=== PATIENT | female | born 1950 | race Caucasian/White ===

== ENCOUNTER 2021-12-03 09:44 | Outpatient (CLI) | payer MEDICARE, OTHER, SELFPAY ==
--- NOTE | 2021-12-03 09:48 | BI_ITS ---
MAMMOGRAPHY - BILATERAL SCREENING REASON FOR EXAM: Female, 71 years old. Routine annual screening examination. PERTINENT HISTORY: Sister with breast cancer. Grandmother with breast cancer. TECHNIQUE: Digital bilateral breast josefa (3D mammographic acquisition) in the CC and MLO projections. 2-D mediolateral oblique (MLO) and craniocaudad (CC) views of both breasts were obtained. CAD: Full Field Digital Mammography with Computer Added Detection was performed. COMPARISON: Comparison is made with prior outside examinations dated 02/03/2020. FINDINGS: Breast Composition: The breasts are almost entirely fatty. There are no dominant masses or suspicious calcifications. No other significant abnormalities are identified. There has been no significant change since the prior study. BI/SCRN MAMM (CAD)W/JOSEFA BILAT IMPRESSION: Stable bilateral screening mammogram. Yearly follow-up mammogram recommended. (A) ASSESSMENT CATEGORY: BIRADS Category 1: Negative. A letter regarding these results will be sent to the patient by the facility within 30 days. Approximately 10% of breast cancers are not detected by mammography. A normal mammogram should not delay biopsy of a clinically suspicious abnormality. [id number] Electronically Signed: Adan Park MD at 12:30 EDT ,
== END 2021-12-03 23:59 | disposition home or self-care (01) ==
LOC: OPBI 09:46
PROVIDERS: PCP Internal Medicine; Visit Provider Internal Medicine
DX: Z12.31 Encounter for screening mammogram for malignant neoplasm of breast (principal)
CPT/HCPCS: 77063; 77067

== ENCOUNTER → 2022-04-03 | Outpatient (CLI) | payer MEDICARE, SELFPAY ==
--- NOTE | 2022-04-03 08:44 | BD_ITS ---
STUDY: DUAL ENERGY X-RAY ABSORPTIOMETRY / DXA REASON FOR EXAM: Female, 71 years old. [id number]. Patient is postmenopausal. TECHNIQUE: Bone Mineral Density (BMD) measurements of lumbar spine and left hip were obtained. COMPARISON: None. FINDINGS: Lumbar Spine (L1-L4): g/cm2 (1.185) / T-score (1.5) / Z-score (3.8) Findings are suggestive of normal bone density with a low fracture risk. Left Femur Total: g/cm2 (0.968) / T-score (0.2) / Z-score (1.9) Left Femoral Neck: g/cm2 (0.782) / T-score (-0.6) / Z-score (1.4) BD/Dexa Bone Density Study IMPRESSION: The patient is considered normal as outlined below according to World Justice Organization (WHO) criteria with a low fracture risk. Reference Information: The T-score is the number of standard deviations above or below the standard which is normal for young adults at their peak bone mineral density. The World Health Organization (WHO) interprets the T-scores as follows: Above -1 Normal bone density Between -1 and -2.5 Osteopenia Equal to / or below -2.5 Osteoporosis As a practical clinical guideline, osteopenia may be graded as follows: Mild -1 through -1.5 Moderate -1.6 through -2.0 Severe -2.1 through -2.4 The Z-score is the number of standard deviations above or below age-matched controls. A Z-score of less than -1.5 would be considered abnormal. References: 1. NIH Osteoporosis and Related Bone Diseases www osteo.org 2. International Society for Clinical Densitometry www iscd.org 3. National Osteoporosis Foundation www nof.org Electronically Signed: Adan Park MD at 14:25 EDT ,
== END | disposition home or self-care (01) ==
PROVIDERS: PCP Internal Medicine; Visit Provider Internal Medicine
DX: Z78.0 Asymptomatic menopausal state (principal)
CPT/HCPCS: 77080

== ENCOUNTER → 2022-10-24 | Outpatient (CLI) | payer MEDICARE, SELFPAY ==
[2022-10-24 09:13] LABS: Cholesterol 184 mg/dL (200); High Density Lipoprotein 59 mg/dL; Triglycerides 206 mg/dL; Very Low Density Lipoprotein 41 mg/dL (5-40)
== END | disposition home or self-care (01) ==
LOC: PAVLAB 08:37
PROVIDERS: PCP Internal Medicine
DX: I48.91 Unspecified atrial fibrillation (principal); I25.10 Atherosclerotic heart disease of native coronary artery without angina pectoris
CPT/HCPCS: 36415; 80061

== ENCOUNTER → 2022-12-18 | Outpatient (CLI) | payer MEDICARE, SELFPAY ==
--- NOTE | 2022-12-18 16:57 | RAD_ITS ---
STUDY: X-RAY - THORACIC SPINE REASON FOR EXAM: Female, 72 years old. Back pain. TECHNIQUE: 2 view(s) of the thoracic spine were obtained. COMPARISON: None. FINDINGS: Normal kyphosis of the thoracic spine. There is no substantial scoliosis. Normal thoracic vertebrae and endplates. Normal disc space heights. There is no acute fracture, dislocation or destructive osseous pathology. The soft tissue structures are unremarkable. RAD/Thoracic Spine 2 Views IMPRESSION: Normal x-ray examination of the thoracic spine. Electronically Signed: Harpal Stock DO at 18:48 EDT ,
--- NOTE | 2022-12-18 16:58 | RAD_ITS ---
INDICATION: BACK PAIN EXAMINATION/TECHNIQUE: X-RAY - XR Spine Lumbar Comp W/ Bending Min 6 Views COMPARISON: None. FINDINGS: VERTEBRAE: Vertebral body height is maintained, there is a mild dextroscoliotic curvature, multilevel spondylosis with marginal osteophytes noted. No fracture destructive bony process or subluxation. Normal appearance of the sacrum and sacroiliac joints. DISCS: Disc spaces are maintained, there however is vacuum phenomena at the L3-4 and L4-5 disc spaces. Marginal osteophytes are present. Multilevel facet arthropathy from L2 to S1. INCLUDED ABDOMEN: Included bowel gas pattern is non-obstructive. Diffuse aortic calcifications are present. RAD/L/S Spine w Bend Min 6 Vw IMPRESSION: 1. Diffuse lumbar spondylosis, facet arthrosis without evidence of fracture, subluxation or destructive bony process. Moderate to extensive facet arthropathy from L2 to S1. Electronically Signed: Jonathan Ramsay MD at 19:56 EDT ,
[2022-12-18 17:55] LABS: Absolute Lymphocyte Count 2.79 X10^3/uL (0.83-4.51); Absolute Neutrophil Count 4.1 X10^3/uL (2.0-7.7); Basophil# 0.07 X10^3/uL; Basophil% 0.8 % (0-1); Eosinophil# 0.51 X10^3/uL; Eosinophils% 6.2 % (0-5); Hematocrit 39.2 % (37-47); Hemoglobin 12.4 g/dL (12.0-15.0); Lymphocyte # 2.79 X10^3/ul (0.83-4.51); Lymphocyte % 33.8 % (19-41); Mean Corp Hgb Conc 31.6 g/dL (32-36); Mean Corpuscular Hgb 33.2 pg (27.0-32.0); Mean Corpuscular Volume 104.8 fL (81-99); Mean Platelet Vol. 10.1 fl (6.2-12.0); Monocyte# 0.75 X10^3/uL; Monocyte% 9.1 % (0-10); NRBC Flagged by Analyzer 0 % (0-5); Neutrophil # 4.08 X10^3/uL (2.7-7.7); Neutrophil % 49.5 % (47-70); Platelet Count 267 K/mm3 (150-450); RBC Distribution Width SD 53.1 fl (35.1-43.9); Red Blood Count 3.74 M/mm3 (4.2-5.4); White Blood Count 8.3 K/mm3 (4.4-11.0)
[2022-12-18 18:15] LABS: Hemoglobin A1c 5.3 % (3.8-5.6)
[2022-12-18 19:59] LABS: ALB/GLOB Ratio 0.8 RATIO (0.9-2.4); AST(SGOT) 14 U/L (15-37); Alanine Aminotransfer ALT/SGPT 12 U/L (13-56); Alkaline Phosphatase 68 U/L (45-117); Anion Gap 2 (5-15); BUN 9 mg/dL (7-18); BUN/Creat Ratio 11.2 RATIO (10-20); Calcium,Total 8.9 mg/dL (8.5-10.1); Chloride 109 mmol/L (98-107); EST Glomerular Filtration Rate 75 mL/min (>60); Est Glom Filt Rate - Afr Amer 90 mL/min (>60); Globulin 3.8 g/dL (2.2-4.2); Glucose 88 mg/dL (74-106); Potassium 4.1 mmol/L (3.5-5.1); Protein, Total 6.8 g/dL (6.4-8.2); Sodium Level 142 mmol/L (136-145); Thyroid Stim Hormone (TSH) 3.01 uIU/mL (0.358-3.74)
== END | disposition home or self-care (01) ==
PROVIDERS: PCP Internal Medicine; Referring Provider Internal Medicine; Visit Provider Internal Medicine
DX: R53.83 Other fatigue (principal); I48.11 Longstanding persistent atrial fibrillation; R73.9 Hyperglycemia, unspecified; M54.50 Low back pain, unspecified
CPT/HCPCS: 36415; 72070; 72114; 80053; 83036; 84443; 85025

== ENCOUNTER → 2023-05-19 | Outpatient (CLI) | payer MEDICARE, SELFPAY ==
--- NOTE | 2023-05-19 13:21 | VDLE_ITS ---
Reason For Study: RLE swelling RIGHT LEFT GSV is normal. GSV is normal. CFV is compressible, spontaneous, phasic, CFV is compressible, spontaneous, phasic, competent and demonstrates normal competent, and demonstrates normal augmentation. augmentation. FV is compressible, spontaneous, phasic, FV is compressible, spontaneous, phasic, competent and demonstrates normal competent and demonstrates normal augmentation. augmentation. POP V is compressible, spontaneous, phasic, POP V is compressible, spontaneous, phasic, competent and demonstrates normal competent and demonstrates normal augmentation. augmentation. T/P Trunk is compressible. T/P Trunk is compressible. PTV is compressible. PTV is compressible. RT PerV is compressible. LT PerV is compressible. Procedure This is a venous duplex using B-mode, color flow and spectral Doppler. Exam performed in department. The exam was diagnostic. A preliminary report was called and/or faxed to Dr. Arora. VL/Venous Duplex US - Juan Extrem Interpretation Summary Deep veins of the lower extremities are bilaterally patent and compressible seg mentally. There is no evidence of deep vein thrombosis on either side. Valvular competence appears in tact within the proximal deep venous systems bilaterally. The great saphenous veins appear bila terally patent and compressible segmentally. Ordering Physician: Kelsey Arora Performed By: Basim Anderson, RVT
== END | disposition home or self-care (01) ==
LOC: CVS 13:18
PROVIDERS: PCP Internal Medicine; Referring Provider Internal Medicine; Visit Provider Internal Medicine
DX: M79.89 Other specified soft tissue disorders (principal)
CPT/HCPCS: 93970

== ENCOUNTER → 2023-05-30 | Outpatient (CLI) | payer MEDICARE, SELFPAY ==
--- NOTE | 2023-05-30 09:41 | CT_ITS ---
EXAM: CT CHEST, LUNG CANCER SCREENING WITHOUT INTRAVENOUS CONTRAST CLINICAL INDICATION: CIGARETTE SMOKER TECHNIQUE: Helically acquired images were obtained of the chest without intravenous contrast using low dose (LDCT) lung cancer screening protocol. This CT exam was performed using one or more of the following dose reduction techniques: automated exposure control, adjustment of the mA and/or kV according to patient size, and/or use of iterative reconstruction technique. COMPARISON: No relevant prior studies available. FINDINGS: LUNGS AND PLEURAL SPACES: There are emphysematous changes in the lung apices. There is minimal interstitial scarring present in both lungs. No mass. No pleural effusion or thickening. No pneumothorax. HEART: Unremarkable. Heart size is normal. No pericardial effusion. No significant coronary artery calcifications. MEDIASTINUM: Unremarkable. No mediastinal or hilar adenopathy. Esophagus is unremarkable. No hiatal hernia. THYROID: Unremarkable. No thyroid lesions. BONES/JOINTS: Unremarkable. No suspicious lytic or blastic abnormality. VASCULATURE: Unremarkable. Thoracic aorta is non-dilated. LYMPH NODES: Unremarkable. No enlarged lymph nodes. CT/Low Dose CT Lung Screening IMPRESSION: No acute pulmonary abnormality. There are emphysematous changes with interstitial scarring. Lung-RADS score: 1S - Additional clinically significant or potentially clinically significant findings are described. Recommend continued annual screening with a low-dose CT (LDCT) in 12 months. Electronically Signed: Stephen Mcdowell MD at 0:01 EDT ,
== END | disposition home or self-care (01) ==
LOC: CT 09:40
PROVIDERS: PCP Internal Medicine; Referring Provider Internal Medicine; Visit Provider Internal Medicine
DX: Z12.2 Encounter for screening for malignant neoplasm of respiratory organs (principal); F17.210 Nicotine dependence, cigarettes, uncomplicated
CPT/HCPCS: 71271

== ENCOUNTER 2023-06-26 18:36 | Inpatient (IN) | payer MEDICARE, SELFPAY ==
[2023-06-26] VITALS (18 sets, daily range): BP systolic 83–116; BP diastolic 43–74; PULSE 106–120; RESP 12–34; TEMP 36.9–38.8; O2SAT 91–97; BMI 35.2; BMI 34.9
--- NOTE | 2023-06-26 18:45 | EKG12_ITS ---
Test Reason : DYSRHYTHMIA Blood Pressure : / mmHG Vent. Rate : 116 BPM Atrial Rate : 116 BPM P-R Int : 200 ms QRS Dur : 090 ms QT Int : 304 ms P-R-T Axes : 046 054 043 degrees QTc Int : 422 ms Sinus tachycardia with occasional Premature ventricular complexes Low voltage QRS Nonspecific ST and T wave abnormality Abnormal ECG Confirmed by GARRISON LARSON, NICOLE ([id number]), news videotape editor VALORIE BECK ([id number]) on 06/30/2023 7:46:24 AM Referred By: Confirmed By:NICOLE JI MD
--- NOTE | 2023-06-26 18:48 | EX.ED.CRITCA ---
HPI History of Present Illness Chief Complaint: Overdose Detail of Chief Complaint: Somnolence, hypoxia Informant: EMS Limited: coma Onset/Context/Timing Onset: Today (Per roommate reporting to EMS) Context: - (Unknown) Timing: Continuous Quality: Pulse ox 68% Location: Sitting on the commode Current Severity: Unable to determine Maximum Severity: Unable to determine Worsened by: Unknown Relieved by: Nothing Associated Symptoms Length of loss of consciousness: Unknown Narrative Narrative: Patient is 72-year-old woman who was found by roommate sitting on the commode. Resumption is that she was on the commode for some time. Paramedics documented a pulse ox of 60% on room air. She was cyanotic. No other history is obtainable PFSH PFS Medical History unable to obtain unable to obtain Allergy/AdvReac Type Severity Reaction Status Date / Time No Known Allergies Allergy Verified 06/26/23 18:42 Surgical History unable to obtain unable to obtain Social History Smoking Status: Current some day smoker tobacco type: cigarettes ROS ROS ED Review of Systems ROS Unobtainable: due to encephalopathy and due to mental status EXAM Physical Exam Const Vital Signs: 06/26/23 18:38 06/26/23 18:46 06/26/23 18:47 Temperature 98.5 F Temperature Source Temporal Pulse Rate 120 H Respiratory Rate 34 H Respiratory Effort Short of Breath Labored Respiratory Depth Shallow Respiratory Pattern Tachypnea Blood Pressure 101/56 L Blood Pressure Mean 71 Pulse Ox 92 92 Oxygen Delivery Method Non-Rebreather @ 15L/min Non-Rebreather @ 15L/min Non-Rebreather @ 15L/min Oxygen Flow Rate (L/min) 15 Fraction of Inspired Oxygen (FIO2) 06/26/23 19:22 06/26/23 19:21 06/26/23 19:34 Temperature Temperature Source Pulse Rate 110 H 112 H 108 H Respiratory Rate 25 H 28 H 27 H Respiratory Effort Respiratory Depth Respiratory Pattern Tachypnea Blood Pressure 93/73 86/43 L Blood Pressure Mean 79 57 Pulse Ox 94 91 95 Oxygen Delivery Method Bi-pap Bi-pap Oxygen Flow Rate (L/min) Fraction of Inspired Oxygen (FIO2) 100 06/26/23 19:43 06/26/23 20:01 Temperature 102 F H 101.9 F H Temperature Source Core Core Pulse Rate 108 H 109 H Respiratory Rate 33 H 26 H Respiratory Effort Respiratory Depth Respiratory Pattern Blood Pressure 101/52 L 105/61 Blood Pressure Mean 68 75 Pulse Ox 97 97 Oxygen Delivery Method Bi-pap Bi-pap Oxygen Flow Rate (L/min) Fraction of Inspired Oxygen (FIO2) Positive well nourished, well developed and obese Constitutional Narrative: Is tachypneic. There is slight use of accessory muscles. General Appearance ED: well developed; Negative for pallor Nutritional Appearance: obese HEENT normocephalic, atraumatic and cyanosis of lips/distal nose Eyes PERRL and EOMs intact bilaterally General Eye ED: Negative for pale conjunctiva or scleral icterus Neck no lymphadenopathy, supple and no JVD Neck Narrative: Difficult to assess for JVD because of this Resp Resp Narrative: Use of accessory muscles. There is bilateral adventitial breath sounds and rales. Cardio regular rhythm, S1 normal heart sound and S2 normal heart sound Rate: tachycardic GI non-tender, non-distended and no masses Palpation: soft Neuro No oriented x3 Sensorium / Orientation: Negative for alert Gait (Neuro): Negative for normal gait Psych Psych Narrative: Unable to assess Skin General Skin Exam: Negative for jaundice or pallor Lesions: no lesions Rashes: no rashes Sepsis Attestation Sepsis Alert: Yes Date exam was performed: 06/26/23 Time exam was performed: 19:30 Possible Source of Sepsis: Pulmonary Sepsis Organ Dysfunction Criteria Present: SBP < 90 mmHg or MAP < 65 mmHg, Lactic Acid > 2 mmol/L and PaO2/FiO2 ratio < 300 Fluid Resuscitation Fluid resuscitation indicated?: Yes Fluid Resuscitation ordered: 30 ml/kg fluid bolus ordered MDM MDM MDM Narrative Medical decision making narrative: Arrives cyanotic hypoxic somnolent. Concern patient may have pneumonia, concern for hypercapnia. Need to evaluate for sepsis since she is hypotensive, tachycardic and tachypneic. Sepsis work-up was initiated. ABG was obtained as well as appropriate blood work. History & Record Review Additional record(s) reviewed:: Prior outpatient record (Scanned document the patient is undergoing work-up for malignancy respiratory system.) Lab Data Attestation: I reviewed the patient's lab results. Lab results narrative: Count is 23 to Alzain with shift. Patient has macrocytic anemia. PT and INR slightly elevated 17.1 and 1.4. Comprehensive metabolic panel is remarkable for a creatinine of 1.37 with a GFR of 40. Glucose slightly elevated 111 with a normal CO2 and gap. Urinalysis is negative. I was informed that lactate is 6.6. Labs: Laboratory Results - last 24 hr 06/26/23 06/26/23 18:52 19:15 WBC 23.1 H RBC 3.48 L Hgb 10.9 L Hct 36.0 L MCV 103.4 H MCH 31.3 MCHC 30.3 L RDW Std Deviation 56.9 H RDW Coeff of Anabela 15.0 H Plt Count 230 MPV 10.5 Immature Gran % (Auto) 0.500 Neut % (Auto) 91.0 H Lymph % (Auto) 4.0 L [place] % (Auto) 3.9 Eos % (Auto) 0.3 Baso % (Auto) 0.3 Absolute Neuts (auto) 20.9 H Absolute Lymphs (auto) 0.92 Nucleated RBC % 0.2 Differential Comment SCANNED PT 17.1 H INR 1.4 APTT 29.7 Sodium 141 Potassium 4.4 Chloride 108 H Carbon Dioxide 27.0 Anion Gap 6 BUN 15 Creatinine 1.37 H Estim Creat Clear Calc 35.03 Est GFR (MDRD) Af Amer 48 L Est GFR (MDRD) Non-Af 40 L BUN/Creatinine Ratio 10.9 Glucose 111 H Lactic Acid 6.6 H* Calcium 8.6 Total Bilirubin 0.40 AST 18 ALT 13 Alkaline Phosphatase 59 Total Protein 6.5 Albumin 2.6 L Globulin 3.9 Albumin/Globulin Ratio 0.7 L Urine Color Yellow Urine Clarity Clear Urine pH 7.0 Ur Specific [place] 1.005 Urine Protein Negative Urine Glucose (UA) Normal Urine Ketones Negative Urine Occult Blood Negative Urine Nitrite Negative Urine Bilirubin Negative Urine Urobilinogen Normal Ur Leukocyte Esterase Negative Urine RBC 0 SEEN Urine WBC 0 SEEN Ur Squamous Epith Cells 0 SEEN Urine Bacteria 0 SEEN Urine Mucus 0 SEEN ABG Data Attestation: I personally reviewed and interpreted this ABG as follows: Interpretation: G reveals no acid-base disturbance. Patient has significant AA gradient. PO2 is 64 on nonrebreather mask. Plan is to place on BiPAP. ABG results: ABG 06/26/23 19:11 Specimen Type ART Sample Site L Radial pH 7.35 Bicarbonate Actual 25.2 Total CO2 27 Base Excess -1 O2 Saturation 91 L O2 % 100.0 ABG pCO2 45.8 H ABG pO2 64 L [place] Test Positive O2 Delivery Device NRB Vent Mode Not entered Radiography Diagnostic Testing: Clinical Impression(s) from Imaging Studies Chest X-Ray 06/26/23 19:24 IMPRESSION: There is a right pleural effusion. Bilateral patchy infiltrates, left more than right. Electronically Signed: Jose Carlos Blandon DO at 20:14 EDT , Rhythm Strip Rhythm Strip: Sinus Tach Rate: 122 EKG Initial EKG: Attestation: I personally reviewed and interpreted this EKG as follows: Interpretation: Sinus Tachycardia (Is 116. There is a premature ventricular beat noted. There is evidence of low voltage. There is nonspecific ST-T wave changes. SD interval is 200 ms. Cures duration 90 ms. QT duration 304 ms. [place] is normal.) Management Discussion w/another healthcare provider: Hospitalist Treatment and Re-Evaluation Narrative: In light of x-ray findings 500 mg of azithromycin was added to the initial dose of Rocephin. Patient meets criteria for septic shock. blood pressure did respond to fluids. 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
[2023-06-26 19:01] LABS: Absolute Lymphocyte Count 0.92 X10^3/uL (0.83-4.51); Absolute Neutrophil Count 20.9 X10^3/uL (2.0-7.7); Basophil# 0.08 X10^3/uL; Basophil% 0.3 % (0-1); Eosinophil# 0.08 X10^3/uL; Eosinophils% 0.3 % (0-5); Hemoglobin 10.9 g/dL (12.0-15.0); Lymphocyte # 0.92 X10^3/ul (0.83-4.51); Mean Corp Hgb Conc 30.3 g/dL (32-36); Mean Corpuscular Hgb 31.3 pg (27.0-32.0); Mean Corpuscular Volume 103.4 fL (81-99); Mean Platelet Vol. 10.5 fl (6.2-12.0); Monocyte# 0.91 X10^3/uL; Monocyte% 3.9 % (0-10); NRBC Flagged by Analyzer 0.2 % (0-5); Neutrophil # 20.94 X10^3/uL (2.7-7.7); POSITIVE DIFFERENTIAL YES; POSITIVE MORPHOLOGY YES; Platelet Count 230 K/mm3 (150-450); RBC Distribution Width SD 56.9 fl (35.1-43.9); Red Blood Count 3.48 M/mm3 (4.2-5.4); White Blood Count 23.1 K/mm3 (4.4-11.0)
[2023-06-26 19:03] LABS: Differential Indicated SCAN CRITERIA MET
[2023-06-26 19:12] LABS: International Normalized Ratio 1.4; Prothrombin Time (Protime)PT. 17.1 SECONDS (11.7-14.9)
[2023-06-26 19:13] LABS: Partial Thromboplast Time 29.7 Seconds (24.1-36.2)
[2023-06-26 19:15] LABS: ALB/GLOB Ratio 0.7 RATIO (0.9-2.4); AST(SGOT) 18 U/L (15-37); Alanine Aminotransfer ALT/SGPT 13 U/L (13-56); Albumin, Serum 2.6 g/dL (3.2-5.0); Alkaline Phosphatase 59 U/L (45-117); Anion Gap 6 (5-15); BUN 15 mg/dL (7-18); BUN/Creat Ratio 10.9 RATIO (10-20); Calcium,Total 8.6 mg/dL (8.5-10.1); Chloride 108 mmol/L (98-107); Creatinine, Serum 1.37 mg/dL (0.55-1.02); EST Glomerular Filtration Rate 40 mL/min (>60); Est Glom Filt Rate - Afr Amer 48 mL/min (>60); Estimated Creatinine Clearance 35.03 ml/min; Globulin 3.9 g/dL (2.2-4.2); Glucose 111 mg/dL (74-106); Potassium 4.4 mmol/L (3.5-5.1); Protein, Total 6.5 g/dL (6.4-8.2); Sodium Level 141 mmol/L (136-145)
[2023-06-26 19:15] LABS: Allen Test Positive; Base Excess -1 mmol/L (-2 to +2); Bicarbonate 25.2 mmol/L (22-26); Blood Gas Specimen Type ART; Mode Not entered; O2 Delivery Device NRB; PO2 64 mmHG (75-100); SITE L Radial; SO2 91 % (95-99); Total Carbon Dioxide 27 mmol/L; pCO2 45.8 mmHg (35-45); pH 7.35 (7.35-7.45)
[2023-06-26 19:19] LABS: Bacteria 0 SEEN /hpf (None Seen); Mucous, Urine 0 SEEN /hpf (<or=2+); Red Blood Cells-Urine 0 SEEN /hpf (0-5); Squamous Epithelial Cells - UA 0 SEEN /hpf (5-10); White Blood Cells 0 SEEN /hpf (0-5)
[2023-06-26 19:22] LABS: Color, Urine Yellow (Yellow); Glucose, Dipstick Normal (Normal); Ketone-Dipstick Negative (Negative); Leukocyte Esterase-Dipstick Negative /ul (Negative); Nitrite-Dipstick Negative (Negative); Occult Blood-Urine Negative /ul (Negative); Protein-Dipstick Negative (Negative); Specific Gravity, Urine 1.005 (1.002-1.030); Urine Bilirubin Dipstick Negative (Negative); Urine Clarity Clear (Clear); Urine Urobilinogen Normal (Normal)
--- NOTE | 2023-06-26 19:24 | RAD_ITS ---
INDICATION: Phillip failure EXAMINATION/TECHNIQUE: X-RAY - XR Chest 1 View COMPARISON: February 27, 2023 FINDINGS: LINES/DEVICES: None. LUNGS: There is a right pleural effusion. Bilateral patchy infiltrates, left more than right. MEDIASTINUM AND CARDIOVASCULAR STRUCTURES: Cardiac silhouette not enlarged. Central airways and mediastinal contour are unremarkable. BONES AND SOFT TISSUES: Unremarkable. RAD/Chest 1 View (Portable) IMPRESSION: There is a right pleural effusion. Bilateral patchy infiltrates, left more than right. Electronically Signed: Jose Carlos Blandon DO at 20:14 EDT ,
[2023-06-26] MEDS: 0.9% Normal Saline (1000mL) 1,000 ML 999 ML IV ×3 (19:29→20:04)
[2023-06-26 19:30] LABS: Differential Comment SCANNED
[2023-06-26 19:37] LABS: Lactic Acid 6.6 mmol/L (0.4-1.9)
[2023-06-26] MEDS: Ceftriaxone 1 GM/50 ML BAG IV (19:39)
[2023-06-26] MEDS: Azithromycin 500 MG in Dextrose 5%-Water (250mL Bag) 250 ML 250 MG IV (20:05)
--- NOTE | 2023-06-26 20:46 | HP.PCM.HOS_ITS ---
HPI - General General Date of Admission: 06/26/23 Date of Service: 06/26/23 Chief Complaint: Unresponsiveness HPI Narrative GERALD ROUSE, is a 72 F who presented to the emergency department with unresponsiveness. Reportedly a day before presentation patient took an extra dose of Eliquis; trazodone and antipsychotic and she was found unresponsive sitting on the commode. Per emergency department doctor who initially saw patient, patient was somnolent and she was moaning. She follows only very simple commands. Her oxygen saturation was 65% on room air. ED doctor reports the patient had wheezes throughout with right worse than left. Blood pressure initially was low with a MAP of about 59 and a lactic acid of 6.6. Chest x-ray showed interstitial infiltrates. Patient responded to fluids resuscitation. Patient was given Rocephin and azithromycin at the emergency department. Upon hospitalist examination patient was still somnolent. When prodded she responded that she has not been feeling good for about 1 day. When asked the question of why she takes Eliquis and whether she has had blood clots in her lungs or in the legs she indicated that she had had a blood clot in her lungs. She did not answer to the question of whether she has had A-fib. [facility] Medical History Pulmonary emboli Medical History unable to obtain Home Medications apixaban 5 mg tablet (Eliquis) 5 mg PO BID 06/26/23 [History Last Taken Unknown] bupropion HCl 300 mg 24 hr tablet, extended release 300 mg PO DAILY 06/26/23 [History Last Taken Unknown] carbidopa 25 mg-levodopa 100 mg tablet 2 tab PO DAILY 06/26/23 [History Last Taken Unknown] hydrocodone-acetaminophen 5-325mg 5mg-325mg 1 tab PO TID PRN pain 06/26/23 [History Last Taken Unknown] prednisone 10 mg tablet 20 mg PO DAILY 06/26/23 [History Last Taken Unknown] pregabalin 300 mg capsule 300 mg PO BID 06/26/23 [History Last Taken Unknown] rosuvastatin 40 mg tablet 40 mg PO DAILY 06/26/23 [History Last Taken Unknown] sertraline 100 mg tablet 100 mg PO DAILY 06/26/23 [History Last Taken Unknown] torsemide 100 mg tablet 100 mg PO DAILY PRN SEE PCP. 06/26/23 [History Last Taken Unknown] trazodone 100 mg tablet 100 mg PO QHS 06/26/23 [History Last Taken Unknown] Allergy/AdvReac Type Severity Reaction Status Date / Time No Known Allergies Allergy Verified 06/26/23 18:42 Family History unable to obtain unable to obtain Surgical History unable to obtain unable to obtain Social History Smoking Status: Current some day smoker tobacco type: cigarettes ROS Review of Systems ROS Unobtainable: due to mental condition Vital Signs Vital Signs Vital Signs: 06/26/23 18:38 06/26/23 18:46 06/26/23 18:47 Temperature 98.5 F Temperature Source Temporal Pulse Rate 120 H Respiratory Rate 34 H Respiratory Effort Short of Breath Labored Respiratory Depth Shallow Respiratory Pattern Tachypnea Blood Pressure 101/56 L Blood Pressure Mean 71 Pulse Ox 92 92 Oxygen Delivery Method Non-Rebreather @ 15L/min Non-Rebreather @ 15L/min Non-Rebreather @ 15L/min Oxygen Flow Rate (L/min) 15 Fraction of Inspired Oxygen (FIO2) 06/26/23 19:22 06/26/23 19:21 06/26/23 19:34 Temperature Temperature Source Pulse Rate 110 H 112 H 108 H Respiratory Rate 25 H 28 H 27 H Respiratory Effort Respiratory Depth Respiratory Pattern Tachypnea Blood Pressure 93/73 86/43 L Blood Pressure Mean 79 57 Pulse Ox 94 91 95 Oxygen Delivery Method Bi-pap Bi-pap Oxygen Flow Rate (L/min) Fraction of Inspired Oxygen (FIO2) 100 06/26/23 19:43 06/26/23 20:01 06/26/23 20:39 Temperature 102 F H 101.9 F H 101.4 F H Temperature Source Core Core Pulse Rate 108 H 109 H 108 H Respiratory Rate 33 H 26 H 23 H Respiratory Effort Respiratory Depth Respiratory Pattern Blood Pressure 101/52 L 105/61 107/63 Blood Pressure Mean 68 75 77 Pulse Ox 97 97 94 Oxygen Delivery Method Bi-pap Bi-pap Oxygen Flow Rate (L/min) Fraction of Inspired Oxygen (FIO2) 06/26/23 20:44 Temperature 101.4 F H Temperature Source Core Pulse Rate 108 H Respiratory Rate 27 H Respiratory Effort Respiratory Depth Respiratory Pattern Blood Pressure 107/63 Blood Pressure Mean 77 Pulse Ox 93 Oxygen Delivery Method Bi-pap Oxygen Flow Rate (L/min) Fraction of Inspired Oxygen (FIO2) Weight Weight: 102 kg Body Mass Index (BMI) 35.2 Physical Exam Narrative Physical exam: General: Somnolent. Head: Normocephalic, atraumatic, no tenderness Eyes: Vision is grossly intact. ENT, no trauma, dry mucous membranes, no rhinorrhea Neck: Nontender, No thyromegaly. CVS: Tachycardia. S1-S2 present. No murmur, gallop or rub. Respiratory : Rhonchi, chest wall nontender Abdomen: Soft, nontender, nondistended, normal bowel sounds, no masses : Deferred Back: Nontender, no CVA tenderness Extremities: Nontender; no trauma Skin: Dry skin; no abrasions seen Neuro: Somnolent Psychiatry: Somnolent Results Lab / Micro Data 06/26/23 18:52 06/26/23 18:52 Labs: Laboratory Results - last 24 hr 06/26/23 18:52: WBC 23.1 H, RBC 3.48 L, Hgb 10.9 L, Hct 36.0 L, MCV 103.4 H, MCH 31.3, MCHC 30.3 L, RDW Std Deviation 56.9 H, RDW Coeff of Anabela 15.0 H, Plt Count 230, MPV 10.5, Immature Gran % (Auto) 0.500, Neut % (Auto) 91.0 H, Lymph % (Auto) 4.0 L, [place] % (Auto) 3.9, Eos % (Auto) 0.3, Baso % (Auto) 0.3, Absolute Neuts (auto) 20.9 H, Absolute Lymphs (auto) 0.92, Nucleated RBC % 0.2, Differential Comment SCANNED, PT 17.1 H, INR 1.4, APTT 29.7, Sodium 141, Potassium 4.4, Chloride 108 H, Carbon Dioxide 27.0, Anion Gap 6, BUN 15, Creatinine 1.37 H, Estim Creat Clear Calc 35.03, Est GFR (MDRD) Af Amer 48 L, Est GFR (MDRD) Non-Af 40 L, BUN/Creatinine Ratio 10.9, Glucose 111 H, Lactic Acid 6.6 H*, Calcium 8.6, Total Bilirubin 0.40, AST 18, ALT 13, Alkaline Phosphatase 59, Total Protein 6.5, Albumin 2.6 L, Globulin 3.9, Albumin/Globulin Ratio 0.7 L 06/26/23 19:15: Urine Color Yellow, Urine Clarity Clear, Urine pH 7.0, Ur Specific [place] 1.005, Urine Protein Negative, Urine Glucose (UA) Normal, Urine Ketones Negative, Urine Occult Blood Negative, Urine Nitrite Negative, Urine Bilirubin Negative, Urine Urobilinogen Normal, Ur Leukocyte Esterase Negative, Urine RBC 0 SEEN, Urine WBC 0 SEEN, Ur Squamous Epith Cells 0 SEEN, Urine Bacteria 0 SEEN, Urine Mucus 0 SEEN ABG Data ABG results: ABG 06/26/23 19:11 Specimen Type ART Sample Site L Radial pH 7.35 Bicarbonate Actual 25.2 Total CO2 27 Base Excess -1 O2 Saturation 91 L O2 % 100.0 ABG pCO2 45.8 H ABG pO2 64 L [place] Test Positive O2 Delivery Device NRB Vent Mode Not entered Rhythm Strip Rhythm Strip: Sinus Tach Rate: 122 Radiology Impression Chest X-Ray 06/26/23 19:24 IMPRESSION: There is a right pleural effusion. Bilateral patchy infiltrates, left more than right. Electronically Signed: Jose Carlos Blandon DO at 20:14 EDT Reading Location ID and State: [facility] / [place] Tel [phone], Service support , Assessment & Plan Assessment/Plan (1) Acute hypoxic respiratory failure: (2) Septic shock: (3) Encephalopathy due to infection: PLAN: Plan Acute hypoxemic respiratory failure secondary to pneumonia with septic shock and possibly drug overdose Patient required BiPAP at the emergency department. The patient presented with sepsis due to (infection) with acute sepsis related organ dysfunction as evidenced by (organ dysfunction/s). SIRS criteria: Temperature more than 100.9 (Tmax of 102 Fahrenheit in patient's case) Fahrenheit Respiratory rate more than 20 (maximum recorded respiratory rate at the emergency department was 34) Heart rate more than 90 (highest respiratory rate on presentation was 120) WBC more than 12,000 (23,100 in patient case) organ dysfunction: SBP less than 90 or MAP less than 65 Acute respiratory failure Creatinine more than 2 or urine output less than 0.5 mL/kg/h for 2 hours Septic shock criteria - patient's lactic acid was more than 4 (6.6 in patient case). Patient was given azithromycin and ceftriaxone in the emergency department. Azithromycin IV will be continued. Will order Unasyn for patient. Urinalysis is unremarkable. Urine ordered at the ED. Results are pending. Blood culture x2 ordered at the ED. Acute infectious and toxic encephalopathy Likely secondary to sepsis from pneumonia and drug overdose Treatment of sepsis as above. Hold all psychogenic medications. History of PE We will put patient on therapeutic dose of Lovenox patient will be n.p.o. History of steroids use On patient medication list is prednisone 20 mg p.o. daily. In the setting of acute disease we will order hydrocortisone IV to prevent adrenal insufficiency. DVT Prophylaxis: Not indicated as patient is on therapeutic dose of Lovenox Time spent in the patient's overall evaluation,decision-making process, review of diagnostic data, adjustment of management, discussion with other providers, nursing nursing and ancillary staff involved in patient's care documentation, 70 minutes . Sepsis Attestation Sepsis Attestation: Agree w/Sepsis Date exam was performed: 06/26/23 Time exam was performed: 09:00 Possible Source of Sepsis: Pulmonary Sepsis Organ Dysfunction Criteria Present: SBP < 90 mmHg or MAP < 65 mmHg, Acute Respiratory Failure (New need for BiPAP/CPAP or MV), Lactic Acid > 2 mmol/L and New/Unexplained change in mental status Fluid Resuscitation Fluid Resuscitation ordered: 30 ml/kg fluid bolus ordered Charges/Coding Visit Charges Inpatient E&M: 92981 Init Hosp L3
--- NOTE | 2023-06-26 20:49 | ED.RN ---
THIS RN CALLED REPORT TO ICU. REPORT GIVEN TO MARISOL STRINGER. AT 2049.
[2023-06-26] MEDS: Enoxaparin 100 MG/ML Syringe SC (21:58)
[2023-06-26] MEDS: Lactated Ringers 1,000 ML 75 ML IV (21:58)
[2023-06-26 22:57] LABS: Reflex Lactate? Y
[2023-06-26] MEDS: Ampicillin/Sulbactam 3 GM in 0.9% Normal Saline (100mL MB+) 100 ML IV (23:44)
[2023-06-27] VITALS (33 sets, daily range): BP systolic 83–141; BP diastolic 51–86; PULSE 97–122; RESP 12–34; TEMP 35.9–37.2; O2SAT 89–98; BMI 34.9
[2023-06-27] MEDS: Ampicillin/Sulbactam 3 GM in 0.9% Normal Saline (100mL MB+) 100 ML IV ×4 (05:07→23:36)
[2023-06-27] MEDS: Enoxaparin 100 MG/ML Syringe SC (05:09)
[2023-06-27 06:11] LABS: Hematocrit 31.9 % (37-47); Hemoglobin 9.5 g/dL (12.0-15.0); Mean Corp Hgb Conc 29.8 g/dL (32-36); Mean Corpuscular Hgb 31.1 pg (27.0-32.0); Mean Corpuscular Volume 104.6 fL (81-99); POSITIVE MORPHOLOGY YES; Platelet Count 210 K/mm3 (150-450); RBC Distribution Width CV 15.1 % (11.6-14.6); RBC Distribution Width SD 58.3 fl (35.1-43.9); Red Blood Count 3.05 M/mm3 (4.2-5.4); White Blood Count 19.3 K/mm3 (4.4-11.0)
[2023-06-27 06:21] LABS: Differential Indicated MANUAL DIFF
[2023-06-27 06:27] LABS: Eosinophil 1 % (0-5); Lymphocyte 5 % (19-41); Metamyelocyte 25 % (0-1); Monocyte 3 % (0-10); Myelocyte 1 % (0-0); Neutrophil-Band 10 % (0-5); Neutrophil-Segmented 55 % (47-70); Total Cells Counted 100 (MANUAL DIFF)
[2023-06-27 06:29] LABS: Absolute Lymphocyte Count 0.97 X10^3/uL (0.83-4.51); Absolute Neutrophil Count 17.6 X10^3/uL (2.0-7.7); Lymphocyte # 0.97 X10^3/ul (0.83-4.51); Neutrophil # 17.56 X10^3/uL (2.7-7.7); Platelet Estimate ADEQUATE (ADEQ)
[2023-06-27 06:30] LABS: Polychromasia RARE
[2023-06-27 06:33] LABS: Anion Gap 3 (5-15); BUN 14 mg/dL (7-18); BUN/Creat Ratio 17.3 RATIO (10-20); Calcium,Total 7.4 mg/dL (8.5-10.1); Chloride 112 mmol/L (98-107); Creatinine, Serum 0.81 mg/dL (0.55-1.02); EST Glomerular Filtration Rate 73 mL/min (>60); Est Glom Filt Rate - Afr Amer 89 mL/min (>60); Estimated Creatinine Clearance 61.47 ml/min; Glucose 95 mg/dL (74-106); Potassium 3.9 mmol/L (3.5-5.1); Sodium Level 146 mmol/L (136-145)
[2023-06-27 07:32] LABS: Magnesium 1.8 mg/dL (1.6-2.6); Phosphorus 1.9 mg/dL (2.5-4.9)
--- NOTE | 2023-06-27 07:38 | PN.HOSP_ITS ---
Subjective Subjective Oxygen able to weaned down to Airvo. Objective Data Objective Data Vital Signs: Vital Signs Temp Pulse Resp BP Pulse Ox O2 Del Method O2 Flow Rate 37.0 C 106 H 30 H 110/79 91 Bi-pap 15 06/27/23 05:00 06/27/23 07:17 06/27/23 07:17 06/27/23 07:00 06/27/23 07:17 06/27/23 07:00 06/26/23 18:47 FiO2 80 06/27/23 07:17 Oxygen Flow Rate (L/min) 15 Oxygen Delivery Method Bi-pap Weight: 104.2 kg Body Mass Index (BMI) 34.9 Intake & Output: Intake and Output for Last 24 Hours 06/25/23 06/26/23 06/27/23 23:59 23:59 23:59 Intake Total 1887.75 / 1887.75 224 / 224 Output Total 0 / 0 600 / 600 Balance 1887.75 / 1887.75 -376 / -376 Lab / Micro Data 06/27/23 05:05 06/27/23 05:05 Labs: Laboratory Results - last 24 hr 06/26/23 18:52: WBC 23.1 H, RBC 3.48 L, Hgb 10.9 L, Hct 36.0 L, MCV 103.4 H, MCH 31.3, MCHC 30.3 L, RDW Std Deviation 56.9 H, RDW Coeff of Anabela 15.0 H, Plt Count 230, MPV 10.5, Immature Gran % (Auto) 0.500, Neut % (Auto) 91.0 H, Lymph % (Auto) 4.0 L, [place] % (Auto) 3.9, Eos % (Auto) 0.3, Baso % (Auto) 0.3, Absolute Neuts (auto) 20.9 H, Absolute Lymphs (auto) 0.92, Nucleated RBC % 0.2, Differential Comment SCANNED, PT 17.1 H, INR 1.4, APTT 29.7, Sodium 141, Potassium 4.4, Chloride 108 H, Carbon Dioxide 27.0, Anion Gap 6, BUN 15, Creatinine 1.37 H, Estim Creat Clear Calc 35.03, Est GFR (MDRD) Af Amer 48 L, Est GFR (MDRD) Non-Af 40 L, BUN/Creatinine Ratio 10.9, Glucose 111 H, Lactic Acid 6.6 H*, Calcium 8.6, Total Bilirubin 0.40, AST 18, ALT 13, Alkaline Phosphatase 59, Total Protein 6.5, Albumin 2.6 L, Globulin 3.9, Albumin/Globulin Ratio 0.7 L 06/26/23 19:15: Urine Color Yellow, Urine Clarity Clear, Urine pH 7.0, Ur Specific [place] 1.005, Urine Protein Negative, Urine Glucose (UA) Normal, Urine Ketones Negative, Urine Occult Blood Negative, Urine Nitrite Negative, Urine Juan irubin Negative, Urine Urobilinogen Normal, Ur Leukocyte Esterase Negative, Urine RBC 0 SEEN, Urine WBC 0 SEEN, Ur Squamous Epith Cells 0 SEEN, Urine Bacteria 0 SEEN, Urine Mucus 0 SEEN 06/26/23 23:35: Lactic Acid 3.0 H* 06/27/23 05:05: WBC 19.3 H, RBC 3.05 L, Hgb 9.5 L, Hct 31.9 L, MCV 104.6 H, MCH 31.1, MCHC 29.8 L, RDW Std Deviation 58.3 H, RDW Coeff of Anabela 15.1 H, Plt Count 210, MPV 11.0, Neut % (Auto) Not Reportable, Absolute Neuts (auto) 17.6 H, Absolute Lymphs (auto) 0.97, Total Counted 100, Neutrophils % (Manual) 55, Band Neutrophils % 10 H, Lymphocytes % (Manual) 5 L, Monocytes % (Manual) 3, Eosinophils % (Manual) 1, Metamyelocytes % 25 H, Myelocytes % 1 H, Diff Path Review January, Platelet Estimate ADEQUATE, Polychromasia RARE, Sodium 146 H, Potassium 3.9, Chloride 112 H, Carbon Dioxide 31.0, Anion Gap 3 L, BUN 14, Creatinine 0.81, Estim Creat Clear Calc 61.47, Est GFR (MDRD) Af Amer 89, Est GFR (MDRD) Non-Af 73, BUN/Creatinine Ratio 17.3, Glucose 95, Calcium 7.4 L, Phosphorus 1.9 L, Magnesium 1.8 ABG Data ABG results: ABG 06/26/23 19:11 Specimen Type ART Sample Site L Radial pH 7.35 Bicarbonate Actual 25.2 Total CO2 27 Base Excess -1 O2 Saturation 91 L O2 % 100.0 ABG pCO2 45.8 H ABG pO2 64 L [place] Test Positive O2 Delivery Device NRB Vent Mode Not entered Radiography Diagnostic Testing: Radiology Impression Chest X-Ray 06/26/23 19:24 IMPRESSION: There is a right pleural effusion. Bilateral patchy infiltrates, left more than right. Electronically Signed: Jose Carlos Blandon at 20:14 EDT Reading Location ID and State: [facility] / [place] Tel [phone], Service support , Rhythm Strip Rhythm Strip: Sinus Tach Rate: 122 Physical Exam Const alert and no apparent distress HEENT head/scalp atraumatic and moist oral mucous membranes Resp Resp Narrative: coarse BS bilaterally. Cardio regular rate, regular rhythm, S1 normal heart sound and S2 normal heart sound GI normal to inspection, nondistended, normoactive bowel sounds, soft to palpation and non-tender Extremity normal to inspection Neuro Sensorium / Orientation: awake and alert Psych affect normal Assessment & Plan Assessment/Plan (1) Acute hypoxic respiratory failure: PLAN: Was hypoxic at home in the 60s. Combined hypoxic and hypercapnic respiratory failure 2/2 pneumonia. Intiated on BiPAP and maintained. Since weaned down Airvo. BiPAP QHS. Wean as able CCM on consult (2) Sepsis: QUALIFIERS: Acute respiratory failure type: with hypoxia Sepsis acute organ dysfunction status: with acute organ dysfunction Sepsis type: sepsis due to unspecified organism Severe sepsis acute organ dysfunction type: acute respiratory failure Severe sepsis shock status: without septic shock Qualified Code(s): A41.9 - Sepsis, unspecified organism; R65.20 - Severe sepsis without septic shock; J96.01 - Acute respiratory failure with hypoxia PLAN: POA 2/2 pneumonia qSOFA 3 (encephalopathy, RR 28, BP 83/67) SIRS 4/4 (refer to Dr. Gutierrez's H+P for those criteria) Hypotensive transiently, but BP has improved without need for vasopressors. Pt did not receive 30cc/kg IVF. Therefore, septic shock ruled out. BCx and UCx pending (3) Encephalopathy: PLAN: Likely metabolic from sepsis and pneumonia and toxic forom taking excess trazodone and other meds Avoid potentiating medications. (4) Pneumonia: QUALIFIERS: Laterality: bilateral Lung location: unspecified part of lung Pneumonia type: due to unspecified organism Qualified Code(s): J18.9 - Pneumonia, unspecified organism PLAN: pneumococcal v aspiration continue abx with amp/SB and azithromycin check pneumonia studies, resp panel, COVID Speech eval PLAN: Plan Chronic medical conditions: * h/o PE. on apixaban at home. continue. If unable to swallow safely, then will need to initiate enoxaparin. * possible parkinson's on carbidopa/levo * h/o glucocorticoid use: takes pred 20, unclear if this is long or short-term Attempted to review medical records through [facility]. She has many notes through through October, which appear to be outpt visits, but when I select those visits, there is no data to review. Will attempt have information sent from . VTE prophylaxis: not indicated as she is anticoagulated. Code Status: DNRCCA, DNI Charges/Coding Visit Charges Inpatient E&M: 90295 Subs Hosp L2
[2023-06-27] MEDS: Magnesium Sulfate 2 GM in Dextrose 5%-Water (100mL Bag) 100 ML IV (08:01)
[2023-06-27] MEDS: Ipratropium/Albuterol Sulfate 3 ML AMPUL.NEB INHALATION (08:20)
--- NOTE | 2023-06-27 08:48 | CON.PCM.CC_ITS ---
Assessment & Plan Assessment/Plan (1) Acute hypoxic respiratory failure: (2) Acute hypotension: (3) Encephalopathy: PLAN: Plan RECOMMENDATIONS: 1. Initiate systemic steroids, along with bronchodilators and antibiotics 2. Aggressive electrolyte repletion 3. Change CODE STATUS to DNR Comfort Care arrest without intubation 4. Clarify goals of care with next of kin 5. Wean oxygen as tolerated 6. Hold on diuresis for now, but may need diuretics in the next 24 to 48 hours 7. Continue to encourage BiPAP with sleep 8. May need diagnostic/therapeutic thoracentesis once more stabilized IMPRESSIONS: 1. Acute respiratory failure with hypoxia Clinical suspicion for an aspiration event with delayed presentation. Patient reportedly had an aspiration event 2 to 3 days ago per her report and became progressively hypoxic. Patient with high requirements at this time. Patient does have a right pleural effusion and may have a parapneumonic effusion from an aspiration. Patient is on antibiotics for community-acquired pneumonia as she has not had antibiotics in the last 3 months per her report. Patient appears to have significant baseline dysfunction with a low-dose CT scan in May showing significant emphysematous and bronchiectatic changes. Chest x-ray shows a right hilar fullness, but this was not seen on a recent CT scan and likely represents fluid tracking along the mediastinum. Patient is very clear that she would not want to be intubated. Did stressed to the patient that failure to comply with BiPAP could lead to significant decline. 2. Nonsustained V. tach Patient with multiple episodes of nonsustained V. tach this morning. Patient is hypophosphatemic. We will also give patient magnesium. Patient does not have an echocardiogram available for review, but is at high risk for RV dysfunction given underlying pulmonary issues. Patient's corrected calcium is within normal limits, so we will hold off on any supplementation of that at this time. 3. Metabolic encephalopathy versus toxic encephalopathy Patient with significant hypoxia on presentation of EMS. Patient also is on trazodone and other altering medications. Patient appears to be improving at this time and is more appropriate. Patient is very clear about her intent was not to hurt herself or taking extra medications. Patient appears to be much improved with control of hypoxia. Patient should have trazodone held. 4. Possible Parkinson's/history of PE/obesity/poor information Complicates care, management, recovery and prognosis. Patient would likely benefit from a swallow evaluation given history of aspiration. Patient can continue on 10 a inhibitor from my perspective. If patient continues to have hypotension, stress dose steroids should be initiated. Patient is on systemic glucocorticoids secondary to concerns for COPD exacerbation associated with aspiration. TIME: 32 minutes critical care time spent addressing patient's acute hypoxic respiratory failure, nonsustained V. tach, encephalopathy, review of all data and collaboration with care team HPI Consult Data Date of Consult: 06/27/23 HPI Narrative Reason for Consultation: Respiratory failure HPI Narrative: GERALD ROUSE is a 72 F, with past medical history listed below, who presents to [facility] on 06/26/2023 secondary to being found on the commode by her roommate. Patient reportedly had been on the commode for some time. On arrival, paramedics had noted a pulse ox of 60% on room air and cyanosis. Additional history was not available at that time. On arrival to the ER, patient was afebrile, but tachycardic at 120 bpm. Patient had an adequate blood pressure, but required a nonrebreather initially. Patient was subsequently transition to a BiPAP. Patient also had some hypotension with a blood pressure of 86/43. Laboratory data showed a white blood cell count of 23.1, hemoglobin of 10.9 and platelets of 230. Coagulation studies showed an INR of 1.4 with a bicarbonate of 27, creatinine of 1.37 and a lactate of 6.6. UA was unremarkable. An ABG showed partially compensated chronic respiratory ac idosis with increased AA gradient. Chest x-ray showed a right pleural effusion and EKG showed sinus tachycardia. Overnight, patient was on BiPAP overnight at 80% FiO2 to maintain saturations. This morning, patient was very mike that she was not to be intubated for any reason. Patient states that she did take an extra dose of medications, but in no way had any intentions of hurting herself. Patient states that she had forgotten about a dose and took an extra round of medications in the evening. Patient does report that there was a choking episode in the last couple of days, but was unclear on the exact circumstances. Patient is a relatively poor historian otherwise. Patient states that she would like to go home. Did talk with the patient about potential family members and she only wants to speak with Mireille, her roommate. Patient is not able to provide a full review of systems at this time secondary to cooperation. Patient is reporting some dyspnea, but overall feels that is unchanged compared to previous. Patient is not reporting any obvious pain, but is asking for Turner catheter to be removed. [facility] Medical History Pulmonary emboli Medical History unable to obtain Home Medications apixaban 5 mg tablet (Eliquis) 5 mg PO BID 06/26/23 [History Last Taken Unknown] bupropion HCl 300 mg 24 hr tablet, extended release 300 mg PO DAILY 06/26/23 [History Last Taken Unknown] carbidopa 25 mg-levodopa 100 mg tablet 2 tab PO DAILY 06/26/23 [History Last Taken Unknown] hydrocodone-acetaminophen 5-325mg 5mg-325mg 1 tab PO TID PRN pain 06/26/23 [History Last Taken Unknown] prednisone 10 mg tablet 20 mg PO DAILY 06/26/23 [History Last Taken Unknown] pregabalin 300 mg capsule 300 mg PO BID 06/26/23 [History Last Taken Unknown] rosuvastatin 40 mg tablet 40 mg PO DAILY 06/26/23 [History Last Taken Unknown] sertraline 100 mg tablet 100 mg PO DAILY 06/26/23 [History Last Taken Unknown] torsemide 100 mg tablet 100 mg PO DAILY PRN SEE PCP. 06/26/23 [History Last Taken Unknown] trazodone 100 mg tablet 100 mg PO QHS 06/26/23 [History Last Taken Unknown] Allergy/AdvReac Type Severity Reaction Status Date / Time No Known Allergies Allergy Verified 06/26/23 18:42 Family History unable to obtain Surgical History unable to obtain Social History Smoking Status: Current some day smoker tobacco type: cigarettes ROS ROS Narrative See HPI Physical Exam Const alert and oriented x3 Constitutional Narrative: Mild conversational dyspnea. Obese. HEENT normocephalic and head/scalp atraumatic HEENT Narrative: Mallampati 4. Eyes PERRL and EOMs intact bilaterally Eyes Narrative: Slight scleral injection without icterus Neck full ROM Neck Narrative: Unable to assess JVD secondary to body habitus Chest inspection of chest normal Resp Effort and Inspection: tachypneic and actively coughing Cardio S1 normal heart sound, S2 normal heart sound, no murmurs and no rub Cardio Narrative: NSVT on telemetry Rate: tachycardic GI normal to inspection, nondistended, normoactive bowel sounds Extremity no clubbing, cyanosis or edema Skin no rashes or lesions noted Neuro oriented x3 and CN's II-XII intact bilaterally Psych Activity / Motor Behavior: restless Medical Records Data Attestation: I reviewed the patient's medical records Lab / Micro Data Attestation: I reviewed the patient's lab results. 06/27/23 05:05 06/27/23 05:05 Labs: Laboratory Results - last 24 hr 06/26/23 18:52: WBC 23.1 H, RBC 3.48 L, Hgb 10.9 L, Hct 36.0 L, MCV 103.4 H, MCH 31.3, MCHC 30.3 L, RDW Std Deviation 56.9 H, RDW Coeff of Anabela 15.0 H, Plt Count 230, MPV 10.5, Immature Gran % (Auto) 0.500, Neut % (Auto) 91.0 H, Lymph % (Auto) 4.0 L, Benson % (Auto) 3.9, Eos % (Auto) 0.3, Baso % (Auto) 0.3, Absolute Neuts (auto) 20.9 H, Absolute Lymphs (auto) 0.92, Nucleated RBC % 0.2, Diff erential Comment SCANNED, PT 17.1 H, INR 1.4, APTT 29.7, Sodium 141, Potassium 4.4, Chloride 108 H, Carbon Dioxide 27.0, Anion Gap 6, BUN 15, Creatinine 1.37 H , Estim Creat Clear Calc 35.03, Est GFR (MDRD) Af Amer 48 L, Est GFR (MDRD) Non- Af 40 L, BUN/Creatinine Ratio 10.9, Glucose 111 H, Lactic Acid 6.6 H*, Calcium 8.6, Total Bilirubin 0.40, AST 18, ALT 13, Alkaline Phosphatase 59, Total Protein 6.5, Albumin 2.6 L, Globulin 3.9, Albumin/Globulin Ratio 0.7 L 06/26/23 19:15: Urine Color Yellow, Urine Clarity Clear, Urine pH 7.0, Ur Specific Jones 1.005, Urine Protein Negative, Urine Glucose (UA) Normal, Urine Ketones Negative, Urine Occult Blood Negative, Urine Nitrite Negative, Urine Bilirubin Negative, Urine Urobilinogen Normal, Ur Leukocyte Esterase Negative, Urine RBC 0 SEEN, Urine WBC 0 SEEN, Ur Squamous Epith Cells 0 SEEN, Urine Bacteria 0 SEEN, Urine Mucus 0 SEEN 06/26/23 23:35: Lactic Acid 3.0 H* 06/27/23 05:05: WBC 19.3 H, RBC 3.05 L, Hgb 9.5 L, Hct 31.9 L, MCV 104.6 H, MCH 31.1, MCHC 29.8 L, RDW Std Deviation 58.3 H, RDW Coeff of Anabela 15.1 H, Plt Count 210, MPV 11.0, Neut % (Auto) Not Reportable, Absolute Neuts (auto) 17.6 H, Absolute Lymphs (auto) 0.97, Total Counted 100, Neutrophils % (Manual) 55, Band Neutrophils % 10 H, Lymphocytes % (Manual) 5 L, Monocytes % (Manual) 3, Eosinophils % (Manual) 1, Metamyelocytes % 25 H, Myelocytes % 1 H, Diff Path Review January, Platelet Estimate ADEQUATE, Polychromasia RARE, Sodium 146 H, Potassium 3.9, Chloride 112 H, Carbon Dioxide 31.0, Anion Gap 3 L, BUN 14, Creatinine 0.81, Estim Creat Clear Calc 61.47, Est GFR (MDRD) Af Amer 89, Est GFR (MDRD) Non-Af 73, BUN/Creatinine Ratio 17.3, Glucose 95, Calcium 7.4 L, Phosphorus 1.9 L, Magnesium 1.8 Micro: Microbiology 06/27/23 08:05 Urine Catheter - Turner Legionella Antigen - Final 06/27/23 08:05 Urine Catheter - Turner Streptococcus pneumoniae Antigen (M - Final Streptococcus pneumonia Ag 06/27/23 08:05 Nasal Secretion SARS-CoV-2 Antigen (Rapid) - Final ABG Data ABG results: ABG 06/26/23 19:11 Specimen Type ART Sample Site L Radial pH 7.35 Bicarbonate Actual 25.2 Total CO2 27 Base Excess -1 O2 Saturation 91 L O2 % 100.0 ABG pCO2 45.8 H ABG pO2 64 L Refugio Test Positive O2 Delivery Device NRB Vent Mode Not entered Attestation: I personally reviewed and interpreted this ABG as follows: (See HPI) Rhythm Strip Rhythm Strip: Sinus Tach Rate: 122 Radiology Impression Chest X-Ray 06/26/23 19:24 IMPRESSION: There is a right pleural effusion. Bilateral patchy infiltrates, left more than right. Electronically Signed: Jose Carlos Blandon DO at 20:14 EDT Reading Location ID and State: [facility] / [place] Tel [phone], Service support , Charges/Coding Procedures Hospitalists Procedures: [id number] [facility] 1st Hr
--- NOTE | 2023-06-27 09:33 | ECHOD_ITS ---
Reason For Study: Dyspnea/SOB Procedure This was a 2D Doppler, Color Flow transthoracic echocardiogram. Patient refused the rest of the exam. Exam performed portable in ICU/CCU. Left Ventricle Normal LV size. Left ventricular systolic function is normal. The left ventricular ejection fraction is 60 %. Stage 1 diastolic dysfunction. Right Ventricle Normal RV size. Normal systolic function. Atria Normal left atrium. Normal right atrium. Mitral Valve Mitral valve not well visualized. Tricuspid Valve The tricuspid valve is not well visualized. Aortic Valve The aortic valve is not well visualized. Pulmonic Valve The pulmonic valve is not well visualized. Great Vessels Normal aortic root. Pericardium/Pleural No pericardial effusion. MMode/2D Measurements & Calculations LVIDd: 4.5 cm IVSd: 1.0 cm Ao root diam: 3.1 cm LVIDs: 2.8 cm LVPWd: 1.2 cm RVDd: 4.7 cm FS: 39.0 % LAV(MOD-bp): 37.2 ml LVAd ap4: 21.2 cm2 SV(MOD-sp4): 36.1 ml LAV(MOD-bp) Indexed: 17.5 ml/m2 LVLd ap4: 7.1 cm LAV(MOD-sp2): 36.4 ml EDV(MOD-sp4): 52.5 ml LAV(MOD-sp4): 34.3 ml EDV(sp4-el): 53.6 ml LVAs ap4: 10.3 cm2 LVLs ap4: 5.6 cm ESV(MOD-sp4): 16.5 ml ESV(sp4-el): 16.2 ml EF(MOD-sp4): 68.7 % EF(sp4-el): 69.8 % SV(sp4-el): 37.4 ml LA A4 area: 15.1 cm2 LA dimension(2D): 3.6 cm RA A4 area: 11.2 cm2 Doppler Measurements & Calculations MV E max lb: 90.8 cm/sec Lat Peak E' Lb: 6.3 cm/sec Med Peak E' Lb: 4.7 cm/sec MV A max lb: 121.2 cm/sec E/E' lat: 14.5 E/E' med: 19.5 MV E/A: 0.75 MV V2 max: 152.1 cm/sec Ao V2 max: 147.3 cm/sec LV V1 max: 123.4 cm/sec MV max P.3 mmHg Ao max P.7 mmHg LV V1 max P.1 mmHg MV V2 mean: 90.3 cm/sec Ao V2 mean: 95.3 cm/sec MV mean P.8 mmHg Ao mean P.1 mmHg MV V2 VTI: 24.5 cm Ao V2 VTI: 20.3 cm PA V2 max: 84.3 cm/sec ECHO/Echo Complete Interpretation Summary Normal LV size. Left ventricular systolic function is normal. The left ventricular ejection fraction is 60 %. Stage 1 diastolic dysfunction. The study was technically limited. Ordering Physician: Lm Gallegos Referring Physician: Kelsey Arora Performed By: Gretta Cool, RADHA, RVT
[2023-06-27] MEDS: Sodium Phosphate/Na Biphos 40 MMOL in 0.9% Normal Saline (500mL Bag) 500 ML 62.5 MMOL IV (09:54)
[2023-06-27] MEDS: Lactated Ringers 1,000 ML 75 ML IV (11:28)
[2023-06-27] MEDS: Methylprednisolone Sod Succ 40 MG/ML VIAL IV ×3 (11:49→23:36)
--- NOTE | 2023-06-27 15:05 | CM.UR ---
Addendum entered by Paulette Oropeza 06/27/23 15:44: Pt. declines information on medical alert systems. Original Note: MARISOL SEGOVIA Assessment: Face to Face with pt for initial transition planning/care coordination assessment. MARISOL SEGOVIA introduced self and role at [facility], pt voices understanding and consents to assessment. Pt is A/O x4 and answers all questions appropriately at this time. She is sitting up in her bed on Airvo. Care providers, pharmacy, and demographics verified/updated. Admitting Dx: Septic Shock PCP:[place] Specialists: Risk Management Manager (pt. unsure of name but thinks they may be in [place]), Back surgeon (pt. unsure of name). Preferred Pharmacy: [facility] ([place]) Insurance: [employer] Prescription Benefit: yes LW/HPOA: Pt states she has both a LW and HCPOA; Pt. states her HCPOA is Mireille Marquez (caregiver) LNOK: Mireille Marquez (caregiver) Living Arrangements: Pt lives with Mireille Marquez (caregiver) in a single story, unit with FF, no steps to enter. Pt. states prior to this admission she was independent in ADLs, but Mireille did all IADLs. Transportation: Pt drives self and denies concerns with transportation. She states Mireille also drives. DME:Shower chair, cane, lift chair, grab bars, hand held shower, rollator, nebulizer, 2 Lpm oxygen HS through [employer], glucometer and supplies (pt. states she only checks her BG every now and then). She states she could use a pulse ox. I informed her these can be purchased over the counter at places like [facility]. Pt. voices understanding and thinks she could afford one. I encouraged her to let us know if she decides she needs assistance getting a pulse ox. HHC/SNF: Denies previous SNF. States previous HHC but it was 8-10 years ago and she does not recall who it was through. Pt states at this time she would like to D/C and feels HHC may be needed. She states prior to this admission, she managed her medications by using a pillbox (states her caregiver sometimes assists her with setting up pillbox). Pt. states she did not at all intent to take extra doses of medications and that it was a total accident. Pt states no further concerns/needs. CM to follow. Advised pt to ask CM if any further question/concerns/needs arise, voices understanding. Pt Goal: Home with HHC Plan: Home with HHC pending therapy; evals held today.
[2023-06-27] MEDS: Metoprolol Tartrate 5 MG/5 ML Vial IV (20:12)
[2023-06-27] MEDS: APIXABAN 5 MG TABLET PO (20:13)
[2023-06-27 20:45] LABS: Anion Gap 4 (5-15); BUN 18 mg/dL (7-18); BUN/Creat Ratio 24.6 RATIO (10-20); Calcium,Total 7.6 mg/dL (8.5-10.1); Chloride 111 mmol/L (98-107); Creatinine, Serum 0.73 mg/dL (0.55-1.02); EST Glomerular Filtration Rate 82 mL/min (>60); Est Glom Filt Rate - Afr Amer 100 mL/min (>60); Estimated Creatinine Clearance 49.79 ml/min; Glucose 127 mg/dL (74-106); Potassium 4.4 mmol/L (3.5-5.1); Sodium Level 143 mmol/L (136-145)
[2023-06-27] MEDS: Azithromycin 500 MG in Dextrose 5%-Water (250mL Bag) 250 ML 250 MG IV (20:59)
[2023-06-27] MEDS: Furosemide 40 MG/4 ML Vial IV (21:56)
[2023-06-28] VITALS (34 sets, daily range): BP systolic 116–148; BP diastolic 65–111; PULSE 90–102; RESP 12–36; TEMP 36.1–37.3; O2SAT 89–99; BMI 34.8
[2023-06-28] MEDS: Ipratropium/Albuterol Sulfate 3 ML AMPUL.NEB INHALATION ×3 (00:38→20:07)
[2023-06-28 05:02] LABS: Absolute Lymphocyte Count 0.36 X10^3/uL (0.83-4.51); Absolute Neutrophil Count 16.9 X10^3/uL (2.0-7.7); Basophil# 0.05 X10^3/uL; Basophil% 0.3 % (0-1); Eosinophil# 0.08 X10^3/uL; Eosinophils% 0.4 % (0-5); Hematocrit 30.8 % (37-47); Hemoglobin 9.3 g/dL (12.0-15.0); Lymphocyte # 0.36 X10^3/ul (0.83-4.51); Mean Corp Hgb Conc 30.2 g/dL (32-36); Mean Corpuscular Hgb 30.8 pg (27.0-32.0); Mean Platelet Vol. 10.7 fl (6.2-12.0); Monocyte# 0.35 X10^3/uL; Monocyte% 1.9 % (0-10); NRBC Flagged by Analyzer 0 % (0-5); Neutrophil # 16.92 X10^3/uL (2.7-7.7); Neutrophil % 93.4 % (47-70); POSITIVE DIFFERENTIAL YES; POSITIVE MORPHOLOGY YES; Platelet Count 196 K/mm3 (150-450); RBC Distribution Width CV 15.1 % (11.6-14.6); RBC Distribution Width SD 57.2 fl (35.1-43.9); Red Blood Count 3.02 M/mm3 (4.2-5.4); White Blood Count 18.1 K/mm3 (4.4-11.0)
[2023-06-28 05:03] LABS: Differential Indicated SCAN CRITERIA MET
[2023-06-28 05:06] LABS: Ionized Calcium 4.46 mg/dL (4.36-5.20)
[2023-06-28 05:15] LABS: Anisocytosis 1+; Macrocytosis RARE
[2023-06-28 05:20] LABS: ALB/GLOB Ratio 0.5 RATIO (0.9-2.4); AST(SGOT) 84 U/L (15-37); Alanine Aminotransfer ALT/SGPT 30 U/L (13-56); Albumin, Serum 2.1 g/dL (3.2-5.0); Alkaline Phosphatase 56 U/L (45-117); Anion Gap 5 (5-15); BUN 19 mg/dL (7-18); BUN/Creat Ratio 25.5 RATIO (10-20); Calcium,Total 7.9 mg/dL (8.5-10.1); Chloride 109 mmol/L (98-107); Creatinine, Serum 0.74 mg/dL (0.55-1.02); EST Glomerular Filtration Rate 81 mL/min (>60); Est Glom Filt Rate - Afr Amer 98 mL/min (>60); Estimated Creatinine Clearance 49.79 ml/min; Globulin 4.2 g/dL (2.2-4.2); Glucose 126 mg/dL (74-106); Magnesium 2.5 mg/dL (1.6-2.6); Potassium 3.1 mmol/L (3.5-5.1); Protein, Total 6.3 g/dL (6.4-8.2); Sodium Level 145 mmol/L (136-145)
[2023-06-28] MEDS: Ampicillin/Sulbactam 3 GM in 0.9% Normal Saline (100mL MB+) 100 ML IV ×4 (05:41→23:53)
[2023-06-28] MEDS: Methylprednisolone Sod Succ 40 MG/ML VIAL IV ×3 (05:41→17:00)
--- NOTE | 2023-06-28 07:01 | PCM.PN.HOSP ---
Subjective Subjective Pt received furosemide and IV metoprolol last night. Patient received metoprolol for ventricular tachycardia. Patient states that she is going to be going home. Told the BICU team earlier today that she is going to do that than with her being on high flow Airvo, that she was informed that she cannot go home with that amount of oxygen unless she were hospice. Patient said that she does not want hospice. I walked in the room later and she said the same thing. I told her that we could do so but she would need to be hospice. She says she did not want to hear that word being hospice. Objective Data Objective Data Vital Signs: Vital Signs Temp Pulse Resp BP Pulse Ox O2 Del Method O2 Flow Rate 36.7 C 97 29 H 121/88 H 92 Airvo 60 06/28/23 03:00 06/28/23 07:00 06/28/23 07:00 06/28/23 07:00 06/28/23 07:00 06/28/23 07:00 06/28/23 07:00 FiO2 93 06/28/23 07:00 Oxygen Flow Rate (L/min) 60 Oxygen Delivery Method Airvo Weight: 104.2 kg Body Mass Index (BMI) 34.8 Intake & Output: Intake and Output for Last 24 Hours 06/26/23 06/27/23 06/28/23 23:59 23:59 23:59 Intake Total 1887.75 / 1887.75 3242.8333 / 3242.8333 324 / 324 Output Total 0 / 0 1100 / 2150 1350 / 1350 Balance 1887.75 / 1887.75 2142.8333 / 1092.8333 -1026 / -1026 Lab / Micro Data 06/28/23 04:50 06/28/23 04:50 Labs: Laboratory Results - last 24 hr 06/27/23 05:05: Phosphorus 1.9 L, Magnesium 1.8 06/27/23 20:14: Sodium 143, Potassium 4.4, Chloride 111 H, Carbon Dioxide 28.0, Anion Gap 4 L, BUN 18, Creatinine 0.73, Estim Creat Clear Calc 49.79, Est GFR (MDRD) Af Amer 100, Est GFR (MDRD) Non-Af 82, BUN/Creatinine Ratio 24.6 H, Glucose 127 H, Calcium 7.6 L, Phosphorus 3.0 06/28/23 04:50: WBC 18.1 H, RBC 3.02 L, Hgb 9.3 L, Hct 30.8 L, MCV 102.0 H, MCH 30.8, MCHC 30.2 L, RDW Std Deviation 57.2 H, RDW Coeff of Anabela 15.1 H, Plt Count 196, MPV 10.7, Immature Gran % (Auto) 2.000 H, Neut % (Auto) 93.4 H, Lymph % (Auto) 2.0 L, [place] % (Auto) 1.9, Eos % (Auto) 0.4, Baso % (Auto) 0.3, Absolute Neuts (auto) 16.9 H, Absolute Lymphs (auto) 0.36 L, Nucleated RBC % 0, Anisocytosis 1+, Macrocytosis RARE, Sodium 145, Potassium 3.1 L, Chloride 109 H, Carbon Dioxide 31.0, Anion Gap 5, BUN 19 H, Creatinine 0.74, Estim Creat Clear Calc 49.79, Est GFR (MDRD) Af Amer 98, Est GFR (MDRD) Non-Af 81, BUN/Creatinine Ratio 25.5 H, Glucose 126 H, Calcium 7.9 L, Magnesium 2.5, Total Bilirubin 0.30, AST 84 H, ALT 30, Alkaline Phosphatase 56, Total Protein 6.3 L, Albumin 2.1 L, Globulin 4.2, Albumin/Globulin Ratio 0.5 L 06/28/23 05:02: Ionized Calcium 4.46 Micro: Microbiology 06/27/23 10:25 Stool C. difficile DNA Amplification - Final 06/27/23 08:05 Urine Catheter - Turner Legionella Antigen - Final 06/27/23 08:05 Urine Catheter - Turner Streptococcus pneumoniae Antigen (M - Final Streptococcus pneumonia Ag 06/27/23 08:05 Nasal Secretion SARS-CoV-2 Antigen (Rapid) - Final Radiography Diagnostic Testing: Radiology Impression Echocardiogram 06/27/23 09:33 Interpretation Summary Normal LV size. Left ventricular systolic function is normal. The left ventricular ejection fraction is 60 %. Stage 1 diastolic dysfunction. The study was technically limited. Ordering Physician: mL Gallegos Referring Physician: Kelsey Arora Performed By: Gretta Cool, RADHA, RVT Rhythm Strip Rhythm Strip: Sinus Tach Rate: 122 Physical Exam Const Constitutional Narrative: Alert to place and self but does not know the date. Does not know the reason for being in the hospital other than she was brought here by her friend. HEENT head/scalp atraumatic Resp Resp Narrative: Coarse breath sounds bilaterally GI normal to inspection, nondistended, normoactive bowel sounds, soft to palpation, non-tender and non-distended Extremity normal to inspection, full ROM and no clubbing, cyanosis or edema Assessment & Plan Assessment/Plan (1) Acute hypoxic respiratory failure: PLAN: Was hypoxic at home in the 60s. Combined hypoxic and hypercapnic respiratory failure 2/2 pneumonia. Intiated on BiPAP and maintained. Since weaned down Airvo. BiPAP QHS. Wean as able CCM on consult Echo shows an EF of 60% with stage DD Continue BDs, methylpred, (2) Sepsis: QUALIFIERS: Acute respiratory failure type: with hypoxia Sepsis acute organ dysfunction status: with acute organ dysfunction Sepsis type: sepsis due to unspecified organism Severe sepsis acute organ dysfunction type: acute respiratory failure Severe sepsis shock status: without septic shock Qualified Code(s): A41.9 - Sepsis, unspecified organism; R65.20 - Severe sepsis without septic shock; J96.01 - Acute respiratory failure with hypoxia PLAN: POA 2/2 pneumonia qSOFA 3 (encephalopathy, RR 28, BP 83/67) SIRS 4/4 (refer to Dr. Gutierrez's H+P for those criteria) Hypotensive transiently, but BP has improved without need for vasopressors. Pt did not receive 30cc/kg IVF. Therefore, septic shock ruled out. BCx and UCx pending. C. diff negative. (3) Encephalopathy: PLAN: Likely metabolic from sepsis and pneumonia and toxic forom taking excess trazodone and other meds Avoid potentiating medications. (4) Pneumonia: QUALIFIERS: Laterality: bilateral Lung location: unspecified part of lung Pneumonia type: due to unspecified organism Qualified Code(s): J18.9 - Pneumonia, unspecified organism PLAN: pneumococcal continue abx with amp/SB and azithromycin Strep antigen positive. Legionella negative. COVID 19 negative. Speech eval PLAN: Plan Chronic medical conditions: h/o PE. on apixaban at home. continue. If unable to swallow safely, then will need to initiate enoxaparin. possible parkinson's on carbidopa/levo h/o glucocorticoid use: takes pred 20, unclear if this is long or short-term Attempted to review medical records through [facility]. She has many notes through through October, which appear to be outpt visits, but when I select those visits, there is no data to review. Will attempt have information sent from . VTE prophylaxis: not indicated as she is anticoagulated. Code Status: DNRCCA, DNI Patient is not competent to make decision at this time about going home. Patient still requires hospitalization and will remain intensive care unit for the time being until her oxygenation improves further. Charges/Coding Visit Charges Inpatient E&M: 65936 Subs Hosp L2
--- NOTE | 2023-06-28 07:13 | PN.CC_ITS ---
Assessment & Plan Assessment/Plan (1) Acute hypoxic respiratory failure: (2) Acute hypotension: (3) Encephalopathy: PLAN: Plan RECOMMENDATIONS: 1. Continue systemic steroids, along with bronchodilators and antibiotics 2. Aggressive electrolyte repletion 3. Consider intermittent Lasix once potassium is repleted 4. Continue to work with roommate 5. Wean oxygen as tolerated 6. Possibly wean antibiotic spectrum once cultures are completed 7. Continue to encourage BiPAP with sleep 8. May need diagnostic/therapeutic thoracentesis once more stabilized IMPRESSIONS: 1. Acute respiratory failure with hypoxia Clinical suspicion for significant decompensation with delayed presentation. Patient reportedly had an aspiration event 2 to 3 days ago per her report and became progressively hypoxic, but is also tested positive for pneumococcus. Patient with high requirements at this time. Patient does have a right pleural effusion and may have a parapneumonic effusion from an aspiration/pneumonia. Patient is on antibiotics for community-acquired pneumonia as she has not had antibiotics in the last 3 months per her report. Patient appears to have significant baseline dysfunction with a low-dose CT scan in May showing significant emphysematous and bronchiectatic changes. Chest x-ray shows a right hilar fullness, but this was not seen on a recent CT scan and likely represents fluid tracking along the mediastinum. Patient is very clear that she would not want to be intubated. Did stressed to the patient that failure to comply with BiPAP could lead to significant decline. Patient could benefit from intermittent diuretics, but given nonsustained V. tach, would address potassium initially. 2. Nonsustained V. tach Patient with multiple episodes of nonsustained V. tach this morning. Patient was hypophosphatemic and has received magnesium and phosphorus. Echo cardiogram was relatively unremarkable. Patient's ionized calcium is within normal limits, so we will hold off on any supplementation of that at this time. 3. Metabolic encephalopathy versus toxic encephalopathy Resolved. Patient with significant hypoxia on presentation of EMS. Patient also is on trazodone and other altering medications. Patient appears to be improving at this time and is more appropriate. Patient is very clear about her intent was not to hurt herself or taking extra medications. Patient appears to be much improved with control of hypoxia. Patient should have trazodone held. 4. Possible Parkinson's/history of PE/obesity/poor information Complicates care, management, recovery and prognosis. Patient would likely benefit from a swallow evaluation given history of aspiration. Patient can continue on 10 a inhibitor from my perspective. Patient is on steroids at this time Subjective Subjective Patient did okay overnight. Patient continues to have episodes of nonsustained VT. Patient was also given Lasix overnight secondary to hypoxia and responded with 1 L out. Patient subjectively feels much improved compared to yesterday. Patient is not reporting any nausea or vomiting, but has a limited diet secondary to speech recommendations. Objective Data Objective Data Vital Signs: Vital Signs Temp Pulse Resp BP Pulse Ox O2 Del Method O2 Flow Rate 36.7 C 97 29 H 121/88 H 92 Airvo 60 06/28/23 03:00 06/28/23 07:00 06/28/23 07:00 06/28/23 07:00 06/28/23 07:00 06/28/23 07:00 06/28/23 07:00 FiO2 93 06/28/23 07:00 Oxygen Flow Rate (L/min) 60 Oxygen Delivery Method Airvo Weight: 104.2 kg Body Mass Index (BMI) 34.8 Intake & Output: Intake and Output for Last 24 Hours 06/26/23 06/27/23 06/28/23 23:59 23:59 23:59 Intake Total 1887.75 / 1887.75 3242.8333 / 3242.8333 324 / 324 Output Total 0 / 0 1100 / 2150 1350 / 1350 Balance 1887.75 / 1887.75 2142.8333 / 1092.8333 -1026 / -1026 Lab / Micro Data Attestation: I reviewed the patient's lab results. 06/28/23 04:50 06/28/23 04:50 Labs: Laboratory Results - last 24 hr 06/27/23 05:05: Phosphorus 1.9 L, Magnesium 1.8 06/27/23 20:14: Sodium 143, Potassium 4.4, Chloride 111 H, Carbon Dioxide 28.0, Anion Gap 4 L, BUN 18, Creatinine 0.73, Estim Creat Clear Calc 49.79, Est GFR (MDRD) Af Amer 100, Est GFR (MDRD) Non-Af 82, BUN/Creatinine Ratio 24.6 H, Glucose 127 H, Calcium 7.6 L, Phosphorus 3.0 06/28/23 04:50: WBC 18.1 H, RBC 3.02 L, Hgb 9.3 L, Hct 30.8 L, MCV 102.0 H, MCH 30.8, MCHC 30.2 L, RDW Std Deviation 57.2 H, RDW Coeff of Anabela 15.1 H, Plt Count 196, MPV 10.7, Immature Gran % (Auto) 2.000 H, Neut % (Auto) 93.4 H, Lymph % (Auto) 2.0 L, [place] % (Auto) 1.9, Eos % (Auto) 0.4, Baso % (Auto) 0.3, Absolute Neuts (auto) 16.9 H, Absolute Lymphs (auto) 0.36 L, Nucleated RBC % 0, Anisocytosis 1+, Macrocytosis RARE, Sodium 145, Potassium 3.1 L, Chloride 109 H, Carbon Dioxide 31.0, Anion Gap 5, BUN 19 H, Creatinine 0.74, Estim Creat Clear Calc 49.79, Est GFR (MDRD) Af Amer 98, Est GFR (MDRD) Non-Af 81, BUN/Creatinine Ratio 25.5 H, Glucose 126 H, Calcium 7.9 L, Magnesium 2.5, Total Bilirubin 0.30, AST 84 H, ALT 30, Alkaline Phosphatase 56, Total Protein 6.3 L, Albumin 2.1 L, Globulin 4.2, Albumin/Globulin Ratio 0.5 L 06/28/23 05:02: Ionized Calcium 4.46 Micro: Microbiology 06/27/23 10:25 Stool C. difficile DNA Amplification - Final 06/27/23 08:05 Urine Catheter - Turner Legionella Antigen - Final 06/27/23 08:05 Urine Catheter - Turner Streptococcus pneumoniae Antigen (M - Final Streptococcus pneumonia Ag 06/27/23 08:05 Nasal Secretion SARS-CoV-2 Antigen (Rapid) - Final Radiography Diagnostic Testing: Radiology Impression Echocardiogram 06/27/23 09:33 Interpretation Summary Normal LV size. Left ventricular systolic function is normal. The left ventricular ejection fraction is 60 %. Stage 1 diastolic dysfunction. The study was technically limited. Ordering Physician: Lm Gallegos Referring Physician: Kelsey Arora Performed By: Gretta Cool, RADHA, RVT Rhythm Strip Rhythm Strip: Sinus Tach Rate: 95 Ectopy: - (Episodes of nonsustained V. tach) Physical Exam Const alert and oriented x3 Constitutional Narrative: Mild conversational dyspnea. Obese. Airvo in place. HEENT normocephalic and head/scalp atraumatic Eyes PERRL and EOMs intact bilaterally Eyes Narrative: Slight scleral injection without icterus Neck full ROM Neck Narrative: Unable to assess JVD secondary to body habitus Chest inspection of chest normal Resp Effort and Inspection: actively coughing Auscultation: rales and diminished lung sounds; Negative for rhonchi or wheezes Cardio S1 normal heart sound, S2 normal heart sound, no murmurs and no rub Cardio Narrative: NSVT on telemetry intermittently GI normal to inspection, nondistended, normoactive bowel sounds Extremity no clubbing, cyanosis or edema Skin no rashes or lesions noted Neuro oriented x3 and CN's II-XII intact bilaterally Psych Activity / Motor Behavior: restless Charges/Coding Visit Charges Inpatient E&M: 65412 Subs Hosp L3
[2023-06-28] MEDS: Potassium Chloride Oral Tablet 20 MEQ 40 MEQ PO ×2 (08:02→16:07)
[2023-06-28] MEDS: APIXABAN 5 MG TABLET PO ×2 (08:03→20:41)
[2023-06-28 13:00] LABS: Ionized Calcium Order ORDER TUBE
[2023-06-28] MEDS: Menthol/Lanolin/Calamine/Znox 113 GM Tube 1 APPLIC TOPICAL (20:40)
[2023-06-28] MEDS: Azithromycin 500 MG in Dextrose 5%-Water (250mL Bag) 250 ML 250 MG IV (20:40)
[2023-06-29] VITALS (26 sets, daily range): BP systolic 134–152; BP diastolic 63–138; PULSE 73–96; RESP 12–35; TEMP 35.6–37.1; O2SAT 91–100; BMI 34.4
[2023-06-29] MEDS: Methylprednisolone Sod Succ 40 MG/ML VIAL IV ×5 (00:44→23:20)
[2023-06-29] MEDS: Ipratropium/Albuterol Sulfate 3 ML AMPUL.NEB INHALATION ×3 (01:51→18:55)
[2023-06-29] MEDS: Ampicillin/Sulbactam 3 GM in 0.9% Normal Saline (100mL MB+) 100 ML IV ×4 (05:48→23:18)
[2023-06-29] MEDS: Menthol/Lanolin/Calamine/Znox 113 GM Tube 1 APPLIC TOPICAL ×3 (05:48→21:21)
[2023-06-29 06:34] LABS: Absolute Lymphocyte Count 0.46 X10^3/uL (0.83-4.51); Absolute Neutrophil Count 13.4 X10^3/uL (2.0-7.7); Basophil# 0.03 X10^3/uL; Basophil% 0.2 % (0-1); Hematocrit 32.2 % (37-47); Hemoglobin 9.6 g/dL (12.0-15.0); Lymphocyte # 0.46 X10^3/ul (0.83-4.51); Lymphocyte % 3.2 % (19-41); Mean Corp Hgb Conc 29.8 g/dL (32-36); Mean Corpuscular Hgb 30.7 pg (27.0-32.0); Mean Corpuscular Volume 102.9 fL (81-99); Mean Platelet Vol. 11.2 fl (6.2-12.0); Monocyte# 0.46 X10^3/uL; Monocyte% 3.2 % (0-10); NRBC Flagged by Analyzer 0.3 % (0-5); Neutrophil # 13.36 X10^3/uL (2.7-7.7); Neutrophil % 92.8 % (47-70); POSITIVE DIFFERENTIAL YES; POSITIVE MORPHOLOGY YES; Platelet Count 197 K/mm3 (150-450); RBC Distribution Width SD 57.1 fl (35.1-43.9); Red Blood Count 3.13 M/mm3 (4.2-5.4); White Blood Count 14.4 K/mm3 (4.4-11.0)
[2023-06-29 06:38] LABS: Differential Indicated SCAN CRITERIA MET
[2023-06-29 06:46] LABS: Anion Gap 6 (5-15); BUN 31 mg/dL (7-18); BUN/Creat Ratio 34.4 RATIO (10-20); Calcium,Total 8.1 mg/dL (8.5-10.1); Chloride 111 mmol/L (98-107); EST Glomerular Filtration Rate 65 mL/min (>60); Est Glom Filt Rate - Afr Amer 79 mL/min (>60); Estimated Creatinine Clearance 55.32 ml/min; Glucose 120 mg/dL (74-106); Sodium Level 147 mmol/L (136-145)
[2023-06-29 07:03] LABS: Anisocytosis 1+; Macrocytosis 1+
--- NOTE | 2023-06-29 07:08 | PCM.PN.INT ---
Assessment & Plan Assessment/Plan (1) Acute hypoxic respiratory failure: (2) Acute hypotension: (3) Encephalopathy: PLAN: Plan RECOMMENDATIONS: 1. Continue to wean FiO2 to maintain oxygen saturations at or above 90%. 2. Continue antimicrobials as ordered. 3. Continue bronchodilators and steroids. 4. Attempt gentle diuresis today. 5. Encourage incentive spirometer use and mobilize patient as tolerated. 6. BiPAP utilization with sleep. 7. Obtain follow-up chest x-ray this morning. IMPRESSIONS: 1. Acute respiratory failure with hypoxia Appears secondary to pneumococcal pneumonia. There is also concern that the patient may have experienced an aspiration event in the days leading up to her hospitalization. She remains on appropriate antimicrobials at this time. Continue high flow oxygen to maintain saturations at or above 90%. Plan to obtain follow-up chest x-ray this morning. The patient does have underlying diastolic dysfunction and is documented to be overall net positive for the hospitalization. Therefore, we will initiate gentle diuresis, as tolerated by hemodynamics and renal function. The patient does have significant emphysematous and bronchiectatic changes on CT imaging from May. Accordingly, the patient will be continued on bronchodilators and steroids. Recommend continuing BiPAP therapy with naps and nightly. Encourage incentive spirometer use and mobilize patient as tolerated. 2. Hypokalemia Electrolyte repletion as ordered. Recheck levels in the morning. 3. Possible Parkinson's/history of PE/obesity/poor information Complicates care, management, recovery and prognosis. Continue home medications as indicated. This note was generated with [employer] dictation software. It may contain incorrect words, spelling, and punctuation that were not noted in checking the note before signing. Subjective Subjective The patient was seen and examined at the bedside this morning. Events from the last 24 hours have been reviewed. The patient is currently afebrile, hemodynamically stable and maintaining appropriate oxygen saturations on Airvo heated high flow with an FiO2 requirement of 73% and flow rate of 60 L/min. The patient is currently documented to be overall net +3.2 L for the hospitalization. White count has improved to 14,000. Sodium is elevated at 147 with a potassium of 3.0. The patient seems quite anxious to be discharged. Objective Data Objective Data The patient's most recent lab work, culture data and imaging studies have all been personally reviewed. Surface echocardiogram from October 14 demonstrated stage I diastolic dysfunction with an ejection fraction of 60%. Streptococcal urinary antigen was positive on June 27. Vital Signs: Vital Signs Temp Pulse Resp BP Pulse Ox O2 Del Method O2 Flow Rate 98.8 F 82 30 H 135/118 H 98 Airvo 60 06/29/23 05:00 06/29/23 07:00 06/29/23 07:00 06/29/23 07:00 06/29/23 07:00 06/29/23 07:00 06/29/23 07:00 FiO2 73 06/29/23 07:00 Oxygen Flow Rate (L/min) 60 Oxygen Delivery Method Airvo Weight: 226 lb 3.108 oz Body Mass Index (BMI) 34.4 Intake & Output: Intake and Output for Last 24 Hours 06/27/23 06/28/23 06/29/23 23:59 23:59 23:59 Intake Total 3242.8333 / 3242.8333 1053 / 1053 359 / 359 Output Total 1100 / 2150 1800 / 1800 400 / 400 Balance 2142.8333 / 1092.8333 -747 / -747 -41 / -41 Lab / Micro Data Attestation: I reviewed the patient's lab results. 06/29/23 05:50 06/29/23 05:50 Labs: Laboratory Results - last 24 hr 06/29/23 05:50: WBC 14.4 H, RBC 3.13 L, Hgb 9.6 L, Hct 32.2 L, MCV 102.9 H, MCH 30.7, MCHC 29.8 L, RDW Std Deviation 57.1 H, RDW Coeff of Anabela 15.0 H, Plt Count 197, MPV 11.2, Immature Gran % (Auto) 0.600, Neut % (Auto) 92.8 H, Lymph % (Auto) 3.2 L, [place] % (Auto) 3.2, Eos % (Auto) 0.0, Baso % (Auto) 0.2, Absolute Neuts (auto) 13.4 H, Absolute Lymphs (auto) 0.46 L, Nucleated RBC % 0.3, Anisocytosis 1+, Macrocytosis 1+, Sodium 147 H, Potassium 3.0 L, Chloride 111 H, Carbon Dioxide 30.0, Anion Gap 6, BUN 31 H, Creatinine 0.90, Estim Creat Clear Calc 55.32, Est GFR (MDRD) Af Amer 79, Est GFR (MDRD) Non-Af 65, BUN/Creatinine Ratio 34.4 H, Glucose 120 H, Calcium 8.1 L Micro: Microbiology 06/26/23 19:15 Urine Catheter - Turner Urine Culture - Preliminary Culture exhibits no growth. 06/27/23 10:25 Stool C. difficile DNA Amplification - Final 06/27/23 08:05 Urine Catheter - Turner Legionella Antigen - Final 06/27/23 08:05 Urine Catheter - Turner Streptococcus pneumoniae Antigen (M - Final Streptococcus pneumonia Ag 06/27/23 08:05 Nasal Secretion SARS-CoV-2 Antigen (Rapid) - Final Rhythm Strip Rhythm Strip: Sinus Tach Rate: 95 Ectopy: - (Episodes of nonsustained V. tach) Physical Exam Const alert and no apparent distress General Appearance: cooperative HEENT normocephalic and head/scalp atraumatic Eyes PERRL, EOMs intact bilaterally and conjunctivae normal Neck supple General: trachea midline Chest inspection of chest normal Resp normal respiratory effort Auscultation: rales and diminished lung sounds Cardio regular rate and regular rhythm GI normal to inspection, nondistended, normoactive bowel sounds Extremity no clubbing, cyanosis or edema Skin no rashes or lesions noted Neuro CN's II-XII intact bilaterally, moves all extremities and no focal motor deficits Psych cooperative and affect normal Charges/Coding Visit Charges Inpatient E&M: 46045 Subs Hosp L3
--- NOTE | 2023-06-29 07:11 | RAD_ITS ---
EXAM: XR CHEST, 1 VIEW CLINICAL INDICATION: Respiratory Failure TECHNIQUE: Frontal view of the chest. COMPARISON: June 26, 2023. FINDINGS: LUNGS AND PLEURAL SPACES: Mild increased hazy opacities in the left lower lung field, now partially obscuring the left heart margin. Clearance of some of the left upper lung field opacities. Mild increased right patchy perihilar hazy opacities. Persistent mild elevation of the right hemidiaphragm and new slight blunting of the lateral costophrenic angles. No pneumothorax. No effusion. HEART: The patient is mildly rotated to the right. Stable borderline-mild cardiomegaly. Mild increased perihilar markings. MEDIASTINUM: Central airways and mediastinal contour are unremarkable. BONES/JOINTS: Unremarkable. SOFT TISSUES: Unremarkable. RAD/Chest 1 View (Portable) IMPRESSION: Mild patient rotation. Shifting hazy opacities, including increased opacities in the left lower lung field and right perihilar region, and partially cleared hazy opacity in the left upper lung. Slight effusions. Borderline cardiomegaly and pulmonary vascular distention. Electronically Signed: Clover Luu MD at 7:46 EDT ,
[2023-06-29] MEDS: Potassium Chloride 10mEq/100mL 10 MEQ/100 ML IV.SOLN. 100 MEQ IV BOLUS ×4 (08:10→14:45)
--- NOTE | 2023-06-29 09:17 | CASEMGMT ---
Social Work SW participated in ICU rounds. SW spoke w/pt after rounds in regard to discharge plan. Pt states she is feeling well and wants to go home. Pt is at present on high flow oxygen with an airvo, SW explained to pt that she needs more oxygen at this time than could be done at home. Pt at this time focused on going home, and will not consider another option. SW stated to pt will continue to follow along for discharge needs. Pt states understanding. As per chart, Mireille Marquez is pt's POA. SW called Cristiane to ask her to bring in the papers, SW got a voicemail, message left. SW will continue to follow along w/CM for most appropriate d/c plan. HA Rabago
[2023-06-29 09:26] LABS: BNP,B-Type NATRIURETIC PEPTIDE 270.1 pg/mL (0-100)
[2023-06-29] MEDS: Furosemide 40 MG/4 ML Vial IV (09:26)
[2023-06-29] MEDS: APIXABAN 5 MG TABLET PO ×2 (09:51→21:16)
--- NOTE | 2023-06-29 11:29 | CASEMGMT ---
Social Work SW called pt's friend Cristiane, as pt has her listed as POA. Message left. When she returns call SW will ask her to bring in LW and POA so we can put copies on file here. HA Rabago
--- NOTE | 2023-06-29 14:20 | PCM.PN.HOSP ---
Reason for Visit Reason for Visit: Diagnoses Sepsis, unspecified organism (06/26/23) Unspecified infectious disease (06/26/23) Encephalopathy, unspecified (06/26/23) Other encephalopathy (06/26/23) Hypotension, unspecified (06/26/23) Pneumonia, unspecified organism (06/26/23) Acute respiratory failure with hypoxia (06/26/23) Severe sepsis without septic shock (06/26/23) Severe sepsis with septic shock (06/26/23) Subjective Subjective Patient seen at bedside this morning. Sitting up in bed, satting in mid 90s on Airvo with mild increased work of breathing noted. Otherwise alert and conversing normally. Patient states she continues to have a mild cough with some sputum production this morning, sputum is whitish in color. She denies any significant shortness of breath at rest. Has not been able to eat and drink due to her n.p.o. status, speech therapy was at bedside on my interview for evaluation. Patient denied any fevers or chills, chest pain, lightheadedness dizziness. No other acute concerns. Objective Data Objective Data Vital Signs: Vital Signs Temp Pulse Resp BP Pulse Ox O2 Del Method O2 Flow Rate 96.7 F L 83 29 H 141/69 H 100 Airvo 60 06/29/23 13:00 06/29/23 13:47 06/29/23 13:47 06/29/23 13:00 06/29/23 13:47 06/29/23 13:47 06/29/23 13:00 FiO2 58 06/29/23 14:03 Oxygen Flow Rate (L/min) 60 Oxygen Delivery Method Airvo Weight: 102.6 kg Body Mass Index (BMI) 34.4 Intake & Output: Intake and Output for Last 24 Hours 06/27/23 06/28/23 06/29/23 23:59 23:59 23:59 Intake Total 3242.8333 / 3242.8333 1053 / 1053 659 / 659 Output Total 1100 / 2150 1800 / 1800 1300 / 1300 Balance 2142.8333 / 1092.8333 -747 / -747 -641 / -641 Lab / Micro Data 06/29/23 05:50 06/29/23 05:50 Labs: Laboratory Results - last 24 hr 06/29/23 05:50: WBC 14.4 H, RBC 3.13 L, Hgb 9.6 L, Hct 32.2 L, MCV 102.9 H, MCH 30.7, MCHC 29.8 L, RDW Std Deviation 57.1 H, RDW Coeff of Anabela 15.0 H, Plt Count 197, MPV 11.2, Immature Gran % (Auto) 0.600, Neut % (Auto) 92.8 H, Lymph % (Auto) 3.2 L, [place] % (Auto) 3.2, Eos % (Auto) 0.0, Baso % (Auto) 0.2, Absolute Neuts (auto) 13.4 H, Absolute Lymphs (auto) 0.46 L, Nucleated RBC % 0.3, Anisocytosis 1+, Macrocytosis 1+, Sodium 147 H, Potassium 3.0 L, Chloride 111 H, Carbon Dioxide 30.0, Anion Gap 6, BUN 31 H, Creatinine 0.90, Estim Creat Clear Calc 55.32, Est GFR (MDRD) Af Amer 79, Est GFR (MDRD) Non-Af 65, BUN/Creatinine Ratio 34.4 H, Glucose 120 H, Calcium 8.1 L, B-Natriuretic Peptide 270.1 H Micro: Microbiology 06/26/23 19:15 Urine Catheter - Turner Urine Culture - Preliminary Alpha hemolytic organism 06/26/23 19:00 Blood Culture (Wb) - Right Wrist Blood Culture - Preliminary No growth in 48 hours. 06/26/23 18:52 Blood Culture (Wb) - Anticubital Left Blood Culture - Preliminary No growth in 48 hours. 06/27/23 10:25 Stool C. difficile DNA Amplification - Final 06/27/23 08:05 Urine Catheter - Turner Legionella Antigen - Final 06/27/23 08:05 Urine Catheter - Turner Streptococcus pneumoniae Antigen (M - Final Streptococcus pneumonia Ag 06/27/23 08:05 Nasal Secretion SARS-CoV-2 Antigen (Rapid) - Final Radiography Diagnostic Testing: Radiology Impression Chest X-Ray 06/29/23 07:11 IMPRESSION: Mild patient rotation. Shifting hazy opacities, including increased opacities in the left lower lung field and right perihilar region, and partially cleared hazy opacity in the left upper lung. Slight effusions. Borderline cardiomegaly and pulmonary vascular distention. Electronically Signed: Clover Luu MD at 7:46 EDT , Rhythm Strip Rhythm Strip: Sinus Tach Rate: 95 Ectopy: - (Episodes of nonsustained V. tach) Physical Exam Const alert and oriented x3 Constitutional Narrative: Elderly chronically ill-appearing female, obese, sitting in mid 90s on Airvo with high O2 requirements, mild increased work of breathing noted. Alert and conversing normally, no acute distress. General Appearance: cooperative and comfortable HEENT normocephalic, head/scalp atraumatic, hearing grossly normal bilaterally, nasal mucous membranes and turbinates normal and moist oral mucous membranes Eyes PERRL, EOMs intact bilaterally and conjunctivae normal Neck full ROM, no lymphadenopathy and supple Lymph Lymphatic: no lymphadenopathy noted Chest inspection of chest normal Resp Resp Narrative: Decreased air movement with mild crackles noted bilaterally, no wheezing noted. Cardio regular rate, regular rhythm, no murmurs and peripheral pulses 2+ throughout GI normal to inspection, nondistended, normoactive bowel sounds, soft to palpation, non-tender and non-distended Back/Spine normal ROM Extremity normal to inspection, full ROM and no pedal edema Skin no rashes or lesions noted Psych mental status grossly normal Assessment & Plan Assessment/Plan (1) Pneumonia: QUALIFIERS: Laterality: bilateral Lung location: unspecified part of lung Pneumonia type: due to unspecified organism Qualified Code(s): J18.9 - Pneumonia, unspecified organism PLAN: Plan Patient is a 72-year-old female with history of COPD with emphysema, PE on Eliquis, Parkinson's disease, and glucocorticoid use who presented to [facility] on 06/26/2023 with severe hypoxia and unresponsiveness. 1. Acute hypoxic respiratory failure, history of COPD with emphysema, cardiac diastolic dysfunction Secondary to pneumococcal pneumonia with severe underlying emphysematous and bronchiectatic changes noted on imaging. May also have a component of aspiration pneumonia given dysphagia as noted below. Also possibly with component of volume overload given history of diastolic dysfunction. Chest x-ray on admit showed bilateral patchy infiltrates, right pleural effusion. Repeat chest x-ray on 06/29 shifting hazy opacities with increased opacities in left lower lung field and right perihilar region, along with slight effusions and borderline cardiomegaly. Notably had CT chest without contrast done on 05/30/2023 for lung cancer screening, showed at the sentence changes with interstitial scarring. Echo on 06/27 showed EF 60%, normal LV systolic function, stage I diastolic dysfunction. ? No Experience following. Continue bronchodilators and steroids. Continue Unasyn. Continue BiPAP therapy with naps and nightly. Start gentle IV diuresis and monitor BMP and urine output. Wean supplemental oxygen as able. Incentive spirometry. Mobilize patient as able. 2. Sepsis without shock, streptococcal pneumonia qSOFA score of 3 on admit with encephalopathy, RR 28, BP 83/67. SIRS 4/4 positive on admit as well. Streptococcal pneumonia urine antigen positive. Was transiently hypotensive but BP improved without need for pressors. Patient did not receive 30 cc/kg of IV fluids. Thus, septic shock ruled out. Blood cultures negative, COVID-negative, C. difficile negative. ? Continue Unasyn as above. 3. Dysphagia Unclear etiology. Underlying Parkinson's disease may be contributing. ? Speech therapy following. Recommendations on 06/29 for n.p.o. with plans for MBSS prior to diet advancement. Would need transitioned to high flow nasal cannula for an MBSS. Continue to follow. 4. Acute metabolic encephalopathy, resolved ? Likely secondary to hypoxia and mild acidosis in setting of sepsis and pneumonia on admit. Home medications (specifically trazodone) may have been contributing. Now resolved. Chronic medical conditions: ? 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 ? Parkinson's disease: Continue home carbidopa/levodopa. ? History of glucocorticoid use: Takes prednisone 20 mg daily, unclear if this is short or long-term, on methylprednisolone for respiratory failure as noted above. DVT prophylaxis: Eliquis CODE STATUS: DNR CCA, DO NOT INTUBATE Expected disposition: Home with home health care versus SNF, TBD Total clinical time spent by myself addressing the patient's medical issues, reviewing all the data, and collaborating with patient's care team: 35 minutes. Charges/Coding Visit Charges Inpatient E&M: 63099 Subs Hosp L2
[2023-06-30] VITALS (20 sets, daily range): BP systolic 104–152; BP diastolic 54–90; PULSE 65–82; RESP 16–28; TEMP 36.5–36.8; O2SAT 92–966; BMI 34.5
[2023-06-30] MEDS: Ipratropium/Albuterol Sulfate 3 ML AMPUL.NEB INHALATION ×4 (01:17→18:56)
[2023-06-30] MEDS: Methylprednisolone Sod Succ 40 MG/ML VIAL IV ×3 (05:44→17:06)
[2023-06-30] MEDS: Ampicillin/Sulbactam 3 GM in 0.9% Normal Saline (100mL MB+) 100 ML IV ×4 (05:44→20:08)
[2023-06-30] MEDS: Menthol/Lanolin/Calamine/Znox 113 GM Tube 1 APPLIC TOPICAL ×3 (05:46→20:09)
[2023-06-30 06:21] LABS: Absolute Lymphocyte Count 0.54 X10^3/uL (0.83-4.51); Absolute Neutrophil Count 8.3 X10^3/uL (2.0-7.7); Basophil# 0.01 X10^3/uL; Basophil% 0.1 % (0-1); Hematocrit 27.5 % (37-47); Hemoglobin 8.5 g/dL (12.0-15.0); Lymphocyte # 0.54 X10^3/ul (0.83-4.51); Lymphocyte % 5.7 % (19-41); Mean Corp Hgb Conc 30.9 g/dL (32-36); Mean Corpuscular Volume 100.4 fL (81-99); Mean Platelet Vol. 10.7 fl (6.2-12.0); Monocyte# 0.44 X10^3/uL; Monocyte% 4.7 % (0-10); NRBC Flagged by Analyzer 0.6 % (0-5); Neutrophil # 8.34 X10^3/uL (2.7-7.7); Neutrophil % 88.3 % (47-70); POSITIVE DIFFERENTIAL YES; Platelet Count 188 K/mm3 (150-450); RBC Distribution Width CV 15.3 % (11.6-14.6); Red Blood Count 2.74 M/mm3 (4.2-5.4); White Blood Count 9.4 K/mm3 (4.4-11.0)
[2023-06-30 06:28] LABS: Differential Indicated SCAN CRITERIA MET
[2023-06-30 06:39] LABS: Anion Gap 5 (5-15); BUN 40 mg/dL (7-18); Calcium,Total 8.2 mg/dL (8.5-10.1); Chloride 114 mmol/L (98-107); Creatinine, Serum 0.73 mg/dL (0.55-1.02); EST Glomerular Filtration Rate 83 mL/min (>60); Est Glom Filt Rate - Afr Amer 101 mL/min (>60); Estimated Creatinine Clearance 49.79 ml/min; Glucose 131 mg/dL (74-106); Potassium 3.4 mmol/L (3.5-5.1); Sodium Level 149 mmol/L (136-145)
[2023-06-30 06:46] LABS: Anisocytosis 1+; Macrocytosis RARE
--- NOTE | 2023-06-30 07:06 | PN.CC_ITS ---
Assessment & Plan Assessment/Plan (1) Acute hypoxic respiratory failure: (2) Acute hypotension: (3) Encephalopathy: PLAN: Plan RECOMMENDATIONS: 1. Transition to conventional nasal cannula supplemental O2 and wean to maintain saturations at or above 90%. 2. Dietary advancement per speech therapy. 3. Continue antimicrobials to complete 7 days of therapy. 4. Continue bronchodilators and steroids. 5. Encourage incentive spirometer use and mobilize patient as tolerated. 6. BiPAP utilization with sleep. IMPRESSIONS: 1. Acute respiratory failure with hypoxia Appears secondary to pneumococcal pneumonia. There is also concern that the patient may have experienced an aspiration event in the days leading up to her hospitalization. She remains on appropriate antimicrobials at this time. Continue supplemental oxygen to maintain saturations at or above 90%. The patient does have underlying diastolic dysfunction and is documented to be overall net positive for the hospitalization. Therefore, diuretics can be utilized intermittently in order to achieve and maintain a euvolemic state. The patient does have significant emphysematous and bronchiectatic changes on CT imaging from May. Accordingly, the patient will be continued on bronchodilators and steroids. Recommend continuing BiPAP therapy with naps and nightly. Encourage incentive spirometer use and mobilize patient as tolerated. 2. Hypokalemia Electrolyte repletion as ordered. Recheck levels in the morning. 3. Possible Parkinson's/history of PE/obesity/poor information Complicates care, management, recovery and prognosis. Continue home medications as indicated. This note was generated with [employer] dictation software. It may contain incorrect words, spelling, and punctuation that were not noted in checking the note before signing. Subjective Subjective The patient was seen and examined at the bedside this morning. Events from the last 24 hours have been reviewed. The patient is currently afebrile, hemodyn amically stable and maintaining appropriate oxygen saturations on Airvo heated high flow with an FiO2 requirement of 50%. The patient is documented to be overall net +2.5 L for the hospitalization. Potassium is low this morning at 3.4. Creatinine is within normal limits. Objective Data Objective Data The patient's most recent lab work, culture data and imaging studies have all been personally reviewed. Surface echocardiogram from June 27 demonstrated stage I diastolic dysfunction with an ejection fraction of 60%. Streptococcal urinary antigen was positive on June 27. Vital Signs: Vital Signs Temp Pulse Resp BP Pulse Ox O2 Del Method O2 Flow Rate 97.7 F L 75 22 H 143/76 H 93 Airvo 60 06/30/23 06:00 06/30/23 06:49 06/30/23 06:49 06/30/23 06:00 06/30/23 06:49 06/30/23 06:00 06/29/23 22:00 FiO2 50 06/30/23 06:49 Oxygen Flow Rate (L/min) 60 Oxygen Delivery Method Airvo Weight: 227 lb 1.218 oz Body Mass Index (BMI) 34.5 Intake & Output: Intake and Output for Last 24 Hours 06/28/23 06/29/23 06/30/23 23:59 23:59 23:59 Intake Total 1053 / 1053 1083 / 1083 112 / 112 Output Total 1800 / 1800 1650 / 1650 250 / 250 Balance -747 / -747 -567 / -567 -138 / -138 Lab / Micro Data Attestation: I reviewed the patient's lab results. 06/30/23 06:12 06/30/23 06:12 Labs: Laboratory Results - last 24 hr 06/29/23 05:50: B-Natriuretic Peptide 270.1 H 06/30/23 06:12: WBC 9.4, RBC 2.74 L, Hgb 8.5 L, Hct 27.5 L, MCV 100.4 H, MCH 31.0, MCHC 30.9 L, RDW Std Deviation 56.0 H, RDW Coeff of Anabela 15.3 H, Plt Count 188, MPV 10.7, Immature Gran % (Auto) 1.200 H, Neut % (Auto) 88.3 H, Lymph % (Auto) 5.7 L, [place] % (Auto) 4.7, Eos % (Auto) 0.0, Baso % (Auto) 0.1, Absolute Neuts (auto) 8.3 H, Absolute Lymphs (auto) 0.54 L, Nucleated RBC % 0.6, Anisocytosis 1+, Macrocytosis RARE, Sodium 149 H, Potassium 3.4 L, Chloride 114 H, Carbon Dioxide 30.0, Anion Gap 5, BUN 40 H, Creatinine 0.73, Estim Creat Clear Calc 49.79, Est GFR (MDRD) Af Amer 101, Est GFR (MDRD) Non-Af 83, BUN/Creatinine Ratio 55.0 H, Glucose 131 H, Calcium 8.2 L Micro: Microbiology 06/26/23 19:15 Urine Catheter - Turner Urine Culture - Preliminary Alpha hemolytic organism 06/26/23 19:00 Blood Culture (Wb) - Right Wrist Blood Culture - Preliminary No growth in 48 hours. 06/26/23 18:52 Blood Culture (Wb) - Anticubital Left Blood Culture - Preliminary No growth in 48 hours. 06/27/23 10:25 Stool C. difficile DNA Amplification - Final 06/27/23 08:05 Urine Catheter - Turner Legionella Antigen - Final 06/27/23 08:05 Urine Catheter - Turner Streptococcus pneumoniae Antigen (M - Final Streptococcus pneumonia Ag 06/27/23 08:05 Nasal Secretion SARS-CoV-2 Antigen (Rapid) - Final Radiography Diagnostic Testing: Radiology Impression Chest X-Ray 06/29/23 07:11 IMPRESSION: Mild patient rotation. Shifting hazy opacities, including increased opacities in the left lower lung field and right perihilar region, and partially cleared hazy opacity in the left upper lung. Slight effusions. Borderline cardiomegaly and pulmonary vascular distention. Electronically Signed: Clover Luu MD at 7:46 EDT , Rhythm Strip Rhythm Strip: Sinus Tach Rate: 95 Ectopy: - (Episodes of nonsustained V. tach) Physical Exam Const alert and no apparent distress Constitutional Narrative: Obese. General Appearance: cooperative HEENT normocephalic and head/scalp atraumatic Eyes PERRL, EOMs intact bilaterally and conjunctivae normal Neck supple General: trachea midline Chest inspection of chest normal Resp normal respiratory effort Auscultation: diminished lung sounds Cardio regular rate and regular rhythm GI normal to inspection, nondistended, normoactive bowel sounds Extremity no clubbing, cyanosis or edema Skin no rashes or lesions noted Neuro CN's II-XII intact bilaterally, moves all extremities and no focal motor deficits Psych cooperative and affect normal Charges/Coding Visit Charges Inpatient E&M: 48565 Subs Hosp L2
--- NOTE | 2023-06-30 09:07 | CASEMGMT ---
Social Work Pt going for a swallow evaluation this morning. SW called pt's POA again, it went straight to voicemail. JANE will continue to follow. HA Julio
[2023-06-30 09:48] LABS: Pathologist Review Reviewed
--- NOTE | 2023-06-30 09:54 | ST.MBS ---
Modified Barium Swallow Patient Information Study Date: 06/30/23 Study Time: 09:00 Direct Billable Minutes: 94 Total Minutes procedure & reportin Diagnosis: PNA (J18.9), Acute hypoxic respiratory failure (J96.01) Referring Physician: Lm Gallegos Reason for Referral: Objectively assess swallow function, assess risk for aspiration, and determine recommendations for least restrictive diet textures and compensatory strategies to improve safety of swallow. Medical History: Elida Graves is a 72-year-old female with PMH including PE. She presented to [facility] ED 06/26/2023 after roommate called EMS after finding her on the commode. EMS reported patient had pulse ox of 60% upon arrival. Patient was placed on BIPAP in ED. Clinical suspicion for an aspiration event with delayed presentation. Patient reportedly had an aspiration event 2 to 3 days before admission per her report and became progressively hypoxic. She was recommended for ST consult. She was initially on liquid only diet due to BIPAP. Then, she was placed on Minced and Moist diet with water protocol between meals. 06/29/2023 she was recommended NPO due to desatting with liquids on Airvo. She was recommended for MBSS once transitioned to nasal cannula, which she was able to do this morning. Current Diet Ordered: NPO Dentition: Edentulous Mental Status: WNL (Able to follow commands for evaluation) Respiratory Status: Oxygenating on 4L/M nasal cannula (Pt originally came to radiology on 6L, but SpO2 read in the mid 80s. RN, Jennifer, placed the patient on 15L via nasal cannula increasing SpO2 to low 90s) Penetration-Aspiration Scale Penetration-Aspiration Scale: OBJECTIVE ASSESSMENT OF SWALLOW FUNCTION (QUANTITATIVE ? PER TRIAL): PENETRATION / ASPIRATION SCALE (CHEW): 1 = does not enter airway 2 = enters airway/above vocal folds/ejected 3 = enters airway/above vocal folds/not ejected 4 = enters airway/contacts vocal folds/ejected 5 = enters airway/contacts vocal folds/not ejected 6 = enters airway/below vocal folds/ejected 7 = enters airway/below vocal folds/not ejected despite effort 8 = enters airway/below vocal folds/no effort VIDEOFLOROSCOPIC SCALE SCORE (CHEW): Grade I = aspiration of material that has penetrated into the laryngeal vestibule, intact cough reflex Grade II = aspiration < 10 % of the bolus, intact cough reflex Grade III = aspiration of < 10 % of the bolus, reduced cough reflex or aspiration of > 10 % of the bolus, intact cough reflex Grade IV = aspiration of > 10 % of the bolus, reduced cough reflex Penetration-Aspiration Scale Score Thin Liquid via teaspoon: Result: 1= does not enter airway Thin Liquid via teaspoon Trial 2: Result: 1= does not enter airway Thin Liquid via large single sip: cup: Result: 1= does not enter airway [place] Thick Liquid via small single sip: cup: Result: 1= does not enter airway Pudding via teaspoon: Result: 1= does not enter airway Comment: Esophageal screen - good clearance. Cookie: Comment: Unable to score as the patient was unable to masticate 1/4 Alda Doone. She expectorated cookie upon HEATING AND VENTILATING WORKER request. Thin Liquid via single sip: straw: Result: 1= does not enter airway Thin Liquid via sequential sips:straw: Result: 7= enters airways/below vocal folds/not ejected despite effort Thin Liquid via small single sip: cup: Result: 1= does not enter airway Oral Phase Labial Seal: No Labial Escape Tongue Control During Bolus Hold: Posterior escape of greater than half of bolus Bolus Preparation/Mastication: Minimal chewing/mashing with majority of bolus unchewed Bolus Transport/Lingual Motion: Slowed tongue motion Oral Residue: Trace residue lining oral structures Pharyngeal Phase Initiation of Pharyngeal Swallow: Bolus head in valleculae Soft Palate Elevation: No bolus between soft palate and pharyngeal wall Laryngeal Elevation: Partial superior movement thyroid cart/partial apprx aryt-epig petiole Anterior Hyoid Excursion: Partial anterior movement Epiglottic Movement: Complete inversion Laryngeal Vestibule Closure at Height of Swallow: Incomplete; narrow column of air/contrast in laryngeal vestibule Pharyngeal Stripping Wave: Present - complete Pharyngoesophageal Segment Opening: Complete distension and complete duration; no obstruction of flow Tongue Base Retraction: Trace column of contrast between tongue base & post. pharyngeal wall Pharyngeal Residue: Trace residue within or on pharyngeal structures Esophageal Phase Esophageal Clearance: Complete clearance Diagnosis/Impression Diagnosis: Mild-moderate oropharyngeal phase dyphagia (R13.12) Impression: The oral phase is primarily marked by... -Poor mastication abilities. Patient was unable to chew 1/4 of Alda Doone, so the trial was spit out per HEATING AND VENTILATING WORKER request. -Decreased bolus control with posterior loss >1/2 of liquid trials to the vallecula. -Slowed tongue movement for A-P transport. The pharyngeal phase is primarily marked by... -Decreased airway closure during the swallow due to decreased hyoid excursion and laryngeal elevation. -Aspiration of thin liquids via sequential straw sip with weak reflexive cough. Recommendations Diet: Puree Textures and Thin Liquids Compensatory Strategies: Small Bites, Small Sips, No Straws, Slow Rate and Sitting upright Recommend Repeat Modified Barium Swallow: TBD Need for Skilled Speech Therapy Services: Yes Comment: -Monitor diet tolerance and train in strategies to decrease aspiration risk. HEATING AND VENTILATING WORKER requested the patient have her dentures brought in to trial more solid textures in future sessions. -Train in oropharyngeal strengthening for lingual control, anterior hyoid excursion, and laryngeal elevation (e.g. lingual resistance, CTAR, Radha). Education Completed: 1. Described result of evaluation., 2. Pt understands evaluation & agrees with goals and treatment plan. and 7. Pt requires further education on strategies & risks. Status Active ST Patient: Active Contact Information [facility] Speech Therapy:: Shaneka Howe M.A. [facility]-HEATING AND VENTILATING WORKER Speech-Language Pathologist [facility] [address] [place] [address] [phone]
[2023-06-30] MEDS: Potassium Chloride 10mEq/100mL 10 MEQ/100 ML IV.SOLN. 100 MEQ IV BOLUS ×4 (10:06→13:37)
[2023-06-30] MEDS: APIXABAN 5 MG TABLET PO ×2 (10:06→20:08)
[2023-06-30] MEDS: Pregabalin 75 MG Capsule 300 MG PO ×2 (10:10→20:08)
[2023-06-30] MEDS: buPROPion (XL) 300 MG TABLET.XL PO (10:11)
[2023-06-30] MEDS: Sertraline 100 MG Tablet PO (10:11)
[2023-06-30] MEDS: Carbidopa/Levodopa 25/100 Tablet PO (10:11)
--- NOTE | 2023-06-30 10:53 | CASEMGMT ---
Social Work SW spoke w/pt, she had a swallow evaluation today, and is on a puree diet as per RN. SW spoke w/pt again about discharge plan. Pt continues to state she will go home. SW reminded pt that she has been needing help to get up and move, spoke about whether or not Cristiane(her roommate/registered associate) at home can help. SW reviewed briefly w/pt the list of shelter facilities via the [facility] list in pt's preferred geographic area and insurance network w/quality and resource use data. SW asked pt to think about possibly going somewhere for rehab--pt states she does not need to think about it, continues to state she wants to go home. SW inquired if she has spoken to Cristiane since she's been here, pt states yes. SW inquired if Cristiane thinks she can care for pt, she states sometimes she does and sometime she doesn't. JANE did ask about the number on the face sheet, she states it is a cell phone they share and Cristiane has it at present. JANE explained will continue to speak w/pt about discharge plan. JANE called pt's roommate/registered associate again, message left to call this SW or PCU SW after this SW leaves for the day. Pt also has Cristiane listed as her POA. JANE will continue to follow. HA Rabago
--- NOTE | 2023-06-30 12:28 | CASEMGMT ---
SW met with patient and her caregiver Mireille. SW introduced self and role at [facility]. SW explained that patient is not doing well with therapy and is quite weak. SW explained that therapy is recommending patient go somewhere short term for rehab. Patient and Mireille agreed to discuss this. Mireille did tell patient this would be a good idea for patient to get stronger. SW provided patient and Mireille with a list of nursing home facility providers including quality and resource use data and consistent with patient?s preferred geographic region, medical needs, and insurance network were provided from the [facility] Guide. SW explained they would just need to pick 3 places they would be okay with and SW will work on checking with facilities. SW also asked Mireille about Healthcare Power of Application Spec paperwork. Patient told Mireille where the papers are located. Mireille said she will look and bring them in. SW explained that if they cannot locate them SW can complete documents with patient. Aishwarya Del Rosario BEER COOLER ABIMBOLA
--- NOTE | 2023-06-30 15:34 | PN.HOSP_ITS ---
Reason for Visit Reason for Visit: Diagnoses Sepsis, unspecified organism (06/26/23) Unspecified infectious disease (06/26/23) Encephalopathy, unspecified (06/26/23) Other encephalopathy (06/26/23) Hypotension, unspecified (06/26/23) Pneumonia, unspecified organism (06/26/23) Acute respiratory failure with hypoxia (06/26/23) Severe sepsis without septic shock (06/26/23) Severe sepsis with septic shock (06/26/23) Subjective Subjective Patient seen at bedside this morning. Sitting comfortably in bedside chair, alert, conversing normally, no acute distress. Was satting in the mid 90s on high flow nasal cannula at 12 L on my exam, no increased work of breathing noted. Patient appeared somewhat fatigued but she otherwise denied any acute p ain or discomfort. States she continues to have a mild cough but this has improved since yesterday. Denies any fevers or chills. Denies any lightheadedness or dizziness. States she feels somewhat hungry at this time. No other acute concerns. Objective Data Objective Data Vital Signs: Vital Signs Temp Pulse Resp BP Pulse Ox O2 Del Method O2 Flow Rate 97.8 F 67 18 133/60 H 94 Airvo 60 06/30/23 14:00 06/30/23 14:00 06/30/23 14:00 06/30/23 14:00 06/30/23 14:00 06/30/23 14:00 06/30/23 14:00 FiO2 50 06/30/23 14:00 Oxygen Flow Rate (L/min) 60 Oxygen Delivery Method Airvo Weight: 103 kg Body Mass Index (BMI) 34.5 Intake & Output: Intake and Output for Last 24 Hours 06/28/23 06/29/23 06/30/23 23:59 23:59 23:59 Intake Total 1053 / 1053 1083 / 1083 736 / 736 Output Total 1800 / 1800 1650 / 1650 290 / 290 Balance -747 / -747 -567 / -567 446 / 446 Lab / Micro Data 06/30/23 06:12 06/30/23 06:12 Labs: Laboratory Results - last 24 hr 06/27/23 05:05: Diff Path Review Reviewed 06/30/23 06:12: WBC 9.4, RBC 2.74 L, Hgb 8.5 L, Hct 27.5 L, MCV 100.4 H, MCH 31.0, MCHC 30.9 L, RDW Std Deviation 56.0 H, RDW Coeff of Anabela 15.3 H, Plt Count 188, MPV 10.7, Immature Gran % (Auto) 1.200 H, Neut % (Auto) 88.3 H, Lymph % (Auto) 5.7 L, [place] % (Auto) 4.7, Eos % (Auto) 0.0, Baso % (Auto) 0.1, Absolute Neuts (auto) 8.3 H, Absolute Lymphs (auto) 0.54 L, Nucleated RBC % 0.6, Anisocytosis 1+, Macrocytosis RARE, Sodium 149 H, Potassium 3.4 L, Chloride 114 H, Carbon Dioxide 30.0, Anion Gap 5, BUN 40 H, Creatinine 0.73, Estim Creat Clear Calc 49.79, Est GFR (MDRD) Af Amer 101, Est GFR (MDRD) Non-Af 83, BUN/Creatinine Ratio 55.0 H, Glucose 131 H, Calcium 8.2 L Micro: Microbiology 06/26/23 19:15 Urine Catheter - Turner Urine Culture - Preliminary Alpha hemolytic organism 06/26/23 19:00 Blood Culture (Wb) - Right Wrist Blood Culture - Preliminary No growth in 48 hours. 06/26/23 18:52 Blood Culture (Wb) - Anticubital Left Blood Culture - Preliminary No growth in 48 hours. 06/27/23 10:25 Stool C. difficile DNA Amplification - Final 06/27/23 08:05 Urine Catheter - Turner Legionella Antigen - Final 06/27/23 08:05 Urine Catheter - Turner Streptococcus pneumoniae Antigen (M - Final Streptococcus pneumonia Ag 06/27/23 08:05 Nasal Secretion SARS-CoV-2 Antigen (Rapid) - Final Rhythm Strip Rhythm Strip: Sinus Tach Rate: 95 Ectopy: - (Episodes of nonsustained V. tach) Physical Exam Const alert and oriented x3 General Appearance: cooperative and comfortable HEENT normocephalic, head/scalp atraumatic, hearing grossly normal bilaterally, nasal mucous membranes and turbinates normal and moist oral mucous membranes Eyes PERRL, EOMs intact bilaterally and conjunctivae normal Neck full ROM, no lymphadenopathy and supple Lymph Lymphatic: no lymphadenopathy noted Chest inspection of chest normal Resp Resp Narrative: Decreased air movement with mild crackles noted bilaterally, improved from yesterday. No wheezing noted. Cardio regular rate, regular rhythm, no murmurs and peripheral pulses 2+ throughout GI normal to inspection, nondistended, normoactive bowel sounds, soft to palpation, non-tender and non-distended Back/Spine normal ROM Extremity normal to inspection, full ROM and no pedal edema Skin no rashes or lesions noted Psych mental status grossly normal Assessment & Plan Assessment/Plan (1) Pneumonia: QUALIFIERS: Pneumonia type: due to unspecified organism Laterality: bilateral Lung location: unspecified part of lung Qualified Code(s): J18.9 - Pneumonia, unspecified organism PLAN: Plan Patient is a 72-year-old female with history of COPD with emphysema, PE on Eliquis, Parkinson's disease, and glucocorticoid use who presented to [facility] on 06/26/2023 with severe hypoxia and unresponsiveness. 1. Acute hypoxic respiratory failure, history of COPD with emphysema, cardiac diastolic dysfunction Secondary to pneumococcal pneumonia with severe underlying emphysematous and bronchiectatic changes noted on imaging. May also have a component of aspiration pneumonia given dysphagia as noted below. Also possibly with component of volume overload given history of diastolic dysfunction. Chest x- ray on admit showed bilateral patchy infiltrates, right pleural effusion. Repeat chest x-ray on 06/29 shifting hazy opacities with increased opacities in left lower lung field and right perihilar region, along with slight effusions and borderline cardiomegaly. Notably had CT chest without contrast done on 05/30/2023 for lung cancer screening, showed at the sentence changes with i nterstitial scarring. Echo on 06/27 showed EF 60%, normal LV systolic function, stage I diastolic dysfunction. ? Customer Support Technician followed. Now weaned to high flow nasal cannula 12 L and satting in the mid 90s. Stable for transfer out of the ICU. Continue bronchodilators and steroids. Continue Unasyn for 7-day course, stop date 07/03. Continue BiPAP therapy with naps and nightly. Wean supplemental oxygen as able. Incentive spirometry. Mobilize patient as able. Responded well to 1 dose of IV diuretics, can consider further gentle diuresis as needed. PT/OT/case management following. 2. Sepsis without shock, streptococcal pneumonia qSOFA score of 3 on admit with encephalopathy, RR 28, BP 83/67. SIRS 4/4 positive on admit as well. Streptococcal pneumonia urine antigen positive. Was transiently hypotensive but BP improved without need for pressors. Patient did not receive 30 cc/kg of IV fluids. Thus, septic shock ruled out. Blood cultures negative, COVID-negative, C. difficile negative. ? Continue Unasyn as above. 3. Dysphagia Unclear etiology. Underlying Parkinson's disease may be contributing. Speech therapy following, completed modified barium swallow on 06/30 with recommendation for pur?e textures and thin liquids with small bites and direct supervision with eating. Okay for p.o. medications. ? Appreciate speech therapy recs. Diet ordered, all home p.o. medications restarted. 4. Acute metabolic encephalopathy, resolved ? Likely secondary to hypoxia and mild acidosis in setting of sepsis and pneumonia on admit. Home medications (specifically trazodone) may have been contributing. Now resolved. Chronic medical conditions: ? 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 ? Parkinson's disease: Continue home carbidopa/levodopa. ? History of glucocorticoid use: Takes prednisone 20 mg daily, unclear if this is short or long-term, on methylprednisolone for respiratory failure as noted above. DVT prophylaxis: Eliquis CODE STATUS: DNR CCA, DO NOT INTUBATE Expected disposition: Home with home health care versus SNF, 2-3 days Total clinical time spent by myself addressing the patient's medical issues, reviewing all the data, and collaborating with patient's care team: 35 minutes. Charges/Coding Visit Charges Inpatient E&M: 13623 Subs Hosp L2
[2023-06-30] MEDS: Atorvastatin Calcium 80 MG Tablet PO (20:08)
[2023-07-01] VITALS (10 sets, daily range): BP systolic 111–136; BP diastolic 62–98; PULSE 62–87; RESP 18–23; TEMP 36.6; O2SAT 93–99; BMI 34.7
[2023-07-01] MEDS: Ipratropium/Albuterol Sulfate 3 ML AMPUL.NEB INHALATION ×3 (01:30→19:05)
[2023-07-01] MEDS: Methylprednisolone Sod Succ 40 MG/ML VIAL IV ×5 (01:50→23:05)
[2023-07-01] MEDS: Ampicillin/Sulbactam 3 GM in 0.9% Normal Saline (100mL MB+) 100 ML IV ×4 (05:07→23:05)
[2023-07-01] MEDS: Menthol/Lanolin/Calamine/Znox 113 GM Tube 1 APPLIC TOPICAL ×2 (05:08→20:28)
[2023-07-01 05:49] LABS: Hemoglobin 9.5 g/dL (12.0-15.0); Mean Corp Hgb Conc 29.7 g/dL (32-36); Mean Corpuscular Hgb 30.8 pg (27.0-32.0); Mean Corpuscular Volume 103.9 fL (81-99); Platelet Count 218 K/mm3 (150-450); RBC Distribution Width CV 15.2 % (11.6-14.6); RBC Distribution Width SD 58.5 fl (35.1-43.9); Red Blood Count 3.08 M/mm3 (4.2-5.4); White Blood Count 11.8 K/mm3 (4.4-11.0)
[2023-07-01 06:02] LABS: Anion Gap 3 (5-15); BUN 39 mg/dL (7-18); BUN/Creat Ratio 50.5 RATIO (10-20); Calcium,Total 8.6 mg/dL (8.5-10.1); Chloride 113 mmol/L (98-107); Creatinine, Serum 0.77 mg/dL (0.55-1.02); EST Glomerular Filtration Rate 77 mL/min (>60); Est Glom Filt Rate - Afr Amer 94 mL/min (>60); Estimated Creatinine Clearance 49.79 ml/min; Glucose 131 mg/dL (74-106); Potassium 3.7 mmol/L (3.5-5.1); Sodium Level 147 mmol/L (136-145)
--- NOTE | 2023-07-01 06:52 | PCM.PN.INT ---
Assessment & Plan Assessment/Plan (1) Acute hypoxic respiratory failure: (2) Acute hypotension: (3) Encephalopathy: PLAN: Plan RECOMMENDATIONS: 1. Continue to wean supplemental oxygen to maintain saturations at or above 90%. 2. Dietary advancement per speech therapy. 3. Continue antimicrobials to complete 7 days of therapy. 4. Continue bronchodilators and steroids. 5. Encourage incentive spirometer use and mobilize patient as tolerated. 6. BiPAP utilization with sleep. IMPRESSIONS: 1. Acute respiratory failure with hypoxia Appears secondary to pneumococcal pneumonia. There is also concern that the patient may have experienced an aspiration event in the days leading up to her hospitalization. She remains on appropriate antimicrobials at this time. Continue supplemental oxygen to maintain saturations at or above 90%. The patient does have underlying diastolic dysfunction and is documented to be overall net positive for the hospitalization. Therefore, diuretics can be utilized intermittently in order to achieve and maintain a euvolemic state. The patient does have significant emphysematous and bronchiectatic changes on CT imaging from May. Accordingly, the patient will be continued on bronchodilators and steroids. Recommend continuing BiPAP therapy with naps and nightly. Encourage incentive spirometer use and mobilize patient as tolerated. Continue modified diet per speech therapy recommendations. 2. Possible Parkinson's/history of PE/obesity/poor information Complicates care, management, recovery and prognosis. Continue home medications as indicated. This note was generated with [employer] dictation software. It may contain incorrect words, spelling, and punctuation that were not noted in checking the note before signing. Subjective Subjective The patient was seen and examined at the bedside this morning. Events from the last 24 hours have been reviewed. The patient is currently afebrile, hemodynamically stable and maintaining appropriate oxygen saturations on 10 L/min high flow cannula. The patient is currently documented to be overall net +2.7 L for the hospitalization. The patient completed a modified barium swallow yesterday which revealed mild to moderate oropharyngeal phase dysphagia. She is now on a modified diet, per speech therapy. Objective Data Objective Data The patient's most recent lab work, culture data and imaging studies have all been personally reviewed. Surface echocardiogram from June 27 demonstrated stage I diastolic dysfunction with an ejection fraction of 60%. Streptococcal urinary antigen was positive on June 27. Vital Signs: Vital Signs Temp Pulse Resp BP Pulse Ox O2 Del Method O2 Flow Rate 98 F 72 20 H 111/65 93 High Flow 10 10/18/23 04:00 07/01/23 04:00 07/01/23 04:00 07/01/23 04:00 07/01/23 04:00 07/01/23 04:00 07/01/23 04:00 FiO2 50 06/30/23 16:00 Oxygen Flow Rate (L/min) 10 Oxygen Delivery Method High Flow Weight: 228 lb 13.437 oz Body Mass Index (BMI) 34.7 Intake & Output: Intake and Output for Last 24 Hours 06/29/23 06/30/23 07/01/23 23:59 23:59 23:59 Intake Total 1083 / 1083 960 / 960 112 / 112 Output Total 1650 / 1650 790 / 790 300 / 300 Balance -567 / -567 170 / 170 -188 / -188 Lab / Micro Data Attestation: I reviewed the patient's lab results. 07/01/23 04:45 07/01/23 04:45 Labs: Laboratory Results - last 24 hr 06/27/23 05:05: Diff Path Review Reviewed 07/01/23 04:45: WBC 11.8 H, RBC 3.08 L, Hgb 9.5 L, Hct 32.0 L, MCV 103.9 H, MCH 30.8, MCHC 29.7 L, RDW Std Deviation 58.5 H, RDW Coeff of Anabela 15.2 H, Plt Count 218, MPV 11.0, Sodium 147 H, Potassium 3.7, Chloride 113 H, Carbon Dioxide 31.0, Anion Gap 3 L, BUN 39 H, Creatinine 0.77, Estim Creat Clear Calc 49.79, Est GFR (MDRD) Af Amer 94, Est GFR (MDRD) Non-Af 77, BUN/Creatinine Ratio 50.5 H, Glucose 131 H, Calcium 8.6 Micro: Microbiology 06/26/23 19:15 Urine Catheter - Turner Urine Culture - Preliminary Alpha hemolytic organism 06/26/23 19:00 Blood Culture (Wb) - Right Wrist Blood Culture - Preliminary No growth in 48 hours. 06/26/23 18:52 Blood Culture (Wb) - Anticubital Left Blood Culture - Preliminary No growth in 48 hours. 06/27/23 10:25 Stool C. difficile DNA Amplification - Final 06/27/23 08:05 Urine Catheter - Turner Legionella Antigen - Final 06/27/23 08:05 Urine Catheter - Turner Streptococcus pneumoniae Antigen (M - Final Streptococcus pneumonia Ag 06/27/23 08:05 Nasal Secretion SARS-CoV-2 Antigen (Rapid) - Final Radiography Diagnostic Testing: Radiology Impression Chest X-Ray 06/29/23 07:11 IMPRESSION: Mild patient rotation. Shifting hazy opacities, including increased opacities in the left lower lung field and right perihilar region, and partially cleared hazy opacity in the left upper lung. Slight effusions. Borderline cardiomegaly and pulmonary vascular distention. Electronically Signed: Clover Luu MD at 7:46 EDT , Rhythm Strip Rhythm Strip: Sinus Tach Rate: 95 Ectopy: - (Episodes of nonsustained V. tach) Physical Exam Const alert and no apparent distress Constitutional Narrative: Obese. General Appearance: cooperative HEENT normocephalic and head/scalp atraumatic Eyes PERRL, EOMs intact bilaterally and conjunctivae normal Neck supple General: trachea midline Chest inspection of chest normal Resp normal respiratory effort Resp Narrative: Poor inspiratory effort. Auscultation: diminished lung sounds Cardio regular rate and regular rhythm GI normal to inspection, nondistended, normoactive bowel sounds Extremity no clubbing, cyanosis or edema Skin no rashes or lesions noted Neuro CN's II-XII intact bilaterally, moves all extremities and no focal motor deficits Psych Mood & Affect: flat affect Charges/Coding Visit Charges Inpatient E&M: 18383 Subs Hosp L2
[2023-07-01] MEDS: Carbidopa/Levodopa 25/100 Tablet PO (09:52)
[2023-07-01] MEDS: Sertraline 100 MG Tablet PO (09:53)
[2023-07-01] MEDS: buPROPion (XL) 300 MG TABLET.XL PO (09:53)
[2023-07-01] MEDS: APIXABAN 5 MG TABLET PO ×2 (09:53→20:28)
[2023-07-01] MEDS: Pregabalin 75 MG Capsule 300 MG PO ×2 (09:57→20:28)
--- NOTE | 2023-07-01 11:25 | CASEMGMT ---
SW met with patient this am. SW discussed d/c plan. Patient and her caregiver did talk with one another yesterday about placement. Patient expressed frustration with her life changing in such a short amount of time. SW listened and provided emotional support. Patient said she would go to the unit here at [facility]. SW let patient now SW will make a referral. Aishwarya DAILY
--- NOTE | 2023-07-01 15:00 | PN.HOSP_ITS ---
Reason for Visit Reason for Visit: Diagnoses Sepsis, unspecified organism (06/26/23) Unspecified infectious disease (06/26/23) Encephalopathy, unspecified (06/26/23) Other encephalopathy (06/26/23) Hypotension, unspecified (06/26/23) Pneumonia, unspecified organism (06/26/23) Acute respiratory failure with hypoxia (06/26/23) Severe sepsis without septic shock (06/26/23) Severe sepsis with septic shock (06/26/23) Subjective Subjective Patient seen in bed this morning. Was sitting at the edge of the bed about to work with physical therapy. Patient was satting in the mid to high 90s on 12 L high flow nasal cannula, no increased work of breathing noted. Patient states that she continues to feel improved from a breathing standpoint today. Denies any cough or sputum production. Denies any chest pain or shortness of breath. Denies any fevers or chills. She continues to feel weaker than her baseline but has been able to work with therapy. Denies any other acute concerns this morning. Objective Data Objective Data Vital Signs: Vital Signs Temp Pulse Resp BP Pulse Ox O2 Del Method O2 Flow Rate 97.9 F 76 18 115/74 94 High Flow 10 07/01/23 14:00 07/01/23 14:00 07/01/23 14:00 07/01/23 14:00 07/01/23 14:00 07/01/23 14:00 07/01/23 14:00 FiO2 50 07/01/23 14:00 Oxygen Flow Rate (L/min) 10 Oxygen Delivery Method High Flow Weight: 103.8 kg Body Mass Index (BMI) 34.7 Intake & Output: Intake and Output for Last 24 Hours 06/29/23 06/30/23 07/01/23 23:59 23:59 23:59 Intake Total 1083 / 1083 960 / 960 224 / 224 Output Total 1650 / 1650 790 / 790 525 / 525 Balance -567 / -567 170 / 170 -301 / -301 Lab / Micro Data 07/01/23 04:45 07/01/23 04:45 Labs: Laboratory Results - last 24 hr 07/01/23 04:45: WBC 11.8 H, RBC 3.08 L, Hgb 9.5 L, Hct 32.0 L, MCV 103.9 H, MCH 30.8, MCHC 29.7 L, RDW Std Deviation 58.5 H, RDW Coeff of Anabela 15.2 H, Plt Count 218, MPV 11.0, Sodium 147 H, Potassium 3.7, Chloride 113 H, Carbon Dioxide 31.0, Anion Gap 3 L, BUN 39 H, Creatinine 0.77, Estim Creat Clear Calc 49.79, Est GFR (MDRD) Af Amer 94, Est GFR (MDRD) Non-Af 77, BUN/Creatinine Ratio 50.5 H, Glucose 131 H, Calcium 8.6 Micro: Microbiology 06/26/23 19:15 Urine Catheter - Turner Urine Culture - Preliminary Gram Positive Cocci Gram positive jorge Gram positive jorge#[email or web address] 06/26/23 19:00 Blood Culture (Wb) - Right Wrist Blood Culture - Preliminary No growth in 48 hours. 06/26/23 18:52 Blood Culture (Wb) - Anticubital Left Blood Culture - Preliminary No growth in 48 hours. 06/27/23 10:25 Stool C. difficile DNA Amplification - Final 06/27/23 08:05 Urine Catheter - Turner Legionella Antigen - Final 06/27/23 08:05 Urine Catheter - Turner Streptococcus pneumoniae Antigen (M - Final Streptococcus pneumonia Ag 06/27/23 08:05 Nasal Secretion SARS-CoV-2 Antigen (Rapid) - Final Rhythm Strip Rhythm Strip: Sinus Tach Rate: 95 Ectopy: - (Episodes of nonsustained V. tach) Physical Exam Const alert and oriented x3 Constitutional Narrative: Elderly chronically ill-appearing female, sitting at edge of bed, conversing normally, no acute distress. Satting in mid to high 90s on 12 L high flow nasal cannula, no increased work of breathing noted. General Appearance: cooperative and comfortable HEENT normocephalic, head/scalp atraumatic, hearing grossly normal bilaterally, nasal mucous membranes and turbinates normal and moist oral mucous membranes Eyes PERRL, EOMs intact bilaterally and conjunctivae normal Neck full ROM, no lymphadenopathy and supple Lymph Lymphatic: no lymphadenopathy noted Chest inspection of chest normal Resp Resp Narrative: Decreased air movement with mild crackles noted bilaterally, improved from yesterday. No wheezing noted. Cardio regular rate, regular rhythm, no murmurs and peripheral pulses 2+ throughout GI normal to inspection, nondistended, normoactive bowel sounds, soft to palpation, non-tender and non-distended Back/Spine normal ROM Extremity normal to inspection, full ROM and no pedal edema Skin no rashes or lesions noted Psych mental status grossly normal Assessment & Plan Assessment/Plan (1) Pneumonia: QUALIFIERS: Pneumonia type: due to unspecified organism [place] terality: bilateral Lung location: unspecified part of lung Qualified Code(s): J18.9 - Pneumonia, unspecified organism PLAN: Plan Patient is a 72-year-old female with history of COPD with emphysema, PE on Eliquis, Parkinson's disease, and glucocorticoid use who presented to [facility] 06/26[facility]2023 with severe hypoxia and unresponsiveness. 1. Acute hypoxic respiratory failure, history of COPD with emphysema, cardiac diastolic dysfunction Secondary to pneumococcal pneumonia with severe underlying emphysematous and bronchiectatic changes noted on imaging. May also have a component of aspiration pneumonia given dysphagia as noted below. Also possibly with component of volume overload given history of diastolic dysfunction. Chest x- ray on admit showed bilateral patchy infiltrates, right pleural effusion. Repeat chest x-ray on 06/29 shifting hazy opacities with increased opacities in left lower lung field and right perihilar region, along with slight effusions and borderline cardiomegaly. Notably had CT chest without contrast done on 05/30/2023 for lung cancer screening, showed at the sentence changes with interstitial scarring. Echo on 06/27 showed EF 60%, normal LV systolic function, stage I diastolic dysfunction. ? Blood Bank Laboratory Technologist following. Transfer orders out of ICU placed on 06/30, remains in ICU due to bed availability. Weaning supplemental oxygen as able, with goal being to wean patient to 6 L nasal cannula which she can be on at discharge. Continue bronchodilators and steroids. Continue Unasyn for 7-day course, stop date 07/03. Continue BiPAP therapy with naps and nightly. Incentive spirometry. Mobilize patient as able. Responded well to 1 dose of IV diuretics, can consider further gentle diuresis as needed. PT/OT/case management following. 2. Sepsis without shock, improved; streptococcal pneumonia qSOFA score of 3 on admit with encephalopathy, RR 28, BP 83/67. SIRS 4/4 positive on admit as well. Streptococcal pneumonia urine antigen positive. Was transiently hypotensive but BP improved without need for pressors. Patient did not receive 30 cc/kg of IV fluids. Thus, septic shock ruled out. Blood cultures negative, COVID-negative, C. difficile negative. ? Continue Unasyn as above. 3. Dysphagia Unclear etiology. Underlying Parkinson's disease may be contributing. Speech therapy following, completed modified barium swallow on 06/30 with recommendation for pur?e textures and thin liquids with small bites and direct supervision with eating. Okay for p.o. medications. ? Appreciate speech therapy recs. Diet ordered, all home p.o. medications restarted. 4. Acute metabolic encephalopathy, resolved ? Likely secondary to hypoxia and mild acidosis in setting of sepsis and pneumonia on admit. Home medications (specifically trazodone) may have been contributing. Now resolved. 5. Debility ? PT/OT/case management following. PT/OT recommending SNF on discharge. Case management discussed with patient's guardian and roommate Mireille, she and patient are in agreement for SNF placement on discharge. Referrals placed. Hoping that patient will be medically ready for discharge on Tuesday 07/03. Chronic medical conditions: ? 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 ? Parkinson's disease: Continue home carbidopa/levodopa. ? History of glucocorticoid use: Takes prednisone 20 mg daily, unclear if this is short or long-term, on methylprednisolone for respiratory failure as noted above. DVT prophylaxis: Eliquis CODE STATUS: DNR CCA, DO NOT INTUBATE Expected disposition: SNF, 2 to 3 days Total clinical time spent by myself addressing the patient's medical issues, reviewing all the data, and collaborating with patient's care team: 35 minutes. Charges/Coding Visit Charges Inpatient E&M: 77127 Subs Hosp L2
[2023-07-01] MEDS: Atorvastatin Calcium 80 MG Tablet PO (20:28)
[2023-07-02] VITALS (7 sets, daily range): BP systolic 123–148; BP diastolic 65–80; PULSE 75–86; RESP 17–20; TEMP 36.4–36.9; O2SAT 92–94; BMI 34.8
[2023-07-02] MEDS: Ampicillin/Sulbactam 3 GM in 0.9% Normal Saline (100mL MB+) 100 ML IV ×3 (05:02→18:09)
[2023-07-02] MEDS: Methylprednisolone Sod Succ 40 MG/ML VIAL IV ×3 (05:03→18:30)
[2023-07-02] MEDS: Menthol/Lanolin/Calamine/Znox 113 GM Tube 1 APPLIC TOPICAL ×2 (05:03→22:17)
[2023-07-02 05:07] LABS: Hematocrit 26.8 % (37-47); Hemoglobin 8.1 g/dL (12.0-15.0); Mean Corp Hgb Conc 30.2 g/dL (32-36); Mean Corpuscular Hgb 30.9 pg (27.0-32.0); Mean Corpuscular Volume 102.3 fL (81-99); Mean Platelet Vol. 10.6 fl (6.2-12.0); Platelet Count 217 K/mm3 (150-450); RBC Distribution Width CV 15.1 % (11.6-14.6); RBC Distribution Width SD 56.6 fl (35.1-43.9); Red Blood Count 2.62 M/mm3 (4.2-5.4); White Blood Count 10.9 K/mm3 (4.4-11.0)
[2023-07-02 05:23] LABS: Anion Gap 2 (5-15); BUN 33 mg/dL (7-18); BUN/Creat Ratio 52.7 RATIO (10-20); Chloride 112 mmol/L (98-107); Creatinine, Serum 0.63 mg/dL (0.55-1.02); EST Glomerular Filtration Rate 99 mL/min (>60); Est Glom Filt Rate - Afr Amer 119 mL/min (>60); Estimated Creatinine Clearance 49.79 ml/min; Glucose 127 mg/dL (74-106); Potassium 4.2 mmol/L (3.5-5.1); Sodium Level 147 mmol/L (136-145)
[2023-07-02] MEDS: Ipratropium/Albuterol Sulfate 3 ML AMPUL.NEB INHALATION ×3 (06:55→19:00)
--- NOTE | 2023-07-02 07:14 | PCM.PN.INT ---
Assessment & Plan Assessment/Plan (1) Acute hypoxic respiratory failure: (2) Acute hypotension: (3) Encephalopathy: PLAN: Plan RECOMMENDATIONS: 1. Continue to wean supplemental oxygen to maintain saturations at or above 90%. 2. Dietary advancement per speech therapy. 3. Continue antimicrobials to complete 7 days of therapy. 4. Continue bronchodilators and steroids. 5. Encourage incentive spirometer use and mobilize patient as tolerated. 6. BiPAP utilization with sleep. IMPRESSIONS: 1. Acute respiratory failure with hypoxia Appears secondary to pneumococcal pneumonia. There is also concern that the patient may have experienced an aspiration event in the days leading up to her hospitalization. She remains on appropriate antimicrobials at this time. Continue supplemental oxygen to maintain saturations at or above 90%. The patient does have underlying diastolic dysfunction and is documented to be overall net positive for the hospitalization. Therefore, diuretics can be utilized intermittently in order to achieve and maintain a euvolemic state. The patient does have significant emphysematous and bronchiectatic changes on CT imaging from May. Accordingly, the patient will be continued on bronchodilators and steroids. Recommend continuing BiPAP therapy with naps and nightly. Encourage incentive spirometer use and mobilize patient as tolerated. Continue modified diet per speech therapy recommendations. 2. Possible Parkinson's/history of PE/obesity/poor information Complicates care, management, recovery and prognosis. Continue home medications as indicated. This note was generated with [employer] dictation software. It may contain incorrect words, spelling, and punctuation that were not noted in checking the note before signing. Subjective Subjective The patient was seen and examined at the bedside this morning. Events from the last 24 hours have been reviewed. The patient is currently afebrile, hemodynamically stable and maintaining appropriate oxygen saturations on 8 L/min via nasal cannula. No overnight events were noted by the nursing staff. Social work and case management are currently working on disposition options. Objective Data Objective Data The patient's most recent lab work, culture data and imaging studies have all been personally reviewed. Surface echocardiogram from June 27 demonstrated stage I diastolic dysfunction with an ejection fraction of 60%. Streptococcal urinary antigen was positive on June 27. Vital Signs: Vital Signs Temp Pulse Resp BP Pulse Ox O2 Del Method O2 Flow Rate 97.6 F L 75 18 123/80 H 94 High Flow 8 07/02/23 02:00 07/02/23 06:55 07/02/23 06:55 07/02/23 02:00 07/02/23 06:55 07/02/23 06:55 07/02/23 06:55 FiO2 50 07/01/23 14:00 Oxygen Flow Rate (L/min) 8 Oxygen Delivery Method High Flow Weight: 229 lb 4.492 oz Body Mass Index (BMI) 34.8 Intake & Output: Intake and Output for Last 24 Hours 06/30/23 07/01/23 07/02/23 23:59 23:59 23:59 Intake Total 960 / 960 448 / 448 112 / 112 Output Total 790 / 790 725 / 1075 650 / 650 Balance 170 / 170 -277 / -627 -538 / -538 Lab / Micro Data Attestation: I reviewed the patient's lab results. 07/02/23 05:00 07/02/23 05:00 Labs: Laboratory Results - last 24 hr 07/02/23 05:00: WBC 10.9, RBC 2.62 L, Hgb 8.1 L, Hct 26.8 L, MCV 102.3 H, MCH 30.9, MCHC 30.2 L, RDW Std Deviation 56.6 H, RDW Coeff of Anabela 15.1 H, Plt Count 217, MPV 10.6, Sodium 147 H, Potassium 4.2, Chloride 112 H, Carbon Dioxide 33.0 H, Anion Gap 2 L, BUN 33 H, Creatinine 0.63, Estim Creat Clear Calc 49.79, Est GFR (MDRD) Af Amer 119, Est GFR (MDRD) Non-Af 99, BUN/Creatinine Ratio 52.7 H, Glucose 127 H, Calcium 8.0 L Micro: Microbiology 06/26/23 19:15 Urine Catheter - Turner Urine Culture - Final Aerococcus urinae Lactobacillus plantarum Actinomyces neuii 06/26/23 18:52 Blood Culture (Wb) - Anticubital Left Blood Culture - Final No growth in 5 days. 06/26/23 19:00 Blood Culture (Wb) - Right Wrist Blood Culture - Final No growth in 5 days. 06/27/23 10:25 Stool C. difficile DNA Amplification - Final 06/27/23 08:05 Urine Catheter - Turner Legionella Antigen - Final 06/27/23 08:05 Urine Catheter - Turner Streptococcus pneumoniae Antigen (M - Final Streptococcus pneumonia Ag 10/14/23 08:05 Nasal Secretion SARS-CoV-2 Antigen (Rapid) - Final Radiography Diagnostic Testing: Radiology Impression Chest X-Ray 06/29/23 07:11 IMPRESSION: Mild patient rotation. Shifting hazy opacities, including increased opacities in the left lower lung field and right perihilar region, and partially cleared hazy opacity in the left upper lung. Slight effusions. Borderline cardiomegaly and pulmonary vascular distention. Electronically Signed: Clover Luu MD at 7:46 EDT , Rhythm Strip Rhythm Strip: Sinus Tach Rate: 95 Ectopy: - (Episodes of nonsustained V. tach) Physical Exam Const alert and no apparent distress Constitutional Narrative: Obese. General Appearance: cooperative HEENT normocephalic and head/scalp atraumatic Eyes PERRL, EOMs intact bilaterally and conjunctivae normal Neck supple General: trachea midline Chest inspection of chest normal Resp normal respiratory effort Resp Narrative: Poor inspiratory effort. Auscultation: diminished lung sounds Cardio regular rate and regular rhythm GI normal to inspection, nondistended, normoactive bowel sounds Extremity no clubbing, cyanosis or edema Skin no rashes or lesions noted Neuro CN's II-XII intact bilaterally, moves all extremities and no focal motor deficits Psych Mood & Affect: flat affect Charges/Coding Visit Charges Inpatient E&M: 31850 Subs Hosp L2
[2023-07-02] MEDS: Carbidopa/Levodopa 25/100 Tablet PO (08:03)
[2023-07-02] MEDS: APIXABAN 5 MG TABLET PO ×2 (08:04→22:16)
[2023-07-02] MEDS: Sertraline 100 MG Tablet PO (08:04)
[2023-07-02] MEDS: buPROPion (XL) 300 MG TABLET.XL PO (08:04)
[2023-07-02] MEDS: Pregabalin 75 MG Capsule 300 MG PO ×2 (08:06→22:22)
--- NOTE | 2023-07-02 14:59 | PCM.PN.HOSP ---
Reason for Visit Reason for Visit: Diagnoses Sepsis, unspecified organism (06/26/23) Unspecified infectious disease (06/26/23) Encephalopathy, unspecified (06/26/23) Other encephalopathy (06/26/23) Hypotension, unspecified (06/26/23) Pneumonia, unspecified organism (06/26/23) Acute respiratory failure with hypoxia (06/26/23) Severe sepsis without septic shock (06/26/23) Severe sepsis with septic shock (06/26/23) Subjective Subjective Patient seen at bedside this morning. Sitting comfortably in bedside chair, conversing normally, no acute distress. Satting in low to mid 90s on 8 L nasal cannula. She denies any chest pain or shortness of breath. Has not been coughing anything up over the last few days. States she has been doing fairly well with therapy over the last few days. No other acute concerns this morning. Objective Data Objective Data Vital Signs: Vital Signs Temp Pulse Resp BP Pulse Ox O2 Del Method O2 Flow Rate 97.6 F L 84 20 H 123/80 H 92 Nasal Cannula 7 07/02/23 02:00 07/02/23 12:15 07/02/23 12:15 07/02/23 02:00 07/02/23 08:00 07/02/23 08:00 07/02/23 08:00 FiO2 50 07/01/23 14:00 Oxygen Flow Rate (L/min) 7 Oxygen Delivery Method Nasal Cannula Weight: 104 kg Body Mass Index (BMI) 34.8 Intake & Output: Intake and Output for Last 24 Hours 06/30/23 07/01/23 07/02/23 23:59 23:59 23:59 Intake Total 960 / 960 448 / 448 224 / 224 Output Total 790 / 790 725 / 1075 850 / 850 Balance 170 / 170 -277 / -627 -626 / -626 Lab / Micro Data 07/02/23 05:00 07/02/23 05:00 Labs: Laboratory Results - last 24 hr 07/02/23 05:00: WBC 10.9, RBC 2.62 L, Hgb 8.1 L, Hct 26.8 L, MCV 102.3 H, MCH 30.9, MCHC 30.2 L, RDW Std Deviation 56.6 H, RDW Coeff of Anabela 15.1 H, Plt Count 217, MPV 10.6, Sodium 147 H, Potassium 4.2, Chloride 112 H, Carbon Dioxide 33.0 H, Anion Gap 2 L, BUN 33 H, Creatinine 0.63, Estim Creat Clear Calc 49.79, Est GFR (MDRD) Af Amer 119, Est GFR (MDRD) Non-Af 99, BUN/Creatinine Ratio 52.7 H, Glucose 127 H, Calcium 8.0 L Micro: Microbiology 06/26/23 19:15 Urine Catheter - Turner Urine Culture - Final Aerococcus urinae Lactobacillus plantarum Actinomyces neuii 06/26/23 18:52 Blood Culture (Wb) - Anticubital Left Blood Culture - Final No growth in 5 days. 06/26/23 19:00 Blood Culture (Wb) - Right Wrist Blood Culture - Final No growth in 5 days. 06/27/23 10:25 Stool C. difficile DNA Amplification - Final 06/27/23 08:05 Urine Catheter - Turner Legionella Antigen - Final 06/27/23 08:05 Urine Catheter - Turner Streptococcus pneumoniae Antigen (M - Final Streptococcus pneumonia Ag 06/27/23 08:05 Nasal Secretion SARS-CoV-2 Antigen (Rapid) - Final Rhythm Strip Rhythm Strip: Sinus Tach Rate: 95 Ectopy: - (Episodes of nonsustained V. tach) Physical Exam Const alert and oriented x3 Constitutional Narrative: Elderly chronically ill-appearing female, sitting at edge of bed, conversing normally, no acute distress. Satting in low to mid 90s on 8 L high flow nasal cannula, no increased work of breathing noted. General Appearance: cooperative and comfortable HEENT normocephalic, head/scalp atraumatic, hearing grossly normal bilaterally, nasal mucous membranes and turbinates normal and moist oral mucous membranes Eyes PERRL, EOMs intact bilaterally and conjunctivae normal Neck full ROM, no lymphadenopathy and supple Lymph Lymphatic: no lymphadenopathy noted Chest inspection of chest normal Resp Resp Narrative: Decreased air movement with mild crackles noted bilaterally, improving. No wheezing noted. Cardio regular rate, regular rhythm, no murmurs and peripheral pulses 2+ throughout GI normal to inspection, nondistended, normoactive bowel sounds, soft to palpation, non-tender and non-distended Back/Spine normal ROM Extremity normal to inspection, full ROM and no pedal edema Skin no rashes or lesions noted Psych mental status grossly normal Assessment & Plan Assessment/Plan (1) Pneumonia: QUALIFIERS: Pneumonia type: due to unspecified organism Laterality: bilateral Lung location: unspecified part of lung Qualified Code(s): J18.9 - Pneumonia, unspecified organism PLAN: Plan Patient is a 72-year-old female with history of COPD with emphysema, PE on Eliquis, Parkinson's disease, and glucocorticoid use who presented to [facility] on 06/26/2023 with severe hypoxia and unresponsiveness. 1. Acute hypoxic respiratory failure, history of COPD with emphysema, cardiac diastolic dysfunction Secondary to pneumococcal pneumonia with severe underlying emphysematous and bronchiectatic changes noted on imaging. May also have a component of aspiration pneumonia given dysphagia as noted below. Also possibly with component of volume overload given history of diastolic dysfunction. Chest x-ray on admit showed bilateral patchy infiltrates, right pleural effusion. Repeat chest x-ray on 06/29 shifting hazy opacities with increased opacities in left lower lung field and right perihilar region, along with slight effusions and borderline cardiomegaly. Notably had CT chest without contrast done on 05/30/2023 for lung cancer screening, showed at the sentence changes with interstitial scarring. Echo on 06/27 showed EF 60%, normal LV systolic function, stage I diastolic dysfunction. ? Sterile Preparation Technician following. Transfer orders out of ICU placed on 06/30, remains in ICU due to bed availability. Weaning supplemental oxygen as able, with goal being to wean patient to 6 L nasal cannula which she can be on at discharge. Continue bronchodilators and steroids. Continue Unasyn for 7-day course, stop date 07/03. Continue BiPAP therapy with naps and nightly. Incentive spirometry. Mobilize patient as able. Responded well to 1 dose of IV diuretics, can consider further gentle diuresis as needed. PT/OT/case management following. 2. Sepsis without shock, improved; streptococcal pneumonia qSOFA score of 3 on admit with encephalopathy, RR 28, BP 83/67. SIRS 4/4 positive on admit as well. Streptococcal pneumonia urine antigen positive. Was transiently hypotensive but BP improved without need for pressors. Patient did not receive 30 cc/kg of IV fluids. Thus, septic shock ruled out. Blood cultures negative, COVID-negative, C. difficile negative. ? Continue Unasyn as above. 3. Dysphagia Unclear etiology. Underlying Parkinson's disease may be contributing. Speech therapy following, completed modified barium swallow on 06/30 with recommendation for pur?e textures and thin liquids with small bites and direct supervision with eating. Okay for p.o. medications. ? Appreciate speech therapy recs. Diet ordered, all home p.o. medications restarted. 4. Acute metabolic encephalopathy, resolved ? Likely secondary to hypoxia and mild acidosis in setting of sepsis and pneumonia on admit. Home medications (specifically trazodone) may have been contributing. Now resolved. 5. Debility ? PT/OT/case management following. PT/OT recommending SNF on discharge. Case management discussed with patient's guardian and roommate Mireille, she and patient are in agreement for SNF placement on discharge. Referrals placed. Hoping that patient will be medically ready for discharge on Tuesday 07/03. Chronic medical conditions: ? 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 ? Parkinson's disease: Continue home carbidopa/levodopa. ? History of glucocorticoid use: Takes prednisone 20 mg daily, unclear if this is short or long-term, on methylprednisolone for respiratory failure as noted above. DVT prophylaxis: Eliquis CODE STATUS: DNR CCA, DO NOT INTUBATE Expected disposition: SNF, 1 to 2 days Total clinical time spent by myself addressing the patient's medical issues, reviewing all the data, and collaborating with patient's care team: 35 minutes. Charges/Coding Visit Charges Inpatient E&M: 64428 [facility] Hosp L2
[2023-07-02] MEDS: Acetaminophen 325 MG Tablet 650 MG PO (16:29)
[2023-07-02] MEDS: Atorvastatin Calcium 80 MG Tablet PO (22:17)
[2023-07-03] VITALS (11 sets, daily range): BP systolic 122–138; BP diastolic 61–73; PULSE 71–78; RESP 12–20; TEMP 36.6–37.2; O2SAT 92–100; BMI 34.9
--- NOTE | 2023-07-03 | NURSING ---
0000- pt's SpO2 reading 70% w/ good waveform on 6L. Upon entering pt;s room, pt is asleep, pt woken up. Denies SOB, increased high flow to 15%. SpO2 gradually increased, pt satting 96% on 13L high flow nasal cannual.
[2023-07-03] MEDS: Ampicillin/Sulbactam 3 GM in 0.9% Normal Saline (100mL MB+) 100 ML IV ×5 (00:01→22:40)
[2023-07-03] MEDS: Methylprednisolone Sod Succ 40 MG/ML VIAL IV ×2 (00:01→06:29)
[2023-07-03] MEDS: Ipratropium/Albuterol Sulfate 3 ML AMPUL.NEB INHALATION ×4 (00:15→19:55)
[2023-07-03 04:06] LABS: Hematocrit 24.8 % (37-47); Hemoglobin 7.5 g/dL (12.0-15.0); Mean Corp Hgb Conc 30.2 g/dL (32-36); Mean Corpuscular Hgb 30.7 pg (27.0-32.0); Mean Corpuscular Volume 101.6 fL (81-99); Mean Platelet Vol. 10.5 fl (6.2-12.0); Platelet Count 230 K/mm3 (150-450); RBC Distribution Width CV 15.1 % (11.6-14.6); RBC Distribution Width SD 55.8 fl (35.1-43.9); Red Blood Count 2.44 M/mm3 (4.2-5.4); White Blood Count 9.7 K/mm3 (4.4-11.0)
[2023-07-03 04:21] LABS: Anion Gap 1 (5-15); BUN 28 mg/dL (7-18); BUN/Creat Ratio 45.3 RATIO (10-20); Calcium,Total 7.7 mg/dL (8.5-10.1); Chloride 110 mmol/L (98-107); Creatinine, Serum 0.62 mg/dL (0.55-1.02); EST Glomerular Filtration Rate 100 mL/min (>60); Est Glom Filt Rate - Afr Amer 121 mL/min (>60); Estimated Creatinine Clearance 49.79 ml/min; Glucose 124 mg/dL (74-106); Potassium 4.1 mmol/L (3.5-5.1); Sodium Level 144 mmol/L (136-145)
[2023-07-03] MEDS: Menthol/Lanolin/Calamine/Znox 113 GM Tube 1 APPLIC TOPICAL ×3 (06:29→22:15)
--- NOTE | 2023-07-03 07:07 | PCM.PN.INT ---
Assessment & Plan Assessment/Plan (1) Acute hypoxic respiratory failure: (2) Acute hypotension: (3) Encephalopathy: PLAN: Plan RECOMMENDATIONS: 1. Continue to wean supplemental oxygen to maintain saturations at or above 90%. 2. Dietary advancement per speech therapy. 3. Continue antimicrobials to complete 7 days of therapy. 4. Continue bronchodilators and steroids. We will transition from IV Solu-Medrol to prednisone today. 5. Encourage incentive spirometer use and mobilize patient as tolerated. 6. BiPAP utilization with sleep strongly encouraged. 7. Diuresis, as tolerated by hemodynamics and renal function. IMPRESSIONS: 1. Acute respiratory failure with hypoxia Appears secondary to pneumococcal pneumonia. There is also concern that the patient may have experienced an aspiration event in the days leading up to her hospitalization. She remains on appropriate antimicrobials at this time. Continue supplemental oxygen to maintain saturations at or above 90%. The patient does have underlying diastolic dysfunction and is documented to be overall net positive for the hospitalization. Therefore, diuretics can be utilized intermittently in order to achieve and maintain a euvolemic state. The patient does have significant emphysematous and bronchiectatic changes on CT imaging from May. Accordingly, the patient will be continued on bronchodilators and steroids. Recommend continuing BiPAP therapy with naps and nightly. Encourage incentive spirometer use and mobilize patient as tolerated. Continue modified diet per speech therapy recommendations. 2. Possible Parkinson's/history of PE/obesity/poor information Complicates care, management, recovery and prognosis. Continue home medications as indicated. This note was generated with [employer] dictation software. It may contain incorrect words, spelling, and punctuation that were not noted in checking the note before signing. Subjective Subjective The patient was seen and examined at the bedside this morning. Events from the last 24 hours have been reviewed. The patient is currently afebrile, hemodynamically stable and maintaining appropriate oxygen saturations on 11 L/min via nasal cannula. The patient was able to be weaned down to 6 L/min yesterday, but typically desaturates overnight due to her noncompliance with PAP therapy in the setting of sleep apnea and subsequently requires an escalation in supplemental oxygen flow rate. Objective Data Objective Data The patient's most recent lab work, culture data and imaging studies have all been personally reviewed. Surface echocardiogram from June 27 demonstrated stage I diastolic dysfunction with an ejection fraction of 60%. Streptococcal urinary antigen was positive on June 27. Vital Signs: Vital Signs Temp Pulse Resp BP Pulse Ox O2 Del Method O2 Flow Rate 98.8 F 76 18 127/61 H 97 High Flow 11 07/03/23 02:00 07/03/23 02:00 07/03/23 02:00 07/03/23 02:00 07/03/23 02:00 07/03/23 03:00 07/03/23 03:00 FiO2 50 07/01/23 14:00 Oxygen Flow Rate (L/min) 11 Oxygen Delivery Method High Flow Weight: 229 lb 11.547 oz Body Mass Index (BMI) 34.9 Intake & Output: Intake and Output for Last 24 Hours 07/01/23 07/02/23 07/03/23 23:59 23:59 23:59 Intake Total 448 / 448 336 / 336 112 / 112 Output Total 725 / 1075 1450 / 1450 Balance -277 / -627 -1114 / -1114 112 / 112 Lab / Micro Data Attestation: I reviewed the patient's lab results. 07/03/23 03:50 07/03/23 03:50 Labs: Laboratory Results - last 24 hr 07/03/23 03:50: WBC 9.7, RBC 2.44 L, Hgb 7.5 L, Hct 24.8 L, MCV 101.6 H, MCH 30.7, MCHC 30.2 L, RDW Std Deviation 55.8 H, RDW Coeff of Anabela 15.1 H, Plt Count 230, MPV 10.5, Sodium 144, Potassium 4.1, Chloride 110 H, Carbon Dioxide 33.0 H, Anion Gap 1 L, BUN 28 H, Creatinine 0.62, Estim Creat Clear Calc 49.79, Est GFR (MDRD) Af Amer 121, Est GFR (MDRD) Non-Af 100, BUN/Creatinine Ratio 45.3 H, Glucose 124 H, Calcium 7.7 L Micro: Microbiology 06/26/23 19:15 Urine Catheter - Turner Urine Culture - Final Aerococcus urinae Lactobacillus plantarum Actinomyces neuii 06/26/23 18:52 Blood Culture (Wb) - Anticubital Left Blood Culture - Final No growth in 5 days. 06/26/23 19:00 Blood Culture (Wb) - Right Wrist Blood Culture - Final No growth in 5 days. 06/27/23 10:25 Stool C. difficile DNA Amplification - Final 06/27/23 08:05 Urine Catheter - Turner Legionella Antigen - Final 06/27/23 08:05 Urine Catheter - Turner Streptococcus pneumoniae Antigen (M - Final Streptococcus pneumonia Ag 06/27/23 08:05 Nasal Secretion SARS-CoV-2 Antigen (Rapid) - Final Radiography Diagnostic Testing: Radiology Impression Chest X-Ray 06/29/23 07:11 IMPRESSION: Mild patient rotation. Shifting hazy opacities, including increased opacities in the left lower lung field and right perihilar region, and partially cleared hazy opacity in the left upper lung. Slight effusions. Borderline cardiomegaly and pulmonary vascular distention. Electronically Signed: Clover Luu MD at 7:46 EDT , Rhythm Strip Rhythm Strip: Sinus Tach Rate: 95 Ectopy: - (Episodes of nonsustained V. tach) Physical Exam Const alert and no apparent distress Constitutional Narrative: Obese. General Appearance: cooperative HEENT normocephalic and head/scalp atraumatic Eyes PERRL, EOMs intact bilaterally and conjunctivae normal Neck supple General: trachea midline Chest inspection of chest normal Resp normal respiratory effort Resp Narrative: Poor inspiratory effort. Auscultation: diminished lung sounds Cardio regular rate and regular rhythm GI normal to inspection, nondistended, normoactive bowel sounds Extremity no clubbing, cyanosis or edema Skin no rashes or lesions noted Neuro CN's II-XII intact bilaterally, moves all extremities and no focal motor deficits Psych Mood & Affect: flat affect Charges/Coding Visit Charges Inpatient E&M: 25207 Subs Hosp L2
[2023-07-03] MEDS: predniSONE 20 MG Tablet 40 MG PO (07:47)
[2023-07-03] MEDS: Furosemide 40 MG/4 ML Vial IV (07:47)
[2023-07-03] MEDS: Sertraline 100 MG Tablet PO (07:47)
[2023-07-03] MEDS: Carbidopa/Levodopa 25/100 Tablet PO (07:47)
[2023-07-03] MEDS: APIXABAN 5 MG TABLET PO ×2 (07:48→22:16)
[2023-07-03] MEDS: buPROPion (XL) 300 MG TABLET.XL PO (07:48)
[2023-07-03] MEDS: Pregabalin 75 MG Capsule 300 MG PO ×2 (07:53→22:24)
--- NOTE | 2023-07-03 15:01 | PCM.PN.HOSP ---
Reason for Visit Reason for Visit: Diagnoses Sepsis, unspecified organism (06/26/23) Unspecified infectious disease (06/26/23) Encephalopathy, unspecified (06/26/23) Other encephalopathy (06/26/23) Hypotension, unspecified (06/26/23) Pneumonia, unspecified organism (06/26/23) Acute respiratory failure with hypoxia (06/26/23) Severe sepsis without septic shock (06/26/23) Severe sepsis with septic shock (06/26/23) Subjective Subjective Patient seen at bedside this morning. Sitting comfortably in bedside chair, conversing normally, no acute distress. Satting in high 90s on 8 L nasal cannula. Per nursing staff, she did have some desaturation overnight and with ambulation this morning. She denies any shortness of breath at rest. Denies any cough or sputum production. Denies any other pain or discomfort at this time. No other acute concerns. Objective Data Objective Data Vital Signs: Vital Signs Temp Pulse Resp BP Pulse Ox O2 Del Method O2 Flow Rate 97.8 F 73 18 138/66 H 92 Nasal Cannula 6 07/03/23 13:19 07/03/23 13:32 07/03/23 13:32 07/03/23 13:19 07/03/23 13:32 07/03/23 13:32 07/03/23 13:32 FiO2 50 07/01/23 14:00 Oxygen Flow Rate (L/min) 6 Oxygen Delivery Method Nasal Cannula Weight: 104.2 kg Body Mass Index (BMI) 34.9 Intake & Output: Intake and Output for Last 24 Hours 07/01/23 07/02/23 07/03/23 23:59 23:59 23:59 Intake Total 448 / 448 336 / 336 336 / 336 Output Total 725 / 1075 1450 / 1450 1250 / 1250 Balance -277 / -627 -1114 / -1114 -914 / -914 Lab / Micro Data 07/03/23 03:50 07/03/23 03:50 Labs: Laboratory Results - last 24 hr 07/03/23 03:50: WBC 9.7, RBC 2.44 L, Hgb 7.5 L, Hct 24.8 L, MCV 101.6 H, MCH 30.7, MCHC 30.2 L, RDW Std Deviation 55.8 H, RDW Coeff of Anabela 15.1 H, Plt Count 230, MPV 10.5, Sodium 144, Potassium 4.1, Chloride 110 H, Carbon Dioxide 33.0 H, Anion Gap 1 L, BUN 28 H, Creatinine 0.62, Estim Creat Clear Calc 49.79, Est GFR (MDRD) Af Amer 121, Est GFR (MDRD) Non-Af 100, BUN/Creatinine Ratio 45.3 H, Glucose 124 H, Calcium 7.7 L Micro: Microbiology 06/26/23 19:15 Urine Catheter - Turner Urine Culture - Final Aerococcus urinae Lactobacillus plantarum Actinomyces neuii 06/26/23 18:52 Blood Culture (Wb) - Anticubital Left Blood Culture - Final No growth in 5 days. 06/26/23 19:00 Blood Culture (Wb) - Right Wrist Blood Culture - Final No growth in 5 days. 06/27/23 10:25 Stool C. difficile DNA Amplification - Final 06/27/23 08:05 Urine Catheter - Turner Legionella Antigen - Final 06/27/23 08:05 Urine Catheter - Turner Streptococcus pneumoniae Antigen (M - Final Streptococcus pneumonia Ag 06/27/23 08:05 Nasal Secretion SARS-CoV-2 Antigen (Rapid) - Final Rhythm Strip Rhythm Strip: Sinus Tach Rate: 95 Ectopy: - (Episodes of nonsustained V. tach) Physical Exam Const alert and oriented x3 Constitutional Narrative: Elderly chronically ill-appearing female, sitting in bedside chair, conversing normally, no acute distress. Satting in high 90s on 8 L nasal cannula, no increased work of breathing noted. General Appearance: cooperative and comfortable HEENT normocephalic, head/scalp atraumatic, hearing grossly normal bilaterally, nasal mucous membranes and turbinates normal and moist oral mucous membranes Eyes PERRL, EOMs intact bilaterally and conjunctivae normal Neck full ROM, no lymphadenopathy and supple Lymph Lymphatic: no lymphadenopathy noted Chest inspection of chest normal Resp Resp Narrative: Decreased air movement with mild crackles noted bilaterally, improving. No wheezing noted. Cardio regular rate, regular rhythm, no murmurs and peripheral pulses 2+ throughout GI normal to inspection, nondistended, normoactive bowel sounds, soft to palpation, non-tender and non-distended Back/Spine normal ROM Extremity normal to inspection, full ROM and no pedal edema Skin no rashes or lesions noted Psych mental status grossly normal Assessment & Plan Assessment/Plan (1) Pneumonia: QUALIFIERS: Pneumonia type: due to unspecified organism Laterality: bilateral Lung location: unspecified part of lung Qualified Code(s): J18.9 - Pneumonia, unspecified organism PLAN: Plan Patient is a 72-year-old female with history of COPD with emphysema, PE on Eliquis, Parkinson's disease, and glucocorticoid use who presented to [facility] on 06/26/2023 with severe hypoxia and unresponsiveness. 1. Acute hypoxic respiratory failure, history of COPD with emphysema, cardiac diastolic dysfunction Secondary to pneumococcal pneumonia with severe underlying emphysematous and bronchiectatic changes noted on imaging. May also have a component of aspiration pneumonia given dysphagia as noted below. Also possibly with component of volume overload given history of diastolic dysfunction. Chest x-ray on admit showed bilateral patchy infiltrates, right pleural effusion. Repeat chest x-ray on 06/29 shifting hazy opacities with increased opacities in left lower lung field and right perihilar region, along with slight effusions and borderline cardiomegaly. Notably had CT chest without contrast done on 05/30/2023 for lung cancer screening, showed at the sentence changes with interstitial scarring. Echo on 06/27 showed EF 60%, normal LV systolic function, stage I diastolic dysfunction. ? [employer] Sales Consultant followed, transfer orders out of ICU placed on 06/30, was not transferred to the floor till 07/03 due to bed availability. Completed 7-day course of Unasyn on 07/03. Weaning supplemental oxygen as able with goal SpO2 of 88% or greater. PT/OT/case management following. Planning for SNF in [facility] on discharge, pre-CERT pending. Continue BiPAP therapy with naps and nightly. Mobilize patient as able. 2. Sepsis without shock, improved; streptococcal pneumonia qSOFA score of 3 on admit with encephalopathy, RR 28, BP 83/67. SIRS 4/4 positive on admit as well. Streptococcal pneumonia urine antigen positive. Was transiently hypotensive but BP improved without need for pressors. Patient did not receive 30 cc/kg of IV fluids. Thus, septic shock ruled out. Blood cultures negative, COVID-negative, C. difficile negative. ? Completed Unasyn course as above. 3. Dysphagia Unclear etiology. Underlying Parkinson's disease may be contributing. Speech therapy following, completed modified barium swallow on 06/30 with recommendation for pur?e textures and thin liquids with small bites and direct supervision with eating. Okay for p.o. medications. ? Appreciate speech therapy recs. Diet ordered, all home p.o. medications restarted. 4. Acute metabolic encephalopathy, resolved ? Likely secondary to hypoxia and mild acidosis in setting of sepsis and pneumonia on admit. Home medications (specifically trazodone) may have been contributing. Now resolved. 5. Debility ? PT/OT/case management following. Planning for SNF in [facility] TCU on discharge, pre-CERT pending. Medically stable for discharge. Chronic medical conditions: ? 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 ? Parkinson's disease: Continue home carbidopa/levodopa. ? History of glucocorticoid use: Takes prednisone 20 mg daily, unclear if this is short or long-term, on methylprednisolone for respiratory failure as noted above. DVT prophylaxis: Eliquis CODE STATUS: DNR CCA, DO NOT INTUBATE Expected disposition: SNF in [facility], medically stable for discharge, pre-CERT pending Total clinical time spent by myself addressing the patient's medical issues, reviewing all the data, and collaborating with patient's care team: 35 minutes. Charges/Coding Visit Charges Inpatient E&M: 45200 Subs Hosp L2
--- NOTE | 2023-07-03 15:04 | CASEMGMT ---
JANE spoke with Tamika in TCU regarding referral earlier in the week. However, Tamika wanted to wait until patient was closer to being medically ready before she could accept. Patient is now closer to being medically ready so JANE asked Tamika to re-evaluate patient for TCU. Aishwarya Del Rosario [employer] W[employer]
[2023-07-03] MEDS: Atorvastatin Calcium 80 MG Tablet PO (22:16)
[2023-07-03] MEDS: traZODone 100 MG Tablet PO (22:31)
[2023-07-04] VITALS (11 sets, daily range): BP systolic 114–134; BP diastolic 51–61; PULSE 76–84; RESP 15–16; TEMP 36.6–37.1; O2SAT 92–97; BMI 34.8
[2023-07-04] MEDS: Menthol/Lanolin/Calamine/Znox 113 GM Tube 1 APPLIC TOPICAL ×3 (05:20→20:43)
[2023-07-04] MEDS: Ampicillin/Sulbactam 3 GM in 0.9% Normal Saline (100mL MB+) 100 ML IV ×4 (05:25→23:18)
--- NOTE | 2023-07-04 06:27 | PN.CC_ITS ---
Assessment & Plan Assessment/Plan (1) Acute hypoxic respiratory failure: (2) Acute hypotension: (3) Encephalopathy: PLAN: Plan RECOMMENDATIONS: 1. Continue to wean supplemental oxygen to maintain saturations at or above 90%. 2. Dietary advancement per speech therapy. 3. Continue antimicrobials to complete 7 days of therapy. 4. Continue prednisone, with plans for a taper at discharge. 5. Encourage incentive spirometer use and mobilize patient as tolerated. 6. BiPAP utilization with sleep strongly encouraged. 7. Diuresis, as tolerated by hemodynamics and renal function. 8. We will sign off from a critical care perspective. Please call with any additional questions. IMPRESSIONS: 1. Acute respiratory failure with hypoxia Appears secondary to pneumococcal pneumonia. There is also concern that the patient may have experienced an aspiration event in the days leading up to her hospitalization. She remains on appropriate antimicrobials at this time. Continue supplemental oxygen to maintain saturations at or above 90%. The patient does have underlying diastolic dysfunction and is documented to be overall net positive for the hospitalization. Therefore, diuretics can be utilized intermittently in order to achieve and maintain a euvolemic state. The patient does have significant emphysematous and bronchiectatic changes on CT imaging from May. Accordingly, the patient will be continued on bronchodilators and steroids. Recommend continuing BiPAP therapy with naps and nightly. Encourage incentive spirometer use and mobilize patient as tolerated. Continue modified diet per speech therapy recommendations. 2. Possible Parkinson's/history of PE/obesity/poor information Complicates care, management, recovery and prognosis. Continue home medications as indicated. This note was generated with [employer] dictation software. It may contain incorrect words, spelling, and punctuation that were not noted in checking the note before signing. Subjective Subjective The patient was seen and examined at the bedside this morning. Events from the last 24 hours have been reviewed. The patient is currently afebrile, hemodynamically stable and maintaining appropriate oxygen saturations on 6 L/min via nasal cannula. No overnight events were noted. The patient remains noncompliant with PAP therapy. TCU disposition is pending. Objective Data Objective Data The patient's most recent lab work, culture data and imaging studies have all been personally reviewed. Surface echocardiogram from June 27 demonstrated stage I diastolic dysfunction with an ejection fraction of 60%. Streptococcal urinary antigen was positive on June 27. Vital Signs: Vital Signs Temp Pulse Resp BP Pulse Ox O2 Del Method O2 Flow Rate 98.7 F 79 15 131/52 H 95 High Flow 6 07/04/23 05:30 07/04/23 05:30 07/04/23 05:30 07/04/23 05:30 07/04/23 05:30 07/04/23 05:30 07/04/23 05:30 FiO2 50 07/01/23 14:00 Oxygen Flow Rate (L/min) 6 Oxygen Delivery Method High Flow Weight: 229 lb 4.492 oz Body Mass Index (BMI) 34.8 Intake & Output: Intake and Output for Last 24 Hours 07/02/23 07/03/23 07/04/23 23:59 23:59 23:59 Intake Total 336 / 336 860 / 971 161 / 161 Output Total 1450 / 1450 1250 / 1400 150 / 150 Balance -1114 / -1114 -390 / -429 Lab / Micro Data Attestation: I reviewed the patient's lab results. 07/03/23 03:50 07/03/23 03:50 Labs: Laboratory Results - last 24 hr 07/03/23 03:50: WBC 9.7, RBC 2.44 L, Hgb 7.5 L, Hct 24.8 L, MCV 101.6 H, MCH 30.7, MCHC 30.2 L, RDW Std Deviation 55.8 H, RDW Coeff of Anabela 15.1 H, Plt Count 230, MPV 10.5, Sodium 144, Potassium 4.1, Chloride 110 H, Carbon Dioxide 33.0 H, Anion Gap 1 L, BUN 28 H, Creatinine 0.62, Estim Creat Clear Calc 49.79, Est GFR (MDRD) Af Amer 121, Est GFR (MDRD) Non-Af 100, BUN/Creatinine Ratio 45.3 H, Glucose 124 H, Calcium 7.7 L Micro: Microbiology 06/26/23 19:15 Urine Catheter - Turner Urine Culture - Final Aerococcus urinae Lactobacillus plantarum Actinomyces neuii 06/26/23 18:52 Blood Culture (Wb) - Anticubital Left Blood Culture - Final No growth in 5 days. 06/26/23 19:00 Blood Culture (Wb) - Right Wrist Blood Culture - Final No growth in 5 days. 06/27/23 10:25 Stool C. difficile DNA Amplification - Final 06/27/23 08:05 Urine Catheter - Turner Legionella Antigen - Final 06/27/23 08:05 Urine Catheter - Turner Streptococcus pneumoniae Antigen (M - Final Streptococcus pneumonia Ag 06/27/23 08:05 Nasal Secretion SARS-CoV-2 Antigen (Rapid) - Final Radiography Diagnostic Testing: Radiology Impression Chest X-Ray 06/29/23 07:11 IMPRESSION: Mild patient rotation. Shifting hazy opacities, including increased opacities in the left lower lung field and right perihilar region, and partially cleared hazy opacity in the left upper lung. Slight effusions. Borderline cardiomegaly and pulmonary vascular distention. Electronically Signed: Clover Luu MD at 7:46 EDT , Rhythm Strip Rhythm Strip: Sinus Tach Rate: 95 Ectopy: - (Episodes of nonsustained V. tach) Physical Exam Const alert and no apparent distress Constitutional Narrative: Obese. General Appearance: cooperative HEENT normocephalic and head/scalp atraumatic Eyes PERRL, EOMs intact bilaterally and conjunctivae normal Neck supple General: trachea midline Chest inspection of chest normal Resp normal respiratory effort Resp Narrative: Poor inspiratory effort. Auscultation: diminished lung sounds Cardio regular rate and regular rhythm GI normal to inspection, nondistended, normoactive bowel sounds Extremity no clubbing, cyanosis or edema Skin no rashes or lesions noted Neuro CN's II-XII intact bilaterally, moves all extremities and no focal motor deficits Psych Mood & Affect: flat affect Charges/Coding Visit Charges Inpatient E&M: 53352 Subs Hosp L2
[2023-07-04] MEDS: Carbidopa/Levodopa 25/100 Tablet PO (09:00)
[2023-07-04] MEDS: APIXABAN 5 MG TABLET PO ×2 (09:00→20:44)
[2023-07-04] MEDS: predniSONE 20 MG Tablet 40 MG PO (09:00)
[2023-07-04] MEDS: Sertraline 100 MG Tablet PO (09:01)
[2023-07-04] MEDS: buPROPion (XL) 300 MG TABLET.XL PO (09:01)
[2023-07-04] MEDS: Pregabalin 75 MG Capsule 300 MG PO ×2 (09:27→20:45)
--- NOTE | 2023-07-04 14:36 | PN.HOSP_ITS ---
Reason for Visit Reason for Visit: Diagnoses Sepsis, unspecified organism (06/26/23) Unspecified infectious disease (06/26/23) Encephalopathy, unspecified (06/26/23) Other encephalopathy (06/26/23) Hypotension, unspecified (06/26/23) Pneumonia, unspecified organism (06/26/23) Acute respiratory failure with hypoxia (06/26/23) Severe sepsis without septic shock (06/26/23) Severe sepsis with septic shock (06/26/23) Subjective Subjective Patient seen at bedside this morning. Sitting comfortably in bed, conversing normally, no acute distress. Satting well on 6 L nasal cannula, no increased work of breathing noted. Patient denies any acute concerns this morning. States she feels similar to yesterday. Denies any shortness of breath at rest. Denies any cough or sputum production. Denies any fevers or chills. Denies any chest pain or discomfort. No other acute concerns. Objective Data Objective Data Vital Signs: Vital Signs Temp Pulse Resp BP Pulse Ox O2 Del Method O2 Flow Rate 97.9 F 78 16 114/52 L 95 High Flow 6 07/04/23 12:23 07/04/23 12:23 07/04/23 12:23 07/04/23 12:23 07/04/23 12:23 07/04/23 12:23 07/04/23 12:23 FiO2 50 07/01/23 14:00 Oxygen Flow Rate (L/min) 6 Oxygen Delivery Method High Flow Weight: 104 kg Body Mass Index (BMI) 34.8 Intake & Output: Intake and Output for Last 24 Hours 07/02/23 07/03/23 07/04/23 23:59 23:59 23:59 Intake Total 336 / 336 860 / 971 625 / 625 Output Total 1450 / 1450 1250 / 1400 150 / 150 Balance -1114 / -1114 -390 / -429 475 / 475 Lab / Micro Data 07/03/23 03:50 07/03/23 03:50 Micro: Microbiology 06/26/23 19:15 Urine Catheter - Turner Urine Culture - Final Aerococcus urinae Lactobacillus plantarum Actinomyces neuii 06/26/23 18:52 Blood Culture (Wb) - Anticubital Left Blood Culture - Final No growth in 5 days. 06/26/23 19:00 Blood Culture (Wb) - Right Wrist Blood Culture - Final No growth in 5 days. 06/27/23 10:25 Stool C. difficile DNA Amplification - Final 06/27/23 08:05 Urine Catheter - Turner Legionella Antigen - Final 06/27/23 08:05 Urine Catheter - Turner Streptococcus pneumoniae Antigen (M - Final Streptococcus pneumonia Ag 06/27/23 08:05 Nasal Secretion SARS-CoV-2 Antigen (Rapid) - Final Rhythm Strip Rhythm Strip: Sinus Tach Rate: 95 Ectopy: - (Episodes of nonsustained V. tach) Physical Exam Const alert and oriented x3 Constitutional Narrative: Elderly chronically ill-appearing female, sitting in bedside chair, conversing normally, no acute distress. Satting in high 90s on 6 L nasal cannula, no increased work of breathing noted. General Appearance: cooperative and comfortable HEENT normocephalic, head/scalp atraumatic, hearing grossly normal bilaterally, nasal mucous membranes and turbinates normal and moist oral mucous membranes Eyes PERRL, EOMs intact bilaterally and conjunctivae normal Neck full ROM, no lymphadenopathy and supple Lymph Lymphatic: no lymphadenopathy noted Chest inspection of chest normal Resp Resp Narrative: Decreased air movement with mild crackles noted bilaterally, improving. No wheezing noted. Cardio regular rate, regular rhythm, no murmurs and peripheral pulses 2+ throughout GI normal to inspection, nondistended, normoactive bowel sounds, soft to palpation, non-tender and non-distended Back/Spine normal ROM Extremity normal to inspection, full ROM and no pedal edema Skin no rashes or lesions noted Psych mental status grossly normal Assessment & Plan Assessment/Plan (1) Pneumonia: QUALIFIERS: Pneumonia type: due to unspecified organism Laterality: bilateral Lung location: unspecified part of lung Qualified C ode(s): J18.9 - Pneumonia, unspecified organism PLAN: Plan Patient is a 72-year-old female with history of COPD with emphysema, PE on Eliquis, Parkinson's disease, and glucocorticoid use who presented to [facility] on 06/26/2023 with severe hypoxia and unresponsiveness. 1. Acute hypoxic respiratory failure, history of COPD with emphysema, cardiac diastolic dysfunction Secondary to pneumococcal pneumonia with severe underlying emphysematous and bronchiectatic changes noted on imaging. May also have a component of aspiration pneumonia given dysphagia as noted below. Also possibly with component of volume overload given history of diastolic dysfunction. Chest x- ray on admit showed bilateral patchy infiltrates, right pleural effusion. Repeat chest x-ray on 06/29 shifting hazy opacities with increased opacities in left lower lung field and right perihilar region, along with slight effusions and borderline cardiomegaly. Notably had CT chest without contrast done on 05/30/2023 for lung cancer screening, showed at the sentence changes with interstitial scarring. Echo on 06/27 showed EF 60%, normal LV systolic function , stage I diastolic dysfunction. ? Treating And Pumping Supervisor followed, transfer orders out of ICU placed on 06/30, was not transferred to the floor till 07/03 due to bed availability. Completed 7-day course of Unasyn on 07/03. Weaning supplemental oxygen as able with goal SpO2 of 88% or greater. PT/OT/case management following. Planning for SNF on discharge, pre-CERT pending. Continue BiPAP therapy with naps and nightly. Mobilize patient as able. 2. Sepsis without shock, improved; streptococcal pneumonia qSOFA score of 3 on admit with encephalopathy, RR 28, BP 83/67. SIRS 4/4 positive on admit as well. Streptococcal pneumonia urine antigen positive. Was transiently hypotensive but BP improved without need for pressors. Patient did not receive 30 cc/kg of IV fluids. Thus, septic shock ruled out. Blood cultures negative, COVID-negative, C. difficile negative. ? Completed Unasyn course as above. 3. Dysphagia Unclear etiology. Underlying Parkinson's disease may be contributing. Speech therapy following, completed modified barium swallow on 06/30 with recommendation for pur?e textures and thin liquids with small bites and direct supervision with eating. Okay for p.o. medications. ? Appreciate speech therapy recs. Diet ordered, all home p.o. medications restarted. 4. Acute metabolic encephalopathy, resolved ? Likely secondary to hypoxia and mild acidosis in setting of sepsis and pneumonia on admit. Home medications (specifically trazodone) may have been contributing. Now resolved. 5. Debility ? PT/OT/case management following. Planning for SNF on discharge, pre-CERT pending. Medically stable for discharge. Chronic medical conditions: ? 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 ? Parkinson's disease: Continue home carbidopa/levodopa. ? History of glucocorticoid use: Takes prednisone 20 mg daily, unclear if this is short or long-term, on methylprednisolone for respiratory failure as noted above. DVT prophylaxis: Eliquis CODE STATUS: DNR CCA, DO NOT INTUBATE Expected disposition: SNF, medically stable for discharge, pre-CERT pending Total clinical time spent by myself addressing the patient's medical issues, reviewing all the data, and collaborating with patient's care team: 35 minutes. Charges/Coding Visit Charges Inpatient E&M: 72624 Subs Hosp L2
[2023-07-04] MEDS: 0.9% Saline Lock 10 ML Syringe IV (18:03)
[2023-07-04] MEDS: 0.9% Normal Saline (250mL Bag) 250 ML 15 ML IV (18:04)
[2023-07-04] MEDS: Ipratropium/Albuterol Sulfate 3 ML AMPUL.NEB INHALATION (20:10)
[2023-07-04] MEDS: Atorvastatin Calcium 80 MG Tablet PO (20:44)
[2023-07-04] MEDS: traZODone 100 MG Tablet PO (20:50)
[2023-07-05 03:00] VITALS: BP 114/51; PULSE 75; RESP 12; TEMP 37.3; O2SAT 94
[2023-07-05] MEDS: Ampicillin/Sulbactam 3 GM in 0.9% Normal Saline (100mL MB+) 100 ML IV ×2 (05:01→12:10)
[2023-07-05] MEDS: Menthol/Lanolin/Calamine/Znox 113 GM Tube 1 APPLIC TOPICAL ×2 (05:02→20:38)
[2023-07-05 06:00] VITALS: BMI 35.0
[2023-07-05 07:26] VITALS: BP 110/54; PULSE 79; RESP 18; TEMP 36.9; O2SAT 94
[2023-07-05] MEDS: Sertraline 100 MG Tablet PO (07:28)
[2023-07-05] MEDS: predniSONE 20 MG Tablet 40 MG PO (07:28)
[2023-07-05] MEDS: Carbidopa/Levodopa 25/100 Tablet PO (07:28)
[2023-07-05] MEDS: buPROPion (XL) 300 MG TABLET.XL PO (07:28)
[2023-07-05] MEDS: APIXABAN 5 MG TABLET PO ×2 (07:28→20:40)
[2023-07-05] MEDS: Pregabalin 75 MG Capsule 300 MG PO ×2 (07:32→20:41)
[2023-07-05 07:49] VITALS: PULSE 77; RESP 16; O2SAT 93
[2023-07-05] MEDS: Ipratropium/Albuterol Sulfate 3 ML AMPUL.NEB INHALATION ×2 (07:49→12:58)
[2023-07-05 12:00] VITALS: BP 137/85; PULSE 75; RESP 18; TEMP 36.8; O2SAT 94
[2023-07-05 12:59] VITALS: PULSE 84; RESP 16
--- NOTE | 2023-07-05 15:20 | PN.HOSP_ITS ---
Reason for Visit Reason for Visit: Diagnoses Sepsis, unspecified organism (06/26/23) Unspecified infectious disease (06/26/23) Encephalopathy, unspecified (06/26/23) Other encephalopathy (06/26/23) Hypotension, unspecified (06/26/23) Pneumonia, unspecified organism (06/26/23) Acute respiratory failure with hypoxia (06/26/23) Severe sepsis without septic shock (06/26/23) Severe sepsis with septic shock (06/26/23) Subjective Subjective Patient seen at bedside this morning. Was asleep on my entrance to the room. Otherwise resting comfortably in bed, in no acute distress. Denies any acute concerns morning. Objective Data Objective Data Vital Signs: Vital Signs Temp Pulse Resp BP Pulse Ox O2 Del Method O2 Flow Rate 98.2 F 84 16 137/85 H 94 Nasal Cannula 5 07/05/23 12:00 07/05/23 12:59 07/05/23 12:59 07/05/23 12:00 07/05/23 12:00 07/05/23 14:18 07/05/23 14:18 FiO2 50 07/01/23 14:00 Oxygen Flow Rate (L/min) 5 Oxygen Delivery Method Nasal Cannula Weight: 104.5 kg Body Mass Index (BMI) 35.0 Intake & Output: Intake and Output for Last 24 Hours 07/03/23 07/04/23 07/05/23 23:59 23:59 23:59 Intake Total 860 / 971 737 / 787 654.5 / 654.5 Output Total 1250 / 1400 150 / 150 Balance -390 / -429 587 / 637 654.5 / 654.5 Lab / Micro Data 07/03/23 03:50 07/03/23 03:50 Micro: Microbiology 06/26/23 19:15 Urine Catheter - Turner Urine Culture - Final Aerococcus urinae Lactobacillus plantarum Actinomyces neuii 06/26/23 18:52 Blood Culture (Wb) - Anticubital Left Blood Culture - Final No growth in 5 days. 06/26/23 19:00 Blood Culture (Wb) - Right Wrist Blood Culture - Final No growth in 5 days. 06/27/23 10:25 Stool C. difficile DNA Amplification - Final 06/27/23 08:05 Urine Catheter - Turner Legionella Antigen - Final 06/27/23 08:05 Urine Catheter - Turner Streptococcus pneumoniae Antigen (M - Final Streptococcus pneumonia Ag 06/27/23 08:05 Nasal Secretion SARS-CoV-2 Antigen (Rapid) - Final Rhythm Strip Rhythm Strip: Sinus Tach Rate: 95 Ectopy: - (Episodes of nonsustained V. tach) Physical Exam Const alert and oriented x3 Constitutional Narrative: Elderly chronically ill-appearing female, laying comfortably in bed, conversing normally, no acute distress. Satting well on 5 L nasal cannula, no increased work of breathing noted. General Appearance: cooperative and comfortable HEENT normocephalic, head/scalp atraumatic, hearing grossly normal bilaterally, nasal mucous membranes and turbinates normal and moist oral mucous membranes Eyes PERRL, EOMs intact bilaterally and conjunctivae normal Neck full ROM, no lymphadenopathy and supple Lymph Lymphatic: no lymphadenopathy noted Chest inspection of chest normal Resp Resp Narrative: Decreased air movement with mild crackles noted bilaterally, improving. No wheezing noted. Cardio regular rate, regular rhythm, no murmurs and peripheral pulses 2+ throughout GI normal to inspection, nondistended, normoactive bowel sounds, soft to palpation, non-tender and non-distended Back/Spine normal ROM Extremity normal to inspection, full ROM and no pedal edema Skin no rashes or lesions noted Psych mental status grossly normal Assessment & Plan Assessment/Plan (1) Pneumonia: QUALIFIERS: Pneumonia type: due to unspecified organism Late rality: bilateral Lung location: unspecified part of lung Qualified Code(s): J18.9 - Pneumonia, unspecified organism PLAN: Plan Patient is a 72-year-old female with history of COPD with emphysema, PE on Eliquis, Parkinson's disease, and glucocorticoid use who presented to [facility] on 06/26/2023 with severe hypoxia and unresponsiveness. 1. Acute hypoxic respiratory failure, history of COPD with emphysema, cardiac diastolic dysfunction Secondary to pneumococcal pneumonia with severe underlying emphysematous and bronchiectatic changes noted on imaging. May also have a component of aspiration pneumonia given dysphagia as noted below. Also possibly with component of volume overload given history of diastolic dysfunction. Chest x- ray on admit showed bilateral patchy infiltrates, right pleural effusion. Repeat chest x-ray on 06/29 shifting hazy opacities with increased opacities in left lower lung field and right perihilar region, along with slight effusions and borderline cardiomegaly. Notably had CT chest without contrast done on 05/30/2023 for lung cancer screening, showed at the sentence changes with interstitial scarring. Echo on 06/27 showed EF 60%, normal LV systolic function, stage I diastolic dysfunction. ? Environmental Analyst followed, transfer orders out of ICU placed on 06/30, was not transferred to the floor till 07/03 due to bed availability. Completed 7-day course of Unasyn on 07/03. Weaning supplemental oxygen as able with goal SpO2 of 88% or greater. PT/OT/case management following. Planning for SNF on discharge, pre-CERT pending. Continue BiPAP therapy with naps and nightly. Mobilize patient as able. 2. Sepsis without shock, improved; streptococcal pneumonia qSOFA score of 3 on admit with encephalopathy, RR 28, BP 83/67. SIRS 4/4 positive on admit as well. Streptococcal pneumonia urine antigen positive. Was transiently hypotensive but BP improved without need for pressors. Patient did not receive 30 cc/kg of IV fluids. Thus, septic shock ruled out. Blood cultures negative, COVID-negative, C. difficile negative. ? Completed Unasyn course as above. 3. Dysphagia Unclear etiology. Underlying Parkinson's disease may be contributing. Speech therapy following, completed modified barium swallow on 06/30 with recommenda tion for pur?e textures and thin liquids with small bites and direct supervision with eating. Okay for p.o. medications. ? Appreciate speech therapy recs. Diet ordered, all home p.o. medications res tarted. 4. Acute metabolic encephalopathy, resolved ? Likely secondary to hypoxia and mild acidosis in setting of sepsis and pneumonia on admit. Home medications (specifically trazodone) may have been contributing. Now resolved. 5. Debility ? PT/OT/case management following. Planning for SNF on discharge, pre-CERT pending. Medically stable for discharge. Chronic medical conditions: ? 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 ? Parkinson's disease: Continue home carbidopa/levodopa. ? History of glucocorticoid use: Takes prednisone 20 mg daily, unclear if this is short or long-term, on methylprednisolone for respiratory failure as noted above. DVT prophylaxis: Eliquis CODE STATUS: DNR CCA, DO NOT INTUBATE Expected disposition: SNF, medically stable for discharge, pre-CERT pending Total clinical time spent by myself addressing the patient's medical issues, reviewing all the data, and collaborating with patient's care team: 35 minutes. Charges/Coding Visit Charges Inpatient E&M: 06206 Subs Hosp L2
[2023-07-05 20:34] VITALS: BP 126/56; PULSE 87; RESP 15; TEMP 37.2; O2SAT 94
[2023-07-05] MEDS: Atorvastatin Calcium 80 MG Tablet PO (20:40)
[2023-07-05] MEDS: traZODone 100 MG Tablet PO (20:43)
[2023-07-06] VITALS (11 sets, daily range): BP systolic 113–125; BP diastolic 47–60; PULSE 78–88; RESP 16–20; TEMP 36.4–37.2; O2SAT 87–98; BMI 34.3
[2023-07-06] MEDS: 0.9% Normal Saline (250mL Bag) 250 ML 15 ML IV (00:01)
[2023-07-06] MEDS: Ampicillin/Sulbactam 3 GM in 0.9% Normal Saline (100mL MB+) 100 ML IV ×3 (00:01→11:12)
[2023-07-06] MEDS: Menthol/Lanolin/Calamine/Znox 113 GM Tube 1 APPLIC TOPICAL (05:11)
[2023-07-06] MEDS: 0.9% Saline Lock 10 ML Syringe IV (05:12)
[2023-07-06] MEDS: Ipratropium/Albuterol Sulfate 3 ML AMPUL.NEB INHALATION ×2 (07:22→19:31)
--- NOTE | 2023-07-06 09:41 | PCM.PN.HOSP ---
Reason for Visit Reason for Visit: Diagnoses Sepsis, unspecified organism (06/26/23) Unspecified infectious disease (06/26/23) Encephalopathy, unspecified (06/26/23) Other encephalopathy (06/26/23) Hypotension, unspecified (06/26/23) Pneumonia, unspecified organism (06/26/23) Acute respiratory failure with hypoxia (06/26/23) Severe sepsis without septic shock (06/26/23) Severe sepsis with septic shock (06/26/23) Subjective Subjective Breathing well. If she can't go to TCU, she would rather go home. Objective Data Objective Data Vital Signs: Vital Signs Temp Pulse Resp BP Pulse Ox O2 Del Method O2 Flow Rate 36.9 C 78 16 115/47 L 96 High Flow 5 07/06/23 02:54 07/06/23 02:54 07/06/23 02:54 07/06/23 02:54 07/06/23 02:54 07/06/23 07:53 07/06/23 07:53 FiO2 50 07/01/23 14:00 Oxygen Flow Rate (L/min) 5 Oxygen Delivery Method High Flow Weight: 102.4 kg Body Mass Index (BMI) 34.3 Intake & Output: Intake and Output for Last 24 Hours 07/04/23 07/05/23 07/06/23 23:59 23:59 23:59 Intake Total 737 / 787 654.5 / 654.5 324 / 324 Output Total 150 / 150 Balance 587 / 637 654.5 / 654.5 324 / 324 Lab / Micro Data 07/03/23 03:50 07/03/23 03:50 Micro: Microbiology 06/26/23 19:15 Urine Catheter - Turner Urine Culture - Final Aerococcus urinae Lactobacillus plantarum Actinomyces neuii 06/26/23 18:52 Blood Culture (Wb) - Anticubital Left Blood Culture - Final No growth in 5 days. 06/26/23 19:00 Blood Culture (Wb) - Right Wrist Blood Culture - Final No growth in 5 days. 06/27/23 10:25 Stool C. difficile DNA Amplification - Final 06/27/23 08:05 Urine Catheter - Turner Legionella Antigen - Final 06/27/23 08:05 Urine Catheter - Turner Streptococcus pneumoniae Antigen (M - Final Streptococcus pneumonia Ag 06/27/23 08:05 Nasal Secretion SARS-CoV-2 Antigen (Rapid) - Final Rhythm Strip Rhythm Strip: Sinus Tach Rate: 95 Ectopy: - (Episodes of nonsustained V. tach) Physical Exam Const alert and no apparent distress HEENT head/scalp atraumatic Resp normal respiratory effort, no retractions, no use of accessory muscles and clear to auscultation bilaterally Cardio regular rate, regular rhythm, S1 normal heart sound and S2 normal heart sound GI normal to inspection, nondistended, normoactive bowel sounds, soft to palpation, non-tender and non-distended Extremity normal to inspection Neuro Sensorium / Orientation: awake and alert Assessment & Plan Assessment/Plan (1) Acute hypoxic respiratory failure: PLAN: Was hypoxic at home in the 60s. Combined hypoxic and hypercapnic respiratory failure 2/2 pneumonia. Intiated on BiPAP and maintained. Since weaned down Airvo. BiPAP QHS. Wean as able CCM on consult Echo shows an EF of 60% with stage DD Continue BDs, methylpred (2) Sepsis: QUALIFIERS: Acute respiratory failure type: with hypoxia Sepsis acute organ dysfunction status: with acute organ dysfunction Sepsis type: sepsis due to unspecified organism Severe sepsis acute organ dysfunction type: acute respiratory failure Severe sepsis shock status: without septic shock Qualified Code(s): A41.9 - Sepsis, unspecified organism; R65.20 - Severe sepsis without septic shock; J96.01 - Acute respiratory failure with hypoxia PLAN: POA 2/2 pneumonia qSOFA 3 (encephalopathy, RR 28, BP 83/67) SIRS 4/4 (refer to Dr. Gutierrez's H+P for those criteria) Hypotensive transiently, but BP has improved without need for vasopressors. Pt did not receive 30cc/kg IVF. Therefore, septic shock ruled out. BCx and UCx pending. C. diff negative. (3) Pneumonia: QUALIFIERS: Laterality: bilateral Lung location: unspecified part of lung Pneumonia type: due to unspecified organism Qualified Code(s): J18.9 - Pneumonia, unspecified organism PLAN: pneumococcal Antibiotics completed Strep antigen positive. Legionella negative. COVID 19 negative. Speech eval (4) Encephalopathy due to infection: PLAN: likely metabolic from sepsis and pneumonia and toxic forom taking excess trazodone and other meds Avoid potentiating medications. (5) Dysphagia: PLAN: Unclear etiology. Underlying Parkinson's disease may be contributing. Speech therapy following, completed modified barium swallow on 06/30 with recommendation for pur?e textures and thin liquids with small bites and direct supervision with eating. Okay for p.o. medications. (6) Debility: PLAN: PT/OT/case management following. Planning for SNF on discharge, pre-CERT pending. Medically stable for discharge. PLAN: Plan Chronic medical conditions: ? 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 ? Parkinson's disease: Continue home carbidopa/levodopa. ? History of glucocorticoid use: Takes prednisone 20 mg daily, unclear if this is short or long-term, on methylprednisolone for respiratory failure as noted above. DVT prophylaxis: Eliquis CODE STATUS: DNR CCA, DO NOT INTUBATE Expected disposition: SNF, medically stable for discharge, pre-CERT pending Charges/Coding Visit Charges Inpatient E&M: 56750 Subs Hosp L2
--- NOTE | 2023-07-06 09:45 | CASEMGMT ---
TCU is unable to take patient. SW met with patient. Re-introduced self and role at [facility]. SW let patient know that [facility] TCU cannot take her. Patient asked what is next. SW told patient she would need to pick another facility. Patient was thinking she would like to go home. SW told patient she would only get a couple of days of therapy at home. Patient said she and her roommate can work on therapy. Patient is okay with SW talking with her roommate. Aishwarya DAILY
[2023-07-06] MEDS: predniSONE 20 MG Tablet 40 MG PO (10:27)
[2023-07-06] MEDS: Carbidopa/Levodopa 25/100 Tablet PO (10:27)
[2023-07-06] MEDS: buPROPion (XL) 300 MG TABLET.XL PO (10:28)
[2023-07-06] MEDS: APIXABAN 5 MG TABLET PO ×2 (10:28→20:41)
[2023-07-06] MEDS: Sertraline 100 MG Tablet PO (10:28)
[2023-07-06] MEDS: Pregabalin 75 MG Capsule 300 MG PO ×2 (11:12→20:40)
--- NOTE | 2023-07-06 12:17 | CASEMGMT ---
SW attempted to call patient's caregiver/roommate, but there was no answer and voice mailbox was full. Aishwarya Del Rosario BLOOD BANK BOOKING CLERK [employer]IM[employer]OLA
--- NOTE | 2023-07-06 16:04 | CASEMGMT ---
SW went back to patient's room to see if she spoke with her caregiver. Patient said she did and they feel it would be best if she went somewhere. Patient would like some place close and at least 4 stars. SW helped patient narrow it down and patient was agreeable to SW sending a referral to [place]. JANE asked Leigha d/c production planning manager to send a referral to [place]. JANE updated physician. Aishwarya DAILY
--- NOTE | 2023-07-06 16:29 | CASEMGMT ---
Discharge Planning Referral sent to [facility] via [facility]. Leigha Hitchcock, Discharge Planning Asst.
[2023-07-06] MEDS: Atorvastatin Calcium 80 MG Tablet PO (20:40)
[2023-07-06] MEDS: traZODone 100 MG Tablet PO (20:46)
--- NOTE | 2023-07-06 20:46 | NURSING ---
pt requested pm meds early
[2023-07-07 01:49] VITALS: BP 125/53; PULSE 88; RESP 18; TEMP 36.7; O2SAT 93
[2023-07-07 03:44] VITALS: BMI 34.9
[2023-07-07 06:19] VITALS: BP 113/88; PULSE 98; RESP 18; TEMP 36.7; O2SAT 94
[2023-07-07 07:59] VITALS: O2SAT 93
[2023-07-07 08:03] LABS: Absolute Lymphocyte Count 1.83 X10^3/uL (0.83-4.51); Absolute Neutrophil Count 7.1 X10^3/uL (2.0-7.7); Basophil# 0.02 X10^3/uL; Basophil% 0.2 % (0-1); Eosinophil# 0.17 X10^3/uL; Eosinophils% 1.7 % (0-5); Hematocrit 26.7 % (37-47); Hemoglobin 8.1 g/dL (12.0-15.0); Lymphocyte # 1.83 X10^3/ul (0.83-4.51); Lymphocyte % 17.9 % (19-41); Mean Corp Hgb Conc 30.3 g/dL (32-36); Mean Corpuscular Hgb 30.7 pg (27.0-32.0); Mean Corpuscular Volume 101.1 fL (81-99); Mean Platelet Vol. 11.1 fl (6.2-12.0); Monocyte# 0.88 X10^3/uL; Monocyte% 8.6 % (0-10); NRBC Flagged by Analyzer 0 % (0-5); Neutrophil # 7.09 X10^3/uL (2.7-7.7); Neutrophil % 69.5 % (47-70); Platelet Count 306 K/mm3 (150-450); RBC Distribution Width CV 15.6 % (11.6-14.6); RBC Distribution Width SD 57.2 fl (35.1-43.9); Red Blood Count 2.64 M/mm3 (4.2-5.4); White Blood Count 10.2 K/mm3 (4.4-11.0)
[2023-07-07] MEDS: Sertraline 100 MG Tablet PO (08:28)
[2023-07-07] MEDS: APIXABAN 5 MG TABLET PO (08:28)
[2023-07-07] MEDS: predniSONE 20 MG Tablet 40 MG PO (08:28)
[2023-07-07] MEDS: Carbidopa/Levodopa 25/100 Tablet PO (08:28)
[2023-07-07] MEDS: buPROPion (XL) 300 MG TABLET.XL PO (08:29)
[2023-07-07] MEDS: Pregabalin 75 MG Capsule 300 MG PO (08:32)
--- NOTE | 2023-07-07 08:48 | PCM.PN.HOSP ---
Reason for Visit Reason for Visit: Diagnoses Sepsis, unspecified organism (06/26/23) Unspecified infectious disease (06/26/23) Encephalopathy, unspecified (06/26/23) Other encephalopathy (06/26/23) Hypotension, unspecified (06/26/23) Pneumonia, unspecified organism (06/26/23) Acute respiratory failure with hypoxia (06/26/23) Dysphagia, unspecified (06/26/23) Other malaise (06/26/23) Severe sepsis without septic shock (06/26/23) Severe sepsis with septic shock (06/26/23) Subjective Subjective Feels well. No complaints. Objective Data Objective Data Vital Signs: Vital Signs Temp Pulse Resp BP Pulse Ox O2 Del Method O2 Flow Rate 36.7 C 98 18 113/88 H 93 Nasal Cannula 4 07/07/23 06:19 07/07/23 06:19 07/07/23 06:19 07/07/23 06:19 07/07/23 07:59 07/07/23 07:59 07/07/23 07:59 FiO2 50 07/01/23 14:00 Oxygen Flow Rate (L/min) [ 5 AMBULATING with Oxygen #2] Oxygen Flow Rate (L/min) [ 4 AMBULATING with Oxygen #1] Oxygen Flow Rate (L/min) [At 4 REST with Oxygen] Oxygen Flow Rate (L/min) [At 2 REST on Room Air] Oxygen Flow Rate (L/min) 4 Oxygen Delivery Method Nasal Cannula Weight: 104.3 kg Body Mass Index (BMI) 34.9 Intake & Output: Intake and Output for Last 24 Hours 07/05/23 07/06/23 07/07/23 23:59 23:59 23:59 Intake Total 654.5 / 654.5 1903.75 / 1903.75 Balance 654.5 / 654.5 1903.75 / 1903.75 Lab / Micro Data 07/07/23 07:30 07/03/23 03:50 Labs: Laboratory Results - last 24 hr 07/07/23 07:30: WBC 10.2, RBC 2.64 L, Hgb 8.1 L, Hct 26.7 L, MCV 101.1 H, MCH 30.7, MCHC 30.3 L, RDW Std Deviation 57.2 H, RDW Coeff of Anabela 15.6 H, Plt Count 306, MPV 11.1, Immature Gran % (Auto) 2.100 H, Neut % (Auto) 69.5, Lymph % (Auto) 17.9 L, [place] % (Auto) 8.6, Eos % (Auto) 1.7, Baso % (Auto) 0.2, Absolute Neuts (auto) 7.1, Absolute Lymphs (auto) 1.83, Nucleated RBC % 0 Micro: Microbiology 06/26/23 19:15 Urine Catheter - Turner Urine Culture - Final Aerococcus urinae Lactobacillus plantarum Actinomyces neuii 06/26/23 18:52 Blood Culture (Wb) - Anticubital Left Blood Culture - Final No growth in 5 days. 06/26/23 19:00 Blood Culture (Wb) - Right Wrist Blood Culture - Final No growth in 5 days. 06/27/23 10:25 Stool C. difficile DNA Amplification - Final 06/27/23 08:05 Urine Catheter - Turner Legionella Antigen - Final 06/27/23 08:05 Urine Catheter - Turner Streptococcus pneumoniae Antigen (M - Final Streptococcus pneumonia Ag 06/27/23 08:05 Nasal Secretion SARS-CoV-2 Antigen (Rapid) - Final Rhythm Strip Rhythm Strip: Sinus Tach Rate: 95 Ectopy: - (Episodes of nonsustained V. tach) Physical Exam Const alert and no apparent distress HEENT head/scalp atraumatic and moist oral mucous membranes Resp normal respiratory effort, no retractions, no use of accessory muscles and clear to auscultation bilaterally Cardio regular rate, regular rhythm, S1 normal heart sound and S2 normal heart sound GI normal to inspection, nondistended, normoactive bowel sounds, soft to palpation, non-tender and non-distended Extremity normal to inspection and full ROM Assessment & Plan Assessment/Plan (1) Acute hypoxic respiratory failure: PLAN: Was hypoxic at home in the 60s. Secondary to pneumonia. Combined hypoxic and hypercapnic respiratory failure 2/2 pneumonia. Echo shows an EF of 60% with stage DD Continue BDs, methylpred Pt requires oxygen 4l/m at rest and 5l/m with activity. (2) Sepsis: QUALIFIERS: Acute respiratory failure type: with hypoxia Sepsis acute organ dysfunction status: with acute organ dysfunction Sepsis type: sepsis due to unspecified organism Severe sepsis acute organ dysfunction type: acute respiratory failure Severe sepsis shock status: without septic shock Qualified Code(s): A41.9 - Sepsis, unspecified organism; R65.20 - Severe sepsis without septic shock; J96.01 - Acute respiratory failure with hypoxia PLAN: POA 2/2 pneumonia qSOFA 3 (encephalopathy, RR 28, BP 83/67) SIRS 4/4 (refer to Dr. Gutierrez's H+P for those criteria) Hypotensive transiently, but BP has improved without need for vasopressors. Pt did not receive 30cc/kg IVF. Therefore, septic shock ruled out. BCx and UCx pending. C. diff negative. (3) Pneumonia: QUALIFIERS: Laterality: bilateral Lung location: unspecified part of lung Pneumonia type: due to unspecified organism Qualified Code(s): J18.9 - Pneumonia, unspecified organism PLAN: pneumococcal Antibiotics completed Strep antigen positive. Legionella negative. COVID 19 negative. Speech eval (4) Encephalopathy due to infection: PLAN: Resolved likely metabolic from sepsis and pneumonia and toxic forom taking excess trazodone and other meds Avoid potentiating medications. (5) Dysphagia: PLAN: Unclear etiology. Underlying Parkinson's disease may be contributing. Speech therapy following, completed modified barium swallow on 06/30 with recommendation for pur?e textures and thin liquids with small bites and direct supervision with eating. Okay for p.o. medications. (6) Debility: PLAN: PT/OT/case management following. Planning for SNF on discharge, pre-CERT pending. Medically stable for discharge. PLAN: Plan Chronic medical conditions: ? 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 ? Parkinson's disease: Continue home carbidopa/levodopa. ? History of glucocorticoid use: Takes prednisone 20 mg daily, unclear if this is short or long-term, on methylprednisolone for respiratory failure as noted above. DVT prophylaxis: Eliquis CODE STATUS: DNR CCA, DO NOT INTUBATE Expected disposition: To SNF today.
--- NOTE | 2023-07-07 10:20 | CASEMGMT ---
Discharge Planning Patient has been accepted by [facility]. SW updated. Leigha Hitchcock, Discharge Planning Asst.
--- NOTE | 2023-07-07 10:36 | CASEMGMT ---
JANE notified patient that [facility] has accepted her and she will stay at [facility] until her insurance approves. Plan: d/c to [facility] pending insurance approval. Aishwarya DAILY
[2023-07-07 12:00] VITALS: BP 127/62; PULSE 90; RESP 18; TEMP 37.3; O2SAT 79; O2SAT 86; O2SAT 88; O2SAT 91; O2SAT 92
--- NOTE | 2023-07-07 13:53 | CASEMGMT ---
Patient was approved to go to [facility]. SW notified physician. SW will notify physician. Aishwarya Del Rosario SUPERVISOR FE[employer]ILL [employer]IM[employer]OLA
--- NOTE | 2023-07-07 14:13 | PCM.TXEXTCAR ---
Diet Diet Order/Speech Therapy: 07/05/23 09:28 Diet: Regular - General Food consistency:: Soft & Bite Sized Liquid Consistency:: Regular/Thin Is pt able to select menu?: Yes Diet Comments: No Straws, Distant Supervision Routine Orders/Code Status Code Status: DNRCC-A (no intubation. ) Therapies Physical Therapy: Eval and Treat Occupational Therapy: Eval and Treat Speech Therapy: Eval and Treat Problem/Diagnosis (1) Acute hypoxic respiratory failure: Status: Acute Code(s): J96.01 - Acute respiratory failure with hypoxia Plan: Was hypoxic at home in the 60s. Secondary to pneumonia. Combined hypoxic and hypercapnic respiratory failure 2/2 pneumonia. Echo shows an EF of 60% with stage DD Continue BDs, methylpred Pt requires oxygen 4l/m at rest and 5l/m with activity. (2) Sepsis: Status: Acute Code(s): A41.9 - Sepsis, unspecified organism Plan: POA 2/2 pneumonia qSOFA 3 (encephalopathy, RR 28, BP 83/67) SIRS 4/4 (refer to Dr. Gutierrez's H+P for those criteria) Hypotensive transiently, but BP has improved without need for vasopressors. Pt did not receive 30cc/kg IVF. Therefore, septic shock ruled out. BCx and UCx pending. C. diff negative. (3) Pneumonia: Status: Acute Code(s): J18.9 - Pneumonia, unspecified organism Plan: pneumococcal Antibiotics completed Strep antigen positive. Legionella negative. COVID 19 negative. Speech eval (4) Encephalopathy due to infection: Status: Acute Code(s): G93.49 - Other encephalopathy; B99.9 - Unspecified infectious disease Plan: Resolved likely metabolic from sepsis and pneumonia and toxic forom taking excess trazodone and other meds Avoid potentiating medications. (5) Dysphagia: Status: Acute Code(s): R13.10 - Dysphagia, unspecified Plan: Unclear etiology. Underlying Parkinson's disease may be contributing. Speech therapy following, completed modified barium swallow on 06/30 with recommendation for pur?e textures and thin liquids with small bites and direct supervision with eating. Okay for p.o. medications. (6) Debility: Status: Acute Code(s): R53.81 - Other malaise Plan: PT/OT/case management following. Planning for SNF on discharge, pre-CERT pending. Medically stable for discharge. Plan Chronic medical conditions: ? 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 ? Parkinson's disease: Continue home carbidopa/levodopa. ? History of glucocorticoid use: Takes prednisone 20 mg daily, unclear if this is short or long-term, on methylprednisolone for respiratory failure as noted above. DVT prophylaxis: Eliquis CODE STATUS: DNR CCA, DO NOT INTUBATE Expected disposition: To SNF today. Allergies/Procedures Done in Hospital Allergies No Known Allergies Allergy (Verified 06/26/23 18:42) Procedures: None Type of Care/Length of Stay Estimated LOS: Convalescent Care Less Than 30 days Type of Care Needed: Skilled Rehab Potential: Fair Prognosis: Good Additional Orders/Day of Discharge Day of Discharge: 07/07/23 Dietary and Speech Recommendations Dietitian Recommendations/Changes: continue regular diet, texture/consistency per FAMILY SERVICES ASSISTANT Discharge Plan Admission Admit Date/Time: 06/26/23 20:27 Primary Reason for Your Visit: pnemonia. respiratory failure sepsis. Attending Provider: Pawan Jara Primary Care Provider: Kelsey Arora Consulting Providers: Lebron Gutierrez; Pawan Jara; Puneet Concepcion Discharge Orders/Prescriptions Prescriptions: New acetaminophen 325 mg Tablet 650 mg PO Q6H PRN PRN (Reason: Fever, pain 1-10/10) Qty: 0 0RF Sore Throat (phenol) 1.4 % Aerosol,[place] 5 spray mucous membrane Q2H PRN PRN (Reason: SORE THROAT) Qty: 0 0RF menthol-zinc oxide [Calmoseptine] 0.44-20.6 % Ointment 1 applic topical TID Qty: 0 0RF Protocol: *Topical Application Instructions APPLICATION INSTRUCTIONS: apply to alexander rectal area Continued pregabalin 300 mg capsule 300 mg PO BID Patient Comments: TAKE 1 CAPSULE BY MOUTH TWICE A DAY Eliquis 5 mg tablet 5 mg PO BID Patient Comments: TAKE 1 TABLET BY MOUTH TWICE A DAY sertraline 100 mg tablet 100 mg PO DAILY Patient Comments: TAKE 1 TABLET BY MOUTH EVERY DAY rosuvastatin 40 mg tablet 40 mg PO DAILY Patient Comments: TAKE 1 TABLET BY MOUTH EVERY DAY bupropion HCl 300 mg tablet extended release 24 hr 300 mg PO DAILY carbidopa-levodopa 25-100 mg tablet 2 tab PO DAILY trazodone 100 mg tablet 100 mg PO QHS Patient Comments: TAKE 1 TABLET BY MOUTH EVERYDAY AT BEDTIME Discontinued torsemide 100 mg tablet 100 mg PO DAILY PRN (Reason: SEE PCP. ) Patient Comments: TAKE 1 TABLET (100 MG) BY MOUTH ONCE DAILY NEEDED (SWELLING). hydrocodone-acetaminophen 5-325 mg tablet 1 tab PO TID PRN (Reason: pain) prednisone 10 mg tablet 20 mg PO DAILY Patient Comments: TAKE 1 TABLET BY MOUTH EVERY DAY Referrals / Follow Up: Kelsey Arora MD [Primary Care Provider] - Within 2 Weeks Disposition Disposition (needs filled in before D/C Order can be placed): [facility] (2) Sepsis Qualifiers: Sepsis type: sepsis due to unspecified organism Sepsis acute organ dysfunction status: with acute organ dysfunction Severe sepsis acute organ dysfunction type: acute respiratory failure Acute respiratory failure type: with hypoxia Severe sepsis shock status: without septic shock Qualified Code(s): A41.9 - Sepsis, unspecified organism; R65.20 - Severe sepsis without septic shock; J96.01 - Acute respiratory failure with hypoxia (3) Pneumonia Qualifiers: Pneumonia type: due to unspecified organism Laterality: bilateral Lung location: unspecified part of lung Qualified Code(s): J18.9 - Pneumonia, unspecified organism
--- NOTE | 2023-07-07 14:20 | DS.PCM_ITS ---
Providers Date of Admission: 06/26/23 Primary Care Physician: Dr. Kelsey Arora MD Consultations 06/26/23 20:52 Consult: Breakfast Hostess / Pulmonary Medicine Routine Consulting Provider: Lm Gallegos Reason for Consult: Septic shock EMERGENT Consult: No MD Notified: Yes Date Notified: 06/26/23 Time Notified: 20:44 Method of Notification: Text Reason For Visit: SEPTIC SHOCK Diagnosis Discharge Diagnosis (1) Acute hypoxic respiratory failure: Status: Acute Code(s): J96.01 - Acute respiratory failure with hypoxia Plan: Was hypoxic at home in the 60s. Secondary to pneumonia. Combined hypoxic and hypercapnic respiratory failure 2/2 pneumonia. Echo shows an EF of 60% with stage DD Continue BDs, methylpred Pt requires oxygen 4l/m at rest and 5l/m with activity. (2) Sepsis: Status: Acute Code(s): A41.9 - Sepsis, unspecified organism Qualifiers: Sepsis type: sepsis due to unspecified organism Sepsis acute organ dysfunction status: with acute organ dysfunction Severe sepsis acute organ dysfunction type: acute respiratory failure Acute respiratory failure type: with hypoxia Severe sepsis shock status: without septic shock Qualified Code(s): A41.9 - Sepsis, unspecified organism; R65.20 - Severe sepsis without septic shock; J96.01 - Acute respiratory failure with hypoxia Plan: POA 2/2 pneumonia qSOFA 3 (encephalopathy, RR 28, BP 83/67) SIRS 4/4 (refer to Dr. Gutierrez's H+P for those criteria) Hypotensive transiently, but BP has improved without need for vasopressors. Pt did not receive 30cc/kg IVF. Therefore, septic shock ruled out. BCx and UCx pending. C. diff negative. (3) Pneumonia: Status: Acute Code(s): J18.9 - Pneumonia, unspecified organism Qualifiers: Pneumonia type: due to unspecified organism Laterality: bilateral Lung location: unspecified part of lung Qualified Code(s): J18.9 - Pneumonia, unspecified organism Plan: pneumococcal Antibiotics completed Strep antigen positive. Legionella negative. COVID 19 negative. Speech eval (4) Encephalopathy due to infection: Status: Acute Code(s): G93.49 - Other encephalopathy; B99.9 - Unspecified infectious disease Plan: Resolved likely metabolic from sepsis and pneumonia and toxic forom taking excess trazodone and other meds Avoid potentiating medications. (5) Dysphagia: Status: Acute Code(s): R13.10 - Dysphagia, unspecified Plan: Unclear etiology. Underlying Parkinson's disease may be contributing. Speech therapy following, completed modified barium swallow on 06/30 with recommenda tion for pur?e textures and thin liquids with small bites and direct supervision with eating. Okay for p.o. medications. (6) Debility: Status: Acute Code(s): R53.81 - Other malaise Plan: PT/OT/case management following. Planning for SNF on discharge, pre-CERT pending. Medically stable for discharge. Plan Chronic medical conditions: ? 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 ? Parkinson's disease: Continue home carbidopa/levodopa. ? History of glucocorticoid use: Takes prednisone 20 mg daily, unclear if this is short or long-term, on methylprednisolone for respiratory failure as noted above. DVT prophylaxis: Eliquis CODE STATUS: DNR CCA, DO NOT INTUBATE Expected disposition: To SNF today. Medications at Discharge Home Medications apixaban 5 mg tablet (Eliquis) 5 mg PO BID 06/26/23 bupropion HCl 300 mg 24 hr tablet, extended release 300 mg PO DAILY 06/26/23 carbidopa 25 mg-levodopa 100 mg tablet 2 tab PO DAILY 06/26/23 pregabalin 300 mg capsule 300 mg PO BID 06/26/23 rosuvastatin 40 mg tablet 40 mg PO DAILY 06/26/23 sertraline 100 mg tablet 100 mg PO DAILY 06/26/23 trazodone 100 mg tablet 100 mg PO QHS 06/26/23 acetaminophen 325 mg tablet 650 mg (2 x 325 mg) PO Q6H PRN PRN Fever, pain 1- 06/23 #0 tabs 07/07/23 menthol 0.44 %-zinc oxide 20.6 % topical ointment (Calmoseptine) 1 applic topical TID #0 grams 07/07/23 phenol 1.4 % mucosal aerosol spray (Sore Throat (phenol)) 5 spray mucous membrane Q2H PRN PRN SORE THROAT #0 mL 07/07/23 Hospital Course Operations None Procedures None Summary of Care Provided Minutes Spent on Discharge: 36 Hospital Course: Patient presents with unresponsiveness and hypoxia with pulse ox in the 60% ran ge. Patient noted to have pneumonia. Patient was started on BiPAP as well as broad-spectrum antibiotics. Patient was clinically septic upon arrival secondary to pneumonia. Patient overall improved and completed a course of antibiotics while she was in the hospital. Patient was put on steroids as well and is steadily improved. Patient is very weak and the plan is for her to go to senior living facility. Patient was initially declined by TCU but did have an option for [place] [facility] and was excepted and will be transferred there in stable condition. Weight / BMI Weight Weight: 104.3 kg Body Mass Index (BMI) 34.9 ABG / Lab / Microbiology Data 07/07/23 07:30 07/03/23 03:50 Laboratory: Laboratory Results - last 24 hr 07/07/23 07:30: WBC 10.2, RBC 2.64 L, Hgb 8.1 L, Hct 26.7 L, MCV 101.1 H, MCH 30.7, MCHC 30.3 L, RDW Std Deviation 57.2 H, RDW Coeff of Anabela 15.6 H, Plt Count 306, MPV 11.1, Immature Gran % (Auto) 2.100 H, Neut % (Auto) 69.5, Lymph % (Auto) 17.9 L, Fleming % (Auto) 8.6, Eos % (Auto) 1.7, Baso % (Auto) 0.2, Absolute Neuts (auto) 7.1, Absolute Lymphs (auto) 1.83, Nucleated RBC % 0 Microbiology: Microbiology 06/26/23 19:15 Urine Catheter - Turner Urine Culture - Final Aerococcus urinae Lactobacillus plantarum Actinomyces neuii 06/26/23 18:52 Blood Culture (Wb) - Anticubital Left Blood Culture - Final No growth in 5 days. 06/26/23 19:00 Blood Culture (Wb) - Right Wrist Blood Culture - Final No growth in 5 days. 06/27/23 10:25 Stool C. difficile DNA Amplification - Final 06/27/23 08:05 Urine Catheter - Turner Legionella Antigen - Final 06/27/23 08:05 Urine Catheter - Turner Streptococcus pneumoniae Antigen (M - Final Streptococcus pneumonia Ag 06/27/23 08:05 Nasal Secretion SARS-CoV-2 Antigen (Rapid) - Final Meaningful Use Info Meaningful Use Diagnoses (Choose all that apply): None applicable Discharge Plan Admission Admit Date/Time: 06/26/23 20:27 Primary Reason for Your Visit: pnemonia. respiratory failure sepsis. Attending Provider: Pawan Jara Primary Care Provider: Kelsey Arora Consulting Providers: Lebron Gutierrez; Pawan Jara; Puneet Concepcion Discharge Orders/Prescriptions Prescriptions: New acetaminophen 325 mg Tablet 650 mg PO Q6H PRN PRN (Reason: Fever, pain 1-06/23) Qty: 0 0RF Sore Throat (phenol) 1.4 % Aerosol,[place] 5 spray mucous membrane Q2H PRN PRN (Reason: SORE THROAT) Qty: 0 0RF menthol-zinc oxide [Calmoseptine] 0.44-20.6 % Ointment 1 applic topical TID Qty: 0 0RF Protocol: *Topical Application Instructions APPLICATION INSTRUCTIONS: apply to alexander rectal area Continued pregabalin 300 mg capsule 300 mg PO BID Patient Comments: TAKE 1 CAPSULE BY MOUTH TWICE A DAY Eliquis 5 mg tablet 5 mg PO BID Patient Comments: TAKE 1 TABLET BY MOUTH TWICE A DAY sertraline 100 mg tablet 100 mg PO DAILY Patient Comments: TAKE 1 TABLET BY MOUTH EVERY DAY rosuvastatin 40 mg tablet 40 mg PO DAILY Patient Comments: TAKE 1 TABLET BY MOUTH EVERY DAY bupropion HCl 300 mg tablet extended release 24 hr 300 mg PO DAILY carbidopa-levodopa 25-100 mg tablet 2 tab PO DAILY trazodone 100 mg tablet 100 mg PO QHS Patient Comments: TAKE 1 TABLET BY MOUTH EVERYDAY AT BEDTIME Discontinued torsemide 100 mg tablet 100 mg PO DAILY PRN (Reason: SEE PCP. ) Patient Comments: TAKE 1 TABLET (100 MG) BY MOUTH ONCE DAILY NEEDED (SWELLING). hydrocodone-acetaminophen 5-325 mg tablet 1 tab PO TID PRN (Reason: pain) prednisone 10 mg tablet 20 mg PO DAILY Patient Comments: TAKE 1 TABLET BY MOUTH EVERY DAY Referrals / Follow Up: Kelsey Arora MD [Primary Care Provider] - Within 2 Weeks Disposition Disposition (needs filled in before D/C Order can be placed): Senior Living Facility Charges/Coding Visit Charges Inpatient E&M: 19708 Disch Hosp >30min
[2023-07-07] MEDS: Menthol/Lanolin/Calamine/Znox 113 GM Tube 1 APPLIC TOPICAL (14:25)
--- NOTE | 2023-07-07 14:25 | CASEMGMT ---
JANE notified patient that her insurance approved her to go to [place]. Discussed transportation options to [place] including wheelchair van private pay or caregiver transporting. Patient was going to check with her caregiver. JANE completed a 8400 in [employer] system. Aishwarya DAILY
--- NOTE | 2023-07-07 14:48 | PHA.DC_ITS ---
Pharmacy [facility] Reconciliation Pharmacy Service has performed discharge medication reconciliation for this patient. The patient's discharge medication list was reviewed for discrepancies and discrepancies were resolved. Medications at Discharge Home Medications apixaban 5 mg tablet (Eliquis) 5 mg PO BID 06/26/23 bupropion HCl 300 mg 24 hr tablet, extended release 300 mg PO DAILY 06/26/23 carbidopa 25 mg-levodopa 100 mg tablet 2 tab PO DAILY 06/26/23 pregabalin 300 mg capsule 300 mg PO BID 06/26/23 rosuvastatin 40 mg tablet 40 mg PO DAILY 06/26/23 sertraline 100 mg tablet 100 mg PO DAILY 06/26/23 trazodone 100 mg tablet 100 mg PO QHS 06/26/23 acetaminophen 325 mg tablet 650 mg (2 x 325 mg) PO Q6H PRN PRN Fever, pain 1- 06/23 #0 tabs 07/07/23 menthol 0.44 %-zinc oxide 20.6 % topical ointment (Calmoseptine) 1 applic topical TID #0 grams 07/07/23 phenol 1.4 % mucosal aerosol spray (Sore Throat (phenol)) 5 spray mucous membrane Q2H PRN PRN SORE THROAT #0 mL 07/07/23
--- NOTE | 2023-07-07 15:27 | CASEMGMT ---
Discharge Planning Discharge orders, signed med list, and transport time sent to [facility] via [facility]. Patients friend will take her to [facility], picking up at 4:30. Patient reminded that she will need O2 for the trip. Nursing and SW updated with discharge time. Leigha Hitchcock, Discharge Planning Asst.
--- NOTE | 2023-07-07 16:03 | NURSING ---
report called to w with no questions voiced. waiting on ride and covid test results
--- NOTE | 2023-07-07 18:10 | NURSING ---
pt friend here and pt ate supper but brought just a refill o2 canister. stated, thats all i could find at the house pt refusing to wait while friend went home to look for port tank. stated, i only am going 10min without. i am not waiting for you to go thru all that trouble. 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 pt and friend reminded that pt will drop quickly and that may wind up back in [place]. wvm called and aware of situation and to have o2 ready. pt in [place] with ecf packet and all belongings. escorted by [facility] staff to car on [place] despite advisory
== END 2023-07-07 18:03 | disposition skilled nursing facility (03) | DRG 871 ==
LOC: ED 19:43 → ICU 20:48 → PCU 07-03 12:57
PROVIDERS: Hospitalist; Internal Medicine; Internal Medicine Critical Care Medicine; Admitting Provider Hospitalist; Emergency Provider Emergency Medicine; PCP Internal Medicine
DX: A40.3 Sepsis due to Streptococcus pneumoniae (principal); J13 Pneumonia due to Streptococcus pneumoniae; J96.01 Acute respiratory failure with hypoxia; R65.20 Severe sepsis without septic shock; J96.02 Acute respiratory failure with hypercapnia; G93.49 Other encephalopathy; I47.20 Ventricular tachycardia, unspecified; J43.9 Emphysema, unspecified; F17.210 Nicotine dependence, cigarettes, uncomplicated; E66.9 Obesity, unspecified; G20.A1 Parkinson's disease without dyskinesia, without mention of fluctuations; Z66 Do not resuscitate; Z68.34 Body mass index [BMI] 34.0-34.9, adult; Z79.01 Long term (current) use of anticoagulants; Z79.899 Other long term (current) drug therapy; Z86.711 Personal history of pulmonary embolism
CPT/HCPCS: 36415; 36600; 51702; 71045; 74230; 80048; 80053; 81001; 82330; 82803; 83605; 83735; 83880; 84100; 85025; 85027; 85610; 85730; 87040; 87077; 87086; 87088; 87449; 87493; 87811; 92526; 92610; 92611; 93005; 93306; 94002; 94003; 94640; 94660; 94668; 94762; 97110; 97163; 97166; 97530; 97535; 99285; 99406; J7030; J7040; J7050; J7120; A4216; J0295; J1940

== ENCOUNTER 2023-08-04 16:23 | Emergency (ER) | payer MEDICARE, SELFPAY ==
[2023-08-04 16:27] VITALS: BP 139/75; PULSE 98; RESP 18; TEMP 36.5; O2SAT 90
--- NOTE | 2023-08-04 16:40 | RAD_ITS ---
STUDY: X-RAY CHEST REASON FOR EXAM: Female, 72 years old. chest pain TECHNIQUE: Single AP portable view of the chest. COMPARISON: 06/29/2023. FINDINGS: The lungs are hyperexpanded. There are coarsened interstitial markings suggestive of mild chronic fibrosis. No gross focal infiltrates. No gross effusions. Normal size heart. Normal mediastinum and ella. Normal visualized pulmonary arteries. Normal visualized aortic arch and descending thoracic aorta. Normal visualized thoracic spine. Normal visualized ribs, clavicles, and shoulders. There is no demonstrated abnormality of the visualized soft tissue structures of the upper abdomen. RAD/Chest 1 View (Portable) IMPRESSION: Grossly stable fibrotic COPD. No definite acute chest disease. Electronically Signed: Lucio Hammond MD at 16:57 EST ,
[2023-08-04 17:13] VITALS: O2SAT 94
[2023-08-04 17:35] LABS: Absolute Lymphocyte Count 1.71 X10^3/uL (0.83-4.51); Absolute Neutrophil Count 3.7 X10^3/uL (2.0-7.7); Basophil# 0.02 X10^3/uL; Basophil% 0.3 % (0-1); Eosinophil# 0.05 X10^3/uL; Eosinophils% 0.8 % (0-5); Hematocrit 32.9 % (37-47); Hemoglobin 10.3 g/dL (12.0-15.0); Lymphocyte # 1.71 X10^3/ul (0.83-4.51); Lymphocyte % 27.2 % (19-41); Mean Corp Hgb Conc 31.3 g/dL (32-36); Mean Corpuscular Hgb 30.8 pg (27.0-32.0); Mean Corpuscular Volume 98.5 fL (81-99); Mean Platelet Vol. 9.7 fl (6.2-12.0); Monocyte# 0.73 X10^3/uL; Monocyte% 11.6 % (0-10); NRBC Flagged by Analyzer 0 % (0-5); Neutrophil # 3.74 X10^3/uL (2.7-7.7); Neutrophil % 59.5 % (47-70); Platelet Count 267 K/mm3 (150-450); RBC Distribution Width SD 58.1 fl (35.1-43.9); Red Blood Count 3.34 M/mm3 (4.2-5.4); White Blood Count 6.3 K/mm3 (4.4-11.0)
[2023-08-04 17:38] VITALS: BP 116/93; PULSE 92; RESP 26; O2SAT 96
--- NOTE | 2023-08-04 17:40 | EDS_ITS ---
HPI <LAURITA Baker - Last Filed: 08/04/23 19:33> History of Present Illness Chief Complaint: General Illness Narrative Narrative: 72-year-old female was brought in from home by her roommate because she has been ill for several days. Patient is a poor historian. She states she has had diarrhea for 5 days and 5 nights. When asked any other questions she responds yes. She states she feels weak, has chest pain and shortness of breath, a worsening cough, abdominal pain, and feels dehydrated. Her roommate is not sick. She wears home oxygen for COPD. She does not know what medication she takes. [facility] <LAURITA Baker - Last Filed: 08/04/23 19:33> [facility] Medical History Pulmonary emboli Medical History unable to obtain Home Medications apixaban 5 mg tablet (Eliquis) 5 mg PO BID 06/26/23 [History Last Taken Unknown] bupropion HCl 300 mg 24 hr tablet, extended release 300 mg PO DAILY 06/26/23 [History Last Taken Unknown] carbidopa 25 mg-levodopa 100 mg tablet 2 tab PO DAILY 06/26/23 [History Last Taken Unknown] pregabalin 300 mg capsule 300 mg PO BID 06/26/23 [History Last Taken Unknown] rosuvastatin 40 mg tablet 40 mg PO DAILY 06/26/23 [History Last Taken Unknown] sertraline 100 mg tablet 100 mg PO DAILY 06/26/23 [History Last Taken Unknown] trazodone 100 mg tablet 100 mg PO QHS 06/26/23 [History Last Taken Unknown] acetaminophen 325 mg tablet 650 mg (2 x 325 mg) PO Q6H PRN PRN Fever, pain 1- 06/23 #0 tabs 07/07/23 [Rx Last Taken Unknown] menthol 0.44 %-zinc oxide 20.6 % topical ointment (Calmoseptine) 1 applic topical TID #0 grams 07/07/23 [Rx Last Taken Unknown] phenol 1.4 % mucosal aerosol spray (Sore Throat (phenol)) 5 spray mucous membrane Q2H PRN PRN SORE THROAT #0 mL 07/07/23 [Rx Last Taken Unknown] Allergy/AdvReac Type Severity Reaction Status Date / Time No Known Allergies Allergy Verified 08/04/23 16:27 Family History unable to obtain Surgical History unable to obtain Social History Smoking Status: Current some day smoker tobacco type: cigarettes ROS <LAURITA Baker - Last Filed: 08/04/23 19:33> ROS ED ROS Narrative Constitutional: Positive for chills, malaise. CVS: Positive for chest pain. Respiratory: Negative for shortness of breath, cough. GI: Positive for abdominal pain, diarrhea. Denies melena, hematochezia. : Negative for dysuria. Neuro: Negative for headache. EXAM <LAURITA Baker - Last Filed: 08/04/23 19:33> Physical Exam Narrative Exam Narrative: CONST: Patient sitting in no acute distress. EYES: Normal inspection. ENT: Normal inspection, dry mucous membranes. NECK: Normal inspection. RESP: No respiratory distress, adventitious lung sounds and slight wheeze. CVS: Regular rate and rhythm, no murmur, no gallop. ABD: Soft and nontender, no guarding or rebound, nondistended. SKIN: Color normal, no rash, warm, dry, intact. EXTREMITIES: Normal appearance, no pedal edema. NEURO: Oriented x4. PSYCH: Normal affect. Const Vital Signs: 08/04/23 16:27 08/04/23 17:13 08/04/23 17:14 Temperature 97.7 F L Temperature Source Temporal Pulse Rate 98 Respiratory Rate 18 Respiratory Effort Normal Non-Labored Respiratory Pattern Normal Blood Pressure 139/75 H Blood Pressure Mean 96 Pulse Ox 90 94 Oxygen Delivery Method Room Air Nasal Cannula Oxygen Flow Rate (L/min) 2 08/04/23 17:38 08/04/23 17:48 08/04/23 18:03 Temperature 98.7 F Temperature Source Oral Pulse Rate 92 90 93 Respiratory Rate 26 H 16 24 H Respiratory Effort Respiratory Pattern Normal Blood Pressure 116/93 H 130/64 H Blood Pressure Mean 100 86 Pulse Ox 96 96 Oxygen Delivery Method Nasal Cannula Nasal Cannula Oxygen Flow Rate (L/min) 2 2 <Dr. Pawan Butts DO - Last Filed: 08/04/23 19:54> Physical Exam Const Vital Signs: 08/04/23 16:27 08/04/23 17:13 08/04/23 17:14 Temperature 97.7 F L Temperature Source Temporal Pulse Rate 98 Respiratory Rate 18 Respiratory Effort Normal Non-Labored Respiratory Pattern Normal Blood Pressure 139/75 H Blood Pressure Mean 96 Pulse Ox 90 94 Oxygen Delivery Method Room Air Nasal Cannula Oxygen Flow Rate (L/min) 2 08/04/23 17:38 08/04/23 17:48 08/04/23 18:03 Temperature 98.7 F Temperature Source Oral Pulse Rate 92 90 93 Respiratory Rate 26 H 16 24 H Respiratory Effort Respiratory Pattern Normal Blood Pressure 116/93 H 130/64 H Blood Pressure Mean 100 86 Pulse Ox 96 96 Oxygen Delivery Method Nasal Cannula Nasal Cannula Oxygen Flow Rate (L/min) 2 2 MDM <LAURITA Baker - Last Filed: 08/04/23 19:33> [facility] Narrative Medical decision making narrative: Patient has generalized complaints including cough, chest pain, abdominal pain, and diarrhea. She is a poor historian. She appears well and nontoxic. RR is 24, otherwise normal vital signs. She is on chronic 2 L nasal cannula for COPD and is 94% or above. Exam is notable for slightly dry mucous membranes and adventitious lung sounds with slight wheezing. She is able to speak in full sentences in no distress and I ordered a DuoNeb. Broad workup was ordered as differential includes viral URI, pneumonia, UTI among others. CBC and BMP are unremarkable?hemoglobin of 10.3 is higher than previous. EKG is nonischemic and troponin is 19. CXR shows no acute process. Swab is positive for COVID-19 which explains her symptoms. I do not think she needs admitted as she has normal vital signs and is satting well on her chronic oxygen. She is not sure how long she has been ill but it has been 5+ days so she is out of the window for antiviral treatment. Patient was discharged and driven home by her roommate who will help care for her. Return precautions discussed. Lab Data Attestation: I reviewed the patient's lab results. Labs: Laboratory Results - last 24 hr 08/04/23 08/04/23 17:25 18:30 WBC 6.3 RBC 3.34 L Hgb 10.3 L Hct 32.9 L MCV 98.5 MCH 30.8 MCHC 31.3 L RDW Std Deviation 58.1 H RDW Coeff of Anabela 16.0 H Plt Count 267 MPV 9.7 Immature Gran % (Auto) 0.600 Neut % (Auto) 59.5 Lymph % (Auto) 27.2 Maries % (Auto) 11.6 H Eos % (Auto) 0.8 Baso % (Auto) 0.3 Absolute Neuts (auto) 3.7 Absolute Lymphs (auto) 1.71 Nucleated RBC % 0 Sodium 144 Potassium 3.5 Chloride 110 H Carbon Dioxide 30.0 Anion Gap 4 L BUN 10 Creatinine 0.82 Est GFR (MDRD) Af Amer 87 Est GFR (MDRD) Non-Af 72 BUN/Creatinine Ratio 12.2 Glucose 116 H Calcium 9.1 Troponin I High Sens 19 Urine Color Yellow Urine Clarity Clear Urine pH 6.0 Ur Specific Dwale 1.020 Urine Protein 30 H Urine Glucose (UA) Normal Urine Ketones 15 H Urine Occult Blood 25 H Urine Nitrite Negative Urine Bilirubin Negative Urine Urobilinogen Normal Ur Leukocyte Esterase 25 H Urine RBC 0 SEEN Urine WBC 0 SEEN Ur Squamous Epith Cells 0 SEEN Urine Bacteria 0 SEEN Urine Mucus 0 SEEN Radiography Diagnostic Testing: Clinical Impression(s) from Imaging Studies Chest X-Ray 08/04/23 16:40 IMPRESSION: Grossly stable fibrotic COPD. No definite acute chest disease. Electronically Signed: Lucio Hammond MD at 16:57 EST , ED attending interpretation of 1-view chest x-ray shows normal heart size, no acute infiltrate, edema, or effusion. EKG Initial EKG: Attestation: I personally reviewed and interpreted this EKG as follows: Interpretation: Sinus Rhythm and No Acute Injury Pattern Comments: Sinus rhythm with occasional PVCs, 95 bpm Nonspecific T wave abnormality <Dr. Pawan Butts, DO - Last Filed: 08/04/23 19:54> [facility] Lab Data Labs: Laboratory Results - last 24 hr 08/04/23 08/04/23 17:25 18:30 WBC 6.3 RBC 3.34 L Hgb 10.3 L Hct 32.9 L MCV 98.5 MCH 30.8 MCHC 31.3 L RDW Std Deviation 58.1 H RDW Coeff of Anabela 16.0 H Plt Count 267 MPV 9.7 Immature Gran % (Auto) 0.600 Neut % (Auto) 59.5 Lymph % (Auto) 27.2 Maries % (Auto) 11.6 H Eos % (Auto) 0.8 Baso % (Auto) 0.3 Absolute Neuts (auto) 3.7 Absolute Lymphs (auto) 1.71 Nucleated RBC % 0 Sodium 144 Potassium 3.5 Chloride 110 H Carbon Dioxide 30.0 Anion Gap 4 L BUN 10 Creatinine 0.82 Est GFR (MDRD) Af Amer 87 Est GFR (MDRD) Non-Af 72 BUN/Creatinine Ratio 12.2 Glucose 116 H Calcium 9.1 Troponin I High Sens 19 Urine Color Yellow Urine Clarity Clear Urine pH 6.0 Ur Specific Dwale 1.020 Urine Protein 30 H Urine Glucose (UA) Normal Urine Ketones 15 H Urine Occult Blood 25 H Urine Nitrite Negative Urine Bilirubin Negative Urine Urobilinogen Normal Ur Leukocyte Esterase 25 H Urine RBC 0 SEEN Urine WBC 0 SEEN Ur Squamous Epith Cells 0 SEEN Urine Bacteria 0 SEEN Urine Mucus 0 SEEN Radiography Diagnostic Testing: Clinical Impression(s) from Imaging Studies Chest X-Ray 08/04/23 16:40 IMPRESSION: Grossly stable fibrotic COPD. No definite acute chest disease. Electronically Signed: Lucio Hammond MD at 16:57 EST , Treatment and Re-Evaluation :: I have personally performed a face to face assessment of the patient and have reviewed the EDIN Note. I performed a substantive portion of the visit including all aspects of the following. My zhang findings include: History: Patient presents with pain to her left chest that began tonight. Patient states it is worse with eating. Patient states the pain is over the left side of her chest. Patient states nothing seems to help with it. Patient also admits to some diarrhea. Patient denies any nausea or vomiting. Patient denies any fevers or chills. Patient denies any shortness of breath or cough. Exam: Vital signs are stable. Patient is afebrile. Patient is in no acute distress. Oral mucosa is pink and moist. Neck is supple. Trachea is midline. There is no JVD. Heart was regular rate and rhythm. Lungs are clear and equal bilateral. There is good respiratory effort noted. Abdomen is soft. Bowel sounds are normal. There is no tenderness. Cranial nerves II through XII are intact. There are no focal motor or sensory deficits noted. There is no tenderness over the left chest. No edema or ecchymosis. There is no subcutaneous emphysema noted. Medical Decision Making: Differential diagnosis includes viral illness, musculoskeletal chest pain, pneumonia, pneumothorax, cardiac dysrhythmia, cardiac ischemia, electrolyte abnormality, and anxiety. EKG will be obtained to assess for cardiac dysrhythmia and cardiac ischemia. Chest x-ray will be obtained to assess for pneumonia and pneumothorax. COVID-19 rapid antigen will be obtained to assess for COVID-19 infection. Influenza A and influenza B antigens will be obtained to assess for influenza infection. CBC will be obtained to assess for leukocytosis and anemia. Basic metabolic profile will be obtained to assess for electrolyte abnormality and renal function. High- sensitivity troponin will be obtained to assess for cardiac ischemia. I am patient was given a DuoNeb aerosol here. Patient was given IV fluids. EKG was obtained. On my independent interpretation, shows normal sinus rhythm with a rate of 95. There are nonspecific ST-T wave changes. Portable 1 view chest x- ray was obtained. On my independent interpretation, lung hobbs are clear. There is normal cardiac silhouette. Bony thorax is normal. There is no acute process noted. Radiologist also interpreted the x-ray and agrees. CBC was reviewed and showed a mild anemia with a hemoglobin of 10.3 and hematocrit 32.9. White blood cell count was normal. Basic metabolic profile was reviewed and was essentially within normal limits. High-sensitivity troponin was reviewed and was normal at 19. Urinalysis was reviewed. There is no evidence of urinary tract infection or hematuria. Influenza A and influenza B antigens were reviewed and were negative. COVID-19 rapid antigen was reviewed and was positive. Patient was advised of her findings. Patient was instructed to drink plenty of fluids. Patient was instructed to follow-up with her primary care physician in 5 to 7 days. Patient was instructed to return if worse in any way. Patient understood and was agreeable with the plan. All questions were answered. Discharge Plan Triage Chief Complaint: General Illness ED Midlevel Provider: Pepper Dyer ED Provider: Pawan Butts Dx/Rx/DC Orders Clinical Impression: COVID-19, Mild dehydration Instructions: COVID-19 and the Flu: What's the Difference? Prescriptions: No Action pregabalin 300 mg capsule 300 mg PO BID Patient Comments: TAKE 1 CAPSULE BY MOUTH TWICE A DAY Eliquis 5 mg tablet 5 mg PO BID Patient Comments: TAKE 1 TABLET BY MOUTH TWICE A DAY sertraline 100 mg tablet 100 mg PO DAILY Patient Comments: TAKE 1 TABLET BY MOUTH EVERY DAY rosuvastatin 40 mg tablet 40 mg PO DAILY Patient Comments: TAKE 1 TABLET BY MOUTH EVERY DAY bupropion HCl 300 mg tablet extended release 24 hr 300 mg PO DAILY carbidopa-levodopa 25-100 mg tablet 2 tab PO DAILY trazodone 100 mg tablet 100 mg PO QHS Patient Comments: TAKE 1 TABLET BY MOUTH EVERYDAY AT BEDTIME acetaminophen 325 mg Tablet 650 mg PO Q6H PRN PRN (Reason: Fever, pain 1-06/23) Qty: 0 0RF Sore Throat (phenol) 1.4 % Aerosol,Kingfisher 5 spray mucous membrane Q2H PRN PRN (Reason: SORE THROAT) Qty: 0 0RF menthol-zinc oxide [Calmoseptine] 0.44-20.6 % Ointment 1 applic topical TID Qty: 0 0RF Protocol: *Topical Application Instructions APPLICATION INSTRUCTIONS: apply to alexander rectal area Primary Care Provider: Kelsey Arora Referrals: Kelsey Arora MD [Primary Care Provider] - Activity Restrictions/Additional Instructions: You tested positive for COVID-19. This is a viral illness and you need to rest, drink plenty of fluids, and take Tylenol every 6 hours as needed for fever or pain. Disposition Disposition: Home, Self Care Discharge Date/Time: 08/04/23 19:28
[2023-08-04 17:48] VITALS: PULSE 90; RESP 16
[2023-08-04] MEDS: Ipratropium/Albuterol Sulfate 3 ML AMPUL.NEB INHALATION (17:48)
[2023-08-04 17:53] LABS: Anion Gap 4 (5-15); BUN 10 mg/dL (7-18); BUN/Creat Ratio 12.2 RATIO (10-20); Calcium,Total 9.1 mg/dL (8.5-10.1); Chloride 110 mmol/L (98-107); Creatinine, Serum 0.82 mg/dL (0.55-1.02); EST Glomerular Filtration Rate 72 mL/min (>60); Est Glom Filt Rate - Afr Amer 87 mL/min (>60); Glucose 116 mg/dL (74-106); Potassium 3.5 mmol/L (3.5-5.1); Sodium Level 144 mmol/L (136-145); Troponin-I HS (w/2H Reflex) 19 pg/mL (3.0-54.0)
[2023-08-04] MEDS: 0.9% Normal Saline (1000mL) 1,000 ML 999 ML IV (18:02)
[2023-08-04 18:03] VITALS: BP 130/64; PULSE 93; RESP 24; TEMP 37.1; O2SAT 96; BMI 33.0
[2023-08-04 18:41] LABS: Bacteria 0 SEEN /hpf (None Seen); Mucous, Urine 0 SEEN /hpf (<or=2+); Red Blood Cells-Urine 0 SEEN /hpf (0-5); Squamous Epithelial Cells - UA 0 SEEN /hpf (5-10); White Blood Cells 0 SEEN /hpf (0-5)
[2023-08-04 18:43] LABS: Color, Urine Yellow (Yellow); Glucose, Dipstick Normal (Normal); Ketone-Dipstick 15 mg/dl (Negative); Leukocyte Esterase-Dipstick 25 /ul (Negative); Nitrite-Dipstick Negative (Negative); Occult Blood-Urine 25 /ul (Negative); Protein-Dipstick 30 mg/dl (Negative); Urine Bilirubin Dipstick Negative (Negative); Urine Clarity Clear (Clear); Urine Urobilinogen Normal (Normal)
[2023-08-04 19:32] LABS: Reflex Troponin-HS? (from REC) Y
== END 2023-08-04 19:28 | disposition home or self-care (01) ==
PROVIDERS: Physician Assistant; Emergency Provider Emergency Medicine; PCP Internal Medicine; Visit Provider Emergency Medicine
DX: U07.1 COVID-19 (principal); J44.9 Chronic obstructive pulmonary disease, unspecified; E86.0 Dehydration; F17.210 Nicotine dependence, cigarettes, uncomplicated; Z99.81 Dependence on supplemental oxygen
CPT/HCPCS: 71045; 80048; 81001; 84484; 85025; 87428; 93005; 94640; 99284; J7030; P9612; A4216

== ENCOUNTER 2024-01-06 09:00 | Outpatient (RCR) | payer MEDICARE, SELFPAY ==
--- NOTE | 2023-12-16 10:00 | HP.PTEVAL ---
Patient's Visit Information Visit Information Visit Information: GERALD ROUSE is a 73 year old F referred to Physical Therapy by Dr. Kelsey Arora MD with a diagnosis of BPPV, B vestibular hypofuinciton. Date of Evaluation: 12/16/23 Physical Therapist: Pawan Montana, DPT, OCS, CSCS Visit Plan Frequency: 2x /Week Duration: 4-6 Weeks Plan: up to 2x/week for up to 6 weeks as needed desired. Will see for positional treatments until resolved adn then patient to consider neck ROM and strength/balance ex to work to I. Subjective Subjective: L leg weak and doesn;t work right and has not for years. Back also has some chronic pain for long time. Is here for dizzyness. been dizzy for 3 years. Insidious onset. Dizzyness is spinning and intermittent. Happens with lying down and lasting a minute. Rolling in bed might casuing. Looking down at carpet might cause it. Cannot look up due to neck limitations. Sleep is Ok some nights but cannot turn in bed, keeps up some times. Sitting in chair slowly is not a problem. Spends day in chair due to back and leg, no regular exercises. Hobbies: not really. Computer adn TV. 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 Has WC and 2walker athome that she uses. Onlky walks short distances 20 feet or so. Walks to car holding on to people or with walker. Trasnfers I. Bathroom I, Bed trasnfer mostly I, No help needed with shower or bathing except washing back. Pain Back 06/04: Pain Intensity (Out of 10): 4 Pain Intensity Range: 4 Comment: sees pain management Objective Objective: Pushed back to PT in WC. Able to stand from chair to walker with rail mod I. Walks 30 feet with walker hunched over but mod I, Tires quickly in legs whcih is the limitation. Unable to stand without walker today. Unable to ambulate with cane today. Stand to sit I. Needed assist for bed trasnfer today. cervical ROM is 40 degree L rotation and 45 R, not even to neutral ext in sitting but able lying. Posture is hunched over and cannot stand up tall due to back pain and injury form 1999 to back. Hard to assess balance since she cannot stand without holding on. Head keeps looking down and hard to even look straight ahead. UE aROM WFL. Needed assist to do HD R and very positive for up torsional nystagmus of 15 seconds. Treated with modified bhavya(very challenging different positions and therapist assist needed for movements). Sheron helped her fill out D[facility] Balance/Special Test Scores Dizziness Score: 100 Goals Goal 1:: abolish dizzyness with looking down adn lying/rolling at night Goal Time Frame: 4-6 Weeks Goal 2:: I appropriate HEP for balance and strength if desired. Goal Time Frame: 4-6 Weeks Rehabilitation Potential Physical Therapy Diagnosis: dizzyness and weakness and imbalance limiting function. Rehabilitation Potential: Fair Anticipated Interventions Patient/Client Instruction: Educate patient on: Condition For the Purpose of:: To increase tolerance to activity/condition/position, To improve ability of physical actions for home/community/work/leisure and To improve gait and locomotor functions Therapeutic Exercise to Include: Strength training, Balance training, Postural training and Active ROM Comment: vestibular positional For the Purpose of:: To improve muscle performance and motor function, To increase tolerance to activity/condition/position, To improve ability of physical actions for home/community/work/leisure and To improve gait and locomotor functions Text: Thank you for the opportunity to evaluate your patient. For Medicare and Medicare HMO plans, please review the plan of care and approve it. It will need to be FAXED BACK to us at [phone] for Medicare purposes. For Medicare only, by signing this I certify the plan of care. Please let me know if there are questions or concerns regarding this plan of care. Physician Signature: Date:
--- NOTE | 2024-01-06 09:36 | HP.PTDCSUM_ITS ---
Discharge Summary D/C summary: It has been my pleasure to treat GERALD ROUSE referred by Dr. Kelsey Arora MD, with the diagnosis of BPPV, B vestibular hypofuinciton for a total of 3 visit(s). Discharge Date: 01/06/24 Please see the following information for a summary of their discharge status. Subjective Subjective: No problems with dizzyness. Activities are normal at home but very sedentary. I can barely move my neck. L arm has started being painful about 4 days ago. No falls or any problems. Has h/o numbness in lower L arm for a year. Back to doctor in a month. No falls but very sedentary, walking at home with walker and cleaned house. Pain Back 06/04: Pain Intensity (Out of 10): 4 L shoulder: Pain Intensity (Out of 10): 5 Overall Improvement % Improvement: 30 Objective Objective/Function: 30 L rotation adn 55 R rotation with ipsilateral pain in neck Unable to lift L UE but R is functional. Painfree at rest and with walking, hurts to move L UE. PROM is WFL on both arms and without pain. Painful to lower arm and hard to relax. Limited scap ROM L vs R. Trasnfer sit to stand i with UE but c/o LBP. Walks with wh walker mod I 40 feet today, Tried to walk back tih cane but unsafe, recommended only wh walker ambulation to her. - B hallpike jenni testing today. Goals Goal 1:: abolish dizzyness with looking down adn lying/rolling at night Goal Progress: Goal Met Goal 2:: I appropriate HEP for balance and strength if desired. Goal Progress: no due to arm pain. Plan Plan: d/c and pt to return to doctor regarding L UE pain which is her biggest problem now and is new. She is very happy that dizzyness is gone and will hold on pursuing mobility exercises or neck treatment until f/u with doctor regarding L UE. She will contact doctor(already has) and await instructions. Should be sent back to PT for mobility/neck therapy if desired after shoulder pain is i mproving. D/C Information Discharge Comments: Pt to contact doctor regarding arm pain and request to be sent back for neck/mobility if desired after arm is treated. d/c sentence: If there are questions or concerns regarding this patient's physical therapy, please feel free to call me at [phone]. Thank you for the referral of this patient. Sincerely, Pawan Montana, DPT, OCS, CSCS Balance/Gait/Functional tests Balance/Special Test Scores Dizziness Score: 0 Improvement % Improvement: 30
== END 2024-01-06 13:19 | disposition home or self-care (01) ==
LOC: PT 09:00
PROVIDERS: PCP Internal Medicine; Referring Provider Internal Medicine; Visit Provider Internal Medicine
DX: H81.13 Benign paroxysmal vertigo, bilateral (principal)
CPT/HCPCS: 97162; 97530

== ENCOUNTER → 2024-01-29 | Outpatient (CLI) | payer MEDICARE, SELFPAY ==
--- NOTE | 2024-01-29 10:20 | RAD_ITS ---
EXAM: XR RIGHT SHOULDER COMPLETE, 2 OR MORE VIEWS CLINICAL INDICATION: Right shoulder pain. TECHNIQUE: Two or more views of the right shoulder. COMPARISON: No relevant prior studies available. FINDINGS: BONES/JOINTS: Unremarkable. No acute fracture. No subluxation. Normal alignment. Preservation of the joint space. No sclerotic or destructive changes observed. SOFT TISSUES: Unremarkable. No soft tissue swelling or gas. No radiopaque foreign body. LUNGS AND PLEURAL SPACES: Prominent pulmonary interstitial markings in the right lung suspicious for chronic interstitial lung disease. RAD/Shoulder min 2 Views IMPRESSION: 1. Negative right shoulder radiographs. 2. Probable chronic interstitial lung disease. Electronically Signed: Louie Barcenas MD at 13:16 EDT ,
--- NOTE | 2024-01-29 10:20 | RAD_ITS ---
INDICATION: CHRONIC PAIN EXAMINATION/TECHNIQUE: X-RAY - LEFT XR Shoulder Min 2 Views 4 VIEWS COMPARISON: No relevant prior comparison study available FINDINGS: SOFT TISSUES: No soft tissue swelling or gas. No radiopaque foreign body. BONES/JOINTS: No acute fracture or subluxation.. Normal alignment. There are mild degenerative changes of the acromioclavicular joint. No sclerotic or destructive changes observed. RAD/Shoulder min 2 Views IMPRESSION: Mild degenerative changes of the acromioclavicular joint. Electronically Signed: Marcia Mane MD at 9:31 EDT ,
--- NOTE | 2024-01-29 10:20 | RAD_ITS ---
STUDY: X-RAY - RIGHT ELBOW REASON FOR EXAM: Female, 73 years old. ARTHRALGIA R ELBOW TECHNIQUE: 3 view(s) of the elbow. COMPARISON: None. FINDINGS: Normal visualized humerus, radius and ulna. Normal radiocapitellar and ulnotrochlear articulations. Posterior soft tissue swelling possibly consistent with olecranon bursitis. RAD/Elbow min 3 Views IMPRESSION: Possible olecranon bursitis. MRI may be useful. Electronically Signed: Jonathan Stern MD at 20:24 EDT ,
[2024-01-29 14:58] LABS: Erythrocyte Sedimentation Rate 66 mm/hr (0-30)
[2024-02-01 15:32] LABS: ANTINUCLEAR ANTIBODIES DIRECT Negative (Negative)
== END | disposition home or self-care (01) ==
PROVIDERS: PCP Internal Medicine; Referring Provider Internal Medicine; Visit Provider Internal Medicine
DX: M13.0 Polyarthritis, unspecified (principal); M25.521 Pain in right elbow; G89.29 Other chronic pain; M25.512 Pain in left shoulder
CPT/HCPCS: 36415; 73030; 73080; 84550; 85652; 86038; 86140; 86431

== ENCOUNTER → 2024-02-05 | Outpatient (CLI) | payer MEDICARE, SELFPAY ==
--- NOTE | 2024-02-05 09:24 | RAD_ITS ---
STUDY: X-RAY CHEST REASON FOR EXAM: Female, 73 years old. Chest pain/pressure TECHNIQUE: PA and lateral views of the chest. COMPARISON: 08/04/2023 FINDINGS: Lungs are hyperexpanded with chronic interstitial changes, no superimposed acute pulmonary process. Normal size heart. Normal mediastinum and ella. Normal visualized pulmonary arteries. Normal visualized aortic arch and descending thoracic aorta. There are diffuse degenerative changes of the visualized thoracic spine. Normal visualized ribs, clavicles, and shoulders. There is no demonstrated abnormality of the visualized soft tissue structures of the upper abdomen. RAD/Chest PA and Lateral IMPRESSION: Hyperexpanded lungs with chronic interstitial changes, no superimposed acute pulmonary process Electronically Signed: Forest Carey MD at 10:19 EDT ,
== END | disposition home or self-care (01) ==
LOC: RAD 09:22
PROVIDERS: PCP Internal Medicine; Referring Provider Internal Medicine; Visit Provider Internal Medicine
DX: J44.1 Chronic obstructive pulmonary disease with (acute) exacerbation (principal)
CPT/HCPCS: 71046

== ENCOUNTER 2024-09-10 00:25 | Emergency (ER) | payer MEDICARE, SELFPAY ==
[2024-09-10 00:28] VITALS: BP 118/54; PULSE 103; RESP 24; TEMP 37.4; O2SAT 83; O2SAT 85; BMI 30.8
--- NOTE | 2024-09-10 01:04 | RAD_ITS ---
INDICATION: pain EXAMINATION/TECHNIQUE: X-RAY - LEFT XR Ankle Min 3 Views 3 VIEWS COMPARISON: No relevant prior comparison study available FINDINGS: BONES: No fracture demonstrated. Calcaneal spurs at the plantar and posterior Achilles insertion sites JOINTS: No dislocation. SOFT TISSUES: Unremarkable. RAD/Ankle min 3 Views IMPRESSION: No evidence of fracture. Electronically Signed: Moon Mcmanus MD at 3:34 EST ,
--- NOTE | 2024-09-10 01:04 | RAD_ITS ---
INDICATION: pain EXAMINATION/TECHNIQUE: X-RAY - XR Hip Unilateral with Pelvis when performed; 2-3 Views COMPARISON: No relevant prior comparison study available FINDINGS: No fracture demonstrated. Femoral heads are normal in contour. No dislocation at the hips. Mild degenerative changes of both hips. RAD/HIP, UNI W/ Pelvis 2-3 Views IMPRESSION: No evidence of fracture. Electronically Signed: Moon Mcmanus MD at 3:14 EST ,
--- NOTE | 2024-09-10 01:04 | RAD_ITS ---
INDICATION: pain EXAMINATION/TECHNIQUE: X-RAY - XR Spine Thoracic 2 Views COMPARISON: No relevant prior comparison study available FINDINGS: The vertebral bodies are normal in height. No definite fracture demonstrated. No subluxation. Mild disc space narrowing with osteophytes throughout most levels. No paravertebral soft tissue mass identified. RAD/Thoracic Spine 3 Views IMPRESSION: No evidence of fracture or subluxation. Electronically Signed: Moon Mcmanus MD at 3:36 EST ,
--- NOTE | 2024-09-10 01:04 | CT_ITS ---
INDICATION: head injury EXAMINATION: CT BRAIN - CT Head or Brain W/O Contrast Injection TECHNIQUE: Multiple axial images were obtained of the head without intravenous contrast. The protocol utilizes one or more of the following dose reduction techniques: automated exposure control, adjustment of mA and/or kV according to patient size,and/or use of iterative reconstruction technique. IV Contrast dosage and agent: None. RADIATION DOSAGE (If Supplied By Facility): CTDIvol = ( 44.99 ) mGy, DLP = ( 796.11 ) mGycm COMPARISON: No relevant prior comparison study available FINDINGS: BRAIN: No acute bleed. No edema. Harman-white matter differentiation is maintained. Arterial calcifications. VENTRICLES AND SULCI: Not dilated. EXTRA-AXIAL: No hemorrhage, fluid collection, or mass. CALVARIUM / SKULL BASE: Unremarkable. FACE/SINUSES: Unremarkable. Mastoid air cells on the left are partially opacified inferiorly. SOFT TISSUES: Unremarkable. CT/Brain/Head without Contrast IMPRESSION: No acute abnormality. Mild left mastoid disease. Electronically Signed: Moon Mcmanus MD at 3:13 [facility] ,
--- NOTE | 2024-09-10 02:45 | RAD_ITS ---
INDICATION: pain EXAMINATION/TECHNIQUE: X-RAY - XR Spine Lumbar 2 or 3 Views COMPARISON: No relevant prior comparison study available FINDINGS: The vertebral bodies are normal in height. No definite fracture demonstrated. No subluxation. Disc space narrowing and osteophytes at all levels. No paravertebral soft tissue mass identified. Aortic calcifications noted. Surgical clips in the right upper abdomen. RAD/Lumbar Spine 2 or 3 Views IMPRESSION: No evidence of fracture or subluxation. Electronically Signed: Moon Mcmanus MD at 3:37 EST ,
--- NOTE | 2024-09-10 03:55 | EDS_ITS ---
HPI History of Present Illness Chief Complaint: Fall Informant: patient and friend Narrative Narrative: Patient is a 74-year-old female with past medical history of COPD who wears oxygen at night. She states that occasionally her legs will just give out on her and she will fall. She states this has happened a few times over the last couple of days. She states this evening she was up with her walker when her legs once again gave out. She states she fell and injured her left hip and back. She denies striking her head or any loss of consciousness. She does report history of pulm emboli and need for blood thinner. Therefore with the recurrent symptoms and now pain following the fall there is concern for fracture or bleed and therefore she was brought in for evaluation [facility] Medical History (Updated 09/19/24 @ 08:[address] Jesu Brewer, DO) Myocardial infarct COPD (chronic obstructive pulmonary disease) Pulmonary emboli Home Medications ?Medication ?Instructions ?Recorded ?Last Taken ?Type apixaban 5 mg tablet (Eliquis) 5 mg PO BID 06/26/23 Unknown History bupropion HCl 300 mg 24 hr tablet, 300 mg PO DAILY 06/26/23 Unknown History extended release carbidopa 25 mg-levodopa 100 mg 2 tab PO DAILY 06/26/23 Unknown History tablet pregabalin 300 mg capsule 300 mg PO BID 06/26/23 Unknown History rosuvastatin 40 mg tablet 40 mg PO DAILY 06/26/23 Unknown History sertraline 100 mg tablet 100 mg PO DAILY 06/26/23 Unknown History trazodone 100 mg tablet 100 mg PO QHS 06/26/23 Unknown History acetaminophen 325 mg tablet 650 mg (2 x 325 mg) PO Q6H PRN PRN 07/07/23 Unknown Rx Fever, pain 1-06/23 #0 tabs menthol 0.44 %-zinc oxide 20.6 % 1 applic topical TID #0 grams 07/07/23 Unknown Rx topical ointment (Calmoseptine) phenol 1.4 % mucosal aerosol spray 5 spray mucous membrane Q2H PRN 07/07/23 Unknown Rx (Sore Throat (phenol)) PRN SORE THROAT #0 mL prednisone 10 mg tablet 10 mg PO DAILY #14 tabs 09/10/24 Unknown Rx Allergy/AdvReac Type Severity Reaction Status Date / Time No Known Allergies Allergy Verified 09/10/24 00:30 Family History unable to obtain Surgical History (Updated 09/10/24 @ 00:32 by Antionette Braun) Stented coronary artery Social History Smoking Status: Current some day smoker tobacco type: cigarettes ROS ROS ED Constitutional Constitutional ED: Denies chills or fever(s) Eyes Eyes: Denies blurry vision or change in vision ENT ENT ED: Denies sore throat Cardiovascular Cardiovascular: Reports other Details: Negative syncope ; Denies chest pain Respiratory/Chest Respiratory/Chest: Denies cough or dyspnea Gastrointestinal Gastrointestinal: Denies abdominal pain, diarrhea, nausea or vomiting Genitourinary Genitourinary ED: Denies dysuria Musculoskeletal Musculoskeletal: Reports back pain and other Details: Positive left hip pain ; Denies neck pain Integumentary Reports Abrasions Neurologic Neurologic: Reports weakness; Denies headache(s) or paresthesias Hematologic/Lymphatic Hematologic/Lymphatic: Reports easy bleeding and easy bruising EXAM Physical Exam Const Vital Signs: 09/10/24 00:28 09/10/24 00:31 Temperature 99.3 F H Temperature Source Oral Pulse Rate 103 H Respiratory Rate 24 H Respiratory Effort Normal Non-Labored Respiratory Depth Normal Respiratory Pattern Normal Blood Pressure 118/54 L Blood Pressure Mean 75 Pulse Ox 83 Oxygen Delivery Method Room Air Nasal Cannula Oxygen Flow Rate (L/min) 4 Positive well nourished and well developed General Appearance ED: well developed HEENT HEENT Narrative: Normocephalic atraumatic No signs of depressed or basilar skull fracture Eyes PERRL and EOMs intact bilaterally Neck supple Neck Narrative: No bony deformity or step-off of the cervical spine no midline tenderness to palpation Chest Wall palpation of chest normal Chest Narrative: No bony deformity or crepitance of the chest wall Resp normal respiratory effort and clear to auscultation bilaterally Cardio regular rate and regular rhythm GI normal to inspection, nondistended, normoactive bowel sounds, non-tender, non- distended and no masses Auscultation: normoactive bowel sounds Palpation: soft Back/Spine Back/Spine Narrative: No bony deformity or step-off of the thoracic or lumbar spine but there is midline pain palpation along the junction of the lower thoracic and upper lumbar region Extremity Extremity Narrative: Pelvis is stable there is no shortening or external rotation of either lower extremity Patient does have pain with palpation along the left hip Left ankle is tender to palpation as well without obvious bony deformity or joint effusion. Achilles tendon is intact and ankle ligaments are stable Remainder of the exam is normal Neuro oriented x3 and CN's II-XII intact bilaterally Sensorium / Orientation: alert Psych mental status grossly normal Skin no rashes or lesions noted and no wounds MDM MDM MDM Narrative Medical decision making narrative: Patient arrived to the ER. awake and alert with normal neurologic exam. She reported that her legs will just give out and this is normal for her. She does not have any focal neurologic deficit at this time but with history of blood thinner use there is concern for traumatic subarachnoid or subdural hemorrhage and therefore head CT will be obtained. Patient also had pain with palpation along her thoracic and lumbar spine and so with concern for compression fracture versus spinal thesis x-rays were ordered. With pain along the left hip there is concern for pubic rami or femoral neck fracture and with pain along the left ankle there is concern for a medial or lateral malleolus fracture. Multiple imaging studies were obtained secondary to these concerns and revealed no signs of underlying trauma. Therefore at this time as patient had a mechanical fall there is no need for cardiac or syncope workup. In order to ensure no traumatic subarachnoid or subdural hemorrhage or long bone fracture x-rays were ordered which revealed no acute trauma findings. She was able to ambulate with her walker as she normally does at home and therefore is otherwise safe for discharge History & Record Review Discussion w/independent historian: Patient and Friend Radiography Diagnostic Testing: Clinical Impression(s) from Imaging Studies Ankle X-Ray 09/10/24 01:04 IMPRESSION: No evidence of fracture. Electronically Signed: Moon Mcmanus MD at 3:34 EST Reading Location ID and State: [facility] [place] / [place] Tel , Service support , Brain CT 09/10/24 01:04 IMPRESSION: No acute abnormality. Mild left mastoid disease. Electronically Signed: Moon Mcmanus MD at 3:13 EST , Hip/Pelvis X-Ray 09/10/24 01:04 IMPRESSION: No evidence of fracture. Electronically Signed: Moon Mcmanus MD at 3:14 EST , Thoracic Spine X-Ray 09/10/24 01:04 IMPRESSION: No evidence of fracture or subluxation. Electronically Signed: Moon Mcmanus MD at 3:36 EST , Lumbar Spine X-Ray 09/10/24 02:45 IMPRESSION: No evidence of fracture or subluxation. Electronically Signed: Moon Mcmanus MD at 3:37 EST , Left ankle x-ray as interpreted by the emergency medicine physician reveals no acute fracture dislocation or joint effusion Left hip x-ray with 1 view pelvis as interpreted by the emergency medicine physician reveals no acute fracture or joint effusion or dislocation X-ray of the thoracic spine as interpreted by the emergency medicine physician reveals no acute compression fracture or spondylolisthesis X-ray of the lumbar spine as interpreted by the emergency medicine physician reveals no acute compression fracture or spondylolisthesis Discharge Plan Triage Chief Complaint: Fall ED Provider: Jesu Brewer Dx/Rx/DC Orders Clinical Impression: Accidental fall, Contusion of left hip, Contusion of back, Current use of snf anticoagulation Instructions: ED Back Contusion, ED Hip Contusion Prescriptions: New prednisone 10 mg tablet 10 mg PO DAILY Qty: 14 0RF No Action pregabalin 300 mg capsule 300 mg PO BID Patient Comments: TAKE 1 CAPSULE BY MOUTH TWICE A DAY Eliquis 5 mg tablet 5 mg PO BID Patient Comments: TAKE 1 TABLET BY MOUTH TWICE A DAY sertraline 100 mg tablet 100 mg PO DAILY Patient Comments: TAKE 1 TABLET BY MOUTH EVERY DAY rosuvastatin 40 mg tablet 40 mg PO DAILY Patient Comments: TAKE 1 TABLET BY MOUTH EVERY DAY bupropion HCl 300 mg tablet extended release 24 hr 300 mg PO DAILY carbidopa-levodopa 25-100 mg tablet 2 tab PO DAILY trazodone 100 mg tablet 100 mg PO QHS Patient Comments: TAKE 1 TABLET BY MOUTH EVERYDAY AT BEDTIME acetaminophen 325 mg Tablet 650 mg PO Q6H PRN PRN (Reason: Fever, pain 1-10/10) Qty: 0 0RF Sore Throat (phenol) 1.4 % Aerosol,[place] 5 spray mucous membrane Q2H PRN PRN (Reason: SORE THROAT) Qty: 0 0RF menthol-zinc oxide [Calmoseptine] 0.44-20.6 % Ointment 1 applic topical TID Qty: 0 0RF Protocol: *Topical Application Instructions APPLICATION INSTRUCTIONS: apply to alexander rectal area Primary Care Provider: Kelsey Arora Referrals: Kelsey Arora MD [Primary Care Provider] - Activity Restrictions/Additional Instructions: Your workup showed no skull fracture or brain bleed or signs of bony injury to your back hip or ankle. Continue to use your cane and walker as needed for ambulation and continue all of your home medications as directed by your doctor. Return to the ER should you have any further concerns Print Language: Belgian Disposition Disposition: Home, Self Care Discharge Date/Time: 09/10/24 11:27
[2024-09-10 04:00] VITALS: BP 111/54; PULSE 71; RESP 16; TEMP 36.6; O2SAT 94
--- NOTE | 2024-09-10 04:13 | ED.RN ---
ATTEMPTED TO CALL ROOMMATE PER PT. REQUEST. CALL WENT TO [facility] THAT IS NOT SET-UP. UNABLE TO CONTACT BUBBA AT THIS TIME.
--- NOTE | 2024-09-10 08:52 | ED.RN ---
attempted to call contact times 2. no answer
== END 2024-09-10 11:27 | disposition home or self-care (01) ==
PROVIDERS: Emergency Provider Emergency Medicine; PCP Internal Medicine; Visit Provider Emergency Medicine
DX: S70.02XA Contusion of left hip, initial encounter (principal); J44.9 Chronic obstructive pulmonary disease, unspecified; S20.229A Contusion of unspecified back wall of thorax, initial encounter; M25.572 Pain in left ankle and joints of left foot; W19.XXXA Unspecified fall, initial encounter; I25.2 Old myocardial infarction; F17.210 Nicotine dependence, cigarettes, uncomplicated; Z95.5 Presence of coronary angioplasty implant and graft; Z86.711 Personal history of pulmonary embolism; Z79.01 Long term (current) use of anticoagulants; Z79.899 Other long term (current) drug therapy
CPT/HCPCS: 70450; 72072; 72100; 73502; 73610; 99284

== ENCOUNTER 2024-10-31 15:44 | Emergency (ER) | payer MEDICARE, SELFPAY ==
[2024-10-31 15:47] VITALS: BP 123/52; PULSE 82; RESP 16; TEMP 36.9; O2SAT 84
[2024-10-31 15:50] VITALS: BP 123/52; PULSE 82; RESP 16; TEMP 36.9; O2SAT 95; O2SAT 99
--- NOTE | 2024-10-31 16:17 | EX.ED.DYSGE1 ---
HPI History of Present Illness Chief Complaint: Cough Detail of Chief Complaint: Hearing loss x 2 weeks Informant: patient and friend Onset/Context/Timing Onset: Weeks (2+ weeks ago) Context: Sudden Onset Timing: Continuous Quality: Cannot hear out of either ear Location: Right and left ear Current Severity: Severe Maximum Severity: Severe Worsened by: Nothing Relieved by: Nothing Associated Symptoms Associated Symptoms: Nothing Narrative Narrative: Patient presents because of hearing loss. She is not here for shortness of breath. Triage notes document that her pulse ox is 84%. Her first set of vital signs indicate pulse ox was 84% on 3 L when it was rechecked it was noted to be 95%. I suspect the 84% was inaccurate. Patient denies ringing or ears. Patient denies rhinorrhea, congestion, postnasal drainage with sore throat. Patient denies increased shortness of breath or cough. She has COPD. She wears oxygen at night and during the day as needed. She has not seen a local ENT specialist. Patient was asked why she presented today. She said I tried multiple home remedies with no improvement. Prior similar symptoms: No Recent Illness/Hospitalization: No [facility] Medical History Myocardial infarct COPD (chronic obstructive pulmonary disease) Pulmonary emboli Home Medications ?Medication ?Instructions ?Recorded ?Last Taken ?Type apixaban 5 mg tablet (Eliquis) 5 mg PO BID 06/26/23 Unknown History bupropion HCl 300 mg 24 hr tablet, 300 mg PO DAILY 06/26/23 Unknown History extended release carbidopa 25 mg-levodopa 100 mg 2 tab PO DAILY 06/26/23 Unknown History tablet pregabalin 300 mg capsule 300 mg PO BID 06/26/23 Unknown History rosuvastatin 40 mg tablet 40 mg PO DAILY 06/26/23 Unknown History sertraline 100 mg tablet 100 mg PO DAILY 06/26/23 Unknown History trazodone 100 mg tablet 100 mg PO QHS 06/26/23 Unknown History acetaminophen 325 mg tablet 650 mg (2 x 325 mg) PO Q6H PRN PRN 07/07/23 Unknown Rx Fever, pain 1-06/23 #0 tabs menthol 0.44 %-zinc oxide 20.6 % 1 applic topical TID #0 grams 07/07/23 Unknown Rx topical ointment (Calmoseptine) phenol 1.4 % mucosal aerosol spray 5 spray mucous membrane Q2H PRN 07/07/23 Unknown Rx (Sore Throat (phenol)) PRN SORE THROAT #0 mL prednisone 10 mg tablet 10 mg PO DAILY #14 tabs 09/10/24 Unknown Rx Allergy/AdvReac Type Severity Reaction Status Date / Time No Known Allergies Allergy Verified 10/31/24 15:47 Family History no significant family his Surgical History Stented coronary artery Social History Smoking Status: Current some day smoker tobacco type: cigarettes ROS ROS ED Constitutional Constitutional ED: Denies chills, fever(s), subjective, sweats or weight loss Eyes Eyes: Denies blurry vision, change in vision or diplopia ENT ENT ED: Reports other Details: Detailed HPI narrative ; Denies ear pain, rhinorrhea or sore throat Cardiovascular Cardiovascular: Denies chest pain or palpitations Gastrointestinal Gastrointestinal: Denies nausea or vomiting Neurologic Neurologic: Denies headache(s) EXAM Physical Exam Const Vital Signs: 10/31/24 15:47 10/31/24 15:50 Temperature 98.4 F Temperature Source Oral Pulse Rate 82 Respiratory Rate 16 Blood Pressure 123/52 H Blood Pressure Mean 75 Pulse Ox 84 95 Oxygen Delivery Method Room Air Nasal Cannula Oxygen Flow Rate (L/min) 3 Positive well nourished and well developed Constitutional Narrative: Vital signs are unremarkable. General Appearance ED: well developed; Negative for cyanotic, diaphoretic, NAD or pallor HEENT Reports moist mucous membranes HEENT Narrative: Ears normal. External auditory canal normal. TMs are normal with landmarks noted. There is no pain with pulling on the auricle right or left. There is no pain with pushing on the tragus right or left. Negative for trauma or tenderness Eyes PERRL and EOMs intact bilaterally General Eye ED: Negative for pale conjunctiva or scleral icterus Neck no lymphadenopathy, supple and no JVD Neck Narrative: There are no carotid bruits. Resp normal respiratory effort and clear to auscultation bilaterally Cardio regular rate, regular rhythm, S1 normal heart sound, S2 normal heart sound and no murmurs Neuro oriented x3 and CN's II-XII intact bilaterally Sensorium / Orientation: alert Psych mental status grossly normal Skin no rashes or lesions noted, no wounds and skin turgor normal General Skin Exam: Negative for jaundice or pallor MDM MDM MDM Narrative Medical decision making narrative: Patient with greater than 2 weeks of significant hearing deficit. At this point there is nothing that can be done. From an anatomical standpoint there is no abnormality that would explain her decreased hearing either side. We do not have tuning forks to determine/assess Chika and Peres test. My suspicion this is a sensorineural hearing loss. Will refer to Dr. Nik Ewing. Discharge Plan Triage Chief Complaint: Cough ED Provider: Toby Johnston Dx/Rx/DC Orders Clinical Impression: Bilateral neural hearing loss, History of COPD, Anticoagulant long-term use Instructions: Understanding Hearing Loss Prescriptions: No Action pregabalin 300 mg capsule 300 mg PO BID Patient Comments: TAKE 1 CAPSULE BY MOUTH TWICE A DAY Eliquis 5 mg tablet 5 mg PO BID Patient Comments: TAKE 1 TABLET BY MOUTH TWICE A DAY sertraline 100 mg tablet 100 mg PO DAILY Patient Comments: TAKE 1 TABLET BY MOUTH EVERY DAY rosuvastatin 40 mg tablet 40 mg PO DAILY Patient Comments: TAKE 1 TABLET BY MOUTH EVERY DAY bupropion HCl 300 mg tablet extended release 24 hr 300 mg PO DAILY carbidopa-levodopa 25-100 mg tablet 2 tab PO DAILY trazodone 100 mg tablet 100 mg PO QHS Patient Comments: TAKE 1 TABLET BY MOUTH EVERYDAY AT BEDTIME acetaminophen 325 mg Tablet 650 mg PO Q6H PRN PRN (Reason: Fever, pain 1-10/10) Qty: 0 0RF Sore Throat (phenol) 1.4 % Aerosol,[place] 5 spray mucous membrane Q2H PRN PRN (Reason: SORE THROAT) Qty: 0 0RF menthol-zinc oxide [Calmoseptine] 0.44-20.6 % Ointment 1 applic topical TID Qty: 0 0RF Protocol: *Topical Application Instructions APPLICATION INSTRUCTIONS: apply to alexander rectal area prednisone 10 mg tablet 10 mg PO DAILY Qty: 14 0RF Primary Care Provider: Kelsey Arora Referrals: Nik Ewing MD [Med Staff - Active Staff] - 5-7 Days Kelsey Arora MD [Primary Care Provider] - Print Language: [place] Disposition Disposition: Home, Self Care
[2024-10-31 16:20] VITALS: BMI 29.7
[2024-10-31 16:46] VITALS: BP 107/57; PULSE 82; RESP 18; O2SAT 97
[2024-10-31 17:07] VITALS: BP 107/57; PULSE 82; RESP 18; TEMP 36.6; O2SAT 96
== END 2024-10-31 17:08 | disposition home or self-care (01) ==
LOC: ED 16:37
PROVIDERS: Emergency Provider Emergency Medicine; PCP Internal Medicine; Visit Provider Emergency Medicine
DX: H90.3 Sensorineural hearing loss, bilateral (principal); J44.9 Chronic obstructive pulmonary disease, unspecified; I25.2 Old myocardial infarction; F17.210 Nicotine dependence, cigarettes, uncomplicated; Z95.5 Presence of coronary angioplasty implant and graft; Z79.01 Long term (current) use of anticoagulants; Z86.711 Personal history of pulmonary embolism; Z79.899 Other long term (current) drug therapy
CPT/HCPCS: 99282

== ENCOUNTER → 2025-04-03 | Outpatient (CLI) | payer MEDICARE, SELFPAY ==
[2025-04-03 12:43] LABS: Hematocrit 32.9 % (37-47); Hemoglobin 9.6 g/dL (12.0-15.0); Immature Granulocytes Count 0.030 X10^3/uL (0.0-0.0); Mean Corp Hgb Conc 29.2 g/dL (32-36); Mean Corpuscular Volume 99.7 fL (81-99); Mean Platelet Vol. 11.2 fl (6.2-12.0); NRBC Flagged by Analyzer 0 % (0-5); Platelet Count 288 K/mm3 (150-450); RBC Distribution Width CV 17.2 % (11.6-14.6); RBC Distribution Width SD 62.4 fl (35.1-43.9); Red Blood Count 3.30 M/mm3 (4.2-5.4); White Blood Count 8.3 K/mm3 (4.4-11.0)
[2025-04-03 13:51] LABS: AST(SGOT) 15 U/L (<=31); Alanine Aminotransfer ALT/SGPT < 5 U/L (<=34); Albumin, Serum 4.0 g/dL (3.4-4.8); Alkaline Phosphatase 70 U/L (35-104); Anion Gap 14 (5-15); BUN 12 mg/dL (4-19); BUN/Creat Ratio 16.1 RATIO (10-20); CRP 14.30 mg/L (0.0-3.0); Calcium,Total 9.1 mg/dL (7.6-11.0); Carbon Dioxide 24.4 mmol/L (21.0-32.0); Chloride 104 mmol/L (98-108); Globulin 3.0 g/dL (2.2-4.2); Glucose 81 mg/dL (70-99); Hepatitis B Surface Antigen Nonreactive (Nonreactive); Hepatitis C Antibody Nonreactive (Nonreactive); Potassium 4.5 mmol/L (3.3-5.1)
== END | disposition home or self-care (01) ==
LOC: MTLAB 10:42
PROVIDERS: PCP Internal Medicine; Referring Provider Internal Medicine Rheumatology; Visit Provider Internal Medicine Rheumatology
DX: M05.79 Rheumatoid arthritis with rheumatoid factor of multiple sites without organ or systems involvement (principal); M17.0 Bilateral primary osteoarthritis of knee
CPT/HCPCS: 36415; 80053; 85025; 85652; 86140; 86200; 86431; 86706; 86803; 87340

== ENCOUNTER 2025-06-07 12:25 | Inpatient (IN) | payer MEDICARE, SELFPAY ==
[2025-06-07 12:42] VITALS: BP 119/61; PULSE 77; RESP 20; TEMP 36.7; O2SAT 96; BMI 39.9
[2025-06-07] MEDS: APIXABAN 5 MG TABLET PO (20:38)
[2025-06-07] MEDS: Neomycin/Polymyxin/Dexameth OINT 3.5GM OPTH.TUBE 1 APPLIC EACH EYE (20:38)
--- NOTE | 2025-06-07 20:44 | PCM.HP.STD ---
HPI - General General Date of Admission: 06/07/25 Date of Service: 06/07/25 Chief Complaint: Here for rehabilitation. HPI Narrative GERALD ROUSE, is a 74 Female who presents with followin05/30/2025 Admit [facility]. Short of breath, dizziness for 3 to 4 days. Transfused 3 units PRBC for hemoglobin 3.9. Hold Eliquis, consult General Surgery, PPI IV twice daily for GI bleed. Rocephin IV, urine culture pending for urinary tract infection. Repeat Hemoglobin 8.0. 05/31/2025 No acute events overnight, refusing EGD/colonoscopy. Hemoglobin stable, Pantoprazole 40mg bid. Resume heparin drip for atrial fibrillation. EGD/colonoscopy as outpatient. Hemoglobin 8.2, Hold Eliquis, Hold Aspirin for GI bleed. Rocephin IV for urinary tract infection. PT/OT for discharge planning. 06/01/2025 Hemoglobin 9.2, continue Pantoprazole 40mg bid. Rocephin IV x 3 days for UTI. PT/OT/CM. 06/02/2025 Tarry stool. Patient refusing EGD/colonoscopy. Replace potassium 2.7, Magnesium 2.2. PT/OT/CM for discharge planning. 06/03/2025 Refusing scopes. Rocephin IV x 3 days for UTI. Solu-medrol to prednisone, aerosols, oxygen for COPD exacerbation. 06/04/2025 Oxygen 3 liters per nasal cannula. K, Magnesium corrected. PT/OT SNF. 06/05/2025 PT/OT SNF. 06/06/2025 consider scope for GI bleed, patient on Eliquis for atrial fibrillation, high risk for rebleed. Solu-medrol to prednisone. PT/OT SNF. 06/07/2025 Admit to TCU with debility, here for rehabilitation, strengthening, prior to discharge home alone. I asked her about EGD/colonoscopy again, she politely declined, she will let us know if she changes her mind. [facility] Medical History (Updated 06/07/25 @ 20:[address] Brayden Trammell MD) Tobacco abuse Hyperlipidemia Parkinson disease Irritable bowel syndrome Depression Coronary artery disease Atrial fibrillation Hypomagnesemia Hypokalemia COPD exacerbation Urinary tract infection Gastrointestinal bleed Acute blood loss anemia Myocardial infarct COPD (chronic obstructive pulmonary disease) Pulmonary emboli Home Medications Medication Instructions Recorded Last Taken Type apixaban 5 mg tablet (Eliquis) 5 mg PO BID blood thinner 06/26/23 Unknown History bupropion HCl 300 mg 24 hr tablet, 300 mg PO DAILY mood 06/26/23 Unknown History extended release carbidopa 25 mg-levodopa 100 mg 2 tab PO DAILY 06/26/23 Unknown History tablet pregabalin 300 mg capsule 300 mg PO BID nerve pain 06/26/23 Unknown History rosuvastatin 40 mg tablet 40 mg PO DAILY cholesterol 06/26/23 Unknown History sertraline 100 mg tablet 100 mg PO DAILY mood 06/26/23 Unknown History trazodone 100 mg tablet 100 mg PO QHS sleep 06/26/23 Unknown History acetaminophen 325 mg tablet 650 mg (2 x 325 mg) PO Q6H PRN PRN 07/07/23 Unknown Rx Fever, pain 1-06/23 #0 tabs menthol 0.44 %-zinc oxide 20.6 % 1 applic topical TID #0 grams 07/07/23 Unknown Rx topical ointment (Calmoseptine) phenol 1.4 % mucosal aerosol spray 5 spray mucous membrane Q2H PRN 07/07/23 Unknown Rx (Sore Throat (phenol)) PRN SORE THROAT #0 mL albuterol sulfate 2.5 mg/3 mL 2.5 mg inhalation Q4H PRN 06/07/25 Unknown History (0.083 %) solution for nebulization shortness of breath or wheezing aspirin 81 mg chewable tablet 1 tab PO DAILY heart health 06/07/25 Unknown History entacapone 200 mg tablet 200 mg PO TID parkinsons 06/07/25 Unknown History fluticasone propionate 50 1 - 2 spray intranasal DAILY nasal 06/07/25 Unknown History mcg/actuation nasal congestion spray,suspension hydroxyzine HCl 25 mg tablet 25 mg PO TID PRN anxiety 06/07/25 Unknown History neomycin 3.5 mg/g-polymyxin B 1 applic EACH EYE QHS eyes 06/07/25 Unknown History 10,000 unit/g-dexameth 0.1 % eye oint (Maxitrol) pantoprazole 40 mg tablet,delayed 40 mg PO DAILY gerd 06/07/25 Unknown History release (Protonix) prednisone 10 mg tablet 20 mg PO MOWEFR steroid 06/07/25 Unknown History torsemide 100 mg tablet 100 mg PO DAILY.TCU edema 06/07/25 Unknown History umeclidinium 62.5 mcg-vilanterol 1 inh inhalation DAILY lungs/copd 06/07/25 Unknown History 25 mcg/actuation powdr for inhalation (Anoro Ellipta) Allergy/AdvReac Type Severity Reaction Status Date / Time No Known Allergies Allergy Verified 10/31/24 15:47 Family History no significant family his Surgical History (Updated 06/07/25 @ 20:[address] Brayden Trammell MD) History of hysterectomy History of back surgery Stented coronary artery Social History (Updated 06/07/25 @ 20:[address] Brayden Trammell MD) household members: none Smoking Status: Heavy Smoker (>10/day) alcohol intake: never substance use type: does not use ROS Constitutional Constitutional: Reports weakness; Denies chills, fever(s) or weight gain ENT HEENT: Denies headache(s), nasal congestion or nasal discharge Cardiovascular Cardiovascular: Denies chest pain or palpitations Respiratory/Chest Respiratory/Chest: Denies cough, excessive phlegm production or shortness of breath with exertion Gastrointestinal Gastrointestinal: Denies abdominal pain, nausea or vomiting Genitourinary Genitourinary: Denies dysuria Musculoskeletal Musculoskeletal: Denies joint pain or joint swelling Integumentary Integumentary: Denies rash or wounds Neurologic Neurologic: Denies focal weakness, numbness or tingling Psychiatric Psychiatric: Denies anxiety, auditory hallucinations, depression, homicidal ideation or suicidal ideation Vital Signs Vital Signs Vital Signs: 06/07/25 12:42 06/07/25 12:42 Temperature 98.1 F Temperature Source Oral Pulse Rate 77 Pulse Rhythm Regular Pulse Strength Normal (2+) Respiratory Rate 20 H Respiratory Effort Normal Non-Labored Respiratory Depth Normal Respiratory Pattern Normal Blood Pressure 119/61 Blood Pressure Mean 80 Blood Pressure Source Monitor Blood Pressure Position Sitting Blood Pressure Location Left Arm Pulse Ox 96 Oxygen Delivery Method Nasal Cannula Nasal Cannula Oxygen Flow Rate (L/min) 2 2 Weight Weight: 119.204 kg Body Mass Index (BMI) 39.9 Physical Exam Const alert General Appearance: cooperative HEENT normocephalic Eyes PERRL and EOMs intact bilaterally Neck supple, no JVD and no carotid bruits Resp normal respiratory effort, normal air movement and clear to auscultation bilaterally Cardio regular rate and regular rhythm GI normal to inspection, nondistended, normoactive bowel sounds, non-tender and non-distended Extremity normal capillary refill General Extremity: Negative for edema Skin no rashes or lesions noted General Skin Exam: no breakdown Psych affect normal Appearance: appropriate Assessment & Plan Assessment/Plan (1) Debility: (2) Acute blood loss anemia: (3) Gastrointestinal bleed: (4) Urinary tract infection: (5) COPD exacerbation: (6) Hypokalemia: (7) Hypomagnesemia: (8) Atrial fibrillation: (9) Coronary artery disease: (10) Depression: (11) Irritable bowel syndrome: (12) Parkinson disease: (13) Hyperlipidemia: (14) Tobacco abuse: (15) History of hysterectomy: PLAN: Plan 74 year old female with below past medical history hospitalized for acute anemia 2/2 gastrointestinal bleed, refused EGD/colonoscopy, complicated by urinary tract infection, copd exacerbation, hypokalemia, hypomagnesemia, admitted to TCU with debility, here for rehabilitation, strengthening, prior to discharge home alone. Debility - PT/OT. Pain - Tylenol 1000mg q6 prn pain (1-10). Bowel - senna/colace 1 tablet bid, Magnesium citrate 300mL po x 1 prn. Adult immunization - Administer pneumonia vaccine, covid vaccine, flu vaccine as appropriate. DVT prophylaxis - Eliquis. COPD - Albuterol 2.5mg q4 prn, Prednisone 20mg qod thru 06/16/2025. Atrial fibrillation - Eliquis 5mg bid. Hyperlipidemia - Atorvastatin 80mg qhs. Vitamin B12 deficiency - B12 1000mcg daily. Parkinson Disease - Comtan 200mg tid. Allergic rhinitis - Flonase 1-2 spray nasal daily prn. Skin irritation - Calmoseptine topical bid. Conjunctivitis - Maxitrol topical ou qhs. GERD - Pantoprazole 40mg daily. Neuropathy - Lyrica 300mg bid. Edema - Torsemide 100mg daily. The following psychotropic medication was present on admission: Bupropion XL 300mg daily. Psychotropic medication therapy is indicated for a diagnosis of: Major Depression. Based on my clinical evaluation, continuation of the medication is necessary at this time. Gradual dose reduction plan (select one): ____ GDR will be attempted. Will monitor patient symptoms and behaviors in response to GDR. __x__ GRD contraindicated. 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 The following psychotropic medication was present on admission: Sertraline 100mg daily. Psychotropic medication therapy is indicated for a diagnosis of: Major Depression. Based on my clinical evaluation, continuation of the medication is necessary at this time. Gradual dose reduction plan (select one): ____ GDR will be attempted. Will monitor patient symptoms and behaviors in response to GDR. __x__ GRD contraindicated. 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 The following psychotropic medication was present on admission: Trazodone 100mg qhs. Psychotropic medication therapy is indicated for a diagnosis of: Insomnia. Based on my clinical evaluation, continuation of the medication is necessary at this time. Gradual dose reduction plan (select one): ____ GDR will be attempted. Will monitor patient symptoms and behaviors in response to GDR. __x__ GRD contraindicated. 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
--- NOTE | 2025-06-07 20:44 | NURSING ---
Administered HS medications at this time per pt request. Pt complaining of dizziness with transfer to [facility]. Educated pt to take her time with transfers. Pt receptive to teaching. VS within normal limits, see worklist. Pt denies needs for further assistance at this time. Call light within reach.
[2025-06-07 20:46] VITALS: BP 113/56; PULSE 91; RESP 18; O2SAT 93
[2025-06-08 07:10] VITALS: O2SAT 98
[2025-06-08 07:37] LABS: Hematocrit 29.4 % (37-47); Hemoglobin 8.9 g/dL (12.0-15.0); Immature Granulocytes Count 0.080 X10^3/uL (0.0-0.0); Mean Corp Hgb Conc 30.3 g/dL (32-36); Mean Corpuscular Volume 92.2 fL (81-99); Mean Platelet Vol. 11.2 fl (6.2-12.0); NRBC Flagged by Analyzer 0 % (0-5); Platelet Count 257 K/mm3 (150-450); RBC Distribution Width CV 16.8 % (11.6-14.6); RBC Distribution Width SD 56.0 fl (35.1-43.9); Red Blood Count 3.19 M/mm3 (4.2-5.4); White Blood Count 9.7 K/mm3 (4.4-11.0)
[2025-06-08 08:05] LABS: Anion Gap 15 (5-15); BUN 51 mg/dL (4-19); BUN/Creat Ratio 46.5 RATIO (10-20); Calcium,Total 8.5 mg/dL (7.6-11.0); Carbon Dioxide 36.4 mmol/L (21.0-32.0); Chloride 89 mmol/L (98-108); Estimated Creatinine Clearance 59.09 ml/min (50-250); Glucose 117 mg/dL (70-99); Potassium 2.8 mmol/L (3.3-5.1)
[2025-06-08 08:45] VITALS: BP 118/44; PULSE 69; RESP 18; TEMP 36.4; O2SAT 99
[2025-06-08] MEDS: Umeclidinium Brm/Vilanterol 62.5-25 mcg Inh 1 PUFF INHALATION (08:48)
[2025-06-08] MEDS: Fluticasone 0.05% 1 SPRAY NASAL.SRY NASAL (08:48)
[2025-06-08] MEDS: buPROPion (XL) 300 MG TABLET.XL PO (08:49)
[2025-06-08] MEDS: APIXABAN 5 MG TABLET PO ×2 (08:49→21:00)
[2025-06-08] MEDS: Senna/Docusate Sodium 1 Tablet PO ×2 (08:50→21:00)
[2025-06-08] MEDS: Tuberculin,Purif.prot.deriv. 50 TU/ML Vial 0.1 ML ID (09:52)
--- NOTE | 2025-06-08 12:10 | CASEMGMT ---
Social Work SW met with patient to complete initial assessment. Introduced self and role. Verified contacts. Patient confirmed code status as DNR-CCA, no intubation. pt confirmed she has advance directives completed and agreed to have caregiver bring in copies. SW educated to [facility] insurance and review process. Pt's goal is to return home with caregiver who has been living together for 20+ years. See SW assessment for concerns about caregiver and DC home. SW did place a referral to [facility] for Medicaid. JANE plans to make APS referral at [place]. - 06/07/25 at approximately 1745: SW phoned caregiver, Mireille. Asked some assessment questions, educated to [facility] and review process, and clarified caregiver's assistance to pt. SW noted that Mireille repeated herself multiple times with pt's goals of care for therapy to walk pt and address pt's weakness in her legs, despite SW educating to therapy's treatment plan and goals after eval, and this worker's role. SW noted Mireille had some difficulty understanding the assessment questions and SW concern for possible cognitive impairment. - After SW completed assessment with pt, pt appears A&O and confirmed caregiver having [facility], per her observations as well. SW explained this worker's role is to ensure safety at DC and that her needs are appropriately met. Pt appreciative. SW will continue to follow for DC planning. Jennifer Soliman VEHICLE OPERATOR TECHNICIAN SAMPLE PREP TECHNICIAN
--- NOTE | 2025-06-08 12:57 | PCM.PN.DRR ---
Documented by User: Ozzie Collins 06/08/25 14:02 TCU RX Drug Regimen Review Subjective/Objective Subjective/Objective Subjective: 74 year old female hospitalized for acute anemia 2/2 gastrointestinal bleed, refused EGD/colonoscopy, complicated by urinary tract infection, copd exacerbation, hypokalemia, hypomagnesemia. Admitted to TCU with debility, here for rehabilitation, strengthening, prior to discharge home alone. Objective: Allergies No Known Allergies Allergy (Verified 10/31/24 15:47) Current Medications Generic Name Dose Route Start Last Admin Trade Name Freq PRN Reason Stop Dose Admin Acetaminophen 1,000 mg 06/07/25 21:06 Acetaminophen 500 Mg Tablet PO Q6H PRN PRN Pain Score 1-10 Albuterol Sulfate 2.5 mg 06/07/25 13:19 Albuterol 2.5 Mg/3 Ml Vial.Neb. INHALATION Q4H PRN shortness of breath or wheezing Apixaban 5 mg 06/07/25 22:00 06/08/25 08:49 Apixaban 5 Mg Tablet PO 5 mg BID JONH Administration Atorvastatin Calcium 80 mg 06/07/25 22:00 06/07/25 20:38 Atorvastatin Calcium 80 Mg Tablet PO 80 mg QHS JONH Administration Bupropion HCl 300 mg 06/08/25 10:00 06/08/25 08:49 Bupropion (Xl) 300 Mg Tablet.Xl PO 300 mg DAILY JONH Administration Calamine/Phenol 1 applic 06/07/25 14:00 06/08/25 06:24 Menthol/Lanolin/Calamine/Znox 113 Gm Tube TOPICAL 1 applic TID JONH Administration Protocol Cyanocobalamin 1,000 mcg 06/08/25 08:00 06/08/25 08:49 Cyanocobalamin 500 Mcg Tablet PO 1,000 mcg BREAKFAST JONH Administration Entacapone 200 mg 06/07/25 14:00 06/08/25 06:24 Entacapone 200 Mg Tablet PO 200 mg TID JONH Administration Fluticasone Propionate 1 - 2 spray 06/08/25 10:00 06/08/25 08:48 Fluticasone 0.05% 1 [place] Nasal.Sry NASAL 2 spray DAILY JONH Administration Hydroxyzine Pamoate 25 mg 06/07/25 13:10 Hydroxyzine April 25 Mg Capsule PO TID PRN ANXIETY Magnesium Citrate 300 ml 06/07/25 13:19 Magnesium Citrate 300 Ml PO X1 PRN Constipation Neomycin/Polymyxin/Dexamethasone 1 applic 06/07/25 22:00 06/07/25 20:38 Neomycin/Polymyxin/Dexameth Oint 3.5gm Opth.Tube EACH EYE 1 drp QHS JONH Administration Pantoprazole Sodium 40 mg 06/08/25 10:00 06/08/25 08:49 Pantoprazole Sodium 40 Mg Tablet PO 40 mg DAILY JONH Administration Prednisone 20 mg 06/09/25 08:00 Prednisone 20 Mg Tablet PO 06/16/25 08:01 [id number] JONH Pregabalin 300 mg 06/07/25 22:00 06/08/25 09:52 Pregabalin 75 Mg Capsule PO 300 mg BID JONH Administration Senna/Docusate Sodium 1 tablet 06/07/25 22:00 06/08/25 08:50 Senna/Docusate Sodium 1 Tablet PO 1 tablet BID JONH Administration Sertraline HCl 100 mg 06/08/25 10:00 06/08/25 08:49 Sertraline 100 Mg Tablet PO 100 mg DAILY [facility] Administration Sodium Chloride 10 - 40 ml 06/07/25 12:44 0.9% Saline Lock 10 Ml Syringe IV UD PRN SALINE FLUSH Torsemide 100 mg 06/09/25 10:00 Torsemide 100 Mg Tablet PO DAILY [facility] Trazodone HCl 100 mg 06/07/25 22:00 06/07/25 20:37 Trazodone 100 Mg Tablet PO 100 mg QHS JONH Administration Tuberculin PPD 0.1 ml 06/15/25 10:00 Tuberculin,Purif.Prot.Deriv. 50 Tu/Ml Vial ID 06/15/25 10:01 X1 ONE Umeclidinium/Vilanterol 1 puff 06/08/25 10:00 06/08/25 08:48 Umeclidinium Brm/Vilanterol 62.5-25 Mcg Inh INHALATION 1 puff DAILY JONH Administration Problem List Tobacco abuse (Acute) Hyperlipidemia (Acute) Parkinson disease (Acute) Irritable bowel syndrome (Acute) Depression (Acute) Coronary artery disease (Acute) Atrial fibrillation (Acute) Hypomagnesemia (Acute) Hypokalemia (Acute) COPD exacerbation (Chronic) Urinary tract infection (Acute) Gastrointestinal bleed (Acute) Acute blood loss anemia (Acute) Vital Signs Temp Pulse Resp BP Pulse Ox O2 Del Method O2 Flow Rate 97.6 F L 69 18 118/44 L 99 Nasal Cannula 3 06/08/25 08:45 06/08/25 08:45 06/08/25 08:45 06/08/25 08:45 06/08/25 08:45 06/08/25 11:03 06/08/25 11:48 Oxygen Flow Rate (L/min) 3 Oxygen Delivery Method Nasal Cannula Weight: 119.204 kg Body Mass Index (BMI) 39.9 Sodium 141 mmol/L (133-145) 06/08/25 07:18 Potassium 2.8 mmol/L (3.3-5.1) L 06/08/25 07:18 Chloride 89 mmol/L (98-108) L 06/08/25 07:18 Carbon Dioxide 36.4 mmol/L (21.0-32.0) H 06/08/25 07:18 Anion Gap 15 (5-15) 06/08/25 07:18 BUN 51 mg/dL (4-19) H 06/08/25 07:18 Creatinine 1.10 mg/dL (0.70-1.20) 06/08/25 07:18 Est GFR (MDRD) Non-Af 52 (>60) L 06/08/25 07:18 BUN/Creatinine Ratio 46.5 RATIO (10-20) H 06/08/25 07:18 Glucose 117 mg/dL (70-99) H 06/08/25 07:18 Assessment/Plan: 1. Pain - Tylenol 1000mg PO Q6H PRN pain (1-10)(No PRN doses given at this time). Please monitor for abdominal pain, upset stomach, PRN medication usage, and pain levels. Black Box Warning for hepatotoxicity with doses greater than 4 grams daily. 2. Bowel - senna/colace 1 tablet PO BID, Magnesium citrate 300mL PO x1 PRN constipation (Not given at this time). Please monitor for diarrhea, constipation, PRN medication usage, and abdominal pain/discomfort. Last bowel movement: 06/05/25. 3. DVT prophylaxis/Atrial fibrillation, Hyperlipidemia - Eliquis 5 mg PO BID, Atorvastatin 80 mg PO QHS. Please monitor for muscle pain, joint pain, and signs/symptoms of bleeding such as bloody stool (dark/tarry stools), blood in the urine (pink tinged urine), and unusual bruising. H/H/P: 8.9/29.4/257 (06/08/25). 4. COPD - Albuterol 2.5mg Q4H PRN, Prednisone 20mg QOD thru 06/16/2025. Please monitor for signs/symptoms of difficulty breathing/shortness of breath, hyperglycemia, appetite stimulation and insomnia while on prednisone. BEERS list medication: prednisone with a listed adverse effect of delirium. Please monitor mental status while taking prednisone. 5. General Wellness - B12 1000mcg PO daily, Flonase 1-2 spray nasal daily PRN nasal congestion, Calmoseptine topical BID, Maxitrol topical OU QHS. Please monitor for PRN medication usage, skin irritation, and eye irritation. 6. Parkinson Disease - Comtan 200mg PO TID. Please monitor for dyskinesias, nausea, urine discoloration, and signs/symptoms of disease management. 7. GERD - Pantoprazole 40mg PO daily. Please monitor for bloating, upset stomach, and breakthrough indigestion. BEERS list medication with listed adverse effect of increased risk of falls/fractures. Please minimize fall risks. 8. Neuropathy - Lyrica 300mg PO BID. Please monitor for fatigue, headache, peripheral edema, and tremor. BEERS list medication with listed adverse effect of increased risk of impaired motor function and fall/fractures. 9. Edema - Torsemide 100mg PO daily. Please monitor for increased urinary frequency and electrolyte imbalances, specifically hypokalemia. BEERS list medication with listed adverse effect of SIADH exacerbation and hyponatremia. Please continue to monitor potassium and sodium levels. Last K: 2.8 mmol/L (06/08), Last Na: 141 mmol/L. 10. Anxiety - Hydroxyzine 25 mg PO TID PRN. Please monitor for blurred vision, dizziness, drowsiness, and restlessness. BEERS list medication with listed adverse effect as increased risk of anticholinergic side effects, adverse SUPERVISOR CLOTH WINDING effects, and increased risk of delirium. Assessment/Plan for indications treated with psychotropic medications: 1. Major Depression - Bupropion XL 300 mg PO daily, Sertraline 100 mg PO daily. - Bupropion 300 mg Monitor for anxiety, agitation and insomnia, seizure activity, nausea, appetite and body weight, headache, suicidal thoughts or behaviors (Boxed Warning). Monitor blood pressure and HR. BP range since admission = 113/56 - 119/61; HR range since admission = 69-91. Medication is renally eliminated, monitor renal function periodically. Scr = 1.1 (06/08) - Sertraline 100 mg Monitor for diarrhea, nausea, headache, anxiety or drowsiness, suicidal thoughts or behaviors (Boxed Warning), symptoms of bleeding, symptoms of serotonin syndrome (including agitation, confusion, hyperreflexia, rigidity/myoclonus, tremor, tachycardia, tachypnea), sodium levels (last Na = 141 mmol/L (06/08/25)). Consider ECG as patient diagnosed with atrial fibrillation on a medication that may prolong QT and last EKG 08/06/23. 2. Insomnia - Trazodone 100 mg PO QHS. Monitor for drowsiness, dizziness or confusion, dry mouth, constipation, symptoms of serotonin syndrome (including agitation, confusion, hyperreflexia, rigidity/myoclonus, tremor, tachycardia, tachypnea), suicidal thoughts or behaviors (Boxed Warning). Monitor HR (can cause bradycardia or tachycardia). HR range since admission = 69-91. Monitor for orthostatic hypotension, including postural dizziness, syncope or falls. Check orthostatic vital signs if suspicion of orthostasis. Monitor for efficacy including resident symptoms, behaviors and indications of distress. Monitor for tolerability including mental status, cognition, excessive sleepiness, withdrawal or decreased participation in activities and decline in physical functioning. Maximize use of nonpharmacologic/behavioral interventions to facilitate dose reduction or discontinuation as appropriate. Please evaluate the appropriateness of GDR unless contraindicated. If appropriate, GDR should be attempted in 2 separate quarters within the first year of use or admission to TCU. If GDR attempted, monitor resident symptoms/behaviors. Medical chart and medication regimen reviewed. The following medication irregularities or issues were identified: - Please consider ordering an ECG as she is on multiple medications that can prolong QT interval and has not had an ECG since July 2023. Date Date of Note: 06/08/25 Documented by User: Dr. Brayden Trammell MD 06/08/25 17:33 TCU RX Drug Regimen Review Provider Comments Provider responsibility Provider Comments to Recommendations by Pharmacy Agree
--- NOTE | 2025-06-08 20:47 | NURSING ---
RT completes EKG as ordered to check for prolonged QT. Dr. Trammell notified of results via secure backline text. New new orders at this time per Dr. Trammell.
[2025-06-08] MEDS: Neomycin/Polymyxin/Dexameth OINT 3.5GM OPTH.TUBE 1 APPLIC EACH EYE (21:00)
--- NOTE | 2025-06-09 06:09 | NURSING ---
Written communication left for Dr. Trammell regarding patient observed drowsiness, lack of motivation observed with assisting with ADLs, difficult transfers, current Lyrica and Trazodone orders and request for clarification regarding comtan order and sinemet.
[2025-06-09] MEDS: Potassium Chloride Oral Tablet 20 MEQ 60 MEQ PO (08:05)
[2025-06-09] MEDS: buPROPion (XL) 300 MG TABLET.XL PO (08:07)
[2025-06-09] MEDS: APIXABAN 5 MG TABLET PO ×2 (08:07→21:36)
[2025-06-09] MEDS: Fluticasone 0.05% 1 SPRAY NASAL.SRY NASAL (10:02)
[2025-06-09] MEDS: Senna/Docusate Sodium 1 Tablet PO ×2 (10:02→21:33)
[2025-06-09] MEDS: Umeclidinium Brm/Vilanterol 62.5-25 mcg Inh 1 PUFF INHALATION (10:02)
--- NOTE | 2025-06-09 12:31 | NURSING ---
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 She prefers independent in room activities over group. She has a caregiver that will visit and bring her items she may need. Elida welcomes visits from the therapy dog when avaliable, staff will remind her of weekly activities and respect he right to say no.
--- NOTE | 2025-06-09 13:33 | CHAPLAIN ---
Type of Pastoral Visit _x__ Initial Visit ___ Follow-up Visit ___ On-call Visit ___ General Patient Visit ___ Spiritual Assessment ___ Family Conference ___ Bereavement ___ Rapid Response ___ Code Blue ___ Other (describe below) Pastoral Care Referral From _x__ Patient ___ Family ___ Nurse ___ Physician ___ Breaker Off ___ Repairer Typewriter ___ Other (describe below) Sacrament/Intervention ___ Active listening ___ Anointing ___ Confucianism ___ Bereavement ___ Communion ___ Amy exploration ___ ___ Life review ___ Prayer ___ Reconciliation ___ Sacrament of Sick ___ Supportive presence ___ Wedding ___ Other (describe below) Pastoral Comments patient is sleeping and does not awaken to her name or knock on the door; left a calling card
[2025-06-09 17:00] VITALS: BP 95/58; PULSE 84; RESP 18; TEMP 37; O2SAT 90
[2025-06-09] MEDS: Neomycin/Polymyxin/Dexameth OINT 3.5GM OPTH.TUBE 1 APPLIC EACH EYE (21:33)
--- NOTE | 2025-06-10 06:26 | NURSING ---
No drowsiness or somnolence observed this shift. Pleasant and talkative. EAx2 with transfer to BS per preference. Encouraged to participate with ADLs, lack of motivation observed at times. No distress observed or reported. Continent of bladder at this time. Assisted back to bed EAx2 with gait belt. Gait slow and unsteady. Positioned for comfort. Fresh ice water provided. Denies further requests. Call light and personal items within reach.
[2025-06-10 07:09] VITALS: O2SAT 97
--- NOTE | 2025-06-10 08:30 | NURSING ---
Maxitrol ointment to eyes QHS has not stop date Eyes are clear patient states med was ordered because her eyes get "watery". Dr. Trammell updated N.O. to discontinue Maxitrol. Order read back
[2025-06-10 09:00] LABS: Anion Gap 11 (5-15); BUN 31 mg/dL (4-19); BUN/Creat Ratio 40.2 RATIO (10-20); Calcium,Total 8.9 mg/dL (7.6-11.0); Carbon Dioxide 38.1 mmol/L (21.0-32.0); Chloride 92 mmol/L (98-108); Estimated Creatinine Clearance 81.24 ml/min (50-250); Glucose 98 mg/dL (70-99); Potassium 2.7 mmol/L (3.3-5.1)
[2025-06-10] MEDS: Senna/Docusate Sodium 1 Tablet PO (10:06)
[2025-06-10] MEDS: APIXABAN 5 MG TABLET PO ×2 (10:07→20:10)
[2025-06-10] MEDS: Potassium Chloride Oral Tablet 20 MEQ 60 MEQ PO (10:07)
[2025-06-10] MEDS: Umeclidinium Brm/Vilanterol 62.5-25 mcg Inh 1 PUFF INHALATION (10:07)
[2025-06-10] MEDS: buPROPion (XL) 300 MG TABLET.XL PO (10:07)
[2025-06-10] MEDS: Fluticasone 0.05% 1 SPRAY NASAL.SRY NASAL (10:08)
[2025-06-10 10:19] VITALS: BP 106/47; PULSE 78; RESP 15; TEMP 36.4; O2SAT 91
[2025-06-10 15:56] VITALS: BP 100/48; BP 108/37; BP 73/37; PULSE 100; PULSE 93; PULSE 99
[2025-06-10] MEDS: 0.9% Normal Saline (1000mL) 1,000 ML 999 ML IV (16:14)
[2025-06-10] MEDS: 0.9% Saline Lock 10 ML Syringe IV (16:15)
[2025-06-10] MEDS: Potassium Chloride Oral Tablet 20 MEQ 40 MEQ PO (17:08)
[2025-06-10 17:25] VITALS: BP 119/50; PULSE 80
--- NOTE | 2025-06-10 18:17 | NURSING ---
Pt c/o of dizziness with standing Orthostatics completed and charted. Dr. Trammell updated via secure text on Orthostatic BP results and N.O. received for 1000ml bolus of NS. Order read back and confirmed. BP rechecked after bolus of NS BP 119/50.
[2025-06-10 20:04] VITALS: PULSE 68
[2025-06-11 07:30] VITALS: O2SAT 90
[2025-06-11 08:58] LABS: Anion Gap 8 (5-15); BUN 17 mg/dL (4-19); BUN/Creat Ratio 25.9 RATIO (10-20); Calcium,Total 8.2 mg/dL (7.6-11.0); Carbon Dioxide 32.8 mmol/L (21.0-32.0); Chloride 98 mmol/L (98-108); Estimated Creatinine Clearance 81.24 ml/min (50-250); Glucose 91 mg/dL (70-99); Potassium 3.3 mmol/L (3.3-5.1)
[2025-06-11 09:54] VITALS: BP 71/26; PULSE 99
[2025-06-11] MEDS: Fluticasone 0.05% 1 SPRAY NASAL.SRY NASAL (10:04)
[2025-06-11] MEDS: Umeclidinium Brm/Vilanterol 62.5-25 mcg Inh 1 PUFF INHALATION (10:04)
[2025-06-11] MEDS: APIXABAN 5 MG TABLET PO (10:05)
[2025-06-11] MEDS: Potassium Chloride Oral Tablet 20 MEQ 40 MEQ PO ×2 (10:05→20:12)
[2025-06-11] MEDS: Senna/Docusate Sodium 1 Tablet PO (10:05)
[2025-06-11] MEDS: buPROPion (XL) 150 MG TABLET.XL PO (10:06)
[2025-06-11 10:18] VITALS: BP 108/41; PULSE 79; RESP 19; TEMP 36.7; O2SAT 92
--- NOTE | 2025-06-11 10:33 | NURSING ---
Addendum entered by Deja Barrera 06/11/25 12:18: Cristiane came up to unit went into pt's room per sales consultant who was taking pt's order Cristiane was very " nasty to pt and left". This nurse was in another room assisting with a pt at this time. Pt is willing to stay and continue with treatment. Per WAFER BATTER MIXER Cristiane told her that it took her 4 hrs to find her car the other day. riprap worker updated and will continue to follow. Original Note: Pt assisted from bedside commode back to bed BP checked d/t weakness and dizziness BP 71/26 Pulse 99 Spo2 92% 2 L NC Temp 98.1 temporal. Pt stated that she is fine and that she would like to go home. Advised pt that this nurse would call Dr. Trammell to see about new orders. Pt stated " I don't want anything else done I am going home I have bills to pay". This nurse educated pt that it is not recommenced that pt leave d/t BP being so low and that we would like to test her stool to make sure she is not still actively having GI bleed. This nurse left room and paged Dr. Trammell. Dr. Trammell updated on pts wishes per Dr. Trammell he doesn't recommend pt to leave that she is at high risk for bleeding and Order a H&H and Occult stool.Orders read back. This nurse went back in to room to let pt know that we would need to do another Lab draw to check her HGB. She gave lab permission to obtain blood specimen. BP rechecked once pt was sitting up in bed Bp 108/41 Pulse 79. Pt called neurocritical care physician Cristiane to come pick her up and Cristiane stated that she would be here around 1200. Pt refused this nurse to talk with Cristiane to update her on condition of paper. Pt requesting WAFER BATTER MIXER to come into room and get her ready to leave, let pt know they were with another pt and they will be in shortly. riprap worker contacted to talk with pt.
[2025-06-11 10:36] LABS: Hematocrit 24.3 % (37-47); Hemoglobin 7.2 g/dL (12.0-15.0)
--- NOTE | 2025-06-11 11:09 | NURSING ---
Dr. Trammell updated on HGB 7.2 N.O. received to discontinue Eliquis. Order read back.
--- NOTE | 2025-06-11 15:52 | CASEMGMT ---
Social Work Date of referral: 06/11/25 Reason for referral: Support needed. Patient trying to leave against medical advice (AMA) Referred by: TCU nurse Deja Patient provided consent to social work visit. Patient was lying in her hospital bed when wind turbine sheet metal worker arrived. freezing room worker spoke at length with patient who shared that she has been living with her roommate, Mireille (Cristiane) for "50 some years". Patient stated Cristiane is starting to get very confused and is "beside herself" about the bills because she doesn't know how to pay them and needs patient's help. Patient stated she's trying to get Cristiane to bring all of the bills, along with patient's laptop to the hospital and patient stated she will be able to pay them from here. Patient stated that Cristiane is 75 years old and still drives. Cristiane currently has patient's cell phone and is supposed to be on her way to grain picker patient. Patient has 3 sisters, Vanessa, Magi and Linda and patient provided consent to make phone contact with Vanessa if needed to see if she can get the bills and laptop to the hospital. Patient requested the other two sisters not be contacted as they were described as not being helpful. Patient also provided consent for wind turbine sheet metal worker to make phone contact with Cristiane and request that she bring in the bills and laptop as well. Cleaning Laborer talked with patient about the possible ramifications of leaving AMA and patient verbalized she understood and became agreeable to staying at the hospital. Cleaning Laborer updated the nurse. (11:22) Cleaning Laborer received a call from nurse Short again stating that Cristiane came to patient's room, yelled at patient and left before she could get there. Deja shared her concerns for Cristiane as well as Cristiane was visiting once and it took her over 2 hours to find her car once she left patient's room. (12:15) Cleaning Laborer received a call from nurse Short who stated patient is now saying she's going to leave again. (15:30) Cleaning Laborer made phone contact with Cristiane and explained the need for patient to continue to receive medical care at the hospital and requested that she bring all of the bills and patient's laptop to the hospital so the bills can get paid and she stated she will bring it all in before the 1st of the month as she is waiting for their checks to hit. She stated she is mad at patient and described the patient as being "worthless" to her. She stated she doesn't want to talk to patient and will likely drop everything off at the nurse's station(15:32) Cleaning Laborer met with patient again, provided update from Cristiane and patient became agreeable to staying again. Patient stated she is refusing to have a blood transfusion and is giving the doctors until the first for her to get better or she is leaving. Patient stated she's in her room all day and all night by herself and is lonely because she never gets to see anyone. freezing room worker provided emotional support and encouragement and helped patient turn on the TV. freezing room worker updated nurse and asked nurse to offer to bring patient into the social area of the floor to be around other staff or patients and to be able to work puzzles if desired which she was agreeable to. Patient will continue to need check-ins and support. Acute CM to follow up as well as to make referral to APS. (15:52) Maureen Jurado, FORENSIC AUDIT EXPERT, SR. DIRECTOR
--- NOTE | 2025-06-12 08:04 | CASEMGMT ---
Social Work Medicaid application was submitted 06/09 and received a pending number - [id number] Jennifer CARVERW
[2025-06-12 08:42] LABS: Hematocrit 22.3 % (37-47); Hemoglobin 6.7 g/dL (12.0-15.0)
[2025-06-12 09:06] LABS: Anion Gap 8 (5-15); BUN 11 mg/dL (4-19); BUN/Creat Ratio 16.4 RATIO (10-20); Calcium,Total 8.3 mg/dL (7.6-11.0); Carbon Dioxide 29.0 mmol/L (21.0-32.0); Chloride 104 mmol/L (98-108); Estimated Creatinine Clearance 81.24 ml/min (50-250); Glucose 96 mg/dL (70-99); Potassium 3.7 mmol/L (3.3-5.1)
[2025-06-12 10:00] VITALS: BP 100/54; PULSE 76; RESP 18; TEMP 36.7; O2SAT 93
--- NOTE | 2025-06-12 10:00 | NURSING ---
Patient has been stating this AM that she wants to go home. When this nurse spoke with patient, she stated that was ready to go home and that she has someone picking her up between 11-12.This nurse spoke about concerns with her hgb and strength and spoke at length about what low hgb could mean and that it continues to drop. Also spoke with patient that it is taking two people to help her to the [facility] and that we are concerned with her ability to go home while she remains this weak. Patient states she has plenty of help at home. This nurse asks if patient had concerns with her care here or if there is anything we can do to improve her stay and she states that "everyone has been wonderful" but that she wants to see her sisters who are going through hard times and that she feels ready to leave. Patient is A/O x4. Jennifer LARA made aware of patient's desire to D/C AMA.
[2025-06-12] MEDS: Potassium Chloride Oral Tablet 20 MEQ 40 MEQ PO (11:31)
[2025-06-12] MEDS: Fluticasone 0.05% 1 SPRAY NASAL.SRY NASAL (11:31)
[2025-06-12] MEDS: Senna/Docusate Sodium 1 Tablet PO (11:35)
[2025-06-12] MEDS: Umeclidinium Brm/Vilanterol 62.5-25 mcg Inh 1 PUFF INHALATION (11:36)
--- NOTE | 2025-06-12 11:55 | CASEMGMT ---
Social Work JANE notified by several staff members that pt has been voicing to leave AMA. Received hand-off from weekend SW that she spoke with pt. - 1040 - JANE spoke with pt at bedside. Discussed pt's reasons for wanting to leave AMA - "I have been in the hospital for over a month. I want to get home." JANE empathized, though noted pt has been in this unit less than a week. JANE explained pt is medically unstable and a x2 SPT. Pt is adamant about leaving. JANE educated that pt is understanding that leaving AMA does not allow for any f/u appts to be made, ordering of medications, HHC or DME. Pt voiced understanding. Pt stated Cristiane is already on her way to fruit picker pt. Pt signed AMA release. - JANE updated IDT. Dr. Trammell spoke with pt at bedside while this worker was present and stated pt is bleeding internally and is not stable. Pt voiced understanding and still wants to go home. - JANE phoned ED SWDimitri, to notify of potential for readmission. JANE to refer to APS once pt's DC's and provided history of relationship with pt and Cristiane. - 1110 - Cristiane presented to this worker's office to fruit picker pt. JANE explained pt is electing to DC AMA and the risks associated. Explained pt is not medically stable and is x2 assist. JANE cannot coordinate any services at DC. Suggested pt contact PCP this date to notify of AMA and get appt or meds ordered. Cristiane was not happy with pt's decision and offered to speak with pt. - 1120 - nurse notified this worker that Cristiane convinced pt to remain. - JANE presented to pt's room, where nurse was present. Nurse informed this worker that pt agreed to medical treatment. JANE commeneded pt for choosing to remain for care, but asked for pt's agreement to remain at least the full week or until insurance issues LCD. If pt elects to DC AMA again, there will be no further discussions. Pt agreed and voiced understanding. Pt confirmed agreement to treatment and understands the benefit of remaining in TCU and receiving nursing and therapy care. SW appreciative and will follow. - JANE updated IDT. JANE updated ED SW. Jennifer Soliman EHS ENGINEER FLAT SURFACER
[2025-06-12] MEDS: buPROPion (XL) 150 MG TABLET.XL PO (14:38)
--- NOTE | 2025-06-12 16:04 | CHAPLAIN ---
Type of Pastoral Visit ___ Initial Visit _x__ Follow-up Visit ___ On-call Visit ___ General Patient Visit ___ Spiritual Assessment ___ Family Conference ___ Bereavement ___ Rapid Response ___ Code Blue ___ Other (describe below) Pastoral Care Referral From _x__ Patient ___ Family ___ Nurse ___ Physician ___ Lube Man ___ Vamp Cut Out Worker ___ Other (describe below) Sacrament/Intervention _x__ Active listening ___ Anointing ___ Buddhism ___ Bereavement ___ Communion ___ Amy exploration ___ ___ Life review _x__ Prayer ___ Reconciliation ___ Sacrament of Sick _x__ Supportive presence ___ Wedding ___ Other (describe below) Pastoral Comments patient is awake today after just receiving her medications; pt says that she is not so well today and is prepping for a procedure; pt says that she was told that if she didn't have this procedure done that she won't live more than two days; not sure about her story but this solderer assembler asked her about her feelings, any fears or worries, and what she needed to have support; pt was vague about this and said that "I just take one day at a time"; pt does report on great care she is receiving; pt denies needs but welcomes a prayer
[2025-06-12] MEDS: Polyethylene Glycol 3350 BOWEL PREP PO (17:50)
--- NOTE | 2025-06-12 18:15 | EX.PCM.CON.G ---
HPI Consult Data Date of Consult: 06/12/25 HPI Narrative Reason for Consultation: GI bleed and anemia HPI Narrative: 74-year-old woman recently admitted to the Transitional Care Unit for rehabilitation and strengthening after a GI bleed. She has a history of atrial fibrillation and takes Eliquis. The patient was transferred from an outside hospital with complaints of fatigue, weakness, shortness of breath, and a diagnosed GI bleed. While at the outside hospital, she refused an endoscopic evaluation. Since arriving at the TCU, the patient's hemoglobin level has continued to decline, from 10 g/dL to 6.8 g/dL, indicating ongoing blood loss. She has been transfused with packed red blood cells. Reports of fatigue and weakness persist, which are likely exacerbated by the dropping hemoglobin. Shortness of breath was also noted on admission. ] [facility] Medical History Tobacco abuse Hyperlipidemia Parkinson disease Irritable bowel syndrome Depression Coronary artery disease Atrial fibrillation Hypomagnesemia Hypokalemia COPD exacerbation Urinary tract infection Gastrointestinal bleed Acute blood loss anemia Myocardial infarct COPD (chronic obstructive pulmonary disease) Pulmonary emboli Home Medications Medication Instructions Recorded Last Taken Type apixaban 5 mg tablet (Eliquis) 5 mg PO BID blood thinner 06/26/23 Unknown History bupropion HCl 300 mg 24 hr tablet, 300 mg PO DAILY mood 06/26/23 Unknown History extended release carbidopa 25 mg-levodopa 100 mg 2 tab PO DAILY 06/26/23 Unknown History tablet pregabalin 300 mg capsule 300 mg PO BID nerve pain 06/26/23 Unknown History rosuvastatin 40 mg tablet 40 mg PO DAILY cholesterol 06/26/23 Unknown History sertraline 100 mg tablet 100 mg PO DAILY mood 06/26/23 Unknown History trazodone 100 mg tablet 100 mg PO QHS sleep 06/26/23 Unknown History acetaminophen 325 mg tablet 650 mg (2 x 325 mg) PO Q6H PRN PRN 07/07/23 Unknown Rx Fever, pain 1-06/23 #0 tabs menthol 0.44 %-zinc oxide 20.6 % 1 applic topical TID #0 grams 07/07/23 Unknown Rx topical ointment (Calmoseptine) phenol 1.4 % mucosal aerosol spray 5 spray mucous membrane Q2H PRN 07/07/23 Unknown Rx (Sore Throat (phenol)) PRN SORE THROAT #0 mL albuterol sulfate 2.5 mg/3 mL 2.5 mg inhalation Q4H PRN 06/07/25 Unknown History (0.083 %) solution for nebulization shortness of breath or wheezing aspirin 81 mg chewable tablet 1 tab PO DAILY heart health 06/07/25 Unknown History entacapone 200 mg tablet 200 mg PO TID parkinsons 06/07/25 Unknown History fluticasone propionate 50 1 - 2 spray intranasal DAILY nasal 06/07/25 Unknown History mcg/actuation nasal congestion spray,suspension hydroxyzine HCl 25 mg tablet 25 mg PO TID PRN anxiety 06/07/25 Unknown History neomycin 3.5 mg/g-polymyxin B 1 applic EACH EYE QHS eyes 06/07/25 Unknown History 10,000 unit/g-dexameth 0.1 % eye oint (Maxitrol) pantoprazole 40 mg tablet,delayed 40 mg PO DAILY gerd 06/07/25 Unknown History release (Protonix) prednisone 10 mg tablet 20 mg PO MOWEFR steroid 06/07/25 Unknown History torsemide 100 mg tablet 100 mg PO DAILY.TCU edema 06/07/25 Unknown History umeclidinium 62.5 mcg-vilanterol 1 inh inhalation DAILY lungs/copd 06/07/25 Unknown History 25 mcg/actuation powdr for inhalation (Anoro Ellipta) Allergy/AdvReac Type Severity Reaction Status Date / Time No Known Allergies Allergy Verified 10/31/24 15:47 Surgical History History of hysterectomy History of back surgery Stented coronary artery Social History household members: none Smoking Status: Heavy Smoker (>10/day) alcohol intake: never substance use type: does not use ROS Constitutional Constitutional: Denies fatigue, fever(s), poor appetite, weight gain or weight loss Gastrointestinal Gastrointestinal: Denies belching, bloating, change in bowel habits, change in stool character, chewing difficulty, coffee ground emesis, constipation, cramping, diarrhea, dyspepsia, dysphagia, early satiety, excessive flatus, fecal incontinence, heartburn, hematemesis, hematochezia, hemorrhoids, loose stools, melena, nausea, odynophagia, rectal bleeding, tenesmus, vomiting or weight changes Physical Exam Const alert, oriented x3, no apparent distress and healthy appearing General Appearance: cooperative GI normal to inspection, nondistended, normoactive bowel sounds, soft to palpation, non-tender and non-distended Percussion: normal to percussion Rectal Exam: deferred Lab / Micro Data 06/12/25 08:13 06/12/25 08:13 Labs: Laboratory Results - last 24 hr 06/12/25 08:13: Hgb 6.7 L, Hct 22.3 L, Sodium 141, Potassium 3.7, Chloride 104, Carbon Dioxide 29.0, Anion Gap 8, BUN 11, Creatinine 0.70, Estim Creat Clear Calc 81.24, Est GFR (MDRD) Non-Af 90, BUN/Creatinine Ratio 16.4, Glucose 96, Calcium 8.3 Assessment & Plan Assessment/Plan (1) Gastrointestinal bleed: (2) Acute blood loss anemia: PLAN: She will need to undergo EGD and colonoscopy to evaluate her upper and lower GI tract. She was explained alternatives, risk and benefits include not withstanding bleeding, infection, sepsis, perforation, need emergent urgent . She will have an ASA of 3. Charges/Coding Visit Charges Inpatient E&M: 64025 SNF Init L2
--- NOTE | 2025-06-12 20:49 | NURSING ---
PATIENT REFUSED TO COMPLETE BOWEL PREP ORDERED DESPITE EDUCATION STATES "I'M NOT DRINKING ANOTHER DAMN DROP, I HAVE HAD SEVERAL OF THOSE PROCEDURES AND THEY HAVEN'T HELPED ANYTHING". PATIENT EDUCATED THAT DR. PALOMINO MAY NOT BE ABLE TO COMPLETE PROCEDURE IF BOWEL PREP NOT COMPLETED, PATIENT STATES "I DON'T CARE". A&OX3.
--- NOTE | 2025-06-12 20:58 | NURSING ---
practice professional reports patient XLG loose BM
[2025-06-12 21:00] VITALS: PULSE 82; RESP 18
--- NOTE | 2025-06-12 21:09 | NURSING ---
Patient frustrated with bowel prep and bowel incontinence. Refuses all HS meds as ordered despite education and encouragement. Patient states "If someone tries to give me one more thing I am going to whack them on the head with it, I'm not taking any more medicine tonight". Patient explains she is frustrated with bowel prep and need for "another procedure". 1:1 provided with positive effect. Continues to refuse all HS medications. Denies need for toileting at this time. Call light and personal items within reach. Television on preferred channel. Ice water provided per pt. request. No further agitation or verbal aggression. Dr. Trammell notified of patient refusal of all HS meds via secure backline text. No new orders at this time. Patient denies further requests. Call light in reach.
[2025-06-13] VITALS (11 sets, daily range): BP systolic 112–131; BP diastolic 39–63; PULSE 75–82; RESP 16–24; TEMP 35.6–36.7; O2SAT 81–97; BMI 39.8
--- NOTE | 2025-06-13 07:17 | NURSING ---
Addendum entered by Maggie Capone 06/13/25 07:23: Meghan DAMON notified of patient refusal to complete bowel prep Original Note: Secure backline text sent to Dr. Gentile regarding patient refusal to complete bowel prep and patient large loose bowel movement x2. Awaiting response.
--- NOTE | 2025-06-13 10:40 | NURSING ---
Patient leaving unit for blood transfusion.
[2025-06-13] MEDS: 0.9% Saline Lock 10 ML Syringe IV ×3 (11:15→16:13)
--- NOTE | 2025-06-13 12:21 | NURSING ---
Dr. Gentile was made aware this AM that patient did not finish bowel prep for colonoscopy and is still having thick brown BMs. Dr. Gentile states they will just to EGD today. Patient off floor for blood at this time. Will make aware of procedure and time when she arrives back to floor.
--- NOTE | 2025-06-13 12:40 | CASEMGMT ---
Social Work JANE notified by nursing that pt refused HS meds and did not complete bowel prep needed for colonoscopy. JANE consulted with nursing and Dr of medical complexities, i.e. GI bleed, needs blood transfusion, and not safe to DC without hospice care. - JANE presented to pt's room at 0745. Discussion held with pt on goals of treatment as pt is medically compromised - HBG dropping, GI bleed. Pt adamant that she completed bowel prep and she wants to pursue the procedure to determine source of bleeding. SW to revisit with nursing and see if Dr. Gentile can still complete procedure. Pt stated that her body cannot handle more bowel prep. SW provided support. SW asked about and dying. Pt stated she may want to , but she wants to speak with Cristiane first. Cristiane won't be awake for a few more hours. SW encouraged pt to take this time to think about her goals for treatment, and pt will be notified if she can proceed with the scope. SW will continue to follow. Pt appreciative. - Nurse notified this worker that Dr. Gentile agreed to EGD, and pt will receive a blood transfusion this date. pt is requesting to speak with this worker. - Approx 1030 - JANE presented to pt's room. Pt visibly SOB and weak. Pt stated she has been attempting to contact Cristiane but unable to reach her. SW offered to contact. Pt stated she wants Cristiane to bring her pt's phone so she can retrieve her sister's phone numbers and call each sibling. Pt stated she wants to tell her siblings her wishes first, then she will share with this worker. SW respected pt's wishes and assured pt this worker will contact Cristiane. Pt appreciative. - JANE phoned Cristiane multiple times until Cristiane answered the phone approx [phone]. JANE requested either she bring the cell phone to pt, who is currently receiving blood transfusion, or provide this worker with siblings phone numbers. Cristiane agreed to write down the phone numbers and call back this worker. JANE appreciative. - Approx 12:45 - phoned Cristiane for the phone numbers. Cristiane replied, "I don't know what you wanted me to do? I forgot?" JANE reminded for the siblings phone numbers. Cristiane had the numbers written down and provided them to this worker. However, she provided 3 sisters, and pt specifically asked for a sister Tracy Schumacher. Cristiane agreed to get that number and call this worker. SW appreciative. Jennifer Soliman INSURANCE FOLLOW UP REPRESENTATIVE MEDICAL RADIATION TECH
--- NOTE | 2025-06-13 15:44 | NURSING ---
Call from infusion center, they report resident has sounds raspy with moist cough, asking about giving lasix. Says she reports history of heart failure. Updated Dr. Trammell, order for 40mg IV lasix x1.
--- NOTE | 2025-06-13 15:52 | CASEMGMT ---
Social Work SW received pt's additional sister's phone nuber and provided written list of names/numbers to pt's bedside as she was still at her blood transfusion. SW notified nurse. Jennifer Soliman HOSIERY MENDER HAND WELT BUTTER
--- NOTE | 2025-06-13 16:07 | NURSING ---
Returning from blood transfusion.
--- NOTE | 2025-06-13 16:50 | NURSING ---
Leaving unit for EGD.
--- NOTE | 2025-06-13 20:34 | NURSING ---
Recieved report from PACU, patient ready to return to TCU. EGD performed, no lesions observed. Patient remains on 3L o2, accepted ice chips in PACU and may advance diet as tolerated. IV to remain in place. PACU requests TCU staff to transport patient from PACU to TCU
--- NOTE | 2025-06-13 20:45 | NURSING ---
Patient returns to TCU at this time status post EGD via bed x2 staff assist.
--- NOTE | 2025-06-13 21:23 | NURSING ---
Patient refuses all medications due at this time (see MAR) except Trazodone, patient asks for medication by name. States "I'm only taking my trazodone honey and that's it". Educated on importance of complying with medications as ordered by physician. Patient states "I said no honey and that's that". Educated on each medication due at this time. Patient continues to decline, when inquired as to why patient is refusing medications patient states "Because I said I don't want it". Dr. Trammell notified of patient med refusal and PACU report of EGD performed and no lesions observed via secure backline text. Dr. Trammell acknowledges with no new orders at this time.
[2025-06-14 01:00] VITALS: PULSE 75; RESP 18; O2SAT 96
[2025-06-14] MEDS: 0.9% Saline Lock 10 ML Syringe IV (08:26)
[2025-06-14] MEDS: Umeclidinium Brm/Vilanterol 62.5-25 mcg Inh 1 PUFF INHALATION (08:29)
[2025-06-14] MEDS: Potassium Chloride Oral Tablet 20 MEQ 40 MEQ PO (08:32)
[2025-06-14 08:44] VITALS: BP 114/57; PULSE 86; RESP 24; TEMP 36.6; O2SAT 92
[2025-06-14 08:48] LABS: Anion Gap 12 (5-15); BUN 8 mg/dL (4-19); BUN/Creat Ratio 12.3 RATIO (10-20); Calcium,Total 8.6 mg/dL (7.6-11.0); Carbon Dioxide 25.4 mmol/L (21.0-32.0); Chloride 104 mmol/L (98-108); Estimated Creatinine Clearance 81.11 ml/min (50-250); Glucose 91 mg/dL (70-99); Potassium 3.1 mmol/L (3.3-5.1)
--- NOTE | 2025-06-14 08:52 | NURSING ---
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
--- NOTE | 2025-06-14 10:27 | CASEMGMT ---
Addendum entered by Jennifer Soliman 06/14/25 13:01: [facility] can accept and requested SW to schedule transport. SW phoned Physician's and next available p/u time is 1600. SW scheduled and Hospice to coordinate nurse to meet pt at her house. IDT updated. Plan: DC home 06/14 with [facility] Addendum entered by Jennifer Soliman 06/14/25 11:49: [facility] does not have a nurse available until 1330 tomorrow. SW canceled referral as pt is requesting DC home today. - SW sent [facility] referral to [facility]. Will await outcome. Original Note: Social Work IDT met with patient at bedside and Cristiane via conference call for care plan meeting. Discussed patient's progress in PT/OT/ST/SN/RDN. REGISTERED DIETITIAN educated to score of 9/30 on MOCA, and 4/6 on placement, indicating severe level of impairment and 24/7 supervision. PT/OT reported is [facility] for transfers. Pt repeatedly asked when she can go home. SW approached pt at bedside at eye level, and asked about pt's wishes. SW bluntly asked if pt was ready to . Pt said, yes and she wants to go home. SW inquired if she wanted to go home and be comfortable. Pt agreed. SW educated to hospice services. Pt and Cristiane both agreed. Pt wants to DC home today/[facility]. SW to place referral and will have nurse scheduled to see pt. Cristiane wants to remain at home d/t new COVID outbreak on the unit. SW expressed understanding. SW to coordinate transport. - IDT updated. - JANE sent email referral to [facility], requesting DC home today. Jennifer Mendoza
--- NOTE | 2025-06-14 11:13 | NURSING ---
UPDATED PT ON POSITIVE PT WITH COVID. TRIED CALLING CAREGIVER AND VOICE MAIL STATED THE MAIL BOX WAS NOT SET UP.
--- NOTE | 2025-06-14 13:07 | DS.PCM_ITS ---
Providers Date of Admission: 06/07/25 Primary Care Physician: Dr. Kelsey Arora MD Consultations 06/12/25 09:22 Consult: Gastroenterology Routine Consulting Provider: [facility] Reason for Consult: Anemia, +occult EMERGENT Consult: No MD Notified: Yes Date Notified: 06/12/25 Time Notified: 09:22 Method of Notification: Text Reason For Visit: GI BLEED AND UTI Diagnosis Discharge Diagnosis (1) Gastrointestinal bleed: Status: Acute Code(s): K92.2 - Gastrointestinal hemorrhage, unspecified (2) Acute blood loss anemia: Status: Acute Code(s): D62 - Acute posthemorrhagic anemia Plan 74 year old female with below past medical history hospitalized for acute anemia 2/2 gastrointestinal bleed, refused EGD/colonoscopy, complicated by urinary tract infection, copd exacerbation, hypokalemia, hypomagnesemia, admitted to TCU with debility, here for rehabilitation, strengthening, prior to discharge home alone. * Debility - PT/OT. * Pain - Tylenol 1000mg q6 prn pain (1-10). * Bowel - senna/colace 1 tablet bid, Magnesium citrate 300mL po x 1 prn. * Adult immunization - Administer pneumonia vaccine, covid vaccine, flu vaccine as appropriate. * DVT prophylaxis - Eliquis. * COPD - Albuterol 2.5mg q4 prn, Prednisone 20mg qod thru 06/16/2025. * Atrial fibrillation - Eliquis 5mg bid. * Hyperlipidemia - Atorvastatin 80mg qhs. * Vitamin B12 deficiency - B12 1000mcg daily. * Parkinson Disease - Comtan 200mg tid. * Allergic rhinitis - Flonase 1-2 spray nasal daily prn. * Skin irritation - Calmoseptine topical bid. * Conjunctivitis - Maxitrol topical ou qhs. * GERD - Pantoprazole 40mg daily. * Neuropathy - Lyrica 300mg bid. * Edema - Torsemide 100mg daily. The following psychotropic medication was present on admission: Bupropion XL 300mg daily. Psychotropic medication therapy is indicated for a diagnosis of: Major Depression. Based on my clinical evaluation, continuation of the medication is necessary at this time. Gradual dose reduction plan (select one): ____ GDR will be attempted. Will monitor patient symptoms and behaviors in response to GDR. __x__ GRD contraindicated. 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 The following psychotropic medication was present on admission: Sertraline 100mg daily. Psychotropic medication therapy is indicated for a diagnosis of: Major Depression. Based on my clinical evaluation, continuation of the medication is necessary at this time. Gradual dose reduction plan (select one): ____ GDR will be attempted. Will monitor patient symptoms and behaviors in response to GDR. __x__ GRD contraindicated. Reason contraindicated: stable chronic mcc use. The following psychotropic medication was present on admission: Trazodone 100mg qhs. Psychotropic medication therapy is indicated for a diagnosis of: Insomnia. Based on my clinical evaluation, continuation of the medication is necessary at this time. Gradual dose reduction plan (select one): ____ GDR will be attempted. Will monitor patient symptoms and behaviors in response to GDR. __x__ GRD contraindicated. Reason contraindicated: stable chronic mcc use. Hospital Course Operations None Procedures EGD Summary of Care Provided Minutes Spent on Discharge: 35 Hospital Course: 74 year old female with below past medical history hospitalized for acute anemia 2/2 gastrointestinal bleed, refused EGD/colonoscopy, complicated by urinary tract infection, copd exacerbation, hypokalemia, hypomagnesemia, admitted to TCU with debility, here for rehabilitation, strengthening, prior to discharge home alone. 06/13/2025 Dr. Gentile EGD: Impression: - Normal esophagus. - No gross lesions in the entire stomach. - No gross lesions in the entire examined duodenum. - No specimens collected.06/13/2025 Dr. Gentile EGD: Elida stacey, she requested discharge home with hospice. Plan: [place] home 06/14 with [facility]. Physical Exam Const alert General Appearance: cooperative HEENT normocephalic Eyes PERRL and EOMs intact bilaterally Neck supple, no JVD and no carotid bruits Resp normal respiratory effort, normal air movement and clear to auscultation bilaterally Cardio regular rate and regular rhythm GI normal to inspection, nondistended, normoactive bowel sounds, non-tender and non-distended Extremity normal capillary refill General Extremity: Negative for edema Skin no rashes or lesions noted General Skin Exam: no breakdown Psych affect normal Appearance: appropriate Weight / BMI Weight Weight: 118.84 kg Body Mass Index (BMI) 39.8 ABG / Lab / Microbiology Data 06/12/25 08:13 06/14/25 07:23 Laboratory: Laboratory Results - last 24 hr 06/13/25 09:21: Blood Type A POSITIVE, Antibody Screen NEGATIVE, Crossmatch See Detail 06/14/25 07:23: Sodium 142, Potassium 3.1 L, Chloride 104, Carbon Dioxide 25.4, Anion Gap 12, BUN 8, Creatinine 0.68 L, Estim Creat Clear Calc 81.11, Est GFR (MDRD) Non-Af 90, BUN/Creatinine Ratio 12.3, Glucose 91, Calcium 8.6 Microbiology: Microbiology 06/11/25 09:54 Stool Stool Occult Blood (IVELISSE) - Final Occult Blood Positive D/C Instructions Discharge Activity: Return to Normal Activity Weight Bearing Status: Weight bearing as tolerated DC O2, CPAP, BIPAP Needs Home O2 Discharge instructions: No Additional Instructions: Plan: DC home 06/14 with [facility]. Please Follow Up With: Natividad Delgado (general surgery) When: Cancel. Meaningful Use Info Meaningful Use Meaningful Use Diagnoses (Choose all that apply): None applicable Discharge Plan Admission Admit Date/Time: 06/07/25 12:25 Primary Reason for Your Visit: Debility. Attending Provider: Brayden Trammell Chi Primary Care Provider: Kelsey Arora Consulting Providers: Taye Guzman; Tony Gentile; Malina Putnam; Maureen Silva; Mojgan Li Instructions Additional Instructions / Restrictions: Plan: DC home 06/14 with [facility]. Discharge Orders/Prescriptions Prescriptions: Discontinued pregabalin 300 mg capsule 75 mg PO BID Patient Comments: TAKE 1 CAPSULE BY MOUTH TWICE A DAY sertraline 100 mg tablet 100 mg PO DAILY Patient Comments: TAKE 1 TABLET BY MOUTH EVERY DAY bupropion HCl 300 mg tablet extended release 24 hr 150 mg PO DAILY carbidopa-levodopa 25-100 mg tablet 2 tab PO TID menthol-zinc oxide [Calmoseptine] 0.44-20.6 % Ointment 1 applic topical TID Qty: 0 0RF Protocol: *Topical Application Instructions APPLICATION INSTRUCTIONS: apply to alexander rectal area acetaminophen 500 mg capsule 1,000 mg PO Q6H PRN (Reason: pain) atorvastatin [Lipitor] 80 mg tablet 80 mg PO QHS trazodone 50 mg tablet 25 mg PO QHS cyanocobalamin (vitamin B-12) [B-12 DOTS] 500 mcg tablet 500 mcg PO DAILY senna-docusate sodium Capsule 1 cap PO BID sucralfate [Carafate] 1 gram tablet 1 g PO BID umeclidinium-vilanterol [Anoro Ellipta] 62.5-25 mcg/actuation blister with device 1 inh inhalation DAILY entacapone 200 mg tablet 200 mg PO TID Rx Instructions: administer at the same time as l-dopa/carbidopa dose fluticasone propionate 50 mcg/actuation spray,suspension 1 - 2 spray INTRANASAL DAILY pantoprazole [Protonix] 40 mg tablet,delayed release (DR/EC) 40 mg PO BID albuterol sulfate 2.5 mg /3 mL (0.083 %) solution for nebulization 2.5 mg inhalation Q4H PRN (Reason: shortness of breath or wheezing) Referrals / Follow Up: Kelsey Arora MD [Primary Care Provider, Medical] Disposition Disposition (needs filled in before D/C Order can be placed): Hospice in Home
--- NOTE | 2025-06-20 06:38 | MDS.RN ---
Information for the MDS was obtained from review of the clinical record, interview of resident, staff, and direct observation of resident’s care.
== END 2025-06-14 17:00 | disposition hospice, home (50) | DRG 378 ==
PROVIDERS: Admitting Provider Family Medicine Geriatric Medicine; PCP Internal Medicine; Referring Provider Family Medicine Geriatric Medicine; Visit Provider Family Medicine Geriatric Medicine
DX: K92.2 Gastrointestinal hemorrhage, unspecified (principal); N39.0 Urinary tract infection, site not specified; J44.1 Chronic obstructive pulmonary disease with (acute) exacerbation; D62 Acute posthemorrhagic anemia; G20.A1 Parkinson's disease without dyskinesia, without mention of fluctuations; I48.91 Unspecified atrial fibrillation; G62.9 Polyneuropathy, unspecified; E53.8 Deficiency of other specified B group vitamins; F32.9 Major depressive disorder, single episode, unspecified; H10.9 Unspecified conjunctivitis; E78.5 Hyperlipidemia, unspecified; I25.10 Atherosclerotic heart disease of native coronary artery without angina pectoris; K21.9 Gastro-esophageal reflux disease without esophagitis; K58.9 Irritable bowel syndrome, unspecified; F17.200 Nicotine dependence, unspecified, uncomplicated; J30.9 Allergic rhinitis, unspecified; Z95.5 Presence of coronary angioplasty implant and graft; Z86.711 Personal history of pulmonary embolism; Z79.01 Long term (current) use of anticoagulants; Z79.899 Other long term (current) drug therapy; Z79.82 Long term (current) use of aspirin; Z79.51 Long term (current) use of inhaled steroids; G47.00 Insomnia, unspecified
CPT/HCPCS: 36415; 36430; 80048; 82274; 85014; 85018; 85025; 86850; 86900; 86901; 92507; 92523; 92610; 93005; 97110; 97162; 97166; 97530; 97535; 99406; P9016; A4216; J1938

== ENCOUNTER 2025-06-13 17:02 | Day surgery (SDC) | payer MEDICARE, SELFPAY ==
[2025-06-13] VITALS (7 sets, daily range): BP systolic 101–125; BP diastolic 38–57; PULSE 75–78; RESP 14–18; TEMP 36.1–36.3; O2SAT 94–97; BMI 27.5
[2025-06-13] MEDS: Lactated Ringers 1,000 ML 15 ML IV (17:17)
--- NOTE | 2025-06-13 19:51 | PRE.ANES_ITS ---
ASA Classification* ASA Classification ASA Classification: 3 and E Assessment & Plan Anesthesia* Anesthesia Assessment Anesthesia Assessment: Discussed sedation and/or anesthesia options, risks, benefits, and alternatives with patient/parents/legal guardian/POA. Questions invited. The patient/parents/legal guardian/POA seems to understand and agrees to proceed with anesthesia plan. Reviewed the physical assessment, medical history, allergy history and patient home medications list prior to surgery/procedure/anesthetic and documented any changes. Performed airway and anesthesia risk assessments. Anesthesia Type Anesthesia Type: MAC History Source History Obtained from:: Patient and Chart Anesthesia Focused Assessment* Temperature: 97 F Pulse Rate: 78 Blood Pressure: 125/57 Respiratory Rate: 18 Pulse Ox: 94 Oxygen Delivery Method: Nasal Cannula Oxygen Flow Rate (L/min): 3 Airway Assessment Mouth opens: >3 cm Mallampati Score: IV Teeth Condition: Dentures (Patient has full dentures. They are out.) Neck Range of motion (ROM): Limited ROM (Somewhat Decreased) Labs Anesthesia Preop lab: CBC WBC, (4.4-11.0) 9.7 K/mm3 06/08/25, 07:18 RBC, (4.2-5.4) 3.19 M/mm3 L 06/08/25, 07:18 Hgb, (12.0-15.0) 6.7 g/dL L 06/12/25, 08:13 Hct, (37-47) 22.3 % L 06/12/25, 08:13 Plt Count, (150-450) 257 K/mm3 06/08/25, 07:18 CHEMISTRY Potassium, (3.3-5.1) 3.7 mmol/L 06/12/25, 08:13 Sodium, (133-145) 141 mmol/L 06/12/25, 08:13 Magnesium, (1.6-2.6) 2.5 mg/dL 06/28/23, 04:50 Phosphorus, (2.5-4.9) 3.0 mg/dL 06/27/23, 20:14 BUN, (4-19) 11 mg/dL 06/12/25, 08:13 Creatinine, (0.70-1.20) 0.70 mg/dL 06/12/25, 08:13 Glucose, (70-99) 96 mg/dL 06/12/25, 08:13 TSH, (0.358-3.74) 4.77 uIU/mL H 07/09/23, 06:00 COAG PT, (11.7-14.9) 17.1 SECONDS H 06/26/23, 18:52 Pre-Assessment Diagnosis/Proposed Procedure Planned Operative Procedure(s): EGD Anesthesia History 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 When Was Last Pacemaker Check QUESTION #4 FULL TEXT: You/Your Family Experience fever (hyperthermia) with Anesthesia Last Oral Intake Last Oral intake: Last Oral Intake NPO since 00:00 06/13/25 17:13 Meds taken in AM with sips of water? 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 Female HX of Motion Sickness HX of N/V After Surgery Non-Smoker Duration of Surgery greater than 60 minutes Number of Risk Factors PONV Score Height & Weight Height & Weight: Anesthesia: Height & Weight Height 5 ft 8 in 06/13/25 17:13 Weight: 82.1 kg 06/13/25 17:13 Body Mass Index (BMI) 27.5 06/13/25 17:13 Respiratory Assessment Respiratory Assessment - inclined railway operator: Respiratory Tract Infection Hx - inclined railway operator Hx Respiratory Tract Infection Any additional information?: Yes Hx Respiratory Tract Infection: No STOP Sleep Apnea STOP Sleep Apnea - inclined railway operator: STOP Sleep Apnea - inclined railway operator Hx Hypertension Yes 06/08/25 11:38 Hx Sleep Apnea No 06/07/25 12:42 CPAP BIPAP Do you snore loudly (louder than talking or can be heard Do you often feel tired/ fatigued/ sleepy during daytime? Has anyone observed you stop breathing during sleep? STOP Results QUESTION #5 FULL TEXT : Do you snore loudly (louder than talking or can be heard through closed doors)? 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 Specify any problems Hx of Preganancy in last 3 Months Nurse Filling Out Transfusion & Questions: Date: Time: Patient unable to answer at this time (ie. 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 railway operator: /Reproductive Hx- inclined railway operator Hx Now Gestational Age (in weeks): EDC: Hx Hx Para Hx Section SAB Active Medications Active Medications: Current Medications Generic Name Dose Route Start Last Admin Trade Name Freq PRN Reason Stop Dose Admin Lactated Ringer's 1,000 mls @ 15 mls/hr 06/13/25 17:15 06/13/25 17:17 IV 15 mls/hr .Q48H JONH Administration PFSH Medical History Tobacco abuse Hyperlipidemia Parkinson disease Irritable bowel syndrome Depression Coronary artery disease Atrial fibrillation Hypomagnesemia Hypokalemia COPD exacerbation Urinary tract infection Gastrointestinal bleed Acute blood loss anemia Myocardial infarct COPD (chronic obstructive pulmonary disease) Pulmonary emboli Home Medications ?Medication ?Instructions ?Recorded ?Last Taken ?Type bupropion HCl 300 mg 24 hr tablet, 150 mg PO DAILY moo d 06/26/23 06/12/25 History extended release carbidopa 25 mg-levodopa 100 mg 2 tab PO TID 06/26/23 Unknown History tablet pregabalin 300 mg capsule 75 mg PO BID nerve pain 06/14 12/04 Unknown History sertraline 100 mg tablet 100 mg PO DAILY mood 3 Unknown History menthol 0.44 %-zinc oxide 20.6 % 1 applic topical TID #0 grams 07/07/23 Unknown Rx topical ointment (Calmoseptine) albuterol sulfate 2.5 mg/3 mL 2.5 mg inhalation Q4H ND N 06/07/25 Unknown History (0.083 %) solution for nebulization shortness of breat h or wheezing entacapone 200 mg tablet 200 mg PO TID parkinsons Unknown History fluticasone propionate 50 1 - 2 spray intranasal DAILY nasal 06/07/25 Unknown History mcg/actuation nasal congestion spray,suspension pantoprazole 40 mg tablet,delayed 40 mg PO BID gerd Unknown History release (Protonix) umeclidinium 62.5 mcg-vilanterol 1 inh inhalation GERTRUDIS Y lungs/copd 06/07/25 Unknown History 25 mcg/actuation powdr for inhalation (Anoro Ellipta) acetaminophen 500 mg capsule 1,000 mg PO Q6H PRN pain 06/13/25 Unknown History atorvastatin 80 mg tablet (Lipitor) 80 mg PO QHS 06/13 Unknown History cyanocobalamin (vitamin B-12) 500 500 mcg PO DAILY Unknown History mcg tablet (B-12 DOTS) senna-docusate sodium capsule 1 cap PO BID 06/13/25 Un known History sucralfate 1 gram tablet (Carafate) 1 g PO BID 5 Unknown History trazodone 50 mg tablet 25 mg PO QHS 06/13/25 Unknow n History Allergy/AdvReac Type Severity Reaction Status Date / Time No Known Allergies Allergy Verified 06/13/25 17:18 Surgical History History of hysterectomy History of back surgery Stented coronary artery Social History household members: none Smoking Status: Heavy Smoker (>10/day) alcohol intake: never substance use type: does not use Review of Systems (Anesthesia) ROS Narrative System reviewed and no additional complaints, except as documented.
--- NOTE | 2025-06-13 20:01 | PCM.HP.STD ---
HPI - General General Date of Admission: 06/13/25 Date of Service: 06/13/25 Chief Complaint: GI bleed HPI Narrative GERALD ROUSE, is a 74 F who presents with GI bleed and anemia HPI Narrative: 74-year-old woman recently admitted to the Transitional Care Unit for rehabilitation and strengthening after a GI bleed. She has a history of atrial fibrillation and takes Eliquis. The patient was transferred from an outside hospital with complaints of fatigue, weakness, shortness of breath, and a diagnosed GI bleed. While at the outside hospital, she refused an endoscopic evaluation. Since arriving at the TCU, the patient's hemoglobin level has continued to decline, from 10 g/dL to 6.8 g/dL, indicating ongoing blood loss. She has been transfused with packed red blood cells. Reports of fatigue and weakness persist, which are likely exacerbated by the dropping hemoglobin. Shortness of breath was also noted on admission. ] FOR[facility] Medical History Tobacco abuse Hyperlipidemia Parkinson disease Irritable bowel syndrome Depression Coronary artery disease Atrial fibrillation Hypomagnesemia Hypokalemia COPD exacerbation Urinary tract infection Gastrointestinal bleed Acute blood loss anemia Myocardial infarct COPD (chronic obstructive pulmonary disease) Pulmonary emboli Home Medications ?Medication ?Instructions ?Recorded ?Last Taken ?Type bupropion HCl 300 mg 24 hr tablet, 150 mg PO DAILY mood 06/26/23 06/12/25 History extended release carbidopa 25 mg-levodopa 100 mg 2 tab PO TID 06/26/23 Unknown History tablet pregabalin 300 mg capsule 75 mg PO BID nerve pain 06/26/23 Unknown History sertraline 100 mg tablet 100 mg PO DAILY mood 06/26/23 Unknown History menthol 0.44 %-zinc oxide 20.6 % 1 applic topical TID #0 grams 07/07/23 Unknown Rx topical ointment (Calmoseptine) albuterol sulfate 2.5 mg/3 mL 2.5 mg inhalation Q4H PRN 06/07/25 Unknown History (0.083 %) solution for nebulization shortness of breath or wheezing entacapone 200 mg tablet 200 mg PO TID parkinsons 06/07/25 Unknown History fluticasone propionate 50 1 - 2 spray intranasal DAILY nasal 06/07/25 Unknown History mcg/actuation nasal congestion spray,suspension pantoprazole 40 mg tablet,delayed 40 mg PO BID gerd 06/07/25 Unknown History release (Protonix) umeclidinium 62.5 mcg-vilanterol 1 inh inhalation DAILY lungs/copd 06/07/25 Unknown History 25 mcg/actuation powdr for inhalation (Anoro Ellipta) acetaminophen 500 mg capsule 1,000 mg PO Q6H PRN pain 06/13/25 Unknown History atorvastatin 80 mg tablet (Lipitor) 80 mg PO QHS 06/13/25 Unknown History cyanocobalamin (vitamin B-12) 500 500 mcg PO DAILY 06/13/25 Unknown History mcg tablet (B-12 DOTS) senna-docusate sodium capsule 1 cap PO BID 06/13/25 Unknown History sucralfate 1 gram tablet (Carafate) 1 g PO BID 06/13/25 Unknown History trazodone 50 mg tablet 25 mg PO QHS 06/13/25 Unknown History Allergy/AdvReac Type Severity Reaction Status Date / Time No Known Allergies Allergy Verified 06/13/25 17:18 Surgical History History of hysterectomy History of back surgery Stented coronary artery Social History household members: none Smoking Status: Heavy Smoker (>10/day) alcohol intake: never substance use type: does not use ROS Constitutional Constitutional: Denies fatigue, fever(s), poor appetite, weight gain or weight loss Gastrointestinal Gastrointestinal: Denies belching, bloating, change in bowel habits, change in stool character, chewing difficulty, coffee ground emesis, constipation, cramping, diarrhea, dyspepsia, dysphagia, early satiety, excessive flatus, fecal incontinence, heartburn, hematemesis, hematochezia, hemorrhoids, loose stools, melena, nausea, odynophagia, rectal bleeding, tenesmus, vomiting or weight changes Vital Signs Vital Signs Vital Signs: 06/13/25 17:13 06/13/25 19:55 Temperature 97 F L 97 F L Temperature Source Temporal Pulse Rate 78 78 Respiratory Rate 18 18 Blood Pressure 125/57 H 125/57 H Blood Pressure Mean 79 Blood Pressure Source Monitor Blood Pressure Position Semi-Fowlers Blood Pressure Location Left Arm Pulse Ox 94 94 Oxygen Delivery Method Nasal Cannula Nasal Cannula Oxygen Flow Rate (L/min) 3 3 Weight Weight: 181 lb Body Mass Index (BMI) 27.5 Physical Exam Const alert, oriented x3, no apparent distress and healthy appearing General Appearance: cooperative GI normal to inspection, nondistended, normoactive bowel sounds, soft to palpation, non-tender and non-distended Percussion: normal to percussion Rectal Exam: deferred Assessment & Plan Assessment/Plan (1) Acute blood loss anemia: PLAN: Assessment & Plan Assessment/Plan (1) Gastrointestinal bleed: (2) Acute blood loss anemia: PLAN: She will need to undergo EGD and colonoscopy to evaluate her upper and lower GI tract. She was explained alternatives, risk and benefits include not withstanding bleeding, infection, sepsis, perforation, need emergent urgent . She will have an ASA of 3. ]
--- NOTE | 2025-06-13 20:15 | OP.EGD_ITS ---
Patient Name: Elida Graves Procedure Date: 06/13/2025 7:33 PM Date of : 1950 Age: 74 Procedure: Upper GI endoscopy Indications: Acute post hemorrhagic anemia, Iron deficiency anemia Providers: Tony Gentile DO Medicines: Monitored Anesthesia Care Patient Profile: This is a 74 year old female. Refer to note in patient chart for documentation of history and physical. Patient has symptoms. Complications: No immediate complications. Procedure: Pre-Anesthesia Assessment: - Prior to the procedure, a History and Physical was performed, and patient medications and allergies were reviewed. The patient is competent. The risks and benefits of the procedure and the sedation options and risks were discussed with the patient. All questions were answered and informed consent was obtained. Patient identification and proposed procedure were verified by the physician in the pre-procedure area. Mental Status Examination: alert and oriented. Airway Examination: normal oropharyngeal airway and neck mobility. Respiratory Examination: clear to auscultation. CV Examination: normal. Prophylactic Antibiotics: The patient does not require prophylactic antibiotics. Prior Anticoagulants: The patient has taken no anticoagulant or antiplatelet agents except for NSAID medication. ASA Grade Assessment: II - A patient with mild systemic disease. After reviewing the risks and benefits, the patient was deemed in satisfactory condition to undergo the procedure. The anesthesia plan was to use monitored anesthesia care (MAC). Immediately prior to administration of medications, the patient was re-assessed for adequacy to receive sedatives. The heart rate, respiratory rate, oxygen saturations, blood pressure, adequacy of pulmonary ventilation, and response to care were monitored throughout the procedure. The physical status of the patient was re-assessed after the procedure. After obtaining informed consent, the endoscope was passed under direct vision. Throughout the procedure, the patient's blood pressure, pulse, and oxygen saturations were monitored continuously. The Endoscope was introduced through the mouth, and advanced to the jejunum. Small bowel enteroscopy was deemed necessary. The upper GI endoscopy was accomplished without difficulty. The patient tolerated the procedure well. Scope In: 8:07:12 PM Scope Out: 8:09:12 PM Total Procedure Duration Time 0 hours 2 minutes 0 seconds Findings: The examined esophagus was normal. No gross lesions were noted in the entire examined stomach. No gross lesions were noted in the entire examined duodenum. Impression: - Normal esophagus. - No gross lesions in the entire stomach. - No gross lesions in the entire examined duodenum. - No specimens collected. Recommendation: - Return patient to referring hospital for ongoing care. - Advance diet as tolerated. - Continue present medications. Procedure Code(s): --- Professional --- 95822, Small intestinal endoscopy, enteroscopy beyond second portion of duodenum, not including ileum; diagnostic, including collection of specimen(s) by brushing or washing, when performed (separate procedure) CPT copyright 2021 [employer]. All rights reserved. The codes documented in this report are preliminary and upon supervisor nuclear medicine review may be revised to meet current compliance requirements. Tony Gentile DO 06/13/2025 8:15:15 PM This report has been signed electronically. Number of Addenda: 0 Note Initiated On: 06/13/2025 7:33 PM
--- NOTE | 2025-06-13 20:16 | OP.PROVAT_ITS ---
06/13/2025 [facility] Re : Upper GI endoscopy procedure for Elida Maldonado This procedure was performed on Friday, June 13, 2025. My impressions and recommendations are as follows: Impressions : - Normal esophagus. - No gross lesions in the entire stomach. - No gross lesions in the entire examined duodenum. - No specimens collected. Recommendations : - Return patient to referring hospital for ongoing care. - Advance diet as tolerated. - Continue present medications. My findings are described in the full procedure note, which is enclosed. If I can be of further assistance, please feel free to contact me at . Sincerely, Tony Gentile, 06/13/2025 8:15:15 PM This report has been signed electronically.
--- NOTE | 2025-06-13 20:18 | PCM.POST.ANE ---
Anesthesia: Postop Eval I Current Vital Signs Temperature: 97.3 F Pulse Rate: 77 Blood Pressure: 101/53 Respiratory Rate: 16 Pulse Ox: 97 Oxygen Delivery Method: Nasal Cannula Assessment Airway patent: Yes Spontaneous unlabored respirations: Yes Mental status: Awake and Calm nausea: No Vomiting: No Anesthesia Complication: No Fluid Hydration Crystalloid volume administer (ml): 100 Total IV fluid infused: 100 Progress Note Anesthesia document: Postop Eval 1 completed: Yes
--- NOTE | 2025-06-13 22:21 | PCM.POSTANE2 ---
Anesthesia Postop Eval I Sum Postop Eval Completion status Anesthesia document: Postop Eval 1 completed: Yes Anesthesia Postop Eval I Summary Anesthesia Postop Eval I Summary: Anesthesia Postop Eval I: Assessment Summary Airway patent Yes 06/13/25 20:20 Spontaneous unlabored Yes 06/13/25 20:20 respirations Mental status Awake,Calm 06/13/25 20:20 nausea No 06/13/25 20:20 Vomiting No 06/13/25 20:20 Anesthesia Postop Eval I: Fluid Summary Crystalloid volume administer 100 06/13/25 20:20 (ml) Colloids volume administered ( ml) Blood Product volume administered (ml) Total IV fluid infused 100 06/13/25 20:20 Anesthesia Postop Eval I: Summary Notes Anesthesia Complication No 06/13/25 20:20 Anesthesia Complication Comment: Post-operative progress note Anesthesia: Postop Eval II Evaluation Mental status: Awake and Calm Pain Level: 0 nausea: No Vomiting: No Complications Anesthesia Complication: No
== END 2025-06-13 20:38 | disposition home or self-care (01) ==
LOC: EN 17:03 → AC 17:06
PROVIDERS: PCP Internal Medicine; Referring Provider Internal Medicine; Visit Provider Internal Medicine Gastroenterology
PROC: 0DJD8ZZ Inspection of Lower Intestinal Tract, Via Natural or Artificial Opening Endoscopic (ICD-10-PCS; CPT 45378; principal; 2025-06-13 19:10)
DX: K92.2 Gastrointestinal hemorrhage, unspecified (principal); G20.A1 Parkinson's disease without dyskinesia, without mention of fluctuations; J44.9 Chronic obstructive pulmonary disease, unspecified; I48.91 Unspecified atrial fibrillation; D62 Acute posthemorrhagic anemia; F17.200 Nicotine dependence, unspecified, uncomplicated; E78.5 Hyperlipidemia, unspecified; I25.10 Atherosclerotic heart disease of native coronary artery without angina pectoris; Z79.01 Long term (current) use of anticoagulants; I25.2 Old myocardial infarction; F32.A Depression, unspecified; Z79.899 Other long term (current) drug therapy; Z79.51 Long term (current) use of inhaled steroids; Z90.710 Acquired absence of both cervix and uterus
CPT/HCPCS: 44360; J2405

== ENCOUNTER 2025-09-05 13:34 | Inpatient (IN) | payer MEDICARE, SELFPAY ==
[2025-09-05] VITALS (27 sets, daily range): BP systolic 86–125; BP diastolic 45–86; PULSE 70–92; RESP 12–27; TEMP 36.2–36.9; O2SAT 92–100; BMI 32.5; BMI 32.2
[2025-09-05 14:06] LABS: Hematocrit 16.7 % (37-47); Immature Granulocytes Count 0.030 X10^3/uL (0.0-0.0); Mean Corp Hgb Conc 25.1 g/dL (32-36); Mean Corpuscular Volume 86.5 fL (81-99); Mean Platelet Vol. 11.7 fl (6.2-12.0); NRBC Flagged by Analyzer 0 % (0-5); POSITIVE COUNT YES; Platelet Count 311 K/mm3 (150-450); RBC Distribution Width CV 19.6 % (11.6-14.6); RBC Distribution Width SD 60.9 fl (35.1-43.9); Red Blood Count 1.93 M/mm3 (4.2-5.4); White Blood Count 7.2 K/mm3 (4.4-11.0)
[2025-09-05 14:11] LABS: Hemoglobin 4.2 g/dL (12.0-15.0)
[2025-09-05 14:20] LABS: Prothrombin Time (Protime)PT. 15.4 SECONDS (11.7-14.9)
[2025-09-05 14:21] LABS: Partial Thromboplast Time 26.0 Seconds (24.1-36.2)
[2025-09-05 14:50] LABS: AST(SGOT) 13 U/L (<=31); Alanine Aminotransfer ALT/SGPT < 5 U/L (<=34); Albumin, Serum 3.6 g/dL (3.4-4.8); Alkaline Phosphatase 65 U/L (35-104); Anion Gap 10 (7-18); BUN 6 mg/dL (4-19); BUN/Creat Ratio 9.3 RATIO (10-20); Bilirubin, Direct 0.12 mg/dL (0.00-0.30); Calcium,Total 8.6 mg/dL (7.6-11.0); Carbon Dioxide 24.0 mmol/L (20.0-29.0); Chloride 107 mmol/L (96-106); Estimated Creatinine Clearance 55.02 ml/min (50-250); Globulin 2.6 g/dL (2.2-4.2); Glucose 93 mg/dL (70-99); Potassium 4.1 mmol/L (3.5-5.1)
--- NOTE | 2025-09-05 15:03 | HP.PCM.HOS_ITS ---
HPI - General General Date of Admission: 09/05/25 Date of Service: 09/05/25 Chief Complaint: Hx chronic anemia, GI bleed, Hgb outpatient <5, referred to the ED. HPI Narrative The patient is a 74 y/o F w/ PMHx: CKD stage II versus stage I per GFR trending, Chronic pain syndrome, Anxiety and Depression, Hypothyroidism, Obesity, Tobacco use, HTN, HLD, IBS, Parkinson's disease, Chronic normocytic anemia/iron deficiency anemia, GERD w/ Hx GI bleed, PAF, CAD s/p PCI, COPD with chronic hypoxic respiratory failure (2.5 to 3L NC) and chronic steroid usage, Hx VTE (DVT, PE) who presents to the [facility] ED on 09/05/2025 with history of repeat labs indicating hemoglobin of 4.2 with no dark black stools or bloody stools or hematemesis with history of previous GI bleed requiring PRBC administration. Patient in the past had initially refused endoscopies and colonoscopies and was working with hospice but eventually changed her mind and had an endoscopy during a previous evaluation 05/2025. Follow-up also with hospice eventually notable for 06/2025 evaluation with patient decision for eventual allowance of colonoscopy but it appears this is yet to be done. From review of previous records most recent endoscopy on 06/13/2025 upper endoscopy with noted normal esophagus, no gross lesions in the entire stomach or duodenum with no specimens collected at that time. Workup in the ED included T97.2, heart rate 89, BP 108/53, respiratory rate 18, 96% on room air however note previously patient had been on 3 L nasal cannula possibly baseline, CBC with WBC 7.2, hemoglobin 4.2, MCV 86.5, platelets 311 without marked shift, coags with PT 15.4 otherwise not marked appearing, CMP chloride 107, BUN/Cr 6/0.69, GFR 90, hepatic profile unremarkable, type and cross for 4 units initiated per ED. [facility] Medical History Chronic hypoxic respiratory failure, on home oxygen therapy Tobacco abuse Hyperlipidemia Parkinson disease Irritable bowel syndrome Depression Coronary artery disease Atrial fibrillation Urinary tract infection Gastrointestinal bleed Myocardial infarct COPD (chronic obstructive pulmonary disease) Pulmonary emboli Home Medications ?Medication ?Instructions ?Recorded ?Last Taken ?Type albuterol sulfate 2.5 mg/3 mL 2.5 mg inhalation Q4-6H PRN 07/31/25 Unknown History (0.083 %) solution for nebulization shortness of breat h or wheezing apixaban 5 mg tablet (Eliquis) 5 mg PO BID 07/31/25 Un known History aspirin 81 mg tablet 81 mg PO QDAY 07/31/25 Unkno wn History bupropion HCl 300 mg 24 hr tablet, 300 mg PO QAM 07/31 Unknown History extended release carbidopa 25 mg-levodopa 100 mg 2 tab PO TID 07/31/25 Unknown History tablet (Sinemet) fluticasone propionate 50 1 spray intranasal QDAY 07/15 04/07 Unknown History mcg/actuation nasal spray,suspension prednisone 10 mg tablet 10 mg PO DAILY 07/31/25 Unkn own History pregabalin 300 mg capsule (Lyrica) 300 mg PO BID 07/31 Unknown History rosuvastatin 40 mg tablet 40 mg PO QDAY 07/31/25 Unkno wn History sertraline 100 mg tablet (Zoloft) 100 mg PO QDAY 07/31 Unknown History torsemide 100 mg tablet 100 mg PO QDAY PRN Swelling 07/31/25 Unknown History umeclidinium 62.5 mcg-vilanterol 1 inh inhalation Q24H 07/31/25 Unknown History 25 mcg/actuation powdr for inhalation (Anoro Ellipta) hydrocodone-acetaminophen 5-325mg 1 tab PO TID PRN greg n 09/05/25 Unknown History 5mg-325mg morphine 20 mg capsule,extended 20 mg PO BID PRN PRN p ain 09/05/25 Unknown History release pellets trazodone 100 mg tablet 100 mg PO QHS PRN PRN insomn ia 09/05/25 Unknown History Allergy/AdvReac Type Severity Reaction Status Date / Time No Known Allergies Allergy Verified 09/05/25 13:37 Family History Mother Cancer Father Heart disease Surgical History History of hysterectomy History of back surgery Stented coronary artery Social History household members: none Smoking Status: Heavy Smoker (>10/day) alcohol intake: never substance use type: does not use ROS ROS Narrative Admission Review of Systems: CONSTITUTIONAL: No weight loss, fever, chills, + weakness or fatigue. HEENT: Eyes: No visual loss, blurred vision, double vision or yellow sclerae. Ears, Nose, Throat: No hearing loss, sneezing, congestion, runny nose or sore throat. SKIN: No rash or itching, lesions, wounds. CARDIOVASCULAR: No chest pain, chest pressure or chest discomfort, palpitations, edema, orthopnea, syncopal events. RESPIRATORY: No shortness of breath, cough or sputum, wheezing, hemoptysis. GASTROINTESTINAL: No anorexia, nausea, vomiting or diarrhea, abdominal pain, melena, BRBPR. GENITOURINARY: No dysuria, frequency, urgency or retention. NEUROLOGICAL: No headache, dizziness, syncope, paralysis, ataxia, numbness or tingling in the extremities, focal weakness, change in bowel or bladder control, seizure. MUSCULOSKELETAL: + muscle, back pain, joint pain or stiffness. HEMATOLOGIC: + Chronic anemia, easy bleeding/bruising. LYMPHATICS: No enlarged nodes. No history of splenectomy. PSYCHIATRIC: + Hx anxiety and depression. ENDOCRINOLOGIC: No reports of sweating, cold or heat intolerance. No polyuria or polydipsia. ALLERGIES: + Hx allergic rhinitis. Patient's Goals Of Care . What would you like to achieve or improve as a result of your hospital stay?: R eceived 2 PRBC, undergo a colonoscopy in extremely timely fashion to be home for [facility] Vital Signs Vital Signs Vital Signs: 09/05/25 13:35 09/05/25 14:06 09/05/25 14:34 Temperature 97.2 F L Temperature Source Temporal Pulse Rate 89 89 Respiratory Rate 18 20 H Respiratory Effort Normal Respiratory Pattern Normal Blood Pressure 108/53 L 111/50 L Blood Pressure Mean 71 70 Pulse Ox 96 97 Oxygen Delivery Method Room Air Room Air Weight Weight: 170 lb 10.205 oz Body Mass Index (BMI) 32.5 Physical Exam Narrative Physical Examination: General: Awake, alert, oriented x 3 and cooperative, seated upright in the ED bed, pale, fatigued appearing but no acute distress. Skin: Pale color, normal turgor, no icterus, no cyanosis with occasional stage ecchymoses, abrasion. HEENT: AT/NC, EOMI, PERRLA, MMM, no carotid bruits or JVD noted. Lungs: Mildly diminished, greater bases, appropriate effort, nasal cannula chronic supplementation in place, no rales, ronchi or wheezing. Heart: Regular rate and rhythm; no gallop, rub audible. Abdomen: Soft, obese, NTTP, ND, mildly hyperactive BS, no markedly appreciated HSM. Extremities: No cyanosis, clubbing, or edema. Neurological: Patient awake, alert, oriented as noted, cognitive function intact; pupils equally reactive to light and accommodation, cranial nerves grossly normal, moving all 4 extremities, no focal deficits, strength moderately to severely globally decreased secondary to acute presentation complaints. Psychiatric: Affect appears mildly flat, fatigued, no acute evidence of depressive or anxiety feelings but does have underlying history. Results Lab / Micro Data 09/05/25 13:56 09/05/25 13:56 Labs: Laboratory Results - last 24 hr 09/05/25 13:56: WBC 7.2, RBC 1.93 L, Hgb 4.2 L*, Hct 16.7 L, MCV 86.5, MCH 21.8 L, MCHC 25.1 L, RDW Std Deviation 60.9 H, RDW Coeff of Anabela 19.6 H, Plt Count 311, MPV 11.7, Immature Gran % (Auto) 0.400, Neut % (Auto) 60.0, Lymph % (Auto) 19.6, [place] % (Auto) 8.2, Eos % (Auto) 11.0 H, Baso % (Auto) 0.8, Absolute Neuts (auto) 4.3, Absolute Lymphs (auto) 1.41, Nucleated RBC % 0, PT 15.4 H, INR 1.2, APTT 26.0, Sodium 141, Potassium 4.1, Chloride 107 H, Carbon Dioxide 24.0, Anion Gap 10, BUN 6, Creatinine 0.69 L, Estim Creat Clear Calc 55.02, Est GFR (MDRD) Non-Af 90, BUN/Creatinine Ratio 9.3 L, Glucose 93, Calcium 8.6, Total Bilirubin 0.19, Direct Bilirubin 0.12, AST 13, ALT < 5, Alkaline Phosphatase 65, Total Protein 6.2, Albumin 3.6, Globulin 2.6, Blood Type A POSITIVE, Antibody Screen NEGATIVE, Crossmatch See Detail Micro: Microbiology 09/05/25 14:20 Stool Stool Occult Blood (IVELISSE) - Final Occult Blood Positive Assessment & Plan Assessment/Plan (1) GI bleed: (2) Acute blood loss anemia: PLAN: Plan The patient is a 74 y/o F w/ PMHx: CKD stage II versus stage I per GFR trending, Chronic pain syndrome, Anxiety and Depression, Hypothyroidism, Obesity, Tobacco use, HTN, HLD, IBS, Parkinson's disease, Chronic normocytic anemia/iron deficiency anemia, GERD w/ Hx GI bleed, PAF, CAD s/p PCI, COPD with chronic hypoxic respiratory failure (2.5 to 3L NC) and chronic steroid usage, Hx VTE (DVT, PE) who presents to the [facility] ED on 09/05/2025 with history of repeat labs indicating hemoglobin of 4.2 with no dark black stools or bloody stools or hematemesis with history of previous GI bleed requiring PRBC administration. #1. Acute presumed GI Bleed w/ resultant Acute Blood Loss Anemia on chronic/chronic iron-deficiency anemia: Although suspect likely chronic component with stable vital signs given hemoglobin level with positive guaiac per protocol will admit to the ICU, will consult retail clerk per protocol, while awaiting PRBC will maintain on judicious IVFs, will obtain iron panel, ferritin with plan to also initiate IV iron therapy, will continue with plan PRBC administration initiated per ED, continue to obtain serial H&H assessments, continue on Protonix drip, will allow clears until midnight with n.p.o. status following with consultation discussed with gastroenterology given at this time patient would benefit also from colonoscopy and will need prep. Patient notable concern about admission, initially hesitant to stay; however, discussed with Dr. Gentile and will plan for scope 09/06/25. #2. CAD: Status post previous PCI, holding aspirin and apixaban given current presentation, continue statin therapy, not on beta-abhay nor KENNEDY inhibitor/ARB, clarified to be certain. #3. Chronic COPD with chronic hypoxic respiratory failure (2.5 to 3L NC) chronic prednisone therapy usage: Continue home oxygen chronic supplementation, Will temporarily hold home inhalers in the interim transition to ATC DuoNeb therapy cautiously with low threshold to transition to budesonide if issues arise, PRN albuterol, HOB, IS parameters. Patient of note is on chronic 10 mg daily of prednisone therapy. #4. PAF: Given acute presentation holding apixaban, not on any rate or rhythm agent currently clarified to be certain. #5. Hypertension: Noted history, per current list not on any hypertensive regimen aside from as needed torsemide for swelling, clarified to be certain will add if appropriate, as needed IV hydralazine in the interim. #6. Hyperlipidemia: Will continue patient on statin therapy. #7. Parkinson's disease: Complicates presentation, maintain on fall precautions, will continue Sinemet regimen, PT/OT/case management consulted for discharge planning. #8. Anxiety and depression: Will continue patient home bupropion and sertraline home regimen. #9. Hypothyroidism: Noted history, clarifying thyroid supplementation is not currently listed, add once able to obtain. TSH/FT4 requested. #10. Tobacco Abuse: Encouraged cessation, inpatient consultation per RT, NR if desired. #11. Obesity: Weight loss and lifestyle changes encouraged. #12. History of VTE: Patient with previous DVT, PE, at this time temporarily holding Eliquis given concern for recurrent GI bleed component as noted #1. Attempting to clarify date given need to hold anticoagulant. Given history may also require consideration of IVCF and d/c NOAC. SCDs will be continued. #13. GERD with history GI bleed: As noted above will maintain on continuous Protonix given situation. #14. Chronic pain syndrome: Following w/ Hospice, on several pain medications including pregabalin as well as oral morphine, clarifying to ensure these are still ongoing and we will continue to avoid any withdrawal. Will however hold if concern for BP or respiratory suppression or encephalopathy. #15. Chronic Kidney Disease Stage I versus stage II per GFR trending: Admission BUN/Cr 6/0.69, GFR 90, GFR tends to vacillate on the upper 80s to low 90 range, baseline renal function primarily 0.6-0.8, repeat BMP in AM. #16. DVT prophylaxis: SCDs, holding anticoagulant therapy given acute presentation as noted #1. #17. CODE status: Patient MARCELLA is her significant other and living will is currently in place. DNR-CCA, no intubation. Charges/Coding Visit Charges Inpatient E&M: 41558 Init Hosp L3
--- NOTE | 2025-09-05 15:12 | EX.ED.DYSGE1 ---
HPI History of Present Illness Chief Complaint: Abn Labs Informant: patient and family Narrative Narrative: 74-year-old female on Eliquis presenting to the emergency room with abnormal lab. Patient states she had a hemoglobin level drawn yesterday returned today so sent to emergency by primary care physician. Patient states for the past several weeks she has felt generally unwell and fatigued. No syncope. No chest pain. She was admitted into outside hospital apparently earlier this year and was found to be profoundly anemic with a hemoglobin level of 3. She was transfused. She refused colonoscopy at that time. She has had a upper endoscopy with Dr. Gentile and is supposed to be scheduled for a colonoscopy has not yet happened. She states that her stool has been formed and brown. She denies any abdominal pain. She has not seen any bright red blood. [facility] Medical History Tobacco abuse Hyperlipidemia Parkinson disease Irritable bowel syndrome Depression Coronary artery disease Atrial fibrillation Urinary tract infection Gastrointestinal bleed Myocardial infarct COPD (chronic obstructive pulmonary disease) Pulmonary emboli Home Medications ?Medication ?Instructions ?Recorded ?Last Taken ?Type albuterol sulfate 2.5 mg/3 mL 2.5 mg inhalation Q4-6H PRN 07/31/25 Unknown History (0.083 %) solution for nebulization shortness of breath or wheezing apixaban 5 mg tablet (Eliquis) 5 mg PO BID 07/31/25 Unknown History aspirin 81 mg tablet 81 mg PO QDAY 07/31/25 Unknown History bupropion HCl 300 mg 24 hr tablet, 300 mg PO QAM 07/31/25 Unknown History extended release carbidopa 25 mg-levodopa 100 mg 2 tab PO TID 07/31/25 Unknown History tablet (Sinemet) fluticasone propionate 50 1 spray intranasal QDAY 07/31/25 Unknown History mcg/actuation nasal spray,suspension prednisone 10 mg tablet 10 mg PO DAILY 07/31/25 Unknown History pregabalin 300 mg capsule (Lyrica) 300 mg PO BID 07/31/25 Unknown History rosuvastatin 40 mg tablet 40 mg PO QDAY 07/31/25 Unknown History sertraline 100 mg tablet (Zoloft) 100 mg PO QDAY 07/31/25 Unknown History torsemide 100 mg tablet 100 mg PO QDAY PRN Swelling 07/31/25 Unknown History umeclidinium 62.5 mcg-vilanterol 1 inh inhalation Q24H 07/31/25 Unknown History 25 mcg/actuation powdr for inhalation (Anoro Ellipta) hydrocodone-acetaminophen 5-325mg 1 tab PO TID PRN pain 09/05/25 Unknown History 5mg-325mg morphine 20 mg capsule,extended 20 mg PO BID PRN PRN pain 09/05/25 Unknown History release pellets trazodone 100 mg tablet 100 mg PO QHS PRN PRN insomnia 09/05/25 Unknown History Allergy/AdvReac Type Severity Reaction Status Date / Time No Known Allergies Allergy Verified 09/05/25 13:37 Surgical History History of hysterectomy History of back surgery Stented coronary artery Social History household members: none Smoking Status: Heavy Smoker (>10/day) alcohol intake: never substance use type: does not use ROS ROS ED ROS Narrative Generalized weakness Constitutional Constitutional ED: Denies chills or weight loss Eyes Eyes: Denies change in vision or diplopia ENT ENT ED: Denies ear pain, rhinorrhea or sore throat Cardiovascular Cardiovascular: Denies chest pain, orthopnea, palpitations or racing heartbeat Respiratory/Chest Respiratory/Chest: Denies cough, dyspnea or orthopnea Gastrointestinal Gastrointestinal: Denies abdominal pain, diarrhea, nausea or vomiting Genitourinary Genitourinary ED: Denies dysuria, hematuria or urinary frequency Musculoskeletal Musculoskeletal: Denies arthralgias or myalgias Integumentary Denies abscess or rash Neurologic Neurologic: Denies headache(s) or weakness Psychiatric Psychiatric: Denies anxiety, depression, suicidal ideation or suicidal thoughts Endocrine Endocrinology: Denies polydipsia, polyphagia or polyuria Allergic/Immunologic Allergic/Immunologic ED: Denies mouth swelling, tongue swelling or urticaria EXAM Physical Exam Const Vital Signs: 09/05/25 13:35 09/05/25 14:06 09/05/25 14:34 Temperature 97.2 F L Temperature Source Temporal Pulse Rate 89 89 Respiratory Rate 18 20 H Respiratory Effort Normal Respiratory Pattern Normal Blood Pressure 108/53 L 111/50 L Blood Pressure Mean 71 70 Pulse Ox 96 97 Oxygen Delivery Method Room Air Room Air Positive well nourished and well developed General Appearance ED: well developed HEENT Reports normocephalic, head/scalp atraumatic and moist mucous membranes Eyes PERRL and EOMs intact bilaterally Neck no lymphadenopathy, supple and no JVD Resp normal respiratory effort and clear to auscultation bilaterally Cardio regular rate, regular rhythm and no murmurs GI normal to inspection, nondistended, normoactive bowel sounds and non-tender Palpation: soft Narrative: Rectal examination performed in presence of female RN. Stool is brown and formed. No gross blood. Back/Spine no CVA tenderness and normal ROM Extremity normal to inspection General Extremety ED: Negative for edema General Extremity: Negative for edema Neuro oriented x3 and CN's II-XII intact bilaterally Sensorium / Orientation: alert Motor Exam: strength 5/5 throughout Psych mental status grossly normal Mood & Affect: Negative for depressed or tearful Skin no rashes or lesions noted and no wounds MDM MDM MDM Narrative Medical decision making narrative: Differential diagnosis includes but not limited to upper and lower GI bleed acute blood loss anemia requiring transfusion acute kidney injury iron deficiency anemia bone marrow failure coagulopathy Hemoglobin was confirmed at 4.2 MCV of 86.5 platelet count 311 white count 7.2. RDW 19.6. INR 1.2 PTT 26. BUN 6 creatinine 0.69 normal LFTs. Patient was typed and crossmatched for 3 units. The patient's hemoglobin is positive. I will speak with the hospitalist regarding admission History & Record Review Discussion w/independent historian: Patient and Family Additional record(s) reviewed:: Prior inpatient record, Prior outpatient record, Prior ED visit and Prior labs Lab Data Attestation: I reviewed the patient's lab results. Labs: Laboratory Results - last 24 hr 09/05/25 13:56 WBC 7.2 RBC 1.93 L Hgb 4.2 L* Hct 16.7 L MCV 86.5 MCH 21.8 L MCHC 25.1 L RDW Std Deviation 60.9 H RDW Coeff of Anabela 19.6 H Plt Count 311 MPV 11.7 Immature Gran % (Auto) 0.400 Neut % (Auto) 60.0 Lymph % (Auto) 19.6 Wright % (Auto) 8.2 Eos % (Auto) 11.0 H Baso % (Auto) 0.8 Absolute Neuts (auto) 4.3 Absolute Lymphs (auto) 1.41 Nucleated RBC % 0 PT 15.4 H INR 1.2 APTT 26.0 Sodium 141 Potassium 4.1 Chloride 107 H Carbon Dioxide 24.0 Anion Gap 10 BUN 6 Creatinine 0.69 L Estim Creat Clear Calc 55.02 Est GFR (MDRD) Non-Af 90 BUN/Creatinine Ratio 9.3 L Glucose 93 Calcium 8.6 Total Bilirubin 0.19 Direct Bilirubin 0.12 AST 13 ALT < 5 Alkaline Phosphatase 65 Total Protein 6.2 Albumin 3.6 Globulin 2.6 Blood Type A POSITIVE Antibody Screen NEGATIVE Crossmatch See Detail Management Discussion w/another healthcare provider: Hospitalist (Dr. Garcia) Discharge Plan Triage Chief Complaint: Abn Labs ED Provider: Gilberto Mcfarlane Dx/Rx/DC Orders Prescriptions: No Action prednisone 10 mg tablet 10 mg PO DAILY albuterol sulfate 2.5 mg /3 mL (0.083 %) solution for nebulization 2.5 mg inhalation Q4-6H PRN (Reason: shortness of breath or wheezing) aspirin 81 mg tablet 81 mg PO QDAY carbidopa-levodopa [Sinemet] 25-100 mg tablet 2 tab PO TID fluticasone propionate 50 mcg/actuation spray,suspension 1 spray intranasal QDAY Rx Instructions: administer into each nostril bupropion HCl 300 mg tablet extended release 24 hr 300 mg PO QAM pregabalin [Lyrica] 300 mg capsule 300 mg PO BID Eliquis 5 mg tablet 5 mg PO BID sertraline [Zoloft] 100 mg tablet 100 mg PO QDAY torsemide 100 mg tablet 100 mg PO QDAY PRN (Reason: Swelling) rosuvastatin 40 mg tablet 40 mg PO QDAY umeclidinium-vilanterol [Anoro Ellipta] 62.5-25 mcg/actuation blister with device 1 inh inhalation Q24H hydrocodone-acetaminophen 5-325 mg tablet 1 tab PO TID PRN (Reason: pain) trazodone 100 mg tablet 100 mg PO QHS PRN PRN (Reason: insomnia) morphine 20 mg capsule,extend.release pellets 20 mg PO BID PRN PRN (Reason: pain) Primary Care Provider: Kelsey Arora Referrals: Kelsey Arora MD [Primary Care Provider, Medical] Print Language: Northern Irish
--- NOTE | 2025-09-05 16:09 | ED.RN ---
in TAR documentation this RN accidentally documented pre meds were given before transfusion. pre meds were not given prior to this blood transfusion
[2025-09-05 16:19] LABS: Ferritin 16 ng/mL (22-378); Iron 10 ug/dL (50-170); Iron Binding Capacity,Total 376 ug/dL (250-450); Iron Binding Capacity,Unsat 366 ug/dL (228-428); Magnesium 2.3 mg/dL (1.5-2.2)
--- NOTE | 2025-09-05 19:17 | CON.PCM.GI_ITS ---
HPI Consult Data Date of Consult: 09/05/25 HPI Narrative HPI Narrative: GERALD ROUSE is a 74-year-old woman with a history of atrial fibrillation (on Eliquis), fatigue, weakness, shortness of breath, and previous GI bleeds requiring packed red blood cell (PRBC) transfusions [1]. She was recently discharged from a TCU after rehabilitation following a GI bleed and now presents to the [facility] ED today, 09/05/2025. She reports no dark black stools, bloody stools, or hematemesis. Her symptoms of fatigue and weakness persist.? * Labs: Hemoglobin level noted at 4.2 g/dL (a significant decline from previous levels of 10.0 g/dL and 6.8 g/dL during her recent TCU stay) [1]. * Imaging/Procedures: * Previous upper endoscopy (during the TCU stay) revealed no gross lesions in the esophagus, stomach, or duodenum [1]. * The patient previously refused endoscopic evaluations but later consented to the upper endoscopy and eventually allowed for a colonoscopy which is yet to be performed I was consulted to evaluate the patient's lower GI tract for signs of acute or chronic blood loss anemia. [facility] Medical History CVA (cerebral vascular accident) Chronic hypoxic respiratory failure, on home oxygen therapy Tobacco abuse Hyperlipidemia Parkinson disease Irritable bowel syndrome Depression Coronary artery disease Atrial fibrillation Urinary tract infection Gastrointestinal bleed Myocardial infarct COPD (chronic obstructive pulmonary disease) Home Medications ?Medication ?Instructions ?Recorded ?Last Taken ?Type albuterol sulfate 2.5 mg/3 mL 2.5 mg inhalation Q4-6H PRN 07/31/25 Unknown History (0.083 %) solution for nebulization shortness of breat h or wheezing apixaban 5 mg tablet (Eliquis) 5 mg PO BID 07/31/25 Un known History aspirin 81 mg tablet 81 mg PO QDAY 07/31/25 Unkno wn History bupropion HCl 300 mg 24 hr tablet, 300 mg PO QAM 07/31 Unknown History extended release carbidopa 25 mg-levodopa 100 mg 2 tab PO TID 07/31/25 Unknown History tablet (Sinemet) fluticasone propionate 50 1 spray intranasal QDAY 07/15 04/07 Unknown History mcg/actuation nasal spray,suspension prednisone 10 mg tablet 10 mg PO DAILY 07/31/25 Unkn own History pregabalin 300 mg capsule (Lyrica) 300 mg PO BID 07/31 Unknown History rosuvastatin 40 mg tablet 40 mg PO QDAY 07/31/25 Unkno wn History sertraline 100 mg tablet (Zoloft) 100 mg PO QDAY 07/31 Unknown History torsemide 100 mg tablet 100 mg PO QDAY PRN Swelling 07/31/25 Unknown History umeclidinium 62.5 mcg-vilanterol 1 inh inhalation Q24H 07/31/25 Unknown History 25 mcg/actuation powdr for inhalation (Anoro Ellipta) hydrocodone-acetaminophen 5-325mg 1 tab PO TID PRN greg n 09/05/25 Unknown History 5mg-325mg morphine 20 mg capsule,extended 20 mg PO BID PRN PRN p ain 09/05/25 Unknown History release pellets trazodone 100 mg tablet 100 mg PO QHS PRN PRN insomn ia 09/05/25 Unknown History Allergy/AdvReac Type Severity Reaction Status Date / Time No Known Allergies Allergy Verified 09/05/25 13:37 Family History Mother Cancer Father Heart disease Surgical History History of back surgery Stented coronary artery Social History household members: none Smoking Status: Heavy Smoker (>10/day) alcohol intake: never substance use type: does not use ROS Constitutional Constitutional: Denies fatigue, fever(s), poor appetite, weight gain or weight loss Gastrointestinal Gastrointestinal: Denies belching, bloating, change in bowel habits, change in stool character, chewing difficulty, coffee ground emesis, constipation, cramping, diarrhea, dyspepsia, dysphagia, early satiety, excessive flatus, fecal incontinence, heartburn, hematemesis, hematochezia, hemorrhoids, loose stools, melena, nausea, odynophagia, rectal bleeding, tenesmus, vomiting or weight changes Physical Exam Const alert, oriented x3, no apparent distress and healthy appearing General Appearance: cooperative GI normal to inspection, nondistended, normoactive bowel sounds, soft to palpation, non-tender and non-distended Percussion: normal to percussion Rectal Exam: deferred Lab / Micro Data 09/05/25 13:56 09/05/25 13:56 Labs: Laboratory Results - last 24 hr 09/05/25 13:56: WBC 7.2, RBC 1.93 L, Hgb 4.2 L*, Hct 16.7 L, MCV 86.5, MCH 21.8 L, MCHC 25.1 L, RDW Std Deviation 60.9 H, RDW Coeff of Anabela 19.6 H, Plt Count 311, MPV 11.7, Immature Gran % (Auto) 0.400, Neut % (Auto) 60.0, Lymph % (Auto) 19.6, Wilcox % (Auto) 8.2, Eos % (Auto) 11.0 H, Baso % (Auto) 0.8, Absolute Neuts (auto) 4.3, Absolute Lymphs (auto) 1.41, Nucleated RBC % 0, PT 15.4 H, INR 1.2, APTT 26.0, Sodium 141, Potassium 4.1, Chloride 107 H, Carbon Dioxide 24.0, Anion Gap 10, BUN 6, Creatinine 0.69 L, Estim Creat Clear Calc 55.02, Est GFR (MDRD) Non-Af 90, BUN/Creatinine Ratio 9.3 L, Glucose 93, Calcium 8.6, Magnesium 2.3 H, Iron 10 L, TIBC 376, Iron Saturation 2.7 L, Unsaturated IBC 366, Ferritin 16 L, Total Bilirubin 0.19, Direct Bilirubin 0.12, AST 13, ALT < 5, Alkaline Phosphatase 65, Total Protein 6.2, Albumin 3.6, Globulin 2.6, Blood Type A POSITIVE, Antibody Screen NEGATIVE, Crossmatch See Detail Micro: Microbiology 09/05/25 14:20 Stool Stool Occult Blood (IVELISSE) - Final Occult Blood Positive Assessment & Plan Assessment/Plan (1) Acute blood loss anemia: (2) GI bleed: PLAN: 74-year-old female with severe, symptomatic anemia secondary to chronic, ongoing, and obscure GI blood loss .? * Severe Anemia (Hgb 4.2 g/dL): Likely exacerbated by persistent GI bleeding, leading to significant fatigue, weakness, and shortness of breath . * Ongoing GI Bleed of Unknown Origin: Upper endoscopy was normal, suggesting the source is likely in the lower GI tract or small bowel . The patient denies overt signs of bleeding (melena, hematochezia, hematemesis). * History of Atrial Fibrillation on Eliquis: The use of anticoagulation likely contributes to the severity and persistence of bleeding . * Patient/Family Dynamic: History of initial refusal of procedures and hospice involvement suggests complex decision-making around goals of care.? Plan: * Immediate Stabilization: Continue resuscitation efforts in the ED with intravenous fluids and further PRBC transfusions as clinically indicated to stabilize hemoglobin levels. * Diagnostic Workup: Proceed with a colonoscopy to investigate the lower GI tract as the likely source of bleeding, given the negative upper endoscopy. I discussed d the possible findings and risks/benefits of further investigation (e.g., small bowel capsule endoscopy, CT angiography) if the colonoscopy is negative. * Medications: Hold Eliquis temporarily in consultation with the patient's cardiology team to mitigate ongoing bleeding risk, while balancing the risk of thrombotic events in the setting of atrial fibrillation. * Goals of Care Discussion: Re-engage the patient and family in discussions regarding goals of care, considering her history with hospice and the severity of her condition, to ensure alignment of medical interventions with her wishes Portions of this note were generated using voice recognition software ([employer]). I have reviewed the contents and every effort has been made to ensure accuracy; however, inadvertent errors in grammar, spelling, punctuation, or word choice may occur, that were not noted before signing the document and should not alter the intended clinical meaning. Charges/Coding Visit Charges Inpatient E&M: 15781 Init Hosp L3
[2025-09-05] MEDS: Polyethylene Glycol 3350 BOWEL PREP PO (20:26)
[2025-09-05] MEDS: Iron Sucrose Complex 200 MG in 0.9% Normal Saline (100mL Bag) 100 ML 220 MG IV (20:35)
[2025-09-05 23:28] LABS: Hematocrit 23.0 % (37-47); Hemoglobin 6.8 g/dL (12.0-15.0)
[2025-09-06] VITALS (23 sets, daily range): BP systolic 85–125; BP diastolic 40–85; PULSE 71–94; RESP 15–30; TEMP 36.4–37; O2SAT 92–98; BMI 31.8
[2025-09-06] MEDS: 0.9% Saline Lock 10 ML Syringe IV ×3 (01:53→09:11)
[2025-09-06 02:16] LABS: Hematocrit 25.6 % (37-47); Hemoglobin 7.6 g/dL (12.0-15.0)
[2025-09-06 06:03] LABS: Hematocrit 25.6 % (37-47); Hemoglobin 7.9 g/dL (12.0-15.0); Immature Granulocytes Count 0.040 X10^3/uL (0.0-0.0); Mean Corp Hgb Conc 30.9 g/dL (32-36); Mean Corpuscular Volume 83.4 fL (81-99); Mean Platelet Vol. 11.2 fl (6.2-12.0); NRBC Flagged by Analyzer 0.3 % (0-5); Platelet Count 226 K/mm3 (150-450); RBC Distribution Width CV 17.0 % (11.6-14.6); RBC Distribution Width SD 51.3 fl (35.1-43.9); Red Blood Count 3.07 M/mm3 (4.2-5.4); White Blood Count 7.1 K/mm3 (4.4-11.0)
[2025-09-06 06:38] LABS: AST(SGOT) 14 U/L (<=31); Alanine Aminotransfer ALT/SGPT < 5 U/L (<=34); Albumin, Serum 3.2 g/dL (3.4-4.8); Alkaline Phosphatase 64 U/L (35-104); Anion Gap 9 (7-18); BUN 6 mg/dL (4-19); BUN/Creat Ratio 10.8 RATIO (10-20); Calcium,Total 8.2 mg/dL (7.6-11.0); Carbon Dioxide 25.3 mmol/L (20.0-29.0); Chloride 110 mmol/L (96-106); Estimated Creatinine Clearance 54.38 ml/min (50-250); Globulin 2.2 g/dL (2.2-4.2); Glucose 84 mg/dL (70-99); Potassium 3.8 mmol/L (3.5-5.1)
--- NOTE | 2025-09-06 06:51 | NUR.TO.PHY ---
[address] Keane of the patients HGB after the 3 units packed red blood cells were transfused. Waiting on physician for any new orders.
--- NOTE | 2025-09-06 07:39 | PN.HOSP_ITS ---
Reason for Visit Chief Complaint: Hx chronic anemia, GI bleed, Hgb outpatient <5, referred to the ED. Subjective Subjective Feeling fine currently. No further reported melena or hematochezia Objective Data Objective Data Vital Signs: Vital Signs Temp Pulse Resp BP Pulse Ox O2 Del Method O2 Flow Rate 37.0 C 77 21 H 108/51 L 94 Nasal Cannula 2 09/06/25 03:00 09/06/25 07:00 09/06/25 07:00 09/06/25 07:00 09/06/25 07:00 09/06/25 07:00 09/06/25 07:00 Oxygen Flow Rate (L/min) 2 Oxygen Delivery Method Nasal Cannula Weight: 75.7 kg Body Mass Index (BMI) 31.8 Intake & Output: Intake and Output for Last 24 Hours 09/04/25 09/05/25 09/06/25 23:59 23:59 23:59 Intake Total 2062 400 / 400 Balance 2062 400 / 400 Lab / Micro Data 09/06/25 05:50 09/06/25 05:50 Labs: Laboratory Results - last 24 hr 09/05/25 13:56: WBC 7.2, RBC 1.93 L, Hgb 4.2 L*, Hct 16.7 L, MCV 86.5, MCH 21.8 L, MCHC 25.1 L, RDW Std Deviation 60.9 H, RDW Coeff of Anabela 19.6 H, Plt Count 311, MPV 11.7, Immature Gran % (Auto) 0.400, Neut % (Auto) 60.0, Lymph % (Auto) 19.6, Dakota % (Auto) 8.2, Eos % (Auto) 11.0 H, Baso % (Auto) 0.8, Absolute Neuts (auto) 4.3, Absolute Lymphs (auto) 1.41, Nucleated RBC % 0, PT 15.4 H, INR 1.2, APTT 26.0, Sodium 141, Potassium 4.1, Chloride 107 H, Carbon Dioxide 24.0, Anion Gap 10, BUN 6, Creatinine 0.69 L, Estim Creat Clear Calc 55.02, Est GFR (MDRD) Non-Af 90, BUN/Creatinine Ratio 9.3 L, Glucose 93, Calcium 8.6, Magnesium 2.3 H, Iron 10 L, TIBC 376, Iron Saturation 2.7 L, Unsaturated IBC 366, Ferritin 16 L, Total Bilirubin 0.19, Direct Bilirubin 0.12, AST 13, ALT < 5, Alkaline Phosphatase 65, Total Protein 6.2, Albumin 3.6, Globulin 2.6, Blood Type A POSITIVE, Antibody Screen NEGATIVE, Crossmatch See Detail 09/05/25 23:00: Hgb 6.8 L, Hct 23.0 L 09/06/25 01:50: Hgb 7.6 L, Hct 25.6 L 09/06/25 05:50: WBC 7.1, RBC 3.07 L, Hgb 7.9 L, Hct 25.6 L, MCV 83.4, MCH 25.7 L , MCHC 30.9 L D, RDW Std Deviation 51.3 H, RDW Coeff of Anabela 17.0 H, Plt Count 226, MPV 11.2, Immature Gran % (Auto) 0.600, Neut % (Auto) 60.2, Lymph % (Auto) 19.4, Dakota % (Auto) 10.2 H, Eos % (Auto) 8.8 H, Baso % (Auto) 0.8, Absolute Neuts (auto) 4.3, Absolute Lymphs (auto) 1.37, Nucleated RBC % 0.3, Sodium 144, Potassium 3.8, Chloride 110 H, Carbon Dioxide 25.3, Anion Gap 9, BUN 6, C reatinine 0.56 L, Estim Creat Clear Calc 54.38, Est GFR (MDRD) Non-Af 95, BUN/Creatinine Ratio 10.8, Glucose 84, Calcium 8.2, Total Bilirubin 1.06, AST 14, ALT < 5, Alkaline Phosphatase 64, Total Protein 5.3 L, Albumin 3.2 L, Globulin 2.2, Albumin/Globulin Ratio 1.5, TSH 3.420, Free T4 1.20 Micro: Microbiology 09/05/25 14:20 Stool Stool Occult Blood (IVELISSE) - Final Occult Blood Positive Physical Exam Const alert and no apparent distress HEENT head/scalp atraumatic and moist oral mucous membranes Resp normal respiratory effort, no retractions, no use of accessory muscles and clear to auscultation bilaterally Cardio regular rate, regular rhythm, S1 normal heart sound and S2 normal heart sound GI normal to inspection, nondistended, normoactive bowel sounds, soft to palpation, non-tender and non-distended Extremity normal to inspection and full ROM Assessment & Plan Assessment/Plan (1) GI bleed: (2) Acute blood loss anemia: PLAN: Plan ABLA: * Hg 4.2 on admission, now up to 7.9 after transfusion of 3 units PRBCs. * monitor * 2/2 GI bleed GI bleed * GI consult with plan for endoscopy today * Patient did have EGD on 06/13 that was unremarkable. * start IV pantoprazole. Chronic medical conditions: * CAD: Status post previous PCI, holding aspirin and apixaban given current presentation, continue statin therapy, not on beta-abhay nor KENNEDY inhibitor/ARB, clarified to be certain. * Chronic COPD with chronic hypoxic respiratory failure (2.5 to 3L NC) chronic prednisone therapy usage: Continue home oxygen chronic supplementation, Will temporarily hold home inhalers in the interim transition to ATC DuoNeb therapy cautiously with low threshold to transition to budesonide if issues arise, PRN albuterol, HOB, IS parameters. Patient of note is on chronic 10 mg daily of prednisone therapy. * PAF: Given acute presentation holding apixaban, not on any rate or rhythm agent currently clarified to be certain. * Hypertension: Noted history, per current list not on any hypertensive regimen aside from as needed torsemide for swelling, clarified to be certain will add if appropriate, as needed IV hydralazine in the interim. * Hyperlipidemia: Will continue patient on statin therapy. * Parkinson's disease: Complicates presentation, maintain on fall precautions, will continue Sinemet regimen, PT/OT/case management consulted for discharge planning. * Anxiety and depression: Will continue patient home bupropion and sertraline home regimen. * Hypothyroidism: Noted history, clarifying thyroid supplementation is not currently listed, add once able to obtain. TSH/FT4 requested. * Tobacco Abuse: Encouraged cessation, inpatient consultation per RT, NR if desired. * Obesity class I: Weight loss and lifestyle changes encouraged. * History of VTE: Patient with previous DVT, PE, at this time temporarily holding Eliquis given concern for recurrent GI bleed component as noted #1. Attempting to clarify date given need to hold anticoagulant. Given history may also require consideration of IVCF and d/c NOAC. SCDs will be continued. * GERD with history GI bleed: As noted above will maintain on continuous Protonix given situation. * Chronic pain syndrome: Following w/ Hospice, on several pain medications including pregabalin as well as oral morphine, clarifying to ensure these are still ongoing and we will continue to avoid any withdrawal. Will however hold if concern for BP or respiratory suppression or encephalopathy. * Chronic Kidney Disease Stage I versus stage II per GFR trending: Admission BUN/Cr 6/0.69, GFR 90, GFR tends to vacillate on the upper 80s to low 90 range, baseline renal function primarily 0.6-0.8, repeat BMP in AM. DVT prophylaxis: SCDs Patient has remained stable and does not require being in the intensive care any further. No need for critical care consultation at this time. Charges/Coding Visit Charges Inpatient E&M: 50147 Subs Hosp L2
--- NOTE | 2025-09-06 08:59 | NURSING ---
This RN taking over care of pt at this time.
[2025-09-06] MEDS: 0.9% Normal Saline (250mL Bag) 250 ML 15 ML IV (09:11)
[2025-09-06] MEDS: Pantoprazole Sodium 40 MG in 0.9% Normal Saline (100mL MB+) 100 ML 300 MG IV (09:11)
--- NOTE | 2025-09-06 09:38 | CASEMGMT ---
Addendum entered by Remberto Barrera 09/06/25 09:41: [facility]'s on-call cath laboratory technician calls this RN CM and states that their offices are closed until Thursday due to the Holiday and that they do not have access to verify the pt's current orders until then. CM to follow. Original Note: Per ICU rounds, pt has home oxygen through [employer]. TC to [employer] who states that they will reach out to their on-call professional and will call this gag writer back with the pt's current orders.
--- NOTE | 2025-09-06 09:40 | NURSING ---
Pt off unit to endo for procedure.
[2025-09-06] MEDS: Lactated Ringers 1,000 ML 15 ML IV (10:05)
--- NOTE | 2025-09-06 10:07 | NURSING ---
Pt to go to [facility] after procedure. Report called to [facility]. AC aware of room change.
--- NOTE | 2025-09-06 10:15 | PRE.ANES_ITS ---
ASA Classification* ASA Classification ASA Classification: 3 Assessment & Plan Anesthesia* Anesthesia Assessment Anesthesia Assessment: Discussed sedation and/or anesthesia options, risks, benefits, and alternatives with patient/parents/legal guardian/POA. Questions invited. The patient/parents/legal guardian/POA seems to understand and agrees to proceed with anesthesia plan. Reviewed the physical assessment, medical history, allergy history and patient home medications list prior to surgery/procedure/anesthetic and documented any changes. Performed airway and anesthesia risk assessments. Anesthesia Type Anesthesia Type: MAC Anesthesia Focused Assessment* Temperature: 97.9 F Pulse Rate: 85 Blood Pressure: 116/51 Respiratory Rate: 21 Pulse Ox: 92 Oxygen Flow Rate (L/min): 2 Airway Assessment Mouth opens: >3 cm Mallampati Score: II Labs Anesthesia Preop lab: CBC WBC, (4.4-11.0) 7.1 K/mm3 Today, 05:50 RBC, (4.2-5.4) 3.07 M/mm3 L Today, 05:50 Hgb, (12.0-15.0) 7.9 g/dL L Today, 05:50 Hct, (37-47) 25.6 % L Today, 05:50 Plt Count, (150-450) 226 K/mm3 Today, 05:50 CHEMISTRY Potassium, (3.5-5.1) 3.8 mmol/L Today, 05:50 Sodium, (135-145) 144 mmol/L Today, 05:50 Magnesium, (1.5-2.2) 2.3 mg/dL H 09/05/25, 13:56 Phosphorus, (2.5-4.9) 3.0 mg/dL 06/27/23, 20:14 BUN, (4-19) 6 mg/dL Today, 05:50 Creatinine, (0.70-1.20) 0.56 mg/dL L Today, 05:50 Glucose, (70-99) 84 mg/dL Today, 05:50 TSH, (0.300-4.200) 3.420 uIU/mL Today, 05:50 COAG PT, (11.7-14.9) 15.4 SECONDS H 09/05/25, 13:56 Pre-Assessment Diagnosis/Proposed Procedure Planned Operative Procedure(s): EGD colonoscopy. Anesthesia History Anesthesia History - associate producer: Anesthesia History - associate producer Hx Hospitalization Any Problems With Anesthesia Cholinesterase deficiency You/Your Family Experience fever (hyperthermia) with Relationship Recent Exposure to Contagious Disease Does patient have nerve stimulator Patient instructed to have device shut off --Does patient have Pacemaker No 09/06/25 10:03 or ICD? When Was Last Pacemaker Check QUESTION #4 FULL TEXT: You/Your Family Experience fever (hyperthermia) with Anesthesia Last Oral Intake Last Oral intake: Last Oral Intake NPO since 00:00 09/06/25 10:03 Meds taken in AM with sips of water? Meds patient instructed to take am of surgery PONV PONV - associate producer: PONV - associate producer Female HX of Motion Sickness HX of N/V After Surgery Non-Smoker Duration of Surgery greater than 60 minutes Number of Risk Factors PONV Score Height & Weight Height & Weight: Anesthesia: Height & Weight Height 5 ft 0.75 in 09/06/25 10:03 Weight: 75.7 kg 09/06/25 10:03 Body Mass Index (BMI) 31.8 09/06/25 10:03 Respiratory Assessment Respiratory Assessment - associate producer: Respiratory Tract Infection Hx - associate producer Hx Respiratory Tract Infection No 06/13/25 19:55 STOP Sleep Apnea STOP Sleep Apnea - associate producer: STOP Sleep Apnea - associate producer Hx Hypertension Yes 09/05/25 16:42 Hx Sleep Apnea No 09/05/25 16:42 CPAP BIPAP Do you snore loudly (louder No 09/05/25 16:42 than talking or can be heard Do you often feel tired/ No 09/05/25 16:42 fatigued/ sleepy during daytime? Has anyone observed you stop No 09/05/25 16:42 breathing during sleep? STOP Results Negative 09/05/25 16:42 QUESTION #5 FULL TEXT : Do you snore loudly (louder than talking or can be heard through closed doors)? Tobacco Use History Tobacco Use History - associate producer: Tobacco Use History - associate producer Tobacco Use Smoking Status Heavy Smoker (>10/day) 09/05/25 19:00 Hx Tobacco Use Yes 09/05/25 16:42 Years Smoking Packs Smoked per Day Smoking Cessation Date was within the last 15 years Hx Smoking Cessation Date Hx Smoking Cessation Counseling Hematologic Medial History Hematologic Hx - associate producer: Hematologic Medical Hx - roving sizer Hx of Blood Transfusion Yes 09/05/25 16:42 Hx of Transfusion in last 3 Yes 09/05/25 16:42 Months Date of Last Transfusion (if 09/05/25 09/05/25 16:42 within last 3 months) Ever experience any problems No 09/05/25 16:42 with transfusion(s)? Specify any problems Hx of Preganancy in last 3 No 09/05/25 16:42 Months Nurse Filling Out Transfusion MHOCHSTET 09/05/25 16:42 & Questions: Date: 09/05/25 09/05/25 16:42 Time: 16:55 09/05/25 16:42 Patient unable to answer at this time (ie. confused, unrespo /Reproduction History /Reproductive History - associate producer: /Reproductive Hx- associate producer Hx Now Gestational Age (in weeks): EDC: Hx Hx Para Hx Section SAB Does the father of the baby or his family experience fever w Father of the baby Malignant Hypertension history comment Active Medications Active Medications: Current Medications Generic Name Dose Route Start Last Admin Trade Name Freq PRN Reason Stop Dose Admin Acetaminophen 650 mg 09/05/25 16:40 Acetaminophen 325 Mg Tablet PO Q4H PRN PRN Fever, pain 1-10/10 Hydrocodone Bitart/Acetaminophen 1 tablet 09/05/25 16:40 Hydrocodone Bitartrate/Apap 5/325 Tablet PO TID PRN pain Al Hydrox/Mg Hydrox/Simethicone 30 ml 09/05/25 16:40 Mag /Aluminum/Simeth Wch Udc 30 Ml Oral.Susp PO Q6H PRN PRN Gastric Burning Albuterol Sulfate 2.5 mg 09/05/25 16:40 Albuterol 2.5 Mg/3 Ml Vial.Neb. INHALATION Q2H PRN PRN Dyspnea, wheezing Albuterol/Ipratropium 3 ml 09/05/25 16:40 09/06/25 06:51 Ipratropium/Albuterol Sulfate 3 Ml Ampul.Neb INHALATION 3 ml Q6HWA.RT JONH Administration Atorvastatin Calcium 80 mg 09/05/25 22:00 09/05/25 21:33 Atorvastatin Calcium 80 Mg Tablet PO 80 mg QHS JONH Administration Bupropion HCl 300 mg 09/06/25 10:00 Bupropion (Xl) 300 Mg Tablet.Xl PO QAM JONH Calamine/Phenol 1 applic 09/05/25 18:00 09/05/25 21:34 Menthol/Lanolin/Calamine/Znox 113 Gm Tube TOPICAL 1 applic 4X/DAY JONH Administration Protocol Carbidopa/Levodopa 2 tablet 09/06/25 07:00 09/05/25 21:33 Carbidopa/Levodopa 25/100 Tablet PO 2 tablet TIDAC JONH Administration Fluticasone Propionate 1 spray 09/06/25 10:00 Fluticasone 0.05% 1 [place] Nasal.Sry NASAL DAILY JONH Guaifenesin 10 ml 09/05/25 16:40 Guaifenesin 10 Ml Udc (200mg/10ml) PO Q4H PRN PRN COUGH Hydralazine HCl 10 mg 09/05/25 16:40 Hydralazine 20 Mg/Ml Vial IV Q4H PRN PRN SBP > 160 Protocol Sodium Chloride 250 mls @ 15 mls/hr 09/05/25 17:05 09/06/25 09:35 IV 0 mls/hr .[id number] PRN Infusion Saline Flush Sodium Chloride 250 mls @ 15 mls/hr 09/05/25 17:05 IV .[id number] PRN Additional IVPB Infusion Pantoprazole Sodium 40 mg/ 100 mls @ 300 mls/hr 09/06/25 10:00 09/06/25 09:33 Sodium Chloride IV Infused Q12 JONH Infusion Lactated Ringer's 1,000 mls @ 15 mls/hr 09/06/25 09:30 09/06/25 10:05 IV 15 mls/hr .Q48H JONH Administration Morphine Sulfate 15 mg 09/05/25 16:57 Morphine Sr 15 Mg Tablet PO BID PRN PAIN SCORE 1-10 Ondansetron HCl 4 mg 09/05/25 16:40 Ondansetron 4 Mg/2 Ml Vial IV Q8H PRN PRN NAUSEA/VOMITING Pregabalin 300 mg 09/05/25 22:00 09/05/25 21:38 Pregabalin 75 Mg Capsule PO 300 mg BID JONH Administration Sertraline HCl 100 mg 09/06/25 10:00 Sertraline 100 Mg Tablet PO DAILY JONH Sodium Chloride 10 - 40 ml 09/05/25 17:05 09/06/25 09:11 0.9% Saline Lock 10 Ml Syringe IV 10 ml UD PRN Administration SALINE FLUSH Trazodone HCl 100 mg 09/05/25 16:40 Trazodone 100 Mg Tablet PO QHS PRN PRN INSOMNIA PFSH Medical History CVA (cerebral vascular accident) Chronic hypoxic respiratory failure, on home oxygen therapy Tobacco abuse Hyperlipidemia Parkinson disease Irritable bowel syndrome Depression Coronary artery disease Atrial fibrillation Urinary tract infection Gastrointestinal bleed Myocardial infarct COPD (chronic obstructive pulmonary disease) Home Medications ?Medication ?Instructions ?Recorded ?Last Taken ?Type albuterol sulfate 2.5 mg/3 mL 2.5 mg inhalation Q4-6H PRN 07/31/25 Unknown History (0.083 %) solution for nebulization shortness of breat h or wheezing apixaban 5 mg tablet (Eliquis) 5 mg PO BID 07/31/25 Un known History aspirin 81 mg tablet 81 mg PO QDAY 07/31/25 Unkno wn History bupropion HCl 300 mg 24 hr tablet, 300 mg PO QAM 07/31 Unknown History extended release carbidopa 25 mg-levodopa 100 mg 2 tab PO TID 07/31/25 Unknown History tablet (Sinemet) fluticasone propionate 50 1 spray intranasal QDAY 07/15 04/07 Unknown History mcg/actuation nasal spray,suspension prednisone 10 mg tablet 10 mg PO DAILY 07/31/25 Unkn own History pregabalin 300 mg capsule (Lyrica) 300 mg PO BID 07/31 Unknown History rosuvastatin 40 mg tablet 40 mg PO QDAY 07/31/25 Unkno wn History sertraline 100 mg tablet (Zoloft) 100 mg PO QDAY 07/31 Unknown History torsemide 100 mg tablet 100 mg PO QDAY PRN Swelling 07/31/25 Unknown History umeclidinium 62.5 mcg-vilanterol 1 inh inhalation Q24H 07/31/25 Unknown History 25 mcg/actuation powdr for inhalation (Anoro Ellipta) hydrocodone-acetaminophen 5-325mg 1 tab PO TID PRN greg n 09/05/25 Unknown History 5mg-325mg morphine 20 mg capsule,extended 20 mg PO BID PRN PRN p ain 09/05/25 Unknown History release pellets trazodone 100 mg tablet 100 mg PO QHS PRN PRN insomn ia 09/05/25 Unknown History OXYGEN - Supplemental ([facility] Pulmonary Information 09/06 Unknown History INFORMATIONAL USE ONLY) Allergy/AdvReac Type Severity Reaction Status Date / Time No Known Allergies Allergy Verified 09/05/25 13:37 Family History Mother Cancer Father Heart disease Surgical History History of back surgery Stented coronary artery Social History household members: none Smoking Status: Heavy Smoker (>10/day) alcohol intake: never substance use type: does not use Review of Systems (Anesthesia) ROS Narrative System reviewed and no additional complaints, except as documented.
--- NOTE | 2025-09-06 10:51 | SUR.PREOP ---
Patient used BSC with transfer assistance, incontinence of bowel in bed, changed sheets and gown and brief. Void and flecks of stool seen, appropriate for colonoscopy.
--- NOTE | 2025-09-06 11:43 | OP.EGD_ITS ---
Patient Name: Elida Graves Procedure Date: 09/06/2025 10:38 AM Date of : 1950 Age: 74 Procedure: Upper GI endoscopy Indications: Iron deficiency anemia Providers: Tony Gentile DO Medicines: Monitored Anesthesia Care Patient Profile: This is a 74 year old female. Refer to note in patient chart for documentation of history and physical. Patient has symptoms. Complications: No immediate complications. Procedure: Pre-Anesthesia Assessment: - Prior to the procedure, a History and Physical was performed, and patient medications and allergies were reviewed. The patient is competent. The risks and benefits of the procedure and the sedation options and risks were discussed with the patient. All questions were answered and informed consent was obtained. Patient identification and proposed procedure were verified by the physician in the pre-procedure area. Mental Status Examination: alert and oriented. Airway Examination: normal oropharyngeal airway and neck mobility. Respiratory Examination: clear to auscultation. CV Examination: normal. Prophylactic Antibiotics: The patient does not require prophylactic antibiotics. Prior Anticoagulants: The patient has taken no anticoagulant or antiplatelet agents. ASA Grade Assessment: II - A patient with mild systemic disease. After reviewing the risks and benefits, the patient was deemed in satisfactory condition to undergo the procedure. The anesthesia plan was to use monitored anesthesia care (MAC). Immediately prior to administration of medications, the patient was re-assessed for adequacy to receive sedatives. The heart rate, respiratory rate, oxygen saturations, blood pressure, adequacy of pulmonary ventilation, and response to care were monitored throughout the procedure. The physical status of the patient was re-assessed after the procedure. After obtaining informed consent, the endoscope was passed under direct vision. Throughout the procedure, the patient's blood pressure, pulse, and oxygen saturations were monitored continuously. The Colonoscope was introduced through the mouth, and advanced to the fourth part of the duodenum. Small bowel enteroscopy was deemed necessary. The upper GI endoscopy was accomplished without difficulty. The patient tolerated the procedure well. Scope In: 11:04:31 AM Scope Out: 11:14:04 AM Total Procedure Duration Time 0 hours 9 minutes 33 seconds Findings: The examined esophagus was normal. The entire examined stomach was normal. Multiple 5 mm angiodysplastic lesions without bleeding were found in the second portion of the duodenum and in the fourth portion of the duodenum. Coagulation for bleeding prevention using heater probe was successful. Estimated blood loss was minimal. Few non-bleeding superficial duodenal ulcers were found in the first portion of the duodenum. Impression: - Normal esophagus. - Normal stomach. - Multiple non-bleeding angiodysplastic lesions in the duodenum. Treated with a heater probe. - No specimens collected. Recommendation: - Discharge patient to home. - Resume previous diet. - Continue present medications. Procedure Code(s): --- Professional --- 00195, Small intestinal endoscopy, enteroscopy beyond second portion of duodenum, not including ileum; with control of bleeding (eg, injection, bipolar cautery, unipolar cautery, laser, heater probe, stapler, plasma equalizing saw operator) CPT copyright 2021 [employer]. All rights reserved. The codes documented in this report are preliminary and upon edge dyer review may be revised to meet current compliance requirements. Tony Gentile DO 09/06/2025 11:43:05 AM This report has been signed electronically. Number of Addenda: 0 Note Initiated On: 09/06/2025 10:38 AM
--- NOTE | 2025-09-06 11:43 | OP.PROVAT_ITS ---
09/06/2025 [facility] Re : Upper GI endoscopy procedure for Elida Marroquinjusta Arora This procedure was performed on Saturday, September 06, 2025. My impressions and recommendations are as follows: Impressions : - Normal esophagus. - Normal stomach. - Multiple non-bleeding angiodysplastic lesions in the duodenum. Treated with a heater probe. - No specimens collected. Recommendations : - Discharge patient to home. - Resume previous diet. - Continue present medications. My findings are described in the full procedure note, which is enclosed. If I can be of further assistance, please feel free to contact me at . Sincerely, Tony Gentile, 09/06/2025 11:43:05 AM This report has been signed electronically.
--- NOTE | 2025-09-06 11:46 | OP.PROVAT_ITS ---
09/06/2025 [facility] Re : Colonoscopy procedure for Elida Marroquinjusta Arora This procedure was performed on Saturday, September 06, 2025. My impressions and recommendations are as follows: Impressions : - Three non-bleeding colonic angioectasias. Treated with a heater probe. - Diverticulosis in the recto-sigmoid colon and in the sigmoid colon. - No specimens collected. Recommendations : - Discharge patient to home. - Resume previous diet. - Continue present medications. - No repeat colonoscopy due to age. My findings are described in the full procedure note, which is enclosed. If I can be of further assistance, please feel free to contact me at . Sincerely, Tony Gentile, 09/06/2025 11:45:58 AM This report has been signed electronically.
--- NOTE | 2025-09-06 11:46 | OP.COLON_ITS ---
Patient Name: Elida Graves Procedure Date: 09/06/2025 11:14 AM Date of : 1950 Age: 74 Procedure: Colonoscopy Indications: Iron deficiency anemia Providers: Tony Gentile DO Medicines: Monitored Anesthesia Care Patient Profile: This is a 74 year old female. Refer to note in patient chart for documentation of history and physical. Patient has symptoms. Last Colonoscopy: date unknown. Unable to locate last colonoscopy report. Complications: No immediate complications. Procedure: Pre-Anesthesia Assessment: - Prior to the procedure, a History and Physical was performed, and patient medications and allergies were reviewed. The patient is competent. The risks and benefits of the procedure and the sedation options and risks were discussed with the patient. All questions were answered and informed consent was obtained. Patient identification and proposed procedure were verified by the physician in the pre-procedure area. Mental Status Examination: alert and oriented. Airway Examination: normal oropharyngeal airway and neck mobility. Respiratory Examination: clear to auscultation. CV Examination: normal. Prophylactic Antibiotics: The patient does not require prophylactic antibiotics. Prior Anticoagulants: The patient has taken no anticoagulant or antiplatelet agents. ASA Grade Assessment: II - A patient with mild systemic disease. After reviewing the risks and benefits, the patient was deemed in satisfactory condition to undergo the procedure. The anesthesia plan was to use monitored anesthesia care (MAC). Immediately prior to administration of medications, the patient was re-assessed for adequacy to receive sedatives. The heart rate, respiratory rate, oxygen saturations, blood pressure, adequacy of pulmonary ventilation, and response to care were monitored throughout the procedure. The physical status of the patient was re-assessed after the procedure. After I obtained informed consent, the scope was passed under direct vision. Throughout the procedure, the patient's blood pressure, pulse, and oxygen saturations were monitored continuously. The Colonoscope was introduced through the anus and advanced to the terminal ileum. The colonoscopy was performed without difficulty. The patient tolerated the procedure well. The quality of the bowel preparation was adequate. The ileocecal valve, appendiceal orifice, and rectum were photographed. Scope In: 11:18:52 AM Scope Withdrawal Time 0 hours 11 minutes 51 seconds Scope Out: 11:34:49 AM Total Procedure Duration Time 0 hours 15 minutes 57 seconds Findings: The perianal and digital rectal examinations were normal. Three medium-sized angioectasias without bleeding were found in the cecum. Coagulation for bleeding prevention using heater probe was successful. Estimated blood loss was minimal. A few small and large-mouthed diverticula were found in the recto-sigmoid colon and sigmoid colon. Impression: - Three non-bleeding colonic angioectasias. Treated with a heater probe. - Diverticulosis in the recto-sigmoid colon and in the sigmoid colon. - No specimens collected. Recommendation: - Discharge patient to home. - Resume previous diet. - Continue present medications. - No repeat colonoscopy due to age. Procedure Code(s): --- Professional --- 70170, Colonoscopy, flexible; with control of bleeding, any method CPT copyright 2021 [employer]. All rights reserved. The codes documented in this report are preliminary and upon farm equipment service technician review may be revised to meet current compliance requirements. Tony Gentile DO 09/06/2025 11:45:58 AM This report has been signed electronically. Number of Addenda: 0 Note Initiated On: 09/06/2025 11:14 AM
--- NOTE | 2025-09-06 11:48 | PCM.POST.ANE ---
Anesthesia: Postop Eval I Current Vital Signs Temperature: 98.4 F Pulse Rate: 92 Blood Pressure: 94/40 Respiratory Rate: 16 Pulse Ox: 95 Oxygen Delivery Method: Room Air Assessment Airway patent: Yes Spontaneous unlabored respirations: Yes Mental status: Awake and Calm nausea: No Vomiting: No Anesthesia Complication: No Fluid Hydration Crystalloid volume administer (ml): 400 Total IV fluid infused: 400 Progress Note Anesthesia document: Postop Eval 1 completed: Yes
--- NOTE | 2025-09-06 11:50 | PN_ITS ---
Progress Note Follow-up in office: [2 weeks for capsule endoscopy only] Okay to restart apixaban today Okay to restart Aspirin today New GI related medications for discharge: Carafate 1 g 3 times a day x 60 days for duodenal ulcers and Protonix 20 mg twice a day x 3 months] Follow-up procedures needed: [Capsule endoscopy in 2 weeks] Physical Exam Const alert, oriented x3, no apparent distress and healthy appearing General Appearance: cooperative GI normal to inspection, nondistended, normoactive bowel sounds, soft to palpation, non-tender and non-distended Percussion: normal to percussion Rectal Exam: deferred Assessment & Plan Assessment/Plan (1) Acute blood loss anemia: (2) GI bleed: PLAN: Likely secondary to ulcers in the duodenum and angiodysplastic lesions throughout her upper and lower GI tract. She will need capsule endoscopy. Visit Charges Inpatient E&M: 68127 [facility] L3
--- NOTE | 2025-09-06 11:52 | CASEMGMT ---
MARISOL CM to the pt room for assessment. Pt is still off of the floor for her procedure. CM to follow.
--- NOTE | 2025-09-06 13:28 | POSTOPAN2_ITS ---
Anesthesia Postop Eval I Sum Postop Eval Completion status Anesthesia document: Postop Eval 1 completed: Yes Anesthesia Postop Eval I Summary Anesthesia Postop Eval I Summary: Anesthesia Postop Eval I: Assessment Summary Airway patent Yes 09/06/25 11:49 SPEECH COMMUNICATION INSTRUCTOR.[email or web address] Spontaneous unlabored Yes 09/06/25 11:49 SPEECH COMMUNICATION INSTRUCTOR.GDOTT respirations Mental status Awake,Calm 09/06/25 11:49 SPEECH COMMUNICATION INSTRUCTOR.GDOTT nausea No 09/06/25 11:49 SPEECH COMMUNICATION INSTRUCTOR.GDOTT Vomiting No 09/06/25 11:49 SPEECH COMMUNICATION INSTRUCTOR.GDOTT Anesthesia Postop Eval I: Fluid Summary Crystalloid volume administer 400 09/06/25 11:49 SPEECH COMMUNICATION INSTRUCTOR.GDOTT (ml) Colloids volume administered ( ml) Blood Product volume administered (ml) Total IV fluid infused 400 09/06/25 11:49 SPEECH COMMUNICATION INSTRUCTOR.GDOTT Anesthesia Postop Eval I: Summary Notes Anesthesia Complication No 09/06/25 11:49 SPEECH COMMUNICATION INSTRUCTOR.GDOTT Anesthesia Complication Comment: Post-operative progress note Anesthesia: Postop Eval II Evaluation Mental status: Awake Pain Level: 0 nausea: No Vomiting: No
--- NOTE | 2025-09-06 13:28 | PCM.POSTANE2 ---
Anesthesia Postop Eval I Sum Postop Eval Completion status Anesthesia document: Postop Eval 1 completed: Yes Anesthesia Postop Eval I Summary Anesthesia Postop Eval I Summary: Anesthesia Postop Eval I: Assessment Summary Airway patent Yes 09/06/25 11:49 SENIOR C SOFTWARE ENGINEER.GDOTT Spontaneous unlabored Yes 09/06/25 11:49 SENIOR C SOFTWARE ENGINEER.GDOTT respirations Mental status Awake,Calm 09/06/25 11:49 SENIOR C SOFTWARE ENGINEER.GDOTT nausea No 09/06/25 11:49 SENIOR C SOFTWARE ENGINEER.GDOTT Vomiting No 09/06/25 11:49 SENIOR C SOFTWARE ENGINEER.GDOTT Anesthesia Postop Eval I: Fluid Summary Crystalloid volume administer 400 09/06/25 11:49 SENIOR C SOFTWARE ENGINEER.GDOTT (ml) Colloids volume administered ( ml) Blood Product volume administered (ml) Total IV fluid infused 400 09/06/25 11:49 SENIOR C SOFTWARE ENGINEER.GDOTT Anesthesia Postop Eval I: Summary Notes Anesthesia Complication No 09/06/25 11:49 SENIOR C SOFTWARE ENGINEER.GDOTT Anesthesia Complication Comment: Post-operative progress note Anesthesia: Postop Eval II Evaluation Mental status: Awake Pain Level: 0 nausea: No Vomiting: No
--- NOTE | 2025-09-06 13:30 | CASEMGMT ---
RN LUCA Assessment Face to Face with patient for initial transition planning/care coordination assessment. RN LUCA introduced self and role at [facility], pt voices understanding. Pt is A&Ox4 and is resting comfortably in bed and is calm. Care providers, pharmacy, and demographics verified. Admitting dx: Acute on Chronic KHLOE, GI Bleed LACE Strata: 2 PCP: Kelsey Arora Specialists: Valdo RODRIGUEZ Preferred [facility]acy[facility] Insurance: [facility] MCR ADV Prescription Benefit: Yes LNOK: Mireille Marquez (Roommate) Living Arrangements: Pt lives with Mireille in a single story condo with one step to enter ADLs/IADLs: Pt states that her roommates assists her at home with cooking, cleaning, and moving around as needed. Transportation: Pt states that she only drives occasionally and that Mireille mainly drives her DME: Home oxygen through [employer]. Unable to verify due to [employer] bring closed until Thursday. Pt states that she has a concentrator and a POC that Mireille can bring in @ DC if needed. Pt states that she normally wears 2L HS and PRN. Pt states that she does not have a pulse ox. Educated the pt on purchasing options. Pt also has a FWW and shower chair. HHC/SNF: Reports recent HH hx but cannot recall the name of the agency. Pt states that she has been to [facility] and [facility] TCU in the past. Pt?s goal: TBD Plan: TBD. Anticipate SNF vs home with HHC. Pt reports that she was recently active with [facility] but she had it revoked. Pt states that she is not interested in Hospice services at this time. This RN CM educated the pt about Palliative Care. However, pt states that she is unsure if she would like this or not. Regarding DC planning, the pt states that she is open to whatever is needed. Current 6-click score is 14 and PT is pending. PT reports that this pt is next on their list. CM to follow PT evals and f/u with the pt regarding safe DC planning. Pt denies further questions or concerns at this time. Report given to MS3 MARISOL SEGOVIA. Yifan Barrera RN, CM
--- NOTE | 2025-09-06 14:32 | CASEMGMT ---
MARISOL SEGOVIA updated by therapy that patient ambulated 40ft SBA and could benefit from HHC at discharge if patient would like. MARISOL SEGOVIA in to discuss discharge planning with patient. MARISOL SEGOVIA explained HHC with patient and home bound status. Patient states she is not sure if she will be home bound at discharge and would like to see how she does at [facility] and then decide if she needs HHC. MARISOL SEGOVIA provided patient HHC list and instructed patient that should she reconsider HHC, she would need to follow up with PCP to set it up, patient voiced understanding. Patient had no further questions or concerns.
--- NOTE | 2025-09-06 14:37 | CASEMGMT ---
Discharge Planning A list of?HH providers including quality and resource use data and consistent with the patient's preferred geographic region, medical needs, and insurance network was created in [facility] Guide.? This list was provided to the RN LUCA. Leigha Hitchcock, Discharge Planning Asst.
--- NOTE | 2025-09-06 14:43 | CASEMGMT ---
Social Work SW attempted to speak with pt to follow up on advance directives and [facility] concerns. Pt stated she has advance directives but no one available to bring in those documents. pt confirmed she needs transportation and utility resources. SW provided [facility] information and transportation resources. Pt appreciative. Pt identified no other concerns. Jennifer Soliman [employer] PROGRAM SPECIALIST
--- NOTE | 2025-09-06 14:50 | DS.PCM_ITS ---
Providers Date of Admission: 09/05/25 Primary Care Physician: Dr. Kelsey Arora MD Consultations 09/05/25 16:40 Consult: Gastroenterology Routine Consulting Provider: [facility] Reason for Consult: ABLA, GI bleed EMERGENT Consult: No Notified: Yes Date Notified: 09/05/25 Time Notified: 15:15 Method of Notification: Text Consult: Product Steward / Pulmonary Medicine Routine Consulting Provider: Intensivists/Pulmonary Med Reason for Consult: ABLA, GI bleed, Hgb <5 (stable VS, but per protocol ICU admission) EMERGENT Consult: No Notified: Yes Date Notified: 09/05/25 Time Notified: 15:12 Method of Notification: Text Reason For Visit: ACUTE ON CHRONIC KHLOE, GI BLEED Diagnosis Discharge Diagnosis (1) GI bleed: Status: Acute Code(s): K92.2 - Gastrointestinal hemorrhage, unspecified (2) Acute blood loss anemia: Status: Acute Code(s): D62 - Acute posthemorrhagic anemia Plan ABLA: * Hg 4.2 on admission, now up to 7.9 after transfusion of 3 units PRBCs. * monitor * 2/2 GI bleed GI bleed * GI consult with plan for endoscopy today * Patient did have EGD on 06/13 that was unremarkable. * start IV pantoprazole. Chronic medical conditions: * CAD: Status post previous PCI, holding aspirin and apixaban given current presentation, continue statin therapy, not on beta-abhay nor KENNEDY inhibitor/ARB, clarified to be certain. * Chronic COPD with chronic hypoxic respiratory failure (2.5 to 3L NC) chronic prednisone therapy usage: Continue home oxygen chronic supplementation, Will temporarily hold home inhalers in the interim transition to ATC DuoNeb therapy cautiously with low threshold to transition to budesonide if issues arise, PRN albuterol, HOB, IS parameters. Patient of note is on chronic 10 mg daily of prednisone therapy. * PAF: Given acute presentation holding apixaban, not on any rate or rhythm agent currently clarified to be certain. * Hypertension: Noted history, per current list not on any hypertensive regimen aside from as needed torsemide for swelling, clarified to be certain will add if appropriate, as needed IV hydralazine in the interim. * Hyperlipidemia: Will continue patient on statin therapy. * Parkinson's disease: Complicates presentation, maintain on fall precautions, will continue Sinemet regimen, PT/OT/case management consulted for discharge planning. * Anxiety and depression: Will continue patient home bupropion and sertraline home regimen. * Hypothyroidism: Noted history, clarifying thyroid supplementation is not currently listed, add once able to obtain. TSH/FT4 requested. * Tobacco Abuse: Encouraged cessation, inpatient consultation per RT, NR if desired. * Obesity class I: Weight loss and lifestyle changes encouraged. * History of VTE: Patient with previous DVT, PE, at this time temporarily holding Eliquis given concern for recurrent GI bleed component as noted #1. Attempting to clarify date given need to hold anticoagulant. Given history may also require consideration of IVCF and d/c NOAC. SCDs will be continued. * GERD with history GI bleed: As noted above will maintain on continuous Protonix given situation. * Chronic pain syndrome: Following w/ Hospice, on several pain medications including pregabalin as well as oral morphine, clarifying to ensure these are still ongoing and we will continue to avoid any withdrawal. Will however hold if concern for BP or respiratory suppression or encephalopathy. * Chronic Kidney Disease Stage I versus stage II per GFR trending: Admission BUN/Cr 6/0.69, GFR 90, GFR tends to vacillate on the upper 80s to low 90 range, baseline renal function primarily 0.6-0.8, repeat BMP in AM. DVT prophylaxis: SCDs Patient has remained stable and does not require being in the intensive care any further. No need for critical care consultation at this time. Medications at Discharge Home Medications albuterol sulfate 2.5 mg/3 mL (0.083 %) solution for nebulization 2.5 mg inhalation Q4-6H PRN shortness of breath or wheezing 07/31/25 apixaban 5 mg tablet (Eliquis) 5 mg PO BID 07/31/25 Held on 09/06/25. Instructions: Resume on 09/10/25. aspirin 81 mg tablet 81 mg PO QDAY 07/31/25 Held on 09/06/25. Instructions: Resume on 09/10/25. bupropion HCl 300 mg 24 hr tablet, extended release 300 mg PO QAM 07/31/25 carbidopa 25 mg-levodopa 100 mg tablet (Sinemet) 2 tab PO TID 07/31/25 fluticasone propionate 50 mcg/actuation nasal spray,suspension 1 spray intranasal QDAY 07/31/25 prednisone 10 mg tablet 10 mg PO DAILY 07/31/25 pregabalin 300 mg capsule (Lyrica) 300 mg PO BID 07/31/25 rosuvastatin 40 mg tablet 40 mg PO QDAY 07/31/25 sertraline 100 mg tablet (Zoloft) 100 mg PO QDAY 07/31/25 torsemide 100 mg tablet 100 mg PO QDAY PRN Swelling 07/31/25 umeclidinium 62.5 mcg-vilanterol 25 mcg/actuation powdr for inhalation (Anoro Ellipta) 1 inh inhalation Q24H 07/31/25 hydrocodone-acetaminophen 5-325mg 5mg-325mg 1 tab PO TID PRN pain 09/05/25 morphine 20 mg capsule,extended release pellets 20 mg PO BID PRN PRN pain 09/05/25 trazodone 100 mg tablet 100 mg PO QHS PRN PRN insomnia 09/05/25 OXYGEN - Supplemental ([facility] INFORMATIONAL USE ONLY) Pulmonary Information 09/06/25 Hospital Course Operations None Procedures Colonoscopy and EGD Summary of Care Provided Hospital Course: Patient presents with GI bleed. Patient had a hemoglobin of 4.2 with transfused 3 units and was 7.9. Patient underwent EGD and colonoscopy performed that showed in the duodenum, nonbleeding angiodysplastic lesions that were treated with heater probe and 3 nonbleeding colonic angioectasias that were treated with heater probe. No further bleeding since been here. Patient will be discharged home in stable condition. Patient advised to return if she has further bleeding. Weight / BMI Weight Weight: 75.7 kg Body Mass Index (BMI) 31.8 ABG / Lab / Microbiology Data 09/06/25 05:50 09/06/25 05:50 Laboratory: Laboratory Results - last 24 hr 09/05/25 13:56: Sodium 141, Potassium 4.1, Chloride 107 H, Carbon Dioxide 24.0, Anion Gap 10, BUN 6, Creatinine 0.69 L, Estim Creat Clear Calc 55.02, Est GFR (MDRD) Non-Af 90, BUN/Creatinine Ratio 9.3 L, Glucose 93, Calcium 8.6, Magnesium 2.3 H, Iron 10 L, TIBC 376, Iron Saturation 2.7 L, Unsaturated IBC 366, Ferritin 16 L, Total Bilirubin 0.19, Direct Bilirubin 0.12, AST 13, ALT < 5, Alkaline Phosphatase 65, Total Protein 6.2, Albumin 3.6, Globulin 2.6, Blood Type A POSITIVE, Antibody Screen NEGATIVE, Crossmatch See Detail 09/05/25 23:00: Hgb 6.8 L, Hct 23.0 L 09/06/25 01:50: Hgb 7.6 L, Hct 25.6 L 09/06/25 05:50: WBC 7.1, RBC 3.07 L, Hgb 7.9 L, Hct 25.6 L, MCV 83.4, MCH 25.7 L , MCHC 30.9 L D, RDW Std Deviation 51.3 H, RDW Coeff of Anabela 17.0 H, Plt Count 226, MPV 11.2, Immature Gran % (Auto) 0.600, Neut % (Auto) 60.2, Lymph % (Auto) 19.4, Hinds % (Auto) 10.2 H, Eos % (Auto) 8.8 H, Baso % (Auto) 0.8, Absolute Neuts (auto) 4.3, Absolute Lymphs (auto) 1.37, Nucleated RBC % 0.3, Sodium 144, Potassium 3.8, Chloride 110 H, Carbon Dioxide 25.3, Anion Gap 9, BUN 6, C reatinine 0.56 L, Estim Creat Clear Calc 54.38, Est GFR (MDRD) Non-Af 95, BUN/Creatinine Ratio 10.8, Glucose 84, Calcium 8.2, Total Bilirubin 1.06, AST 14, ALT < 5, Alkaline Phosphatase 64, Total Protein 5.3 L, Albumin 3.2 L, Globulin 2.2, Albumin/Globulin Ratio 1.5, TSH 3.420, Free T4 1.20 Microbiology: Microbiology 09/05/25 14:20 Stool Stool Occult Blood (IVELISSE) - Final Occult Blood Positive D/C Instructions DC O2, CPAP, BIPAP Needs Home O2 Discharge instructions: Yes Type of respiratory needs?: Oxygen Oxygen frequency: Continuous Continuous oxygen liters per minute: 2.5 DC home with Oxygen: Yes Home O2 MD Review: I have reviewed the oxygen testing, and the patient qualifies for home oxygen equipment and portability. The patient is mobile in the home and the community. Meaningful Use Info Meaningful Use Meaningful Use Diagnoses (Choose all that apply): None applicable Discharge Plan Admission Admit Date/Time: 09/05/25 15:08 Primary Reason for Your Visit: GI bleed Attending Provider: Pawan Jara Primary Care Provider: Kelsey Arora Consulting Providers: Anastasia Garcia; Taye Guzman; Friend,Tony; Malina Putnam; Maureen Silva; Mojgan Li Instructions Additional Instructions / Restrictions: Yes severe anemia due to a GI bleed. There are some areas in your colon as well as in your small intestine that have some areas that were of concern that were treated with heater probe. If you have further bleeding or dark tarry stools, return to the hospital. Discharge Orders/Prescriptions Prescriptions: Continued prednisone 10 mg tablet 10 mg PO DAILY albuterol sulfate 2.5 mg /3 mL (0.083 %) solution for nebulization 2.5 mg inhalation Q4-6H PRN (Reason: shortness of breath or wheezing) carbidopa-levodopa [Sinemet] 25-100 mg tablet 2 tab PO TID fluticasone propionate 50 mcg/actuation spray,suspension 1 spray intranasal QDAY Rx Instructions: administer into each nostril bupropion HCl 300 mg tablet extended release 24 hr 300 mg PO QAM pregabalin [Lyrica] 300 mg capsule 300 mg PO BID sertraline [Zoloft] 100 mg tablet 100 mg PO QDAY torsemide 100 mg tablet 100 mg PO QDAY PRN (Reason: Swelling) rosuvastatin 40 mg tablet 40 mg PO QDAY umeclidinium-vilanterol [Anoro Ellipta] 62.5-25 mcg/actuation blister with device 1 inh inhalation Q24H hydrocodone-acetaminophen 5-325 mg tablet 1 tab PO TID PRN (Reason: pain) trazodone 100 mg tablet 100 mg PO QHS PRN PRN (Reason: insomnia) morphine 20 mg capsule,extend.release pellets 20 mg PO BID PRN PRN (Reason: pain) OXYGEN - Supplemental ([facility] INFORMATIONAL USE ONLY) Patient Comments: per pt, 2L for naps and HS/ DME:[employer] Held aspirin 81 mg tablet 81 mg PO QDAY Hold Instructions: Resume on 09/10/25. Eliquis 5 mg tablet 5 mg PO BID Hold Instructions: Resume on 09/10/25. Referrals / Follow Up: Kelsey Arora MD [Primary Care Provider, Medical] - Within 2 Weeks Tony Gentile DO [Med Staff - Active Staff, Gastroenterology] - Within 1 Month Disposition Disposition (needs filled in before D/C Order can be placed): Home, Self Care Charges/Coding Visit Charges Inpatient E&M: 53433 Disch Hosp
== END 2025-09-06 16:54 | disposition home or self-care (01) | DRG 378 ==
LOC: ED 15:15 → ICU 15:48 → MS3 09-06 10:11
PROVIDERS: Internal Medicine Gastroenterology; Admitting Provider Family Medicine; Emergency Provider Emergency Medicine; PCP Internal Medicine
PROC: 0DJD8ZZ Inspection of Lower Intestinal Tract, Via Natural or Artificial Opening Endoscopic (ICD-10-PCS; CPT 45378; principal; 2025-09-06 10:25)
DX: K92.2 Gastrointestinal hemorrhage, unspecified (principal); J96.11 Chronic respiratory failure with hypoxia; D68.32 Hemorrhagic disorder due to extrinsic circulating anticoagulants; D62 Acute posthemorrhagic anemia; E03.9 Hypothyroidism, unspecified; D50.9 Iron deficiency anemia, unspecified; F17.200 Nicotine dependence, unspecified, uncomplicated; Z66 Do not resuscitate; G20.A1 Parkinson's disease without dyskinesia, without mention of fluctuations; J44.9 Chronic obstructive pulmonary disease, unspecified; F32.A Depression, unspecified; I12.9 Hypertensive chronic kidney disease with stage 1 through stage 4 chronic kidney disease, or unspecified chronic kidney disease; E66.811 Obesity, class 1; I48.0 Paroxysmal atrial fibrillation; E78.5 Hyperlipidemia, unspecified; I25.10 Atherosclerotic heart disease of native coronary artery without angina pectoris; I25.2 Old myocardial infarction; N18.2 Chronic kidney disease, stage 2 (mild); F41.9 Anxiety disorder, unspecified; K21.9 Gastro-esophageal reflux disease without esophagitis; K58.9 Irritable bowel syndrome, unspecified; K31.819 Angiodysplasia of stomach and duodenum without bleeding; Z99.81 Dependence on supplemental oxygen; G89.4 Chronic pain syndrome; T45.515A Adverse effect of anticoagulants, initial encounter; K55.20 Angiodysplasia of colon without hemorrhage; Z95.5 Presence of coronary angioplasty implant and graft; Z87.19 Personal history of other diseases of the digestive system; Z79.01 Long term (current) use of anticoagulants; Z79.52 Long term (current) use of systemic steroids; Z79.82 Long term (current) use of aspirin; Z79.51 Long term (current) use of inhaled steroids; Z86.711 Personal history of pulmonary embolism; Z86.73 Personal history of transient ischemic attack (TIA), and cerebral infarction without residual deficits; Z86.718 Personal history of other venous thrombosis and embolism; Z68.31 Body mass index [BMI] 31.0-31.9, adult; Z79.899 Other long term (current) drug therapy
CPT/HCPCS: 80048; 80053; 80076; 82274; 82728; 83540; 83550; 83735; 84439; 84443; 85014; 85018; 85025; 85610; 85730; 86850; 86900; 86901; 94640; 94668; 94762; 97162; 97166; 99283; C1889; J1756; P9016; A4216; J2405